=== PATIENT | male | born 1950 ===

== ENCOUNTER 2019-12-05 09:16 | Inpatient (IN) | payer MEDICARE, MEDICAID, SELFPAY ==
--- NOTE | 2019-12-05 | ECG_ITS ---
Test Reason : SWOLLEN LEGS Blood Pressure : / mmHG Vent. Rate : 096 BPM Atrial Rate : 096 BPM P-R Int : 162 ms QRS Dur : 202 ms QT Int : 456 ms P-R-T Axes : 025 -73 053 degrees QTc Int : 576 ms Normal sinus rhythm Possible Left atrial enlargement Left axis deviation Right bundle branch block Abnormal ECG When compared with ECG of 26-OCT-2019 18:00, Heart rate has increased Referred By: Rosa Palma Electronically Signed By:RODOLFO FLORIAN MD
--- NOTE | 2019-12-05 | XR_ITS ---
EXAMINATION: XR CHEST CLINICAL INFORMATION: Cough, shortness of breath COMPARISON: Chest radiograph 10/07/2019, CT chest 10/26/2019, CT chest 10/05/2019 TECHNIQUE: 2 views of the chest were obtained. FINDINGS: Trace bibasilar effusions are decreased from prior studies. There is coarsening of the bronchiolar markings perihilar and lower zones decreased from prior radiograph 10/07/2019. No lobar or segmental airspace consolidation. No vascular congestion. The cardiopericardial silhouette is stable. Again, there is bipolar AICD and sternotomy wires. IMPRESSION: 1. Coarsening bronchiolar markings and small bibasilar effusions both decreased from prior studies. 2. No vascular congestion or interval airspace consolidation.
[2019-12-05 09:34] VITALS: BP 152/100; BP 169/98; PULSE 95; PULSE 99; RESP 22; TEMP 36.6; O2SAT 97; BMI 31.3
[2019-12-05 09:49] LABS: Glucose, Whole Blood > 600 mg/dL (60-115)
--- NOTE | 2019-12-05 10:08 | PC.NURSE ---
Rosa. MARI in to see ptAmarilys
[2019-12-05 10:11] LABS: MANUAL DIFF FLAG NO
[2019-12-05 10:14] LABS: Basophils Percent Auto 0.2 % (0-2); Hematocrit 39.5 % (42-52); Hemoglobin 12.9 g/dl (14.0-18.0); Imm Gran Abs Auto 0.08 X10*3/uL (0.00-0.03); Imm Gran Pct Auto 0.6 % (0.0-0.4); Lymphocytes Absolute Auto 2.8 X10*3/uL (1.2-4.9); Lymphocytes Percent Auto 22.7 % (20-40); Mean Corpuscular HGB Conc 32.7 g/dl (31.0-36.0); Mean Corpuscular Volume 91.9 fL (80-98); Monocytes Absolute Auto 0.6 X10*3/uL (0.1-1.2); Monocytes Percent Auto 4.5 % (2-11); Neutrophils Absolute Auto 8.9 X10*3/uL (2.0-8.3); Platelet Count 246 X10*3/uL (160-400); Red Cell Distribution Width 14.1 % (11.0-16.0); White Blood Count 12.3 X10*3/uL (4.8-10.8)
[2019-12-05] MEDS: Insulin Regular, Human 100 UNIT/ML 3 ML VIAL 10 UNIT SUBCUT (10:17)
[2019-12-05] MEDS: guaiFEN/Codeine SF 200/20/10ML 10 ML LIQUID PO (10:43)
[2019-12-05] MEDS: Furosemide 20 MG/2 ML VIAL IVPUSH (10:43)
--- NOTE | 2019-12-05 10:50 | ED.NAVMDI ---
HPI - Nausea/Vomiting/Diarrhea General Chief complaint: Nausea/Vomiting/Diarrhea Stated complaint: n/v/d Time Seen by Provider: 12/05/19 10:04 Source: EMS Mode of arrival: ambulatory Limitations: no limitations History of Present Illness HPI Narrative: 69yoM c PMHx of CKD on hemodialysis M/W/F, Insulin Dependent DM, HTN, CHF, CAD s/p bypass surgery and cardiomyopathy with last EF at [facility] in 30s, and colon cancer s/p colectomy presenting to the ED via EMS c reports of N ausea/diarrhea c generalized weakness x 4-5 days. Reports he started vomiting yesterday. Admits to chronic b/l lower extremity swelling, sob and dry cough. Denies fevers, CP, abd pain, blood stools or any other symptoms. Reports he was due for dialysis today at 9:30 in [place] on [address] although came here due to his symptoms. Reports on Sunday he had his dialysis. On arrival BS>600. Pt reports he takes 60units of Insulin Glargine at bedtime daily and is on a sliding scale of Novolog for before meals. Reports he did not take his Insulin this AM. Was recently seen here on Oct 26, 3019 and admit for Hyperglycemia, hyperkalemia and unwitnessed fall. Pt has had admissions in the past related to respiratory failure related to CHF as well. Associated nausea: Yes Related Data Home Medications Medication Instructions Recorded Confirmed atorvastatin 1 tab PO DAILY 12/05/19 12/05/19 carvedilol 1 tab PO BID 12/05/19 12/05/19 insulin aspart U-100 [Novolog 60 unit SUBCUT BEDTIME 12/05/19 12/05/19 Flexpen U-100 Insulin] midodrine 1 tab PO TIDWM 12/05/19 12/05/19 sevelamer carbonate [Renvela] 2 tab PO TID 12/05/19 12/05/19 trazodone 1 tab PO BEDTIME 12/05/19 12/05/19 Allergies Allergy/AdvReac Type Severity Reaction Status Date / Time No Known Allergies Allergy Mild NOT Verified 12/04/19 07:32 APPLICABLE Review of Systems Review of Systems: Yes all other systems are reviewed and are negative Constitutional: Constitutional: Reports as per HPI, Denies body ache(s), Denies chills, Denies excessive sweating, Denies frequent falls, Denies headache(s) and Reports weakness Eyes: Eyes: Reports as per HPI ENT: Reports as per HPI, Denies Normal hearing present, Denies vertigo, Denies dizziness, Denies ear discharge, Denies headache(s), Denies nasal congestion, Denies neck pain and Denies sore throat Cardiovascular: Cardiovascular: Reports as per HPI, Denies chest pain, Denies rapid heart rate, Denies lightheadedness, Denies radiating jaw, neck or arm pain, Denies palpitations, Reports dyspnea, Reports dyspnea on exertion and Reports orthopnea Respiratory: Respiratory: Reports as per HPI, Denies cough, Reports dyspnea and Reports dyspnea on exertion Gastrointestinal: Gastrointestinal: Reports as per HPI, Denies abdominal pain, Denies constipation, Reports diarrhea, Reports nausea and Reports vomiting Genitourinary: Genitourinary: Reports as per HPI, Denies change in libido, Denies hematuria, Denies dysuria, Denies urinary frequency and Denies urinary hesitancy Musculoskeletal: Musculoskeletal: Reports as per HPI, Denies abnormal gait, Denies muscle weakness, Denies neck pain, Denies numbness and Denies tingling Integumentary/Breasts: Skin/Breast: Reports as per HPI and Denies rash Neurologic: Reports as per HPI, Denies Normal hearing present, Denies Neuro-related abnormal movements, Denies Abnormal speech present, Denies abnormal gait, Denies behavioral changes, Denies confusion, Denies vertigo, Denies dizziness, Denies frequent falls, Denies headache(s), Denies focal weakness, Denies memory loss, Denies numbness, Denies Other visual disturbances, Denies convulsions, Denies seizure-like activity, Denies tingling, Denies paresthesias and Reports weakness Psychiatric: Psychiatric: Reports as per HPI, Denies abnormal sleep pattern, Reports anxiety, Denies behavioral changes, Denies change in appetite, Denies change in libido, Denies confusion, Reports depression, Denies difficulty concentrating, Denies auditory hallucinations, Reports hopelessness, Denies irritability, Reports anhedonia, Denies memory loss, Denies mood swings, Denies panic attacks, Denies paranoia, Denies visual hallucinations, Denies hallucinations, Denies tactile hallucinations, Denies homicidal ideation and Denies suicidal ideation Endocrine: Endocrine: Denies change in libido, Denies excessive sweating and Denies palpitations Hematologic/Lymphatic: Hematologic/Lymphatic: Reports as per HPI Allergic/Immunologic: Allergic/Immunologic: Reports as per HPI [facility] Past Medical History Attestation statement: The following information was validated with the patient. Medical History Chronic renal failure Diabetes mellitus, type 2 H/O cardiac pacemaker Hypercholesteremia Hypertension Surgical History History of carpal tunnel release History of cholecystectomy History of colon cancer History of coronary artery bypass graft Family History Family History Father Bladder cancer Mother Esophageal cancer Stomach cancer Sister Asthma Emphysema lung Social History Social History Smoked in Last 30 Days: No Use of substances other than those prescribed or required for medical reasons: No Advance Directives: No Advance Directives Information Provided: No Physical Exam Vital Signs and I&O and Narrative: Vital Signs and I&O: Vital Signs Temp 98.8 F 12/05/19 15:27 Pulse 96 12/05/19 15:27 Resp 20 12/05/19 15:42 BP 125/68 12/05/19 15:27 Pulse Ox 96 12/05/19 15:42 Intake & Output 12/04/19 12/05/19 12/05/19 18:59 06:59 18:59 Weight 205 kg Body Mass Index 68.7 Const: General: cooperative, healthy appearing, comfortable, no acute distress, well developed, alert, awake and Physically active; No confusion Nutritional Appearance: obese Orientation/consciousness: patient oriented x3 and No confusion Limitations: no limitations HENMT: Head: Yes normal to inspection, Yes No palpable skull fracture present, Yes normocephalic and Yes atraumatic Ears: hearing grossly normal bilaterally General nose exam: Normal external nose present, Normal nares present, No nasal polyps present, Normal nasal mucous membranes and turbinates present, Normal septum present and No nasal discharge present Face and sinus: Yes normal facial exam Mouth: Normal oral and palatal mucosa present, lip normal, tongue normal, Normal salivary glands and ducts present, oropharynx normal and moist mucous membranes Throat: Yes posterior oropharynx normal, Yes tonsils normal and Yes uvula midline Eyes: General: appearance normal, both eyes and all related structures Visual Plata: normal visual plata by confrontation Alignment and Position: alignment normal Periorbital: periorbital findings normal Eyelids: Yes eyelids normal Conjunctivae: conjunctivae normal Sclerae: sclerae normal Pupils: Equal, round and reactive pupils present EOM: EOMs intact bilaterally Neck: Neck: Yes normal visual inspection, Yes full ROM, Yes no lymphadenopathy, Yes no meningeal signs, Yes trachea midline and Yes supple Chest: Chest palpation & inspection: normal inspection of the chest Resp: Effort & Inspection: normal respiratory effort and able to speak in complete sentences Auscultation: clear to auscultation bilaterally, no crackles, no rales, no rhonchi and no wheezes Cardio: Rate: regular rate Rhythm: regular rhythm Heart sounds: S1 normal heart sound present and S2 normal heart sound present Peripheral pulses: Peripheral pulses 2+ throughout GI: Inspection: Yes normal to inspection Palpation (GI): Soft to palpation, nontender and No hepatosplenomegaly present Percussion: Yes normal to percussion Auscultation: normal bowel sounds : General: Yes no CVA tenderness Back/Spine/Pelvis: Back: no CVA tenderness Cervical Spine: normal cervical lordosis and cervical ROM normal Thoracic/Lumbar Spine: thoracic and lumbar spine normal to inspection and thoraco-lumbar ROM normal Skin: General skin exam: no rashes or lesions noted, elasticity normal and turgor normal Trauma: no lacerations or abrasions Wounds: no wounds Hair: normal Nails: normal Neuro: General: patient oriented x3, no meningeal signs and No confusion Cranial nerves: Yes Equal, round and reactive pupils present and No Normal hearing present Cognition (Neuro): normal cognition Speech: No Abnormal speech present Gait exam (Neuro): Normal gait present Motor exam (neuro): 5/5 motor strength present throughout Extrem: General: Yes normal to inspection, Yes full ROM, Yes capillary refill normal, No no calf tenderness and Yes edema (b/l +2 pitting edema to knees and lower legs and feet) Right upper extremity: normal to inspection, full ROM and normal capillary refill; no edema Left upper extremity: normal to inspection, full ROM and normal capillary refill; no edema Right lower extremity: normal to inspection, full ROM and normal capillary refill Left lower extremity: normal to inspection, full ROM and normal capillary refill Psych: Appearance: grossly normal and well kempt Mental Status: mental status grossly normal Speech and movement: Normal speech and movement present and Clear speech present Affect: normal affect Attitude: cooperative Thought process: Normal thought process present Thought content: Normal thought content present Insight: Good insight present (Psych) Judgement: Good judgement present (Psych) Course Course Course Narrative: - Patient's white blood cell count at 12,000 although most likely related to the multiple episodes of nausea /vomiting prior to arrival. Sodium 129 although corrected is at 141. Potassium 6.0. Chloride 93. Anion gap 22. BUN 58. Creatinine 5.54. Glucose 827. - CXR neg for pna. - Therefore patient was given 10 units of subcu insulin due to patient did not have a line at the time then was given another 10 units of IV Insulin and repeat blood glucose at this time is in the 470s. Patient also received 20 mg of IV Lasix for fluids overload and his coughing has improved. - Plan is to admit and Patient will receive dialysis while admitted. patient positive for COVID-19. Pt understands and agrees with plan. MDM - Nausea/Vomiting/Diarrhea MDM Narrative Medical decision making narrative: 69yoM c PMHx of CKD on hemodialysis M/W/F, Insulin Dependent DM, HTN, CHF, CAD s/p bypass surgery and cardiomyopathy with last EF at [facility] in 30s, and colon cancer s/p colectomy presenting to the ED via EMS c reports of N ausea/diarrhea c generalized weakness x 4-5 days. Reports he started vomiting yesterday. Admits to chronic b/l lower extremity swelling, sob and dry cough. Denies fevers, CP, abd pain, blood stools or any other symptoms. Reports he was due for dialysis today at 9:30 in [place] on [facility] although came here due to his symptoms. Reports on Sunday he had his dialysis. On arrival BS>600. Pt reports he takes 60units of Insulin Glargine at bedtime daily and is on a sliding scale of Novolog for before meals. Reports he did not take his Insulin this AM. Was recently seen here on Oct 26, 3019 and admit for Hyperglycemia, hyperkalemia and unwitnessed fall. Pt has had admissions in the past related to respiratory failure related to CHF as well. - Concern for Viral syndrome vs respiratory failure due to CHF vs Electrolyte abnormality. - Plan: Labs, CXR, EKG. Provide 20mg of lasix, 4 mg of zofran anfd 10 mg of Robitussin with codeine. Plan possible admit. Medical Records Attestation: I reviewed the patient's medical records. Lab Data Attestation: I reviewed the patient's lab results. Result diagrams: 12/05/19 10:04 12/05/19 10:53 Labs: Lab Results 12/05/19 12/05/19 12/05/19 Range/Units 09:35 10:04 10:04 WBC 12.3 H (4.8-10.8) X10*3/uL RBC 4.30 L (4.60-5.80) X10*6/uL Hgb 12.9 L (14.0-18.0) g/dl Hct 39.5 L (42-52) % MCV 91.9 (80-98) fL MCH 30.0 (27.0-33.0) pg MCHC 32.7 (31.0-36.0) g/dl RDW 14.1 (11.0-16.0) % Plt Count 246 (160-400) X10*3/uL MPV 12.0 (9.4-12.4) fL Immature Gran % (Auto) 0.6 H (0.0-0.4) % Neut % (Auto) 72.0 (45-73) % Lymph % (Auto) 22.7 (20-40) % Antelope % (Auto) 4.5 (2-11) % Eos % (Auto) 0.0 (0-4) % Baso % (Auto) 0.2 (0-2) % Lymph # (Auto) 2.8 (1.2-4.9) X10*3/uL Antelope # (Auto) 0.6 (0.1-1.2) X10*3/uL Eos # (Auto) 0.0 (0.0-0.4) X10*3/uL Baso # (Auto) 0.0 (0.0-0.2) X10*3/uL Abs Immat Gran (auto) 0.08 H (0.00-0.03) X10*3/uL Absolute Neuts (auto) 8.9 H (2.0-8.3) X10*3/uL Absolute Nucleated RBC 0.000 (0.0-0.012) X10*3/uL Nucleated RBC % (auto) 0.0 (0.0-0.2) /100WBC Hold Purple Top VBG pH (7.32-7.43) Sodium Cancelled Potassium Cancelled Chloride Cancelled Carbon Dioxide Cancelled Anion Gap Cancelled BUN Cancelled Creatinine Cancelled Estim Creat Clear Calc Cancelled Estimated GFR Cancelled POC Glucose > 600 H* (60-115) mg/dL Random Glucose Cancelled Calcium Cancelled Total Bilirubin Cancelled Direct Bilirubin Cancelled AST Cancelled ALT Cancelled Alkaline Phosphatase Cancelled Lactate Dehydrogenase (118-273) U/L C-Reactive Protein (< or = 0.50) mg/dL Total Protein Cancelled Albumin Cancelled Lipase Cancelled Acetone, Qual (Negative) Respiratory Panel Allen Adenovirus (Rapid PCR) (Not Detect.) B.pert (TEM-PCR) (Not Detect.) B.parapertussis DNA PCR (Not Detect.) C. pneumoniae DNA (PCR) (Not Detect.) Coronavirus OC43 (PCR) (Not Detect.) Coronavirus HKU1 (PCR) (Not Detect.) Coronavirus 229E (PCR) (Not Detect.) Coronavirus NL63 (PCR) (Not Detect.) Human Metapneumovir PCR (Not Detect.) Influenza A (RT-PCR) (Not Detect.) Influenza B (RT-PCR) (Not Detect.) M. pneumoniae (PCR) (Not Detect.) Parainfluenza 1 (PCR) (Not Detect.) Parainfluenza 2 (PCR) (Not Detect.) Parainfluenza 3 (PCR) (Not Detect.) Parainfluenza 4 (PCR) (Not Detect.) RSV (PCR) (Not Detect.) Entero/Rhino (PCR) (Not Detect.) SARS-CoV-2 RNA (RT-PCR) (Not Detect.) 12/05/19 12/05/19 12/05/19 Range/Units 10:28 10:53 11:24 WBC (4.8-10.8) X10*3/uL RBC (4.60-5.80) X10*6/uL Hgb (14.0-18.0) g/dl Hct (42-52) % MCV (80-98) fL MCH (27.0-33.0) pg MCHC (31.0-36.0) g/dl RDW (11.0-16.0) % Plt Count (160-400) X10*3/uL MPV (9.4-12.4) fL Immature Gran % (Auto) (0.0-0.4) % Neut % (Auto) (45-73) % Lymph % (Auto) (20-40) % Antelope % (Auto) (2-11) % Eos % (Auto) (0-4) % Baso % (Auto) (0-2) % Lymph # (Auto) (1.2-4.9) X10*3/uL Antelope # (Auto) (0.1-1.2) X10*3/uL Eos # (Auto) (0.0-0.4) X10*3/uL Baso # (Auto) (0.0-0.2) X10*3/uL Abs Immat Gran (auto) (0.00-0.03) X10*3/uL Absolute Neuts (auto) (2.0-8.3) X10*3/uL Absolute Nucleated RBC (0.0-0.012) X10*3/uL Nucleated RBC % (auto) (0.0-0.2) /100WBC Hold Purple Top SEE NOTE VBG pH (7.32-7.43) Sodium 129 L Potassium 6.0 H* Chloride 93 L Carbon Dioxide 20 L Anion Gap 22 H BUN 58 H Creatinine 5.54 H* Estim Creat Clear Calc 22.5 Estimated GFR 10 POC Glucose > 600 H* (60-115) mg/dL Random Glucose 827 H* Calcium 8.7 Total Bilirubin 1.0 Direct Bilirubin 0.6 H AST 25 ALT 69 H Alkaline Phosphatase 370 H Lactate Dehydrogenase 270 (118-273) U/L C-Reactive Protein 3.74 H (< or = 0.50) mg/dL Total Protein 6.3 L Albumin 4.0 Lipase 26 Acetone, Qual Negative (Negative) Respiratory Panel Allen Adenovirus (Rapid PCR) (Not Detect.) B.pert (TEM-PCR) (Not Detect.) B.parapertussis DNA PCR (Not Detect.) C. pneumoniae DNA (PCR) (Not Detect.) Coronavirus OC43 (PCR) (Not Detect.) Coronavirus HKU1 (PCR) (Not Detect.) Coronavirus 229E (PCR) (Not Detect.) Coronavirus NL63 (PCR) (Not Detect.) Human Metapneumovir PCR (Not Detect.) Influenza A (RT-PCR) (Not Detect.) Influenza B (RT-PCR) (Not Detect.) M. pneumoniae (PCR) (Not Detect.) Parainfluenza 1 (PCR) (Not Detect.) Parainfluenza 2 (PCR) (Not Detect.) Parainfluenza 3 (PCR) (Not Detect.) Parainfluenza 4 (PCR) (Not Detect.) RSV (PCR) (Not Detect.) Entero/Rhino (PCR) (Not Detect.) SARS-CoV-2 RNA (RT-PCR) (Not Detect.) 12/05/19 12/05/19 12/05/19 Range/Units 11:54 12:10 12:42 WBC (4.8-10.8) X10*3/uL RBC (4.60-5.80) X10*6/uL Hgb (14.0-18.0) g/dl Hct (42-52) % MCV (80-98) fL MCH (27.0-33.0) pg MCHC (31.0-36.0) g/dl RDW (11.0-16.0) % Plt Count (160-400) X10*3/uL MPV (9.4-12.4) fL Immature Gran % (Auto) (0.0-0.4) % Neut % (Auto) (45-73) % Lymph % (Auto) (20-40) % Antelope % (Auto) (2-11) % Eos % (Auto) (0-4) % Baso % (Auto) (0-2) % Lymph # (Auto) (1.2-4.9) X10*3/uL Antelope # (Auto) (0.1-1.2) X10*3/uL Eos # (Auto) (0.0-0.4) X10*3/uL Baso # (Auto) (0.0-0.2) X10*3/uL Abs Immat Gran (auto) (0.00-0.03) X10*3/uL Absolute Neuts (auto) (2.0-8.3) X10*3/uL Absolute Nucleated RBC (0.0-0.012) X10*3/uL Nucleated RBC % (auto) (0.0-0.2) /100WBC Hold Purple Top VBG pH 7.32 (7.32-7.43) Sodium Potassium Chloride Carbon Dioxide Anion Gap BUN Creatinine Estim Creat Clear Calc Estimated GFR POC Glucose > 600 H* (60-115) mg/dL Random Glucose Calcium Total Bilirubin Direct Bilirubin AST ALT Alkaline Phosphatase Lactate Dehydrogenase (118-273) U/L C-Reactive Protein (< or = 0.50) mg/dL Total Protein Albumin Lipase Acetone, Qual (Negative) Respiratory Panel Allen See Note Adenovirus (Rapid PCR) Not Detected (Not Detect.) B.pert (TEM-PCR) Not Detected (Not Detect.) B.parapertussis DNA PCR Not Detected (Not Detect.) C. pneumoniae DNA (PCR) Not Detected (Not Detect.) Coronavirus OC43 (PCR) Not Detected (Not Detect.) Coronavirus HKU1 (PCR) Not Detected (Not Detect.) Coronavirus 229E (PCR) Not Detected (Not Detect.) Coronavirus NL63 (PCR) Not Detected (Not Detect.) Human Metapneumovir PCR Not Detected (Not Detect.) Influenza A (RT-PCR) Not Detected (Not Detect.) Influenza B (RT-PCR) Not Detected (Not Detect.) M. pneumoniae (PCR) Not Detected (Not Detect.) Parainfluenza 1 (PCR) Not Detected (Not Detect.) Parainfluenza 2 (PCR) Not Detected (Not Detect.) Parainfluenza 3 (PCR) Not Detected (Not Detect.) Parainfluenza 4 (PCR) Not Detected (Not Detect.) RSV (PCR) Not Detected (Not Detect.) Entero/Rhino (PCR) Not Detected (Not Detect.) SARS-CoV-2 RNA (RT-PCR) Detected A (Not Detect.) 12/05/19 12/05/19 Range/Units 14:20 15:30 WBC (4.8-10.8) X10*3/uL RBC (4.60-5.80) X10*6/uL Hgb (14.0-18.0) g/dl Hct (42-52) % MCV (80-98) fL MCH (27.0-33.0) pg MCHC (31.0-36.0) g/dl RDW (11.0-16.0) % Plt Count (160-400) X10*3/uL MPV (9.4-12.4) fL Immature Gran % (Auto) (0.0-0.4) % Neut % (Auto) (45-73) % Lymph % (Auto) (20-40) % Antelope % (Auto) (2-11) % Eos % (Auto) (0-4) % Baso % (Auto) (0-2) % Lymph # (Auto) (1.2-4.9) X10*3/uL Antelope # (Auto) (0.1-1.2) X10*3/uL Eos # (Auto) (0.0-0.4) X10*3/uL Baso # (Auto) (0.0-0.2) X10*3/uL Abs Immat Gran (auto) (0.00-0.03) X10*3/uL Absolute Neuts (auto) (2.0-8.3) X10*3/uL Absolute Nucleated RBC (0.0-0.012) X10*3/uL Nucleated RBC % (auto) (0.0-0.2) /100WBC Hold Purple Top VBG pH (7.32-7.43) Sodium Potassium Chloride Carbon Dioxide Anion Gap BUN Creatinine Estim Creat Clear Calc Estimated GFR POC Glucose 478 H* 448 H* (60-115) mg/dL Random Glucose Calcium Total Bilirubin Direct Bilirubin AST ALT Alkaline Phosphatase Lactate Dehydrogenase (118-273) U/L C-Reactive Protein (< or = 0.50) mg/dL Total Protein Albumin Lipase Acetone, Qual (Negative) Respiratory Panel Allen Adenovirus (Rapid PCR) (Not Detect.) B.pert (TEM-PCR) (Not Detect.) B.parapertussis DNA PCR (Not Detect.) C. pneumoniae DNA (PCR) (Not Detect.) Coronavirus OC43 (PCR) (Not Detect.) Coronavirus HKU1 (PCR) (Not Detect.) Coronavirus 229E (PCR) (Not Detect.) Coronavirus NL63 (PCR) (Not Detect.) Human Metapneumovir PCR (Not Detect.) Influenza A (RT-PCR) (Not Detect.) Influenza B (RT-PCR) (Not Detect.) M. pneumoniae (PCR) (Not Detect.) Parainfluenza 1 (PCR) (Not Detect.) Parainfluenza 2 (PCR) (Not Detect.) Parainfluenza 3 (PCR) (Not Detect.) Parainfluenza 4 (PCR) (Not Detect.) RSV (PCR) (Not Detect.) Entero/Rhino (PCR) (Not Detect.) SARS-CoV-2 RNA (RT-PCR) (Not Detect.) ECG Data Attestation: I personally reviewed and interpreted this ECG as follows: ECG interpretation date: 12/05/19 ECG interpretation time: 10:40 Prior ECG tracings: available for review Interpretation: normal sinus rhythm with a ventricular rate of 96 with left atrial enlargement with a left axis deviation and right bundle-branch block, and similar when compared to prior on 10/26/2019 no acute ischemic changes noted. Critical Care Time Critical Care Time Critical Care Time: Yes Total Critical Care Time: 60 Attestation: I attest to this document Discharge Plan Discharge Clinical Impression: Acute hyperglycemia, Acute hyperkalemia, Volume overload, CKD (chronic kidney disease) requiring chronic dialysis, COVID-19 Patient Disposition: Admitted As Inpatient
[2019-12-05 11:27] LABS: Glucose, Whole Blood > 600 mg/dL (60-115)
[2019-12-05 11:40] LABS: Alanine Aminotransferase 69 U/L (0-40); Alkaline Phosphatase 370 U/L (39-117); Aspartate Amino Transferase 25 U/L (5-37); Bilirubin Direct 0.6 mg/dL (0.0-0.5); Blood Urea Nitrogen 58 mg/dL (9-16); Calcium 8.7 mg/dL (8.4-10.2); Lipase 26 U/L (8-78); Total Protein 6.3 g/dL (6.5-8.0)
[2019-12-05 12:01] LABS: Anion Gap 22 (12-20); Carbon Dioxide 20 mmol/L (22-29); Chloride 93 mmol/L (96-108); Creatinine Clr Calc Pharmacy 22.5; Estimated Glomerular Filt Rate 10; Glucose Random 827 mg/dL (60-115); Sodium 129 mmol/L (135-145)
[2019-12-05 12:03] LABS: Adenovirus PCR Not Detected (Not Detect.); Bordetella parapertussis PCR Not Detected (Not Detect.); Bordetella pertussis PCR Not Detected (Not Detect.); Chlamydia pneumoniae PCR Not Detected (Not Detect.); Coronavirus 229E PCR Not Detected (Not Detect.); Coronavirus HKU1 PCR Not Detected (Not Detect.); Coronavirus NL63 PCR Not Detected (Not Detect.); Coronavirus OC43 PCR Not Detected (Not Detect.); Human metapneumovirus PCR Not Detected (Not Detect.); Influenza A PCR Not Detected (Not Detect.); Influenza B PCR Not Detected (Not Detect.); Mycoplasma pneumoniae PCR Not Detected (Not Detect.); Parainfluenza 1 PCR Not Detected (Not Detect.); Parainfluenza 2 PCR Not Detected (Not Detect.); Parainfluenza 3 PCR Not Detected (Not Detect.); Parainfluenza 4 PCR Not Detected (Not Detect.); RSV PCR Not Detected (Not Detect.); Rhino/Enterovirus PCR Not Detected (Not Detect.)
[2019-12-05] MEDS: Insulin Regular, Human 100 UNIT/ML 3 ML VIAL 10 UNIT IVPUSH (12:11)
[2019-12-05 12:20] LABS: Acetone, serum QL Negative (Negative)
[2019-12-05 12:28] LABS: pH VBG 7.32 (7.32-7.43)
[2019-12-05 12:48] LABS: Glucose, Whole Blood > 600 mg/dL (60-115)
[2019-12-05 13:03] LABS: SARS-CoV-2 PCR Detected (Not Detect.)
[2019-12-05 14:28] LABS: Glucose, Whole Blood 478 mg/dL (60-115)
[2019-12-05 15:27] VITALS: BP 125/68; PULSE 96; RESP 20; TEMP 37.1; O2SAT 96
[2019-12-05 15:41] LABS: Glucose, Whole Blood 448 mg/dL (60-115)
[2019-12-05 15:42] VITALS: RESP 20; O2SAT 96
[2019-12-05 16:02] LABS: C Reactive Protein 3.74 mg/dL (< or = 0.50); Lactate Dehydrogenase 270 U/L (118-273)
--- NOTE | 2019-12-05 16:23 | PM.IMHP ---
History of Present Illness Date of Service: 12/05/19 <MARI Santiago - Last Filed: 12/05/19 16:54> Chief Complaint: n/v/d <MARI Santiago - Last Filed: 12/05/19 16:54> this is a 69-year-old male with multiple medical problems who presents to the emergency department with complaints of nausea, vomiting, diarrhea. He also reports associated cough. He denies associated abdominal pain. He denies associated fever chills. No recent travel or takeout food and no recent sick contacts as far as he knows. Given cough he had a respiratory pathogen panel drawn which returned positive for COVID-19. His potassium was Noted to be elevated. Initially his sugar was 827. He received insulin and this improved to around 400. he was not noted to be in DKA. He was unable to have outpatient dialysis scheduled as he missed his session today. Decision was made to admit him for further management <MARI Santiago - Last Filed: 12/05/19 16:54> Review of Systems Review of Systems: Yes all other systems are reviewed and are negative <MARI Santiago - Last Filed: 12/05/19 16:54> Constitutional: Constitutional: Denies chills and Denies fever(s) <MARI Santiago - Last Filed: 12/05/19 16:54> Cardiovascular: Cardiovascular: Denies dyspnea <MARI Santiago - Last Filed: 12/05/19 16:54> Respiratory: Respiratory: Reports cough and Denies dyspnea <MARI Santiago Last Filed: 12/05/19 16:54> Gastrointestinal: Gastrointestinal: Denies abdominal pain, Reports diarrhea, Reports nausea and Reports vomiting <MARI Santiago Last Filed: 12/05/19 16:54> [facility] Medical History: Medical History (Updated 12/05/19 @ 16:42 by MARI Santiago) AVF (arteriovenous fistula) CAD (coronary artery disease) Cardiomyopathy Diabetes mellitus, type 2 ESRD (end stage renal disease) on dialysis H/O cardiac pacemaker Hypercholesteremia Hypertension Orthostatic hypotension <MARI Santiago Last Filed: 12/05/19 16:54> Family History: Family History Father Bladder cancer Mother Esophageal cancer Stomach cancer Sister Asthma Emphysema lung <MARI Santiago - Last Filed: 12/05/19 16:54> Surgical History: Surgical History History of carpal tunnel release History of cholecystectomy History of colon cancer History of coronary artery bypass graft <MARI Santiago - Last Filed: 12/05/19 16:54> Social History: Social History Smoked in Last 30 Days: No Use of substances other than those prescribed or required for medical reasons: No Advance Directives: No Advance Directives Information Provided: No <MARI Santiago - Last Filed: 12/05/19 16:54> Meds Allergies/Adverse reactions: Allergies Allergy/AdvReac Type Severity Reaction Status Date / Time No Known Allergies Allergy Mild NOT Verified 12/04/19 07:32 APPLICABLE <MARI Santiago - Last Filed: 12/05/19 16:54> Home medications: Home Medications Medication Instructions Recorded Confirmed Type atorvastatin 80 mg PO DAILY 12/05/19 12/05/19 History carvedilol 12.5 mg PO BID 12/05/19 12/05/19 History insulin aspart U-100 [Novolog 60 unit SUBCUT BEDTIME 12/05/19 12/05/19 History Flexpen U-100 Insulin] midodrine 5 mg PO TIDWM 12/05/19 12/05/19 History sevelamer carbonate [Renvela] 1,600 mg PO TID 12/05/19 12/05/19 History trazodone 100 mg PO BEDTIME 12/05/19 12/05/19 History <MARI Santiago - Last Filed: 12/05/19 16:54> Physical Exam Vital Signs and Narrative: Vital Signs: Last Vital Signs Temp 98.8 F 12/05/19 15:27 Pulse 96 12/05/19 15:27 Resp 20 12/05/19 15:42 BP 125/68 12/05/19 15:27 Pulse Ox 96 10/09/20 15:42 Body Mass Index 68.7 <MARI Santiago - Last Filed: 12/05/19 16:54> Const: Nutritional Appearance: well nourished <MARI Santiago - Last Filed: 12/05/19 16:54> Orientation/consciousness: patient oriented x3 <MARI Santiago - Last Filed: 12/05/19 16:54> HENMT: Head: Yes normocephalic and Yes atraumatic <MARI Santiago - Last Filed: 12/05/19 16:54> Eyes: Sclerae: sclerae normal <MARI Santiago - Last Filed: 12/05/19 16:54> Chest: Chest palpation & inspection: normal inspection of the chest <MARI Santiago Last Filed: 12/05/19 16:54> Resp: Effort & Inspection: normal respiratory effort and no respiratory distress <MARI Santiago - Last Filed: 12/05/19 16:54> Cardio: Rate: regular rate <MARI Santiago Last Filed: 12/05/19 16:54> Rhythm: regular rhythm <MARI Santiago - Last Filed: 12/05/19 16:54> GI: Palpation (GI): Soft to palpation and nontender <MARI Santiago Last Filed: 12/05/19 16:54> Skin: General skin exam: no rashes or lesions noted <MARI Santiago - Last Filed: 12/05/19 16:54> Neuro: General: patient oriented x3 <MARI Santiago - Last Filed: 12/05/19 16:54> Cranial nerves: Yes CN's II-XII intact bilaterally and Yes Bilaterally intact EOM present <MARI Santiago Last Filed: 12/05/19 16:54> Extrem: General: Yes normal to inspection <MARI Santiago - Last Filed: 12/05/19 16:54> Results Labs Labs: Laboratory Tests 12/05/19 12/05/19 12/05/19 09:35 10:04 10:04 WBC 12.3 H RBC 4.30 L Hgb 12.9 L Hct 39.5 L MCV 91.9 MCH 30.0 MCHC 32.7 RDW 14.1 Plt Count 246 MPV 12.0 Immature Gran % (Auto) 0.6 H Neut % (Auto) 72.0 Lymph % (Auto) 22.7 [place] % (Auto) 4.5 Eos % (Auto) 0.0 Baso % (Auto) 0.2 Lymph # (Auto) 2.8 [place] # (Auto) 0.6 Eos # (Auto) 0.0 Baso # (Auto) 0.0 Abs Immat Gran (auto) 0.08 H Absolute Neuts (auto) 8.9 H Absolute Nucleated RBC 0.000 Nucleated RBC % (auto) 0.0 Hold Purple Top VBG pH Sodium Cancelled Potassium Cancelled Chloride Cancelled Carbon Dioxide Cancelled Anion Gap Cancelled BUN Cancelled Creatinine Cancelled Estim Creat Clear Calc Cancelled Estimated GFR Cancelled POC Glucose > 600 H* Random Glucose Cancelled Calcium Cancelled Total Bilirubin Cancelled Direct Bilirubin Cancelled AST Cancelled ALT Cancelled Alkaline Phosphatase Cancelled Lactate Dehydrogenase C-Reactive Protein Total Protein Cancelled Albumin Cancelled Lipase Cancelled Acetone, Qual Respiratory Panel [place] Adenovirus (Rapid PCR) B.pert (TEM-PCR) B.parapertussis DNA PCR C. pneumoniae DNA (PCR) Coronavirus OC43 (PCR) Coronavirus HKU1 (PCR) Coronavirus 229E (PCR) Coronavirus NL63 (PCR) Human Metapneumovir PCR Influenza A (RT-PCR) Influenza B (RT-PCR) M. pneumoniae (PCR) Parainfluenza 1 (PCR) Parainfluenza 2 (PCR) Parainfluenza 3 (PCR) Parainfluenza 4 (PCR) RSV (PCR) Entero/Rhino (PCR) SARS-CoV-2 RNA (RT-PCR) 12/05/19 12/05/19 12/05/19 10:28 10:53 11:24 WBC RBC Hgb Hct MCV MCH MCHC RDW Plt Count MPV Immature Gran % (Auto) Neut % (Auto) Lymph % (Auto) [place] % (Auto) Eos % (Auto) Baso % (Auto) Lymph # (Auto) [place] # (Auto) Eos # (Auto) Baso # (Auto) Abs Immat Gran (auto) Absolute Neuts (auto) Absolute Nucleated RBC Nucleated RBC % (auto) Hold Purple Top SEE NOTE VBG pH Sodium 129 L Potassium 6.0 H* Chloride 93 L Carbon Dioxide 20 L Anion Gap 22 H BUN 58 H Creatinine 5.54 H* Estim Creat Clear Calc 22.5 Estimated GFR 10 POC Glucose > 600 H* Random Glucose 827 H* Calcium 8.7 Total Bilirubin 1.0 Direct Bilirubin 0.6 H AST 25 ALT 69 H Alkaline Phosphatase 370 H Lactate Dehydrogenase 270 C-Reactive Protein 3.74 H Total Protein 6.3 L Albumin 4.0 Lipase 26 Acetone, Qual Negative Respiratory Panel [place] Adenovirus (Rapid PCR) B.pert (TEM-PCR) B.parapertussis DNA PCR C. pneumoniae DNA (PCR) Coronavirus OC43 (PCR) Coronavirus HKU1 (PCR) Coronavirus 229E (PCR) Coronavirus NL63 (PCR) Human Metapneumovir PCR Influenza A (RT-PCR) Influenza B (RT-PCR) M. pneumoniae (PCR) Parainfluenza 1 (PCR) Parainfluenza 2 (PCR) Parainfluenza 3 (PCR) Parainfluenza 4 (PCR) RSV (PCR) Entero/Rhino (PCR) SARS-CoV-2 RNA (RT-PCR) 12/05/19 12/05/19 12/05/19 11:54 12:10 12:42 WBC RBC Hgb Hct MCV MCH MCHC RDW Plt Count MPV Immature Gran % (Auto) Neut % (Auto) Lymph % (Auto) [place] % (Auto) Eos % (Auto) Baso % (Auto) Lymph # (Auto) [place] # (Auto) Eos # (Auto) Baso # (Auto) Abs Immat Gran (auto) Absolute Neuts (auto) Absolute Nucleated RBC Nucleated RBC % (auto) Hold Purple Top VBG pH 7.32 Sodium Potassium Chloride Carbon Dioxide Anion Gap BUN Creatinine Estim Creat Clear Calc Estimated GFR POC Glucose > 600 H* Random Glucose Calcium Total Bilirubin Direct Bilirubin AST ALT Alkaline Phosphatase Lactate Dehydrogenase C-Reactive Protein Total Protein Albumin Lipase Acetone, Qual Respiratory Panel [place] See Note Adenovirus (Rapid PCR) Not Detected B.pert (TEM-PCR) Not Detected B.parapertussis DNA PCR Not Detected C. pneumoniae DNA (PCR) Not Detected Coronavirus OC43 (PCR) Not Detected Coronavirus HKU1 (PCR) Not Detected Coronavirus 229E (PCR) Not Detected Coronavirus NL63 (PCR) Not Detected Human Metapneumovir PCR Not Detected Influenza A (RT-PCR) Not Detected Influenza B (RT-PCR) Not Detected M. pneumoniae (PCR) Not Detected Parainfluenza 1 (PCR) Not Detected Parainfluenza 2 (PCR) Not Detected Parainfluenza 3 (PCR) Not Detected Parainfluenza 4 (PCR) Not Detected RSV (PCR) Not Detected Entero/Rhino (PCR) Not Detected SARS-CoV-2 RNA (RT-PCR) Detected A 12/05/19 12/05/19 14:20 15:30 WBC RBC Hgb Hct MCV MCH MCHC RDW Plt Count MPV Immature Gran % (Auto) Neut % (Auto) Lymph % (Auto) [place] % (Auto) Eos % (Auto) Baso % (Auto) Lymph # (Auto) [place] # (Auto) Eos # (Auto) Baso # (Auto) Abs Immat Gran (auto) Absolute Neuts (auto) Absolute Nucleated RBC Nucleated RBC % (auto) Hold Purple Top VBG pH Sodium Potassium Chloride Carbon Dioxide Anion Gap BUN Creatinine Estim Creat Clear Calc Estimated GFR POC Glucose 478 H* 448 H* Random Glucose Calcium Total Bilirubin Direct Bilirubin AST ALT Alkaline Phosphatase Lactate Dehydrogenase C-Reactive Protein Total Protein Albumin Lipase Acetone, Qual Respiratory Panel [place] Adenovirus (Rapid PCR) B.pert (TEM-PCR) B.parapertussis DNA PCR C. pneumoniae DNA (PCR) Coronavirus OC43 (PCR) Coronavirus HKU1 (PCR) Coronavirus 229E (PCR) Coronavirus NL63 (PCR) Human Metapneumovir PCR Influenza A (RT-PCR) Influenza B (RT-PCR) M. pneumoniae (PCR) Parainfluenza 1 (PCR) Parainfluenza 2 (PCR) Parainfluenza 3 (PCR) Parainfluenza 4 (PCR) RSV (PCR) Entero/Rhino (PCR) SARS-CoV-2 RNA (RT-PCR) <MARI Santiago - Last Filed: 12/05/19 16:54> Assessment and Plan (1) ESRD (end stage renal disease) on dialysis: Status: Acute <MARI Santiago - Last Filed: 12/05/19 16:54> (2) COVID-19: Status: Acute <MARI Santiago - Last Filed: 12/05/19 16:54> this is a 69-year-old male with a history of ESRD on hemodialysis, CHF, cardiomyopathy, CAD, dm, HTN who presents to the emergency department with nausea, vomiting, diarrhea found to have hyperglycemia thank in COVID-19 positivity. COVID-19 infection - check coronavirus labs - continue supportive care - ID consult N/V/D may be related to viral illness continue supportive care ESRD on HD MWF - Nephrology consult for inpatient dialysis hyperkalemia in the setting of ESRD - 1 dose of Kayexalate, should improve with dialysis diabetes with hyperglycemia no evidence of DKA - continue home dose of insulin - SSI, POCs hyponatremia pseudo hyponatremia secondary to hyperglycemia orthostatic hypotension continue midodrine on dialysis days CAD no chest pain continue beta goran, statin DVT prophylaxis- heparin code status- full code this case was discussed with Dr. Gross <MARI Santiago - Last Filed: 12/05/19 16:54> Patient seen and examined. Case discussed with MARI Loyd. Agree with her history and physical + plan as documented above <Aristeo Gross MD - Last Filed: 12/05/19 17:13>
[2019-12-05 16:32] LABS: D Dimer 610 NG/ML
[2019-12-05 17:03] LABS: Ferritin 1890 ng/mL (20-250)
[2019-12-05 17:20] VITALS: BP 151/86; PULSE 97; RESP 22; TEMP 36.6; O2SAT 96
--- NOTE | 2019-12-05 17:28 | PC.NURSE ---
CALLED X1 FOR REPORT
[2019-12-05 17:44] LABS: Glucose Urine UA >=1000 MG/DL (NEG); Leukocyte Esterase Urine NEG (NEG); Nitrite Urine NEG (NEG); Specific Gravity - Urine 1.015 (1.005-1.025); Urine Blood 2+ (NEG); Urine Ketones NEG (NEG); Urine Protein 2+ MG/DL (NEG-TRACE)
[2019-12-05 17:46] LABS: Appearance Urine CLEAR; Color Urine YELLOW
[2019-12-05 18:05] LABS: Squamous Epithelial Cell Urine TRACE /LPF; WBC Urine 0-2 /HPF (0-4)
[2019-12-05 19:33] LABS: Procalcitonin 0.39 ng/mL
--- NOTE | 2019-12-05 19:38 | P.CONNP_ITS ---
History of Present Illness Reason for Consult Consult date: 12/05/19 Reason for consult: ESRD Chief Complaint Chief complaint: n/v/d History of Present Illness Narrative: 69 y/o esrd with multiple c/o: N/V, SOB, cough and feeling swollen. Noted severe hyperglycemia and COVID positive in ER. [facility] HD day is MWF. No CP. Review of Systems Constitutional: Denies frequent falls, Denies headache(s) and Reports weakness Denies Normal hearing present, Denies vertigo, Denies dizziness and Denies headache(s) Musculoskeletal: Denies abnormal gait, Denies numbness and Denies tingling Reports as per HPI, Denies Normal hearing present, Denies Neuro-related abnormal movements, Denies Abnormal speech present, Denies abnormal gait, Denies behavioral changes, Denies confusion, Denies vertigo, Denies dizziness, Denies frequent falls, Denies headache(s), Denies focal weakness, Denies memory loss, Denies numbness, Denies Other visual disturbances, Denies convulsions, Denies seizure-like activity, Denies tingling, Denies paresthesias and Reports weakness Psychiatric: Denies behavioral changes, Denies confusion and Denies memory loss [facility] Past Medical History Medical History (Updated 12/05/19 @ 16:42 by MARI Santiago) AVF (arteriovenous fistula) CAD (coronary artery disease) Cardiomyopathy Diabetes mellitus, type 2 ESRD (end stage renal disease) on dialysis H/O cardiac pacemaker Hypercholesteremia Hypertension Orthostatic hypotension Family History Family History Father Bladder cancer Mother Esophageal cancer Stomach cancer Sister Asthma Emphysema lung Surgical History Surgical History History of carpal tunnel release History of cholecystectomy History of colon cancer History of coronary artery bypass graft Social History Social History Smoked in Last 30 Days: No Use of substances other than those prescribed or required for medical reasons: No Advance Directives: No Advance Directives Information Provided: No Meds Allergies Allergy/AdvReac Type Severity Reaction Status Date / Time No Known Allergies Allergy Mild NOT Verified 12/04/19 07:32 APPLICABLE Home Medications Medication Instructions Recorded Confirmed Type atorvastatin 80 mg PO DAILY 12/05/19 12/05/19 History carvedilol 12.5 mg PO BID 12/05/19 12/05/19 History insulin aspart U-100 [Novolog 60 unit SUBCUT BEDTIME 12/05/19 12/05/19 History Flexpen U-100 Insulin] midodrine 5 mg PO TIDWM 12/05/19 12/05/19 History sevelamer carbonate [Renvela] 1,600 mg PO TID 12/05/19 12/05/19 History trazodone 100 mg PO BEDTIME 12/05/19 12/05/19 History Physical Exam Vital Signs and I&O: Vital Signs Temp 97.8 F 12/05/19 17:20 Pulse 97 12/05/19 17:20 Resp 22 H 12/05/19 17:20 BP 151/86 H 12/05/19 17:20 Pulse Ox 96 12/05/19 17:20 Intake & Output 12/05/19 12/05/19 12/06/19 06:59 18:59 06:59 Weight 93.416 kg Body Mass Index 31.3 Const General: No confusion Nutritional Appearance: well nourished and obese Orientation/consciousness: No confusion Limitations: no limitations [facility] Head: Yes normal to inspection, Yes No palpable skull fracture present, Yes n ormocephalic and Yes atraumatic Ears: hearing grossly normal bilaterally General nose exam: Normal external nose present, Normal nares present, No nasal polyps present, Normal nasal mucous membranes and turbinates present, Normal septum present and No nasal discharge present Face and sinus: Yes normal facial exam Mouth: Normal oral and palatal mucosa present, lip normal, tongue normal, Normal salivary glands and ducts present, oropharynx normal and moist mucous membranes Throat: Yes posterior oropharynx normal, Yes tonsils normal and Yes uvula midline Eyes General: appearance normal, both eyes and all related structures Visual Plata: normal visual plata by confrontation Alignment and Position: alignment normal Periorbital: periorbital findings normal Eyelids: Yes eyelids normal Conjunctivae: conjunctivae normal Sclerae: sclerae normal Pupils: Equal, round and reactive pupils present EOM: EOMs intact bilaterally Neck Neck: Yes normal visual inspection, Yes full ROM, Yes no lymphadenopathy, Yes no meningeal signs, Yes trachea midline and Yes supple Chest Chest palpation & inspection: normal inspection of the chest Resp Effort & Inspection: normal respiratory effort, able to speak in complete sentences and no respiratory distress Auscultation: clear to auscultation bilaterally, no crackles, no rales, no rhonchi and no wheezes Cardio Rate: regular rate Rhythm: regular rhythm Heart sounds: S1 normal heart sound present and S2 normal heart sound present Peripheral pulses: Peripheral pulses 2+ throughout GI Inspection: Yes normal to inspection Palpation (GI): Soft to palpation, nontender and No hepatosplenomegaly present Percussion: Yes normal to percussion Auscultation: normal bowel sounds General: Yes no CVA tenderness Back/Spine/Pelvis Back: no CVA tenderness Cervical Spine: normal cervical lordosis and cervical ROM normal Thoracic/Lumbar Spine: thoracic and lumbar spine normal to inspection and thoraco-lumbar ROM normal Skin General skin exam: no rashes or lesions noted, elasticity normal and turgor normal Trauma: no lacerations or abrasions Wounds: no wounds Hair: normal Nails: normal Neuro General: no meningeal signs and No confusion Cranial nerves: Yes Equal, round and reactive pupils present and No Normal hearing present Cognition (Neuro): normal cognition Speech: No Abnormal speech present Gait exam (Neuro): Normal gait present Motor exam (neuro): 5/5 motor strength present throughout Extrem General: Yes normal to inspection, Yes full ROM, Yes capillary refill normal, No no calf tenderness and Yes edema (b/l +2 pitting edema to knees and lower legs and feet) Right upper extremity: normal to inspection, full ROM and normal capillary refill; no edema Left upper extremity: normal to inspection, full ROM and normal capillary refill; no edema Right lower extremity: normal to inspection, full ROM and normal capillary refill Left lower extremity: normal to inspection, full ROM and normal capillary refill Psych Appearance: grossly normal and well kempt Mental Status: mental status grossly normal Speech and movement: Normal speech and movement present and Clear speech present Affect: normal affect Attitude: cooperative Thought process: Normal thought process present Thought content: Normal thought content present Insight: Good insight present (Psych) Judgement: Good judgement present (Psych) Results Lab Results Result Diagrams: 12/05/19 10:04 12/05/19 10:53 Lab results: Chemistry 12/05/19 12/05/19 10:04 10:53 Sodium Cancelled 129 L Potassium Cancelled 6.0 H* Carbon Dioxide Cancelled 20 L BUN Cancelled 58 H Creatinine Cancelled 5.54 H* Calcium Cancelled 8.7 Hematology 12/05/19 10:04 WBC 12.3 H Hgb 12.9 L Plt Count 246 Urinalysis 12/05/19 17:23 Urine Color YELLOW Urine Appearance CLEAR Urine pH 6.0 Ur Specific [place] 1.015 Urine Protein 2+ H Urine Glucose (UA) >=1000 H Urine Ketones NEG Urine Blood 2+ H Urine Nitrite NEG Ur Leukocyte Esterase NEG Urine RBC 5-9 H Urine WBC 0-2 Ur Squamous Epith Cells TRACE Assessment and Plan (1) ESRD (end stage renal disease) on dialysis: Status: Acute (2) Acute hyperglycemia: Status: Acute (3) Acute hyperkalemia: Status: Acute (4) Volume overload: Status: Acute (5) CKD (chronic kidney disease) requiring chronic dialysis: Status: Acute (6) COVID-19: Status: Acute 1. ESRD: nl mWF..will do HD tonight 2. HyperK: control BS should bring K down as well as HD tonight 3. HypoNa: d/t hyperglcemi 4.DM with markedly elevated BS 5. TBFOL 6. COVID positive: ID to evaluate Tx options REC: HD tonight; pulll fluid as tolerated; ID to evl options Pt is now the second PT adm tonite that is ERSD from [facility] ( tel [phone]) 2nd shift mwf HD unit that is COVID positive; I informed the charge nurse Juliet at the [facility] unit and she is going to inform the admin and medical diector as the will need to take approprotae precautions and tracking of the other patients and staff at the outpt unit..dawn on that shift
[2019-12-05 20:00] VITALS: BP 229/40; PULSE 80; RESP 18; TEMP 36.7
[2019-12-05 20:14] LABS: Glucose, Whole Blood 292 mg/dL (60-115)
[2019-12-05 21:55] LABS: Glucose, Whole Blood 491 mg/dL (60-115)
[2019-12-05 23:22] VITALS: BP 121/73; PULSE 80; RESP 18; TEMP 36.3; O2SAT 98
[2019-12-05 23:27] LABS: Glucose, Whole Blood 209 mg/dL (60-115)
[2019-12-05] MEDS: Heparin Sodium,Porcine 5,000 UNIT/ML VIAL 5000 UNIT SUBCUT (23:35)
[2019-12-05] MEDS: carvediloL 12.5 MG TABLET PO (23:35)
[2019-12-05] MEDS: Sodium Polystyrene Sulfon/Sorb 15 GM/60 ML ORAL.SUSP PO (23:35)
[2019-12-05] MEDS: traZODone HCL 100 MG TABLET PO (23:35)
[2019-12-05] MEDS: Midodrine HCl 5 MG TABLET PO (23:41)
[2019-12-05] MEDS: Insulin Lispro 100 UNIT/ML 3 ML VIAL SUBCUT (23:41)
[2019-12-05] MEDS: 0.9 % Sodium Chloride Flush 3 ML SYRINGE IVFLUSH (23:42)
[2019-12-05] MEDS: guaiFENesin 100 MG/5 ML LIQUID PO (23:43)
[2019-12-06] VITALS (11 sets, daily range): BP systolic 125–147; BP diastolic 65–79; PULSE 74–94; RESP 18–20; TEMP 36.9–38.6; O2SAT 92–96
[2019-12-06] MEDS: guaiFENesin 100 MG/5 ML LIQUID PO (03:49)
[2019-12-06 07:15] LABS: MANUAL DIFF FLAG NO
[2019-12-06 07:26] LABS: Basophils Percent Auto 0.2 % (0-2); Eosinophils Percent Auto 0.3 % (0-4); Hematocrit 35.3 % (42-52); Hemoglobin 11.4 g/dl (14.0-18.0); Imm Gran Abs Auto 0.03 X10*3/uL (0.00-0.03); Imm Gran Pct Auto 0.3 % (0.0-0.4); Lymphocytes Absolute Auto 2.5 X10*3/uL (1.2-4.9); Mean Corpuscular HGB Conc 32.3 g/dl (31.0-36.0); Mean Corpuscular Hemoglobin 29.8 pg (27.0-33.0); Mean Corpuscular Volume 92.2 fL (80-98); Monocytes Absolute Auto 0.4 X10*3/uL (0.1-1.2); Monocytes Percent Auto 4.4 % (2-11); Neutrophils Absolute Auto 6.5 X10*3/uL (2.0-8.3); Neutrophils Percent Auto 68.8 % (45-73); Platelet Count 145 X10*3/uL (160-400); Red Blood Count 3.83 X10*6/uL (4.60-5.80); Red Cell Distribution Width 14.5 % (11.0-16.0); White Blood Count 9.4 X10*3/uL (4.8-10.8)
[2019-12-06 07:35] LABS: Glucose, Whole Blood 237 mg/dL (60-115)
[2019-12-06 07:58] LABS: Anion Gap 17 (12-20); Blood Urea Nitrogen 35 mg/dL (9-16); Calcium 8.4 mg/dL (8.4-10.2); Carbon Dioxide 28 mmol/L (22-29); Chloride 96 mmol/L (96-108); Estimated Glomerular Filt Rate 15; Glucose Random 246 mg/dL (60-115); Potassium 4.6 mmol/l (3.3-5.1); Sodium 136 mmol/L (135-145)
[2019-12-06] MEDS: Insulin Lispro 100 UNIT/ML 3 ML VIAL SUBCUT ×3 (08:15→17:30)
[2019-12-06] MEDS: Atorvastatin Calcium 80 MG TABLET PO (08:16)
[2019-12-06] MEDS: Heparin Sodium,Porcine 5,000 UNIT/ML VIAL 5000 UNIT SUBCUT ×2 (08:16→20:57)
[2019-12-06] MEDS: 0.9 % Sodium Chloride Flush 3 ML SYRINGE IVFLUSH ×2 (08:16→15:54)
[2019-12-06] MEDS: carvediloL 12.5 MG TABLET PO ×2 (08:18→20:58)
--- NOTE | 2019-12-06 09:21 | MHC.CM.PN ---
CM spoke with Patient via telephone r/t to him being on the Covid Unit. Patient lives alone in an apartment and he uses a walker to assist with mobility. Tee is active with [facility] and he receives 3 hours/week of [facility] services. Patient's goal is to return home and [facility] has initiated and will follow for dc planning. IMM addressed with Patient. Patient's Sister/Claudia is his HCP and Dr. Shaikh is his PCP. Patient goes to HD Q M/W/F @ [facility] on [facility] in [place].
--- NOTE | 2019-12-06 10:55 | PM.PNNEP ---
Subjective Subjective Principal diagnosis: CKD /COVID Interval history: Event s noted Physical Exam Vital Signs: Vital Signs: Vital Signs Temp Pulse Resp BP Pulse Ox 12/06/19 10:29 98.8 F 12/06/19 08:18 75 146/65 H 12/06/19 08:00 100.1 F 90 19 133/67 93 12/06/19 03:13 98.5 F 88 18 147/65 H 96 12/05/19 23:22 97.3 F 80 18 121/73 98 12/05/19 20:00 98.0 F 80 18 229/40 H 12/05/19 17:20 97.8 F 97 22 H 151/86 H 96 12/05/19 15:42 20 96 12/05/19 15:27 98.8 F 96 20 125/68 96 Body Mass Index 31.3 Assessment & Plan Assessment and plan (1) ESRD (end stage renal disease) on dialysis: Status: Acute Assessment and Plan: ON HD MWF No s/s of uremia Shall follow with team
[2019-12-06 11:46] LABS: Glucose, Whole Blood 320 mg/dL (60-115)
--- NOTE | 2019-12-06 12:53 | PC.NURSE ---
pt states he has pain to bilateral buttocks from being in bed. Pt also has red rash to graciela area at groin. Will get pt up to chair and apply skin care as ordered for redness.
--- NOTE | 2019-12-06 14:48 | W.PM.IDCN ---
History of Present Illness Data of Consult Service Date: 12/06/19 Requesting physician: Aristeo Gross Primary Care Provider: Armen Shaikh MD HPI Reason for consult: shortness of breath He presents to hospital with nausea,vomiting,diarrhea and cough,dry worse over last day He has no fever that he is aware of He is dialysi patient and not aware of any COVID exposure Review of Systems Constitutional: Constitutional: Denies frequent falls, Denies headache(s) and Reports weakness ENT: Denies Normal hearing present, Denies vertigo, Denies dizziness and Denies headache(s) Musculoskeletal: Musculoskeletal: Denies abnormal gait, Denies numbness and Denies tingling Neurologic: Reports as per HPI, Denies Normal hearing present, Denies Neuro-related abnormal movements, Denies Abnormal speech present, Denies abnormal gait, Denies behavioral changes, Denies confusion, Denies vertigo, Denies dizziness, Denies frequent falls, Denies headache(s), Denies focal weakness, Denies memory loss, Denies numbness, Denies Other visual disturbances, Denies convulsions, Denies seizure-like activity, Denies tingling, Denies paresthesias and Reports weakness Psychiatric: Psychiatric: Denies behavioral changes, Denies confusion and Denies memory loss PMFSH Past Medical History Medical History AVF (arteriovenous fistula) CAD (coronary artery disease) Cardiomyopathy Diabetes mellitus, type 2 ESRD (end stage renal disease) on dialysis H/O cardiac pacemaker Hypercholesteremia Hypertension Orthostatic hypotension Family History Family History Father Bladder cancer Mother Esophageal cancer Stomach cancer Sister Asthma Emphysema lung Surgical History Surgical History History of carpal tunnel release History of cholecystectomy History of colon cancer History of coronary artery bypass graft Social History Social History Household Members: None Housing: House Do you presently have visiting nurse or other home services: Yes Smoking Status: Former smoker Smoked in Last 30 Days: No Use of substances other than those prescribed or required for medical reasons: No Currently Displaying Signs/Symptoms of Drug Intoxication Withdrawal: No Any prior treatment program specific to substance use: No Have you been hit, kicked, punched, or otherwise hurt by someone within the past year? If so, by whom?: No Do you feel safe in your current relationship?: No Is there a partner from a previous relationship who is making you feel unsafe now?: No Are you made to feel afraid or neglected: No Advance Directives: No Advance Directives Information Provided: No Do you have thoughts of harming others: None Do you have a plan to hurt others: No Plan Recently lost weight without trying: No service: No Current occupational status: retired [email or web address] Allergies Allergy/AdvReac Type Severity Reaction Status Date / Time No Known Allergies Allergy Mild NOT Verified 12/04/19 07:32 APPLICABLE Home Medications Medication Instructions Recorded Confirmed Type atorvastatin 80 mg PO DAILY 12/05/19 12/05/19 History carvedilol 12.5 mg PO BID 12/05/19 12/05/19 History insulin glargine [Lantus U-100 60 unit SUBCUT BEDTIME 12/05/19 12/05/19 History Insulin] midodrine 5 mg PO TIDWM 12/05/19 12/05/19 History sevelamer carbonate [Renvela] 1,600 mg PO TID 12/05/19 12/05/19 History trazodone 100 mg PO BEDTIME 12/05/19 12/05/19 History Physical Exam Vital Signs: Vital Signs: Vital Signs Temp Pulse Resp BP Pulse Ox 12/06/19 12:00 99.1 F 83 20 137/75 96 12/06/19 10:29 98.8 F 12/06/19 08:18 75 146/65 H 12/06/19 08:00 100.1 F 90 19 133/67 93 12/06/19 03:13 98.5 F 88 18 147/65 H 96 12/05/19 23:22 97.3 F 80 18 121/73 98 12/05/19 20:00 98.0 F 80 18 229/40 H 12/05/19 17:20 97.8 F 97 22 H 151/86 H 96 12/05/19 15:42 20 96 12/05/19 15:27 98.8 F 96 20 125/68 96 Body Mass Index 31.3 Const: General: No confusion Orientation/consciousness: No confusion HENMT: Head: Yes normal to inspection Resp: Effort & Inspection: normal respiratory effort and able to speak in complete sentences Cardio: Rate: regular rate Rhythm: regular rhythm GI: Inspection: Yes normal to inspection Neuro: General: No confusion Cranial nerves: No Normal hearing present Speech: No Abnormal speech present Assessment and Plan (1) COVID-19: Problem details: He likely has acute COVID-19 with some shortness of breath and minimal oxygen requirements at 2 liter He has some pneumonia Status: Acute Would give IV steroids,6 mg daily No Remdesivir due to renal failure (2) CKD (chronic kidney disease) requiring chronic dialysis: Status: Acute (3) Volume overload: Status: Acute (4) Acute hyperglycemia: Status: Acute
[2019-12-06] MEDS: dexAMETHasone sod phosphate 4 MG/ML VIAL 6 MG IVPUSH (15:27)
[2019-12-06] MEDS: Acetaminophen 325 MG TABLET 650 MG PO (15:51)
--- NOTE | 2019-12-06 16:41 | HO.PM.IMPN ---
Subjective Subjective Date of Service: 12/06/19 Interval History: he states he still doesnt feel good reports no sob, but coughing Review of Systems General - fevers Cardiovascular - no chest pain Respiratory - cough adominal pain, nausea, vomiting, diarrhea Physical Exam Vital Signs: Vital Signs: Vital Signs Temp Pulse Resp BP Pulse Ox 12/06/19 16:18 101.2 F H 94 18 125/69 96 12/06/19 15:53 101.4 F H 12/06/19 15:52 101.4 F H 12/06/19 12:00 99.1 F 83 20 137/75 96 12/06/19 10:29 98.8 F 12/06/19 08:18 75 146/65 H 12/06/19 08:00 100.1 F 90 19 133/67 93 12/06/19 03:13 98.5 F 88 18 147/65 H 96 12/05/19 23:22 97.3 F 80 18 121/73 98 12/05/19 20:00 98.0 F 80 18 229/40 H 12/05/19 17:20 97.8 F 97 22 H 151/86 H 96 Body Mass Index 31.3 General - no acute distress, appears comfortable but coughing Cardiovascular - regular rate and rhythm, S1-S2 Lungs - o2 96% on 2L; no distress Abdomen - soft, nontender, no rebound regarding Extremities - no edema bilaterally Neuro - awake and alert, no focal deficits Objective Data Current Medications Generic Name Dose Route Start Last Admin Trade Name Freq PRN Reason Stop Dose Admin Acetaminophen 650 mg 12/05/19 20:33 12/06/19 15:51 Acetaminophen 325 Mg Tablet PO 650 mg Q6H PRN Administration Pain, Mild (Pain Scale 1-3) Atorvastatin Calcium 80 mg 12/06/19 09:00 12/06/19 08:16 Atorvastatin Calcium 80 Mg Tablet PO 80 mg DAILY ESTEFANIA Administration Carvedilol 12.5 mg 12/05/19 21:00 12/06/19 08:18 Carvedilol 12.5 Mg Tablet PO 12.5 mg BID ESTEFANIA Administration Protocol Dexamethasone Sodium Phosphate 6 mg 12/06/19 15:00 12/06/19 15:27 Dexamethasone Sod Phosphate 4 Mg/Ml Vial IVPUSH 6 mg DAILY ESTEFANIA Administration Docusate Sodium 100 mg 12/05/19 20:33 Docusate Sodium 100 Mg Capsule PO DAILY PRN Constipation Heparin Sodium (Porcine) 5,000 unit 12/05/19 22:00 12/06/19 08:16 Heparin Sodium,Porcine 5,000 Unit/Ml Vial SUBCUT 5,000 unit Q12H ESTEFANIA Administration Insulin Glargine 60 unit 12/06/19 21:00 Insulin Glargine,Hum.Rec.Anlog 100 Unit/Ml 10 Ml Vial SUBCUT BEDTIME ESTEFANIA Insulin Human Lispro 0 unit 12/05/19 20:33 12/06/19 12:11 Insulin Lispro 100 Unit/Ml 3 Ml Vial SUBCUT 12/06/19 20:33 8 unit QIDACHS ESTEFANIA Administration Protocol Midodrine 5 mg 12/05/19 20:33 12/06/19 12:14 Midodrine Hcl 5 Mg Tablet PO Not Given TIDWM ESTEFANIA Ondansetron HCl 4 mg 12/05/19 20:33 Ondansetron Hcl 4 Mg/2 Ml Vial IVPUSH Q8H PRN Nausea and Vomiting Pharmacy Consult 1 each 12/05/19 11:48 Consult Rx Perform Med Rec MISCELLANE ONCE PRN Consult order Sevelamer HCl 1,600 mg 12/06/19 08:00 12/06/19 12:12 Sevelamer Hcl 800 Mg Tablet PO 1,600 mg TIDWM ESTEFANIA Administration Sodium Chloride 3 ml 12/06/19 00:00 12/06/19 15:54 0.9 % Sodium Chloride Flush 3 Ml Syringe IVFLUSH 3 ml QSHIFT ESTEFANIA Administration Trazodone HCl 100 mg 12/05/19 21:00 12/05/19 23:35 Trazodone Hcl 100 Mg Tablet PO 100 mg BEDTIME ESTEFANIA Administration Labs CBC & Chem 7: 12/06/19 06:33 12/06/19 06:33 Assessment and Plan (1) COVID-19: Status: Acute Assessment and Plan: this is a 69-year-old male with diabetic, end-stage renal disease on hemodialysis who presented to the hospital with complaints of nausea, vomiting, diarrhea of several days duration. Upon arrival to the emergency room it was noted that he was significantly hyperglycemic without any signs or symptoms of diabetic ketoacidosis. He did complain of some generalized weakness and fatigue along with a nonproductive cough and subsequently he was tested for COVID-19 which returned positive. He is admitted for further treatment. 1. COVID-19 Tolerating 2 L, no hypoxia as of yet IV Decadron Infectious disease input appreciated 2. Uncontrolled diabetes mellitus Presented with a sugar greater than 800 Significantly improved Continue with Lantus 60 and insulin sliding scale 3. ESRD, Hyper K Hemodialysis on Sunday, follow Nephrology orders hyperkalemia resolved 4. CAD statin, betablocker, unclear why hes not on asa 5. orthostatic hypotension midodrine on mwf full code dvt pptx, heparin
[2019-12-06 16:43] LABS: Glucose, Whole Blood 229 mg/dL (60-115)
--- NOTE | 2019-12-06 20:24 | PC.NURSE ---
pt is not ambulating. He is able to stand and pivot with assistance of 1 staff but weak and not walking.
[2019-12-06] MEDS: Insulin Glargine,Hum.rec.anlog 100 UNIT/ML 10 ML VIAL 60 UNIT SUBCUT (20:58)
[2019-12-06] MEDS: traZODone HCL 100 MG TABLET PO (20:58)
[2019-12-06 21:19] LABS: Glucose, Whole Blood 337 mg/dL (60-115)
[2019-12-07] VITALS (9 sets, daily range): BP systolic 127–138; BP diastolic 71–94; PULSE 75–92; RESP 16–18; TEMP 36.7–37.6; O2SAT 85–97
[2019-12-07] MEDS: 0.9 % Sodium Chloride Flush 3 ML SYRINGE IVFLUSH ×4 (01:17→22:13)
[2019-12-07] MEDS: guaiFENesin 100 MG/5 ML LIQUID PO ×3 (02:56→19:56)
[2019-12-07] MEDS: Benzonatate 100 MG CAPSULE 200 MG PO ×2 (05:58→16:46)
[2019-12-07 06:03] LABS: MANUAL DIFF FLAG NO
[2019-12-07 06:13] LABS: Hematocrit 34.2 % (42-52); Hemoglobin 11.1 g/dl (14.0-18.0); Imm Gran Abs Auto 0.04 X10*3/uL (0.00-0.03); Imm Gran Pct Auto 0.5 % (0.0-0.4); Lymphocytes Absolute Auto 1.4 X10*3/uL (1.2-4.9); Lymphocytes Percent Auto 16.5 % (20-40); Mean Corpuscular HGB Conc 32.5 g/dl (31.0-36.0); Mean Corpuscular Volume 92.4 fL (80-98); Mean Platelet Volume 12.1 fL (9.4-12.4); Monocytes Absolute Auto 0.3 X10*3/uL (0.1-1.2); Neutrophils Absolute Auto 6.6 X10*3/uL (2.0-8.3); Platelet Count 130 X10*3/uL (160-400); Red Cell Distribution Width 14.3 % (11.0-16.0); White Blood Count 8.4 X10*3/uL (4.8-10.8)
[2019-12-07 06:19] LABS: D Dimer 912 NG/ML
[2019-12-07 06:43] LABS: Anion Gap 18 (12-20); Blood Urea Nitrogen 59 mg/dL (9-16); Calcium 8.2 mg/dL (8.4-10.2); Carbon Dioxide 26 mmol/L (22-29); Chloride 94 mmol/L (96-108); Creatinine Clr Calc Pharmacy 14.8; Estimated Glomerular Filt Rate 11; Glucose Random 343 mg/dL (60-115); Sodium 133 mmol/L (135-145)
[2019-12-07 07:57] LABS: Glucose, Whole Blood 303 mg/dL (60-115)
[2019-12-07] MEDS: Insulin Lispro 100 UNIT/ML 3 ML VIAL SUBCUT ×4 (08:23→21:36)
[2019-12-07] MEDS: Atorvastatin Calcium 80 MG TABLET PO (08:25)
[2019-12-07] MEDS: dexAMETHasone sod phosphate 4 MG/ML VIAL 6 MG IVPUSH (08:25)
[2019-12-07] MEDS: Heparin Sodium,Porcine 5,000 UNIT/ML VIAL 5000 UNIT SUBCUT ×2 (08:26→21:37)
[2019-12-07] MEDS: carvediloL 12.5 MG TABLET PO ×2 (08:28→21:38)
[2019-12-07 11:42] LABS: Glucose, Whole Blood 366 mg/dL (60-115)
[2019-12-07] MEDS: Nystatin Powder 15 GM BOTTLE 1 APPL TOPICAL (11:58)
--- NOTE | 2019-12-07 14:46 | PM.PNNEP ---
Subjective Subjective Principal diagnosis: CKD /COVID Interval history: Events noted Physical Exam Vital Signs: Vital Signs: Vital Signs Temp Pulse Resp BP Pulse Ox 12/07/19 11:24 98.1 F 75 18 127/80 97 12/07/19 08:28 77 135/93 H 12/07/19 07:38 98.1 F 77 16 135/93 H 93 12/07/19 03:14 98.5 F 80 18 128/71 92 12/06/19 23:20 98.4 F 80 18 139/72 92 12/06/19 20:58 88 136/79 12/06/19 20:19 98.5 F 88 18 136/79 92 12/06/19 16:18 101.2 F H 94 18 125/69 96 12/06/19 15:53 101.4 F H 12/06/19 15:52 101.4 F H Body Mass Index 31.3 Resp: Effort & Inspection: normal respiratory effort Auscultation: rhonchi Cardio: Jugular venous distension: no JVD Neuro: Motor exam (neuro): no asterixis Assessment & Plan Assessment and plan (1) ESRD (end stage renal disease) on dialysis: Problem details: No s/s of uremia Status: Chronic Assessment and Plan: HD 3 x week Next HD tomorrow Remove fluid as tolerated Time Spent With Patient Time: Total time spent is greater than 50% in coordination of care (as documented) at patient's floor/unit and/or counseling patient:
[2019-12-07 16:32] LABS: Glucose, Whole Blood 301 mg/dL (60-115)
--- NOTE | 2019-12-07 17:11 | P.PNIM_ITS ---
Subjective Subjective Date of Service: 12/07/19 Interval History: coughing not improved weak Review of Systems General - no fevers or chills, weakness+ Cardiovascular - no chest pain Respiratory - +SOB, +cough, nonproductive Abdominal- no abdominal pain, nausea, vomiting, diarrhea Physical Exam Vital Signs: Vital Signs: Vital Signs Temp Pulse Resp BP Pulse Ox 12/07/19 16:00 99 F 88 18 138/78 92 12/07/19 11:24 98.1 F 75 18 127/80 97 12/07/19 08:28 77 135/93 H 12/07/19 07:38 98.1 F 77 16 135/93 H 93 12/07/19 03:14 98.5 F 80 18 128/71 92 12/06/19 23:20 98.4 F 80 18 139/72 92 12/06/19 20:58 88 136/79 12/06/19 20:19 98.5 F 88 18 136/79 92 Body Mass Index 31.3 General - coughing, ill appearing Cardiovascular - regular rate and rhythm, S1-S2 Lungs - o2 96% on 2L; no distress Abdomen - soft, nontender, no rebound regarding Extremities - no edema bilaterally Neuro - awake and alert, no focal deficits Objective Data Current Medications Generic Name Dose Route Start Last Admin Trade Name Freq PRN Reason Stop Dose Admin Acetaminophen 650 mg 12/05/19 20:33 12/06/19 15:51 Acetaminophen 325 Mg Tablet PO 650 mg Q6H PRN Administration Pain, Mild (Pain Scale 1-3) Atorvastatin Calcium 80 mg 12/06/19 09:00 12/07/19 08:25 Atorvastatin Calcium 80 Mg Tablet PO 80 mg DAILY ESTEFANIA Administration Benzonatate 200 mg 12/07/19 05:20 12/07/19 16:46 Benzonatate 100 Mg Capsule PO 200 mg TID PRN Administration Cough Carvedilol 12.5 mg 12/05/19 21:00 12/07/19 08:28 Carvedilol 12.5 Mg Tablet PO 12.5 mg BID ESTEFANIA Administration Protocol Dexamethasone Sodium Phosphate 6 mg 12/06/19 15:00 12/07/19 08:25 Dexamethasone Sod Phosphate 4 Mg/Ml Vial IVPUSH 6 mg DAILY ESTEFANIA Administration Docusate Sodium 100 mg 12/05/19 20:33 Docusate Sodium 100 Mg Capsule PO DAILY PRN Constipation Guaifenesin 5 ml 12/07/19 02:19 12/07/19 11:54 Guaifenesin 100 Mg/5 Ml Liquid PO 5 ml Q6H PRN Administration Cough Guaifenesin 5 ml 12/07/19 17:08 Guaifenesin 100 Mg/5 Ml Liquid PO Q6H PRN Cough Heparin Sodium (Porcine) 5,000 unit 12/05/19 22:00 12/07/19 08:26 Heparin Sodium,Porcine 5,000 Unit/Ml Vial SUBCUT 5,000 unit Q12H ESTEFANIA Administration Insulin Glargine 60 unit 12/06/19 21:00 12/06/19 20:58 Insulin Glargine,Hum.Rec.Anlog 100 Unit/Ml 10 Ml Vial SUBCUT 60 unit BEDTIME ESTEFANIA Administration Insulin Human Lispro 0 unit 12/07/19 11:30 12/07/19 16:46 Insulin Lispro 100 Unit/Ml 3 Ml Vial SUBCUT 8 unit QIDACHS ESTEFANIA Administration Protocol Midodrine 5 mg 12/05/19 20:33 12/07/19 16:46 Midodrine Hcl 5 Mg Tablet PO Not Given TIDWM ESTEFANIA Nystatin 1 appl 12/08/19 09:00 12/07/19 11:58 Nystatin Powder 15 Gm Bottle TOPICAL 1 appl DAILY ESTEFANIA Administration Protocol Ondansetron HCl 4 mg 12/05/19 20:33 Ondansetron Hcl 4 Mg/2 Ml Vial IVPUSH Q8H PRN Nausea and Vomiting Pharmacy Consult 1 each 12/05/19 11:48 Consult Rx Perform Med Rec MISCELLANE ONCE PRN Consult order Sevelamer HCl 1,600 mg 12/06/19 08:00 12/07/19 16:46 Sevelamer Hcl 800 Mg Tablet PO 1,600 mg TIDWM ESTEFANIA Administration Sodium Chloride 3 ml 12/06/19 00:00 12/07/19 16:46 0.9 % Sodium Chloride Flush 3 Ml Syringe IVFLUSH 3 ml QSHIFT ESTEFANIA Administration Trazodone HCl 100 mg 12/05/19 21:00 12/06/19 20:58 Trazodone Hcl 100 Mg Tablet PO 100 mg BEDTIME ESTEFANIA Administration Labs CBC & Chem 7: 12/07/19 05:21 12/07/19 05:21 Assessment and Plan (1) COVID-19: Status: Acute Assessment and Plan: this is a 69-year-old male with diabetic, end-stage renal disease on hemo dialysis who presented to the hospital with complaints of nausea, vomiting, diarrhea of several days duration. Upon arrival to the emergency room it was noted that he was significantly hyperglycemic without any signs or symptoms of diabetic ketoacidosis. He did complain of some generalized weakness and fatigue along with a nonproductive cough and subsequently he was tested for COVID-19 which returned positive. He is admitted for further treatment. 1. COVID-19 Tolerating 2 L, no hypoxia as of yet IV Decadron day #2 Infectious disease input appreciated 2. Uncontrolled diabetes mellitus Presented with a sugar greater than 800 Significantly improved Continue with Lantus 60 and insulin sliding scale 3. ESRD, Hyper K Hemodialysis on Sunday, follow Nephrology orders hyperkalemia resolved 4. CAD statin, betablocker, unclear why hes not on asa 5. orthostatic hypotension midodrine on mwf full code dvt pptx, heparin
[2019-12-07 19:10] LABS: Procalcitonin 2.33 ng/mL
[2019-12-07 20:46] LABS: Glucose, Whole Blood 227 mg/dL (60-115)
[2019-12-07] MEDS: cefTRIAXone sodium 1 GM in 0.9 % Sodium Chloride 50 ML IV (21:36)
[2019-12-07] MEDS: Insulin Glargine,Hum.rec.anlog 100 UNIT/ML 10 ML VIAL 60 UNIT SUBCUT (21:37)
[2019-12-07] MEDS: traZODone HCL 100 MG TABLET PO (21:38)
[2019-12-07] MEDS: Doxycycline Hyclate 100 MG in 0.9 % Sodium Chloride 250 ML 250 MG IV (22:11)
[2019-12-08] VITALS (13 sets, daily range): BP systolic 129–150; BP diastolic 62–82; PULSE 64–89; RESP 16–26; TEMP 36.2–37.9; O2SAT 88–93; BMI 31.3
--- NOTE | 2019-12-08 | XR_ITS ---
EXAMINATION: XR CHEST CLINICAL INFORMATION: Worsening hypoxia, COVID COMPARISON: Chest radiographs 12/05/2019, 10/05/2019 TECHNIQUE: Portable upright AP view of the chest was obtained. FINDINGS: There are low lung volumes. There are interval diffuse bilateral airspace opacities which may be infectious or edema. There is some sparing right lateral base. Bipolar pacemaker and sternotomy wires and mediastinal surgical clips again seen. IMPRESSION: Interval diffuse bilateral airspace opacities, infectious versus edema. Low lung volumes.
[2019-12-08] MEDS: guaiFENesin 100 MG/5 ML LIQUID PO (03:04)
--- NOTE | 2019-12-08 04:40 | PC.NURSE ---
At 1999 pt spO2 85% on 4 L nasal cannula. RT to bedside, placed on oxymizer at 14 L, spO2 90-92%. Pt placed on continuous O2 monitor. At 0400 pt spO2 87-89%, pt sleeping and mouth breathing. Placed on NRB while sleeping, spO2 98%. Will continue to monitor.
[2019-12-08 06:40] LABS: MANUAL DIFF FLAG NO
[2019-12-08 07:06] LABS: Hematocrit 34.2 % (42-52); Hemoglobin 11.2 g/dl (14.0-18.0); Imm Gran Abs Auto 0.03 X10*3/uL (0.00-0.03); Imm Gran Pct Auto 0.4 % (0.0-0.4); Lymphocytes Absolute Auto 1.9 X10*3/uL (1.2-4.9); Mean Corpuscular HGB Conc 32.7 g/dl (31.0-36.0); Mean Corpuscular Volume 91.7 fL (80-98); Mean Platelet Volume 11.9 fL (9.4-12.4); Monocytes Absolute Auto 0.3 X10*3/uL (0.1-1.2); Monocytes Percent Auto 3.4 % (2-11); Neutrophils Absolute Auto 5.2 X10*3/uL (2.0-8.3); Neutrophils Percent Auto 70.2 % (45-73); Platelet Count 117 X10*3/uL (160-400); Red Blood Count 3.73 X10*6/uL (4.60-5.80); Red Cell Distribution Width 14.2 % (11.0-16.0); White Blood Count 7.3 X10*3/uL (4.8-10.8)
[2019-12-08 07:25] LABS: Anion Gap 20 (12-20); Blood Urea Nitrogen 86 mg/dL (9-16); Calcium 7.7 mg/dL (8.4-10.2); Carbon Dioxide 24 mmol/L (22-29); Chloride 94 mmol/L (96-108); Creatinine Clr Calc Pharmacy 12.6; Estimated Glomerular Filt Rate 9; Glucose Random 157 mg/dL (60-115); Potassium 4.8 mmol/l (3.3-5.1); Sodium 133 mmol/L (135-145)
[2019-12-08] MEDS: Doxycycline Hyclate 100 MG in 0.9 % Sodium Chloride 250 ML IV (08:27)
[2019-12-08] MEDS: carvediloL 12.5 MG TABLET PO ×2 (08:28→20:56)
[2019-12-08] MEDS: Atorvastatin Calcium 80 MG TABLET PO (08:29)
[2019-12-08] MEDS: dexAMETHasone sod phosphate 4 MG/ML VIAL 6 MG IVPUSH (08:29)
[2019-12-08] MEDS: Heparin Sodium,Porcine 5,000 UNIT/ML VIAL 5000 UNIT SUBCUT ×2 (08:29→20:57)
[2019-12-08] MEDS: 0.9 % Sodium Chloride Flush 3 ML SYRINGE IVFLUSH ×3 (08:30→20:59)
[2019-12-08 08:33] LABS: Glucose, Whole Blood 155 mg/dL (60-115)
[2019-12-08 08:42] LABS: D Dimer 866 NG/ML
--- NOTE | 2019-12-08 09:25 | P.PNIM_ITS ---
Subjective Subjective Date of Service: 12/08/19 Interval History: seen and examined early this morning over night events reviewed -- significant change in O2 requirements over night, no documentation of physician being notified about this change pt this AM on 100% NRBM, comfortable. despite o2 requirements worsening, he reports that he actually feels better. he reports that his cough is a bit better. Review of Systems General - weak, but slightly better than yesterday Cardiovascular - no chest pain Respiratory - +SOB, +cough Abdominal- no abdominal pain, nausea, vomiting, diarrhea Physical Exam Vital Signs: Vital Signs: Vital Signs Temp Pulse Resp BP Pulse Ox 12/08/19 08:57 26 H 12/08/19 08:28 77 146/82 H 12/08/19 08:27 97.1 F 77 24 H 146/82 H 91 L 12/08/19 04:30 92 12/08/19 03:51 98.0 F 64 16 129/74 93 12/08/19 00:00 100.2 F 80 18 130/62 90 L 12/07/19 21:38 91 137/94 H 12/07/19 21:00 91 L 12/07/19 20:47 85 L 12/07/19 20:00 99.6 F 92 18 132/77 12/07/19 16:00 99 F 88 18 138/78 92 12/07/19 11:24 98.1 F 75 18 127/80 97 Body Mass Index 31.3 General - ill appearing Cardiovascular - regular rate and rhythm, S1-S2 Lungs - dim sounds, no wheezing, on 100% NRBM, speaking in full sentences Abdomen - soft, non-tender, no rebound regarding Extremities - no edema bilaterally Neuro - awake and alert, no focal deficits Objective Data Current Medications Generic Name Dose Route Start Last Admin Trade Name Freq PRN Reason Stop Dose Admin Acetaminophen 650 mg 12/05/19 20:33 12/06/19 15:51 Acetaminophen 325 Mg Tablet PO 650 mg Q6H PRN Administration Pain, Mild (Pain Scale 1-3) Albuterol Sulfate 2 puff 12/08/19 08:19 Albuterol Sulfate 90 Mcg 18 Gm Inhaler INHALE Q4H PRN Wheezing Atorvastatin Calcium 80 mg 12/06/19 09:00 12/08/19 08:29 Atorvastatin Calcium 80 Mg Tablet PO 80 mg DAILY ESTEFANIA Administration Benzonatate 200 mg 12/07/19 05:20 12/07/19 16:46 Benzonatate 100 Mg Capsule PO 200 mg TID PRN Administration Cough Carvedilol 12.5 mg 12/05/19 21:00 12/08/19 08:28 Carvedilol 12.5 Mg Tablet PO 12.5 mg BID ESTEFANIA Administration Protocol Dexamethasone Sodium Phosphate 6 mg 12/06/19 15:00 12/08/19 08:29 Dexamethasone Sod Phosphate 4 Mg/Ml Vial IVPUSH 12/15/19 09:01 6 mg DAILY ESTEFANIA Administration Docusate Sodium 100 mg 12/05/19 20:33 Docusate Sodium 100 Mg Capsule PO DAILY PRN Constipation Guaifenesin 5 ml 12/07/19 02:19 12/08/19 03:04 Guaifenesin 100 Mg/5 Ml Liquid PO 5 ml Q6H PRN Administration Cough Guaifenesin 5 ml 12/07/19 17:08 Guaifenesin 100 Mg/5 Ml Liquid PO Q6H PRN Cough Heparin Sodium (Porcine) 5,000 unit 12/05/19 22:00 12/08/19 08:29 Heparin Sodium,Porcine 5,000 Unit/Ml Vial SUBCUT 5,000 unit Q12H ESTEFANIA Administration Ceftriaxone Sodium 1 gm/ 50 mls @ 100 mls/hr 12/07/19 22:00 12/07/19 22:10 Sodium Chloride IV Infused Q24H ESTEFANIA Infusion Doxycycline Hyclate 100 mg/ 250 mls @ 250 mls/hr 12/07/19 21:00 12/08/19 08:27 Sodium Chloride IV 100 mls/hr Q12H ESTEFANIA Administration Insulin Glargine 60 unit 12/06/19 21:00 12/07/19 21:37 Insulin Glargine,Hum.Rec.Anlog 100 Unit/Ml 10 Ml Vial SUBCUT 60 unit BEDTIME ESTEFANIA Administration Insulin Human Lispro 0 unit 12/07/19 11:30 12/08/19 08:30 Insulin Lispro 100 Unit/Ml 3 Ml Vial SUBCUT Not Given QIDACHS [facility] Protocol Midodrine 5 mg 12/05/19 20:33 12/07/19 16:46 Midodrine Hcl 5 Mg Tablet PO Not Given TIDWM ESTEFANIA Nystatin 1 appl 12/08/19 09:00 12/07/19 11:58 Nystatin Powder 15 Gm Bottle TOPICAL 1 appl DAILY ESTEFANIA Administration Protocol Ondansetron HCl 4 mg 12/05/19 20:33 Ondansetron Hcl 4 Mg/2 Ml Vial IVPUSH Q8H PRN Nausea and Vomiting Pharmacy Consult 1 each 12/05/19 11:48 Consult Rx Perform Med Rec MISCELLANE ONCE PRN Consult order Sevelamer HCl 1,600 mg 12/06/19 08:00 12/07/19 16:46 Sevelamer Hcl 800 Mg Tablet PO 1,600 mg TIDWM ESTEFANIA Administration Sodium Chloride 3 ml 12/06/19 00:00 12/08/19 08:30 0.9 % Sodium Chloride Flush 3 Ml Syringe IVFLUSH 3 ml QSHIFT ESTEFANIA Administration Trazodone HCl 100 mg 12/05/19 21:00 12/07/19 21:38 Trazodone Hcl 100 Mg Tablet PO 100 mg BEDTIME ESTEFANIA Administration Labs CBC & Chem 7: 12/08/19 06:08 12/08/19 06:08 Assessment and Plan (1) COVID-19: Status: Acute Assessment and Plan: This is a 69-year-old male with diabetic, end-stage renal disease on hemodialysis who presented to the hospital with complaints of nausea, vomiting, diarrhea of several days duration. Upon arrival to the emergency room it was noted that he was significantly hyperglycemic without any signs or symptoms of diabetic ketoacidosis. He did complain of some generalized weakness and fatigue along with a nonproductive cough and subsequently he was tested for COVID-19 which returned positive. He is admitted for further treatment. 1. COVID-19 acute respiratory failure with hypoxia Decadron day #3 ID on board significant change in his O2 requirements -- multifactorial including COVID 19, pulmonary edema from ESRD, possible superimposed bacterial infection (PCT on the rise). High Flow O2, Urgent Dialysis, Empiric antibiotics -- rocephin/doxy; Seen by ICU and aware of patients status, will transfer should he decompensate further. 2. Uncontrolled diabetes mellitus Presented with a sugar greater than 800 Significantly improved but still not ideal Continue with Lantus 60 and insulin sliding scale 3. ESRD, Hyper K Hemodialysis on Sunday, follow Nephrology orders hyperkalemia resolved dialysis today 4. CAD statin, betablocker, unclear why hes not on asa 5. orthostatic hypotension midodrine on mwf full code dvt pptx, heparin
[2019-12-08] MEDS: Midodrine HCl 5 MG TABLET PO (10:48)
[2019-12-08] MEDS: Nystatin Powder 15 GM BOTTLE 1 APPL TOPICAL (10:48)
[2019-12-08 11:44] LABS: Glucose, Whole Blood 276 mg/dL (60-115)
[2019-12-08] MEDS: Insulin Lispro 100 UNIT/ML 3 ML VIAL SUBCUT ×2 (12:03→20:58)
--- NOTE | 2019-12-08 15:49 | PC.NURSE ---
PT ON 100% NONREBREATHER THIS AM. HOSPITALIST AND RESPIRATORY AT BEDSIDE TO ASSESS PT. PLAN FOR HIGH FLOW TITRATE NEEDED TO HIGH 80'S-90%. 60 L FI02. PT STILL WITH USE OF ACESSORY MUSCLES. C/O SOB AND COUGH. LUNGS CONGESTED. SENT FOR DIALYSIS TREATMENT. SAO2 NOTED TO CONTINUE TO TREND DOWN. HOSPITALIST AND RESPIRATORY THERAPIST IN TO REASSESS. CONSENT FOR PLASMA. 100% NONREBREATHER PLACED ON TOP OF NASAL HIGHFLOW. SAO2 OF 89-91%. PT ALERT.SKIN WARM WITH GOOD COLORATION.USE OF ACESSORY MUSCLES STILL PRESENT.
--- NOTE | 2019-12-08 15:57 | MHC.CM.PN ---
WILBERT received a t/c from Dipti, a nurse at pts HD clinic. Dipti reports concerns around pt discharging home again. She reports the pt has had numerous hospitalizations often around poor management of his DM. She reports she does not think he has a good handle on managing it despite extensive teaching. Dipti reports the pt has an extensive psych history and lives independently. Dipti reports the pt was recently at [facility] but was discharged back home. Dipti wonders if pt may be eligible for assisted living and feels he may agree especially since the pt is aware the continued re-hospitalizations may effect his status on the kidney transplant list. Pt is currently on the covid unit and per Dipti would have to go back and forth to [place] to their isolation clinics if he were to DC at this time. Concerns will be to ongoing WILBERT and .
--- NOTE | 2019-12-08 16:20 | PM.PNNEP ---
Subjective Subjective Principal diagnosis: CKD /COVID Interval history: Events noted On dialysis now Curently on non rebreather Physical Exam Vital Signs: Vital Signs: Vital Signs Temp Pulse Resp BP Pulse Ox 12/08/19 15:55 77 141/82 H 89 L 12/08/19 15:28 24 H 12/08/19 11:53 24 H 12/08/19 10:48 77 146/82 H 12/08/19 08:57 26 H 12/08/19 08:28 77 146/82 H 12/08/19 08:27 97.1 F 77 24 H 146/82 H 91 L 12/08/19 04:30 92 12/08/19 03:51 98.0 F 64 16 129/74 93 12/08/19 00:00 100.2 F 80 18 130/62 90 L 12/07/19 21:38 91 137/94 H 12/07/19 21:00 91 L 12/07/19 20:47 85 L 12/07/19 20:00 99.6 F 92 18 132/77 Body Mass Index 31.3 Const: General: ill appearing Resp: Effort & Inspection: abnormal respiratory pattern Auscultation: rhonchi Cardio: Jugular venous distension: no JVD Neuro: Motor exam (neuro): no asterixis Assessment & Plan Assessment and plan (1) ESRD (end stage renal disease) on dialysis: Problem details: No s/s of uremia Status: Chronic Assessment and Plan: On HD now Will remove 4500 cc today HD 3 x week Remove fluid as tolerated Agree with Convalescent plasma
[2019-12-08 18:03] LABS: Glucose, Whole Blood 143 mg/dL (60-115)
[2019-12-08 18:06] LABS: Procalcitonin 2.17 ng/mL
[2019-12-08 20:15] LABS: Glucose, Whole Blood 199 mg/dL (60-115)
[2019-12-08] MEDS: Acetaminophen 325 MG TABLET 650 MG PO (20:56)
[2019-12-08] MEDS: Doxycycline Hyclate 100 MG in 0.9 % Sodium Chloride 250 ML 250 MG IV (20:56)
[2019-12-08] MEDS: traZODone HCL 100 MG TABLET PO (20:56)
[2019-12-08] MEDS: cefTRIAXone sodium 1 GM in 0.9 % Sodium Chloride 50 ML IV (20:57)
[2019-12-08] MEDS: Insulin Glargine,Hum.rec.anlog 100 UNIT/ML 10 ML VIAL 60 UNIT SUBCUT (20:58)
[2019-12-09] VITALS (12 sets, daily range): BP systolic 104–141; BP diastolic 57–89; PULSE 67–92; RESP 18–32; TEMP 35.9–37.1; O2SAT 73–99
--- NOTE | 2019-12-09 | XR_ITS ---
EXAMINATION: XR CHEST CLINICAL INFORMATION: Dyspnea COMPARISON: Previous chest x-rays most recent 12/08/2019 TECHNIQUE: Frontal view of the chest was obtained. FINDINGS: The cardiac silhouette is enlarged but stable. Right subclavian pacemaker defibrillator appears unchanged.. There is diffuse airspace disease. This may be slightly improved from yesterday's exam. Differential would include pulmonary edema and pneumonia. There is no pleural effusion or pneumothorax. There is evidence of old trauma to the right proximal humerus. IMPRESSION: Stable enlargement of the cardiac silhouette. Bilateral diffuse airspace disease, question slightly improved from yesterday's exam. Differential would include pulmonary edema and pneumonia.
[2019-12-09 06:25] LABS: MANUAL DIFF FLAG NO
[2019-12-09 06:43] LABS: Basophils Percent Auto 0.1 % (0-2); Hematocrit 38.8 % (42-52); Hemoglobin 12.6 g/dl (14.0-18.0); Imm Gran Abs Auto 0.06 X10*3/uL (0.00-0.03); Imm Gran Pct Auto 0.6 % (0.0-0.4); Lymphocytes Percent Auto 18.5 % (20-40); Mean Corpuscular HGB Conc 32.5 g/dl (31.0-36.0); Mean Corpuscular Hemoglobin 29.9 pg (27.0-33.0); Mean Corpuscular Volume 91.9 fL (80-98); Mean Platelet Volume 11.5 fL (9.4-12.4); Monocytes Absolute Auto 0.3 X10*3/uL (0.1-1.2); Monocytes Percent Auto 3.1 % (2-11); Neutrophils Absolute Auto 8.2 X10*3/uL (2.0-8.3); Neutrophils Percent Auto 77.7 % (45-73); Platelet Count 161 X10*3/uL (160-400); Red Blood Count 4.22 X10*6/uL (4.60-5.80); Red Cell Distribution Width 14.4 % (11.0-16.0); White Blood Count 10.6 X10*3/uL (4.8-10.8)
[2019-12-09 06:44] LABS: D Dimer 972 NG/ML
[2019-12-09 07:44] LABS: Anion Gap 18 (12-20); Blood Urea Nitrogen 64 mg/dL (9-16); C Reactive Protein 11.01 mg/dL (< or = 0.50); Calcium 7.9 mg/dL (8.4-10.2); Carbon Dioxide 25 mmol/L (22-29); Chloride 97 mmol/L (96-108); Creatinine Clr Calc Pharmacy 16.9; Estimated Glomerular Filt Rate 12; Glucose Random 162 mg/dL (60-115); Potassium 4.4 mmol/l (3.3-5.1); Sodium 136 mmol/L (135-145)
[2019-12-09 07:53] LABS: Glucose, Whole Blood > 600 mg/dL (60-115)
[2019-12-09 08:34] LABS: Glucose, Whole Blood 105 mg/dL (60-115)
[2019-12-09] MEDS: dexAMETHasone sod phosphate 4 MG/ML VIAL 6 MG IVPUSH (08:45)
[2019-12-09] MEDS: Heparin Sodium,Porcine 5,000 UNIT/ML VIAL 5000 UNIT SUBCUT ×2 (08:46→21:41)
[2019-12-09] MEDS: Doxycycline Hyclate 100 MG in 0.9 % Sodium Chloride 250 ML 250 MG IV (08:46)
[2019-12-09] MEDS: Benzonatate 100 MG CAPSULE 200 MG PO ×2 (08:46→20:03)
[2019-12-09] MEDS: Atorvastatin Calcium 80 MG TABLET PO (08:46)
[2019-12-09] MEDS: carvediloL 12.5 MG TABLET PO ×2 (08:47→20:00)
[2019-12-09] MEDS: 0.9 % Sodium Chloride Flush 3 ML SYRINGE IVFLUSH ×2 (08:47→13:29)
[2019-12-09] MEDS: Midodrine HCl 5 MG TABLET PO (08:49)
--- NOTE | 2019-12-09 09:37 | P.PNIM_ITS ---
Subjective Subjective Date of Service: 12/09/19 Interval History: SaO2 this am 85-88% on 100% fiO2 + 60 LPM HFNC but with sitting upright, was able to get into mid 90s feels comfortable except short of breath with minimal movement coughing Review of Systems General - weak, generalized Cardiovascular - no chest pain Respiratory - +SOB, +cough Abdominal- no abdominal pain, nausea, vomiting, diarrhea Physical Exam Vital Signs: Vital Signs: Vital Signs Temp Pulse Resp BP Pulse Ox 12/09/19 08:02 20 12/09/19 08:00 97.9 F 85 19 128/89 90 L 12/09/19 04:40 26 H 12/09/19 03:24 98.6 F 87 18 120/74 93 12/09/19 00:53 32 H 12/09/19 00:00 98.7 F 82 18 138/68 91 L 12/08/19 20:56 89 150/73 H 12/08/19 19:27 100.1 F 89 18 150/73 H 93 12/08/19 19:26 22 H 12/08/19 15:55 77 141/82 H 89 L 12/08/19 15:28 24 H 12/08/19 11:53 24 H 12/08/19 10:48 77 146/82 H Body Mass Index 31.3 Const: General: ill appearing Orientation/consciousness: patient oriented x3 Chest: Chest palpation & inspection: normal inspection of the chest Resp: Effort & Inspection: respiratory distress Cardio: Rate: regular rate Peripheral pulses: Peripheral pulses 2+ throughout Skin: Other: no cyanosis Neuro: General: patient oriented x3 Objective Data Current Medications Generic Name Dose Route Start Last Admin Trade Name Freq PRN Reason Stop Dose Admin Acetaminophen 650 mg 12/05/19 20:33 12/08/19 20:56 Acetaminophen 325 Mg Tablet PO 650 mg Q6H PRN Administration Pain, Mild (Pain Scale 1-3) Albuterol Sulfate 2 puff 12/08/19 08:19 Albuterol Sulfate 90 Mcg 18 Gm Inhaler INHALE Q4H PRN Wheezing Atorvastatin Calcium 80 mg 12/06/19 09:00 12/09/19 08:46 Atorvastatin Calcium 80 Mg Tablet PO 80 mg DAILY ESTEFANIA Administration Benzonatate 200 mg 12/07/19 05:20 12/09/19 08:46 Benzonatate 100 Mg Capsule PO 200 mg TID PRN Administration Cough Carvedilol 12.5 mg 12/05/19 21:00 12/09/19 08:47 Carvedilol 12.5 Mg Tablet PO 12.5 mg BID ESTEFANIA Administration Protocol Dexamethasone Sodium Phosphate 6 mg 12/06/19 15:00 12/09/19 08:45 Dexamethasone Sod Phosphate 4 Mg/Ml Vial IVPUSH 12/15/19 09:01 6 mg DAILY ESTEFANIA Administration Docusate Sodium 100 mg 12/05/19 20:33 Docusate Sodium 100 Mg Capsule PO DAILY PRN Constipation Guaifenesin 5 ml 12/07/19 02:19 12/08/19 03:04 Guaifenesin 100 Mg/5 Ml Liquid PO 5 ml Q6H PRN Administration Cough Guaifenesin 5 ml 12/07/19 17:08 Guaifenesin 100 Mg/5 Ml Liquid PO Q6H PRN Cough Heparin Sodium (Porcine) 5,000 unit 12/05/19 22:00 12/09/19 08:46 Heparin Sodium,Porcine 5,000 Unit/Ml Vial SUBCUT 5,000 unit Q12H ESTEFANIA Administration Ceftriaxone Sodium 1 gm/ 50 mls @ 100 mls/hr 12/07/19 22:00 12/08/19 21:30 Sodium Chloride IV Infused Q24H ESTEFANIA Infusion Doxycycline Hyclate 100 mg/ 250 mls @ 250 mls/hr 12/07/19 21:00 12/09/19 08:46 Sodium Chloride IV 250 mls/hr Q12H ESTEFANIA Administration Insulin Glargine 60 unit 12/06/19 21:00 12/08/19 20:58 Insulin Glargine,Hum.Rec.Anlog 100 Unit/Ml 10 Ml Vial SUBCUT 60 unit BEDTIME ESTEFANIA Administration Insulin Human Lispro 0 unit 12/07/19 11:30 12/09/19 08:47 Insulin Lispro 100 Unit/Ml 3 Ml Vial SUBCUT Not Given QIDACHS [facility] Protocol Midodrine 5 mg 12/05/19 20:33 12/09/19 08:49 Midodrine Hcl 5 Mg Tablet PO 5 mg TIDWM ESTEFANIA Administration Nystatin 1 appl 12/08/19 09:00 12/08/19 10:48 Nystatin Powder 15 Gm Bottle TOPICAL 1 appl DAILY ESTEFANIA Administration Protocol Ondansetron HCl 4 mg 12/05/19 20:33 Ondansetron Hcl 4 Mg/2 Ml Vial IVPUSH Q8H PRN Nausea and Vomiting Pharmacy Consult 1 each 12/05/19 11:48 Consult Rx Perform Med Rec MISCELLANE ONCE PRN Consult order Sevelamer HCl 1,600 mg 12/06/19 08:00 12/09/19 08:49 Sevelamer Hcl 800 Mg Tablet PO 1,600 mg TIDWM ESTEFANIA Administration Sodium Chloride 3 ml 12/06/19 00:00 12/09/19 08:47 0.9 % Sodium Chloride Flush 3 Ml Syringe IVFLUSH 3 ml QSHIFT ESTEFANIA Administration Trazodone HCl 100 mg 12/05/19 21:00 12/08/19 20:56 Trazodone Hcl 100 Mg Tablet PO 100 mg BEDTIME ESTEFANIA Administration Labs CBC & Chem 7: 12/09/19 05:52 12/09/19 05:52 Labs: Laboratory Results - last 24 hr 12/05/19 12/08/19 12/08/19 12:43 06:08 11:30 MCV MCH MCHC RDW Plt Count MPV Immature Gran % (Auto) Neut % (Auto) Lymph % (Auto) Coleman % (Auto) Eos % (Auto) Baso % (Auto) Lymph # (Auto) Coleman # (Auto) Eos # (Auto) Baso # (Auto) Abs Immat Gran (auto) Absolute Neuts (auto) Absolute Nucleated RBC Nucleated RBC % (auto) D-Dimer Anion Gap Estim Creat Clear Calc Estimated GFR POC Glucose > 600 H* 276 H Random Glucose Calcium C-Reactive Protein Procalcitonin 2.17 12/08/19 12/08/19 12/09/19 17:59 20:11 05:52 MCV 91.9 MCH 29.9 MCHC 32.5 RDW 14.4 Plt Count 161 D MPV 11.5 Immature Gran % (Auto) 0.6 H Neut % (Auto) 77.7 H Lymph % (Auto) 18.5 L Coleman % (Auto) 3.1 Eos % (Auto) 0.0 Baso % (Auto) 0.1 Lymph # (Auto) 2.0 Coleman # (Auto) 0.3 Eos # (Auto) 0.0 Baso # (Auto) 0.0 Abs Immat Gran (auto) 0.06 H Absolute Neuts (auto) 8.2 Absolute Nucleated RBC 0.000 Nucleated RBC % (auto) 0.0 D-Dimer Anion Gap Estim Creat Clear Calc Estimated GFR POC Glucose 143 H 199 H Random Glucose Calcium C-Reactive Protein Procalcitonin 12/09/19 12/09/19 12/09/19 05:52 05:52 08:16 MCV MCH MCHC RDW Plt Count MPV Immature Gran % (Auto) Neut % (Auto) Lymph % (Auto) Coleman % (Auto) Eos % (Auto) Baso % (Auto) Lymph # (Auto) Coleman # (Auto) Eos # (Auto) Baso # (Auto) Abs Immat Gran (auto) Absolute Neuts (auto) Absolute Nucleated RBC Nucleated RBC % (auto) D-Dimer 972 Anion Gap 18 Estim Creat Clear Calc 16.9 Estimated GFR 12 POC Glucose 105 Random Glucose 162 H Calcium 7.9 L C-Reactive Protein 11.01 H Procalcitonin Progress Note: A&P (1) COVID-19: Status: Acute Assessment and Plan: hospital d#5 69yo M with DM2, ESRD on HD presented with hyperglycemia without DKA, cough admitted for severe COVID-19 PNA # COVID-19 PNA - dexamethasone d#06/05, s/p 1 dose convalescent plasma 12/08/19 - ICU + ID following - continue HFNC - per ICU d/c antibiotics (was on ceftriaxone + doxycycline), likely all viral - complicated by pulmonary edema from ESRD- see below # ESRD on HD - 4.5 L removed yesterday - Nephrology following, continue HD - continue sevelamer # hyperK - resolved # CAD - continue statin, b-goran # DM2 with hyperglycemia - continue Lantus + Humalog # orthostatic hypotension - continue midodrine with HD # VTE ppx - UFH I updated pt's sister Claudia by phone,
[2019-12-09] MEDS: Nystatin Powder 15 GM BOTTLE 1 APPL TOPICAL (10:05)
--- NOTE | 2019-12-09 10:53 | PC.NURSE ---
Patient O2 sat 80-87% on high flow 60L and non rebreather. RR 24, slightly labored work of breathing. Alert and oriented x 3. Repositioned OOB to chair. Respiratory notified, MD at bedside to evaluate patient. Patient denies any pain or chest discomfort. Hospitalist will discuss with flooring professional on possible transfer to icu.
[2019-12-09 11:34] LABS: Glucose, Whole Blood 228 mg/dL (60-115)
[2019-12-09 11:41] LABS: Procalcitonin 2.71 ng/mL
--- NOTE | 2019-12-09 13:17 | MHC.CM.PN ---
CM has requested that Attending review last CM PN, that describes Patient's HD Nurse expressing concerns about Patient returning home and his ability to manage his care/needs. CM will follow for dc planning.
[2019-12-09] MEDS: Insulin Lispro 100 UNIT/ML 3 ML VIAL SUBCUT ×3 (13:30→21:43)
[2019-12-09 16:59] LABS: Glucose, Whole Blood 260 mg/dL (60-115)
[2019-12-09] MEDS: Acetaminophen 325 MG TABLET 650 MG PO (20:03)
[2019-12-09] MEDS: traZODone HCL 100 MG TABLET PO (20:03)
[2019-12-09] MEDS: guaiFENesin 100 MG/5 ML LIQUID PO (20:04)
[2019-12-09 21:41] LABS: Glucose, Whole Blood 252 mg/dL (60-115)
[2019-12-09] MEDS: ondansetron HCL 4 MG/2 ML VIAL IVPUSH (21:41)
[2019-12-09] MEDS: Insulin Glargine,Hum.rec.anlog 100 UNIT/ML 10 ML VIAL 60 UNIT SUBCUT (21:44)
[2019-12-10] VITALS (9 sets, daily range): BP systolic 133–142; BP diastolic 63–86; PULSE 70–97; RESP 18–26; TEMP 36.6–36.9; O2SAT 88–95
[2019-12-10] MEDS: 0.9 % Sodium Chloride Flush 3 ML SYRINGE IVFLUSH ×2 (01:19→09:38)
--- NOTE | 2019-12-10 02:42 | PC.NURSE ---
6 beat run of vtach observed on telemetry at 0200 while patient was sleeping. Pt assessed. VSS. Denies complaints. MD made aware. No mag level drawn, request to add to morning labs. NO new orders at this time. Will continue to monitor.
--- NOTE | 2019-12-10 02:51 | PC.NURSE ---
New orders for BMP and stat mag level to be drawn per Dr. Villaseñor.
[2019-12-10 04:02] LABS: Anion Gap 19 (12-20); Carbon Dioxide 26 mmol/L (22-29); Chloride 96 mmol/L (96-108); Glucose Random 173 mg/dL (60-115); Magnesium 2.3 mg/dL (1.6-2.6); Potassium 4.5 mmol/l (3.3-5.1); Sodium 136 mmol/L (135-145)
[2019-12-10 04:03] LABS: Blood Urea Nitrogen 97 mg/dL (9-16); Creatinine Clr Calc Pharmacy 13.7; Estimated Glomerular Filt Rate 10
[2019-12-10 05:03] LABS: Calcium 7.9 mg/dL (8.4-10.2)
[2019-12-10 06:23] LABS: MANUAL DIFF FLAG NO
[2019-12-10 06:45] LABS: Hematocrit 40.7 % (42-52); Imm Gran Abs Auto 0.04 X10*3/uL (0.00-0.03); Imm Gran Pct Auto 0.5 % (0.0-0.4); Lymphocytes Absolute Auto 2.2 X10*3/uL (1.2-4.9); Lymphocytes Percent Auto 26.1 % (20-40); Mean Corpuscular HGB Conc 31.9 g/dl (31.0-36.0); Mean Corpuscular Hemoglobin 29.5 pg (27.0-33.0); Mean Corpuscular Volume 92.3 fL (80-98); Mean Platelet Volume 11.3 fL (9.4-12.4); Monocytes Absolute Auto 0.3 X10*3/uL (0.1-1.2); Monocytes Percent Auto 3.2 % (2-11); Neutrophils Absolute Auto 5.9 X10*3/uL (2.0-8.3); Neutrophils Percent Auto 70.2 % (45-73); Platelet Count 145 X10*3/uL (160-400); Red Blood Count 4.41 X10*6/uL (4.60-5.80); Red Cell Distribution Width 14.1 % (11.0-16.0); White Blood Count 8.4 X10*3/uL (4.8-10.8)
[2019-12-10 07:39] LABS: Alanine Aminotransferase 108 U/L (0-40); Albumin Level 3.3 g/dL (3.5-5.0); Alkaline Phosphatase 256 U/L (39-117); Anion Gap 18 (12-20); Aspartate Amino Transferase 54 U/L (5-37); Bilirubin Total 0.6 mg/dL (0.0-1.0); Blood Urea Nitrogen 100 mg/dL (9-16); Calcium 7.8 mg/dL (8.4-10.2); Carbon Dioxide 29 mmol/L (22-29); Chloride 95 mmol/L (96-108); Creatinine Clr Calc Pharmacy 13.4; Estimated Glomerular Filt Rate 10; Glucose Random 138 mg/dL (60-115); Potassium 4.5 mmol/l (3.3-5.1); Sodium 137 mmol/L (135-145); Total Protein 5.8 g/dL (6.5-8.0)
[2019-12-10 07:53] LABS: Glucose, Whole Blood 138 mg/dL (60-115)
[2019-12-10] MEDS: Midodrine HCl 5 MG TABLET PO ×2 (09:08→12:13)
[2019-12-10] MEDS: dexAMETHasone sod phosphate 4 MG/ML VIAL 6 MG IVPUSH (09:08)
[2019-12-10 09:17] LABS: Ferritin 8993 ng/mL (20-250)
[2019-12-10] MEDS: Nystatin Powder 15 GM BOTTLE 1 APPL TOPICAL (10:06)
[2019-12-10] MEDS: Heparin Sodium,Porcine 5,000 UNIT/ML VIAL 5000 UNIT SUBCUT ×2 (10:26→21:30)
--- NOTE | 2019-12-10 10:32 | PM.PNNEP ---
Subjective Subjective Principal diagnosis: CKD /COVID Interval history: Still dyspnea REfusing HD today Physical Exam Vital Signs: Vital Signs: Vital Signs Temp Pulse Resp BP Pulse Ox 12/10/19 07:33 98.1 F 77 18 142/86 H 94 12/10/19 04:37 26 H 12/10/19 01:30 24 H 12/09/19 23:23 96.7 F L 80 19 116/62 94 12/09/19 20:00 86 18 134/76 95 12/09/19 19:41 32 H 12/09/19 16:00 96.8 F 83 18 141/79 H 99 12/09/19 11:23 20 12/09/19 11:16 98.0 F 80 18 128/77 92 Body Mass Index 31.3 Const: General: ill appearing Resp: Effort & Inspection: abnormal respiratory pattern Auscultation: rhonchi Cardio: Jugular venous distension: no JVD Neuro: Motor exam (neuro): no asterixis Assessment & Plan Assessment and plan (1) ESRD (end stage renal disease) on dialysis: Problem details: No s/s of uremia Status: Chronic Assessment and Plan: Needs HD today Will remove fluids as tolerated HD 3 x week COvid -19
[2019-12-10 11:41] LABS: Glucose, Whole Blood 228 mg/dL (60-115)
[2019-12-10] MEDS: Insulin Lispro 100 UNIT/ML 3 ML VIAL SUBCUT ×2 (12:13→21:31)
--- NOTE | 2019-12-10 14:08 | PM.IMPN ---
Subjective Subjective Date of Service: 12/10/19 Interval History: SaO2 up to 94% on 100% fiO2 + 6o LPM HFNC with addition of NRB as tolerated short of breath with minimal movement weak but otherwise no complaints- no chest pain or N/V Review of Systems General - weak Cardiovascular - no chest pain Respiratory - +SOB, +cough Abdominal- no abdominal pain, nausea, vomiting, diarrhea Physical Exam Vital Signs: Vital Signs: Vital Signs Temp Pulse Resp BP Pulse Ox 12/10/19 11:40 20 12/10/19 11:01 97.8 F 83 18 133/63 94 12/10/19 07:33 98.1 F 77 18 142/86 H 94 12/10/19 04:37 26 H 12/10/19 01:30 24 H 12/09/19 23:23 96.7 F L 80 19 116/62 94 12/09/19 20:00 86 18 134/76 95 12/09/19 19:41 32 H 12/09/19 16:00 96.8 F 83 18 141/79 H 99 Body Mass Index 31.3 Const: General: ill appearing Orientation/consciousness: patient oriented x3 Eyes: Sclerae: sclerae normal Chest: Chest palpation & inspection: normal inspection of the chest Resp: Effort & Inspection: respiratory distress (mild) Cardio: Peripheral pulses: Peripheral pulses 2+ throughout Neuro: General: patient oriented x3 Objective Data Current Medications Generic Name Dose Route Start Last Admin Trade Name Freq PRN Reason Stop Dose Admin Acetaminophen 650 mg 12/05/19 20:33 12/09/19 20:03 Acetaminophen 325 Mg Tablet PO 650 mg Q6H PRN Administration Pain, Mild (Pain Scale 1-3) Albuterol Sulfate 2 puff 12/08/19 08:19 Albuterol Sulfate 90 Mcg 18 Gm Inhaler INHALE Q4H PRN Wheezing Atorvastatin Calcium 80 mg 12/06/19 09:00 12/10/19 10:06 Atorvastatin Calcium 80 Mg Tablet PO Not Given DAILY ESTEFANIA Benzonatate 200 mg 12/07/19 05:20 12/09/19 20:03 Benzonatate 100 Mg Capsule PO 200 mg TID PRN Administration Cough Carvedilol 12.5 mg 12/05/19 21:00 12/10/19 10:06 Carvedilol 12.5 Mg Tablet PO Not Given BID ESTEFANIA Protocol Dexamethasone Sodium Phosphate 6 mg 12/06/19 15:00 12/10/19 09:08 Dexamethasone Sod Phosphate 4 Mg/Ml Vial IVPUSH 12/15/19 09:01 6 mg DAILY ESTEFANIA Administration Docusate Sodium 100 mg 12/05/19 20:33 Docusate Sodium 100 Mg Capsule PO DAILY PRN Constipation Guaifenesin 5 ml 12/07/19 02:19 12/09/19 20:04 Guaifenesin 100 Mg/5 Ml Liquid PO 5 ml Q6H PRN Administration Cough Guaifenesin 5 ml 12/07/19 17:08 Guaifenesin 100 Mg/5 Ml Liquid PO Q6H PRN Cough Heparin Sodium (Porcine) 5,000 unit 12/05/19 22:00 12/10/19 10:26 Heparin Sodium,Porcine 5,000 Unit/Ml Vial SUBCUT 5,000 unit Q12H ESTEFANIA Administration Insulin Glargine 60 unit 12/06/19 21:00 12/09/19 21:44 Insulin Glargine,Hum.Rec.Anlog 100 Unit/Ml 10 Ml Vial SUBCUT 60 unit BEDTIME ESTEFANIA Administration Insulin Human Lispro 0 unit 12/07/19 11:30 12/10/19 12:13 Insulin Lispro 100 Unit/Ml 3 Ml Vial SUBCUT 6 unit QIDACHS [facility] Administration Protocol Midodrine 5 mg 12/05/19 20:33 12/10/19 12:13 Midodrine Hcl 5 Mg Tablet PO 5 mg TIDWM ESTEFANIA Administration Nystatin 1 appl 12/08/19 09:00 12/10/19 10:06 Nystatin Powder 15 Gm Bottle TOPICAL 1 appl DAILY ESTEFANIA Administration Protocol Ondansetron HCl 4 mg 12/05/19 20:33 12/09/19 21:41 Ondansetron Hcl 4 Mg/2 Ml Vial IVPUSH 4 mg Q8H PRN Administration Nausea and Vomiting Pharmacy Consult 1 each 12/05/19 11:48 Consult Rx Perform Med Rec MISCELLANE ONCE PRN Consult order Sevelamer HCl 1,600 mg 12/06/19 08:00 12/10/19 12:13 Sevelamer Hcl 800 Mg Tablet PO 1,600 mg TIDWM ESTEFANIA Administration Sodium Chloride 3 ml 12/06/19 00:00 12/10/19 09:38 0.9 % Sodium Chloride Flush 3 Ml Syringe IVFLUSH 3 ml QSHIFT ESTEFANIA Administration Trazodone HCl 100 mg 12/05/19 21:00 12/09/19 20:03 Trazodone Hcl 100 Mg Tablet PO 100 mg BEDTIME ESTEFANIA Administration Labs CBC & Chem 7: 12/10/19 06:05 12/10/19 06:05 Labs: Laboratory Results - last 24 hr 12/09/19 12/09/19 12/10/19 16:47 21:31 03:13 MCV MCH MCHC RDW Plt Count MPV Immature Gran % (Auto) Neut % (Auto) Lymph % (Auto) Calloway % (Auto) Eos % (Auto) Baso % (Auto) Lymph # (Auto) Calloway # (Auto) Eos # (Auto) Baso # (Auto) Abs Immat Gran (auto) Absolute Neuts (auto) Absolute Nucleated RBC Nucleated RBC % (auto) Anion Gap 19 Estim Creat Clear Calc 13.7 Estimated GFR 10 POC Glucose 260 H 252 H Random Glucose 173 H Calcium 7.9 L Magnesium 2.3 Ferritin Total Bilirubin AST ALT Alkaline Phosphatase Total Protein Albumin 12/10/19 12/10/19 12/10/19 06:05 06:05 07:35 MCV 92.3 MCH 29.5 MCHC 31.9 RDW 14.1 Plt Count 145 L MPV 11.3 Immature Gran % (Auto) 0.5 H Neut % (Auto) 70.2 Lymph % (Auto) 26.1 Calloway % (Auto) 3.2 Eos % (Auto) 0.0 Baso % (Auto) 0.0 Lymph # (Auto) 2.2 Calloway # (Auto) 0.3 Eos # (Auto) 0.0 Baso # (Auto) 0.0 Abs Immat Gran (auto) 0.04 H Absolute Neuts (auto) 5.9 Absolute Nucleated RBC 0.000 Nucleated RBC % (auto) 0.0 Anion Gap 18 Estim Creat Clear Calc 13.4 Estimated GFR 10 POC Glucose 138 H Random Glucose 138 H Calcium 7.8 L Magnesium Ferritin 8993 H Total Bilirubin 0.6 AST 54 H ALT 108 H Alkaline Phosphatase 256 H D Total Protein 5.8 L Albumin 3.3 L 12/10/19 11:00 MCV MCH MCHC RDW Plt Count MPV Immature Gran % (Auto) Neut % (Auto) Lymph % (Auto) Calloway % (Auto) Eos % (Auto) Baso % (Auto) Lymph # (Auto) Calloway # (Auto) Eos # (Auto) Baso # (Auto) Abs Immat Gran (auto) Absolute Neuts (auto) Absolute Nucleated RBC Nucleated RBC % (auto) Anion Gap Estim Creat Clear Calc Estimated GFR POC Glucose 228 H Random Glucose Calcium Magnesium Ferritin Total Bilirubin AST ALT Alkaline Phosphatase Total Protein Albumin Progress Note: A&P (1) COVID-19: Status: Acute Assessment and Plan: hospital d#6 69yo M with DM2, ESRD on HD presented with hyperglycemia without DKA, cough admitted for severe COVID-19 PNA # acute hypoxic respiratory failure due to severe COVID-19 pneumonia - dexamethasone d#07/05, s/p 1 dose convalescent plasma 12/08/19 - ICU + ID following closely - complicated by pulmonary edema from ESRD- HD today # ESRD on HD - 4.5 L removed Sunday, repeat today - Nephrology following, continue HD - continue sevelamer # hyperK - resolved # CAD - continue statin, b-goran # DM2 with hyperglycemia - continue Lantus + Humalog # orthostatic hypotension - continue midodrine with HD # VTE ppx - UFH
--- NOTE | 2019-12-10 14:20 | MHC.CM.PN ---
DP home resume [facility] VS STR. PT eval pending. CM will follow.
[2019-12-10] MEDS: LORazepam 2 MG/ML VIAL 0.5 MG IVPUSH ×2 (14:26→22:50)
[2019-12-10 16:58] LABS: Glucose, Whole Blood 186 mg/dL (60-115)
[2019-12-10 21:18] LABS: Glucose, Whole Blood 281 mg/dL (60-115)
[2019-12-10] MEDS: traZODone HCL 100 MG TABLET PO (21:30)
[2019-12-10] MEDS: carvediloL 12.5 MG TABLET PO (21:30)
[2019-12-10] MEDS: Insulin Glargine,Hum.rec.anlog 100 UNIT/ML 10 ML VIAL 60 UNIT SUBCUT (21:32)
--- NOTE | 2019-12-10 22:36 | PC.NURSE ---
Addendum entered by Brian Woodward RN 12/10/19 22:55: PRN IV ativan given. Original Note: pt is A&Ox4, however very demanding and asking to get on and off the bed almost every 30mins. not compliant with O2 treatment always pulling his O2 off and as soon as he pulls the O2 off he would ask people to go in his room to put it back on. expalined to pt that he needs to keep the O2 on in order to keep his O2 level but pt cont. refuse to be cooperatives.
[2019-12-11] VITALS (14 sets, daily range): BP systolic 119–153; BP diastolic 18–90; PULSE 80–98; RESP 18–22; TEMP 36.3–37.1; O2SAT 85–98
[2019-12-11 01:33] LABS: Pt Ventilation O2% 100%
[2019-12-11 01:38] LABS: ABG PCO2 38 mmhg (32-45); pH ABG 7.47 (7.35-7.45)
[2019-12-11 01:41] LABS: HCO3 ABG 26 mmol/l (22-26); PO2 ABG 47 mmhg (83-108)
[2019-12-11 01:42] LABS: Base Excess ABG 3.2; Blood Gas Serial # 5414; Oxygen Saturation ABG 81.6 %
--- NOTE | 2019-12-11 03:43 | PC.NURSE ---
Addendum entered by Rocael Parmar RN 12/11/19 08:34: 3a-7a - patient O2sat goes down to 60's w/o oxygen, becomes sob, labored breathing. No change in mental status. Recovers quickly once back on O2 to high 90's. Original Note: This RN assumed care of patient at approximately 2320. Patient in chair alarm going off this RN into check on him, patient requesting to get back into bed, alert and oriented lungs sounds diminished throughout on high flow 100% 60L sats 98-99% denies any shortness of breath or pain. Patient assisted back to bed, vitals reported after to this RN saturation holding at 85% in bed. Patient assessed denies any sob, patient RR:22 HR in the 70's, does not appear to be labored or struggling. Respiratory notified to assess high flow and functioning/working correctly, saturations accurate in the ow 80's and at times 79% . MD notified and ICU contacted. Per MD at this time will continue to monitor and assess for any changes in orientation/ work of breathing and abg' ordered. Patient placed on non-rebreather as well as high flow and O2 saturations 98-99%. PO2 back low at 47 MD notified and aware sats improving continue to monitor. Patient in bed VSS, O2 sats are well at 99% with high flow and non-rebreather. Report given to oncoming RN will continue to monitor.
[2019-12-11] MEDS: 0.9 % Sodium Chloride Flush 3 ML SYRINGE IVFLUSH ×3 (04:00→17:23)
[2019-12-11 06:50] LABS: MANUAL DIFF FLAG SCAN; Mean Corpuscular Volume 91.3 fL (80-98); Monocytes Absolute Auto 0.3 X10*3/uL (0.1-1.2); PLT CLUMP 1; SCAN SMEAR FLAG 1
[2019-12-11 06:52] LABS: Eosinophils Percent Auto 0.1 % (0-4); Hematocrit 37.9 % (42-52); Hemoglobin 12.3 g/dl (14.0-18.0); Imm Gran Abs Auto 0.02 X10*3/uL (0.00-0.03); Imm Gran Pct Auto 0.2 % (0.0-0.4); Lymphocytes Percent Auto 24.5 % (20-40); Mean Corpuscular HGB Conc 32.5 g/dl (31.0-36.0); Mean Corpuscular Hemoglobin 29.6 pg (27.0-33.0); Mean Platelet Volume 11.4 fL (9.4-12.4); Monocytes Percent Auto 3.4 % (2-11); Neutrophils Absolute Auto 5.9 X10*3/uL (2.0-8.3); Neutrophils Percent Auto 71.8 % (45-73); Red Blood Count 4.15 X10*6/uL (4.60-5.80); White Blood Count 8.2 X10*3/uL (4.8-10.8)
[2019-12-11 07:24] LABS: Anion Gap 17 (12-20); Blood Urea Nitrogen 68 mg/dL (9-16); Calcium 7.8 mg/dL (8.4-10.2); Carbon Dioxide 29 mmol/L (22-29); Chloride 97 mmol/L (96-108); Creatinine Clr Calc Pharmacy 17.3; Estimated Glomerular Filt Rate 13; Glucose Random 159 mg/dL (60-115); Potassium 4.2 mmol/l (3.3-5.1); Sodium 139 mmol/L (135-145)
[2019-12-11 07:34] LABS: Platelet Count 121 X10*3/uL (160-400)
[2019-12-11 07:34] LABS: Glucose, Whole Blood 92 mg/dL (60-115)
[2019-12-11] MEDS: dexAMETHasone sod phosphate 4 MG/ML VIAL 6 MG IVPUSH (10:35)
[2019-12-11] MEDS: Atorvastatin Calcium 80 MG TABLET PO (10:36)
[2019-12-11] MEDS: carvediloL 12.5 MG TABLET PO ×2 (10:36→20:53)
[2019-12-11] MEDS: Heparin Sodium,Porcine 5,000 UNIT/ML VIAL 5000 UNIT SUBCUT ×2 (10:36→20:52)
--- NOTE | 2019-12-11 10:53 | PM.PNNEP ---
Subjective Subjective Principal diagnosis: CKD /COVID Physical Exam Vital Signs: Vital Signs: Vital Signs Temp Pulse Resp BP Pulse Ox 12/11/19 07:22 98 F 85 20 142/74 H 98 12/11/19 04:00 97.3 F 84 20 146/90 H 98 12/11/19 00:00 98.6 F 87 22 H 131/69 12/10/19 21:30 97 139/85 12/10/19 20:00 98.4 F 97 18 139/85 95 12/10/19 19:38 24 H 12/10/19 16:13 20 12/10/19 11:40 20 12/10/19 11:01 97.8 F 83 18 133/63 94 Body Mass Index 31.3 Const: General: ill appearing Resp: Effort & Inspection: abnormal respiratory pattern Auscultation: rhonchi Cardio: Jugular venous distension: no JVD Neuro: Motor exam (neuro): no asterixis Assessment & Plan Assessment and plan (1) ESRD (end stage renal disease) on dialysis: Problem details: No s/s of uremia Status: Chronic Assessment and Plan: Needs HD today Will remove fluids as tolerated HD 3 x week COvid -19 Time Spent With Patient Time: Total time spent is greater than 50% in coordination of care (as documented) at patient's floor/unit and/or counseling patient:
[2019-12-11 11:38] LABS: Glucose, Whole Blood 97 mg/dL (60-115)
--- NOTE | 2019-12-11 12:08 | PM.IMPN ---
Subjective Subjective Date of Service: 12/11/19 Interval History: Remains on 100% fiO2 + 60 LPM HFNC with addition of NRB as tolerated, SaO2 currently 100% Still dyspneic with minimal activity Dialyzed yesterday Review of Systems General - weak, no fever Cardiovascular - no chest pain Respiratory - +SOB, +cough Abdominal- no abdominal pain, nausea, vomiting, diarrhea Physical Exam Vital Signs: Vital Signs: Vital Signs Temp Pulse Resp BP Pulse Ox 12/11/19 11:23 98.8 F 88 22 H 132/74 97 12/11/19 11:19 22 H 12/11/19 10:36 93 137/18 L 12/11/19 07:22 98 F 85 20 142/74 H 98 12/11/19 04:00 97.3 F 84 20 146/90 H 98 12/11/19 00:00 98.6 F 87 22 H 131/69 12/10/19 21:30 97 139/85 12/10/19 20:00 98.4 F 97 18 139/85 95 12/10/19 19:38 24 H 12/10/19 16:13 20 Body Mass Index 31.3 Gen: ill-appearing Neck: supple Lungs: mildly dyspneic CV: normal pulses GI: soft, NT Ext: no C/C/E Neuro: non-focal Auscultation of the chest deferred due to COVID-19 transmission risk Objective Data Current Medications Generic Name Dose Route Start Last Admin Trade Name Freq PRN Reason Stop Dose Admin Acetaminophen 650 mg 12/05/19 20:33 12/09/19 20:03 Acetaminophen 325 Mg Tablet PO 650 mg Q6H PRN Administration Pain, Mild (Pain Scale 1-3) Albuterol Sulfate 2 puff 12/08/19 08:19 Albuterol Sulfate 90 Mcg 18 Gm Inhaler INHALE Q4H PRN Wheezing Atorvastatin Calcium 80 mg 12/06/19 09:00 12/11/19 10:36 Atorvastatin Calcium 80 Mg Tablet PO 80 mg DAILY [facility] Administration Benzonatate 200 mg 12/07/19 05:20 12/09/19 20:03 Benzonatate 100 Mg Capsule PO 200 mg TID PRN Administration Cough Carvedilol 12.5 mg 12/05/19 21:00 12/11/19 10:36 Carvedilol 12.5 Mg Tablet PO 12.5 mg BID [facility] Administration Protocol Dexamethasone Sodium Phosphate 6 mg 12/06/19 15:00 12/11/19 10:35 Dexamethasone Sod Phosphate 4 Mg/Ml Vial IVPUSH 12/15/19 09:01 6 mg DAILY [facility] Administration Docusate Sodium 100 mg 12/05/19 20:33 Docusate Sodium 100 Mg Capsule PO DAILY PRN Constipation Guaifenesin 5 ml 12/07/19 02:19 12/09/19 20:04 Guaifenesin 100 Mg/5 Ml Liquid PO 5 ml Q6H PRN Administration Cough Guaifenesin 5 ml 12/07/19 17:08 Guaifenesin 100 Mg/5 Ml Liquid PO Q6H PRN Cough Heparin Sodium (Porcine) 5,000 unit 12/05/19 22:00 12/11/19 10:36 Heparin Sodium,Porcine 5,000 Unit/Ml Vial SUBCUT 5,000 unit Q12H [facility] Administration Insulin Glargine 60 unit 12/06/19 21:00 12/10/19 21:32 Insulin Glargine,Hum.Rec.Anlog 100 Unit/Ml 10 Ml Vial SUBCUT 60 unit BEDTIME [facility] Administration Insulin Human Lispro 0 unit 12/07/19 11:30 12/11/19 10:34 Insulin Lispro 100 Unit/Ml 3 Ml Vial SUBCUT Not Given QIDACHS [facility] Protocol Midodrine 5 mg 12/05/19 20:33 12/10/19 16:31 Midodrine Hcl 5 Mg Tablet PO Not Given TIDWM [facility] Nystatin 1 appl 12/08/19 09:00 12/10/19 10:06 Nystatin Powder 15 Gm Bottle TOPICAL 1 appl DAILY [facility] Administration Protocol Ondansetron HCl 4 mg 12/05/19 20:33 12/09/19 21:41 Ondansetron Hcl 4 Mg/2 Ml Vial IVPUSH 4 mg Q8H PRN Administration Nausea and Vomiting Pharmacy Consult 1 each 12/05/19 11:48 Consult Rx Perform Med Rec MISCELLANE ONCE PRN Consult order Sevelamer HCl 1,600 mg 12/06/19 08:00 12/10/19 16:31 Sevelamer Hcl 800 Mg Tablet PO Not Given TIDWM [facility] Sodium Chloride 3 ml 12/06/19 00:00 12/11/19 10:35 0.9 % Sodium Chloride Flush 3 Ml Syringe IVFLUSH 3 ml QSHIFT [facility] Administration Trazodone HCl 100 mg 12/05/19 21:00 12/10/19 21:30 Trazodone Hcl 100 Mg Tablet PO 100 mg BEDTIME [facility] Administration Labs CBC & Chem 7: 12/11/19 05:32 12/11/19 05:32 Labs: Laboratory Results - last 24 hr 12/10/19 12/10/19 12/11/19 16:26 21:11 01:21 MCV MCH MCHC RDW Plt Count MPV Immature Gran % (Auto) Neut % (Auto) Lymph % (Auto) [place] % (Auto) Eos % (Auto) Baso % (Auto) Lymph # (Auto) [place] # (Auto) Eos # (Auto) Baso # (Auto) Abs Immat Gran (auto) Absolute Neuts (auto) Absolute Nucleated RBC Nucleated RBC % (auto) Smear Tech's Comments ABG pH 7.47 H ABG pCO2 38 ABG pO2 47 L* ABG HCO3 26 ABG O2 Saturation 81.6 ABG Base Excess 3.2 Oxygen Given 100% Anion Gap Estim Creat Clear Calc Estimated GFR POC Glucose 186 H 281 H Random Glucose Calcium 12/11/19 12/11/19 12/11/19 05:32 05:32 07:29 MCV 91.3 MCH 29.6 MCHC 32.5 RDW 14.0 Plt Count 121 L MPV 11.4 Immature Gran % (Auto) 0.2 Neut % (Auto) 71.8 Lymph % (Auto) 24.5 [place] % (Auto) 3.4 Eos % (Auto) 0.1 Baso % (Auto) 0.0 Lymph # (Auto) 2.0 [place] # (Auto) 0.3 Eos # (Auto) 0.0 Baso # (Auto) 0.0 Abs Immat Gran (auto) 0.02 Absolute Neuts (auto) 5.9 Absolute Nucleated RBC 0.000 Nucleated RBC % (auto) 0.0 Smear Tech's Comments Not Reportable ABG pH ABG pCO2 ABG pO2 ABG HCO3 ABG O2 Saturation ABG Base Excess Oxygen Given Anion Gap 17 Estim Creat Clear Calc 17.3 Estimated GFR 13 POC Glucose 92 Random Glucose 159 H Calcium 7.8 L 12/11/19 11:33 MCV MCH MCHC RDW Plt Count MPV Immature Gran % (Auto) Neut % (Auto) Lymph % (Auto) [place] % (Auto) Eos % (Auto) Baso % (Auto) Lymph # (Auto) [place] # (Auto) Eos # (Auto) Baso # (Auto) Abs Immat Gran (auto) Absolute Neuts (auto) Absolute Nucleated RBC Nucleated RBC % (auto) Smear Tech's Comments ABG pH ABG pCO2 ABG pO2 ABG HCO3 ABG O2 Saturation ABG Base Excess Oxygen Given Anion Gap Estim Creat Clear Calc Estimated GFR POC Glucose 97 Random Glucose Calcium Progress Note: A&P (1) COVID-19: Status: Acute Assessment and Plan: hospital d#7 69yo M with DM2, ESRD/HD-dependent presented with hyperglycemia without DKA, cough admitted for severe COVID-19 PNA # acute hypoxic respiratory failure due to severe COVID-19 pneumonia - dexamethasone d#08/05, s/p 1 dose convalescent plasma 12/08/19 - ICU + ID following closely - complicated by pulmonary edema from ESRD- continue HD with removal of 4-5L of fluid as tolerated # ESRD on HD - Nephrology following, continue HD MWF - continue sevelamer # hyperK - resolved # CAD - continue statin, b-goran # DM2 with hyperglycemia - continue Lantus + Humalog # orthostatic hypotension - continue midodrine with HD # VTE ppx - UFH
[2019-12-11] MEDS: Nystatin Powder 15 GM BOTTLE 1 APPL TOPICAL (12:12)
[2019-12-11] MEDS: Midodrine HCl 5 MG TABLET PO ×2 (12:23→17:25)
[2019-12-11] MEDS: Insulin Lispro 100 UNIT/ML 3 ML VIAL SUBCUT ×2 (17:24→23:00)
[2019-12-11 17:33] LABS: Glucose, Whole Blood 200 mg/dL (60-115)
[2019-12-11] MEDS: traZODone HCL 100 MG TABLET PO (20:53)
[2019-12-11] MEDS: Benzonatate 100 MG CAPSULE 200 MG PO (20:53)
[2019-12-11 21:46] LABS: Glucose, Whole Blood 358 mg/dL (60-115)
[2019-12-11] MEDS: Insulin Glargine,Hum.rec.anlog 100 UNIT/ML 10 ML VIAL 60 UNIT SUBCUT (23:00)
[2019-12-12] VITALS (17 sets, daily range): BP systolic 121–154; BP diastolic 61–84; PULSE 76–93; RESP 17–22; TEMP 36.1–36.9; O2SAT 91–100
[2019-12-12 01:02] LABS: Strep Pneumo Ag urine Not Detected (Not Detected)
[2019-12-12] MEDS: 0.9 % Sodium Chloride Flush 3 ML SYRINGE IVFLUSH ×4 (02:19→21:45)
[2019-12-12 06:33] LABS: MANUAL DIFF FLAG NO
[2019-12-12 06:52] LABS: Eosinophils Percent Auto 0.2 % (0-4); Hematocrit 38.9 % (42-52); Hemoglobin 12.7 g/dl (14.0-18.0); Imm Gran Abs Auto 0.04 X10*3/uL (0.00-0.03); Imm Gran Pct Auto 0.4 % (0.0-0.4); Lymphocytes Absolute Auto 2.3 X10*3/uL (1.2-4.9); Mean Corpuscular HGB Conc 32.6 g/dl (31.0-36.0); Mean Corpuscular Hemoglobin 29.6 pg (27.0-33.0); Mean Corpuscular Volume 90.7 fL (80-98); Mean Platelet Volume 11.4 fL (9.4-12.4); Monocytes Absolute Auto 0.3 X10*3/uL (0.1-1.2); Monocytes Percent Auto 2.5 % (2-11); Neutrophils Absolute Auto 7.4 X10*3/uL (2.0-8.3); Neutrophils Percent Auto 73.9 % (45-73); Platelet Count 107 X10*3/uL (160-400); Red Blood Count 4.29 X10*6/uL (4.60-5.80); Red Cell Distribution Width 13.8 % (11.0-16.0); White Blood Count 10.1 X10*3/uL (4.8-10.8)
[2019-12-12 07:15] LABS: Glucose, Whole Blood 200 mg/dL (60-115)
[2019-12-12 07:27] LABS: D Dimer 6985 NG/ML
[2019-12-12 07:32] LABS: Lactate Dehydrogenase 694 U/L (118-273)
[2019-12-12 07:33] LABS: Anion Gap 17 (12-20); Blood Urea Nitrogen 102 mg/dL (9-16); C Reactive Protein 3.73 mg/dL (< or = 0.50); Calcium 7.7 mg/dL (8.4-10.2); Carbon Dioxide 30 mmol/L (22-29); Chloride 96 mmol/L (96-108); Creatinine Clr Calc Pharmacy 14.8; Estimated Glomerular Filt Rate 11; Glucose Random 132 mg/dL (60-115); Potassium 4.5 mmol/l (3.3-5.1); Sodium 138 mmol/L (135-145)
[2019-12-12 07:41] LABS: Glucose, Whole Blood 107 mg/dL (60-115)
[2019-12-12] MEDS: carvediloL 12.5 MG TABLET PO ×2 (08:10→21:43)
[2019-12-12] MEDS: dexAMETHasone sod phosphate 4 MG/ML VIAL 6 MG IVPUSH (08:11)
[2019-12-12] MEDS: Midodrine HCl 5 MG TABLET PO ×3 (08:11→18:09)
[2019-12-12] MEDS: Atorvastatin Calcium 80 MG TABLET PO (08:11)
--- NOTE | 2019-12-12 10:12 | PM.PNNEP ---
Subjective Subjective Principal diagnosis: CKD /COVID Interval history: Events noted' Remains isolated HD today Physical Exam Vital Signs: Vital Signs: Vital Signs Temp Pulse Resp BP Pulse Ox 12/12/19 08:57 18 12/12/19 08:11 83 137/77 12/12/19 08:10 83 137/77 12/12/19 08:00 97.3 F 83 20 137/77 91 L 12/12/19 07:37 97.3 F 83 20 137/77 91 L 12/12/19 04:00 18 12/12/19 03:48 97.2 F 86 17 125/61 93 12/12/19 00:13 18 12/11/19 23:17 97.6 F 98 19 153/68 H 93 12/11/19 20:00 84 20 136/73 12/11/19 15:52 98.0 F 83 20 119/57 L 93 12/11/19 15:26 18 12/11/19 12:23 88 132/74 12/11/19 11:23 98.8 F 88 22 H 132/74 97 12/11/19 11:19 22 H 12/11/19 10:36 93 137/18 L Body Mass Index 31.3 Const: Other: Ill appearing Resp: Auscultation: rhonchi Cardio: Palpation: no palpable S4 Heart sounds: no rubs GI: Inspection: Yes normal to inspection Palpation (GI): Soft to palpation Neuro: Motor exam (neuro): No Asterixis during motor activity present Assessment & Plan Assessment and plan (1) ESRD (end stage renal disease) on dialysis: Problem details: No s/s of uremia Status: Chronic Assessment and Plan: HD 3 x a week MWF Remove fluid as tolerated COVID-19
--- NOTE | 2019-12-12 11:08 | HO.PM.IMPN ---
Subjective Subjective Date of Service: 12/12/19 Interval History: Remains on 100% fiO2 + 60 LPM HFNC + NRB, SaO2 currently in low-mid 90s Still dyspneic with minimal activity but feels better To HD today Good appetite, less weak Review of Systems General - no fever Cardiovascular - no chest pain Respiratory - +SOB, +cough Abdominal- no abdominal pain, nausea, vomiting, diarrhea Physical Exam Vital Signs: Vital Signs: Vital Signs Temp Pulse Resp BP Pulse Ox 12/12/19 08:57 18 12/12/19 08:11 83 137/77 12/12/19 08:10 83 137/77 12/12/19 08:00 97.3 F 83 20 137/77 91 L 12/12/19 07:37 97.3 F 83 20 137/77 91 L 12/12/19 04:00 18 12/12/19 03:48 97.2 F 86 17 125/61 93 12/12/19 00:13 18 12/11/19 23:17 97.6 F 98 19 153/68 H 93 12/11/19 20:00 84 20 136/73 12/11/19 15:52 98.0 F 83 20 119/57 L 93 12/11/19 15:26 18 12/11/19 12:23 88 132/74 12/11/19 11:23 98.8 F 88 22 H 132/74 97 12/11/19 11:19 22 H Body Mass Index 31.3 Gen: ill-appearing Neck: supple Lungs: mildly dyspneic CV: normal pulses GI: soft, NT Ext: no C/C/E Neuro: non-focal Auscultation of the chest deferred due to COVID-19 transmission risk Objective Data Current Medications Generic Name Dose Route Start Last Admin Trade Name Freq PRN Reason Stop Dose Admin Acetaminophen 650 mg 12/05/19 20:33 12/09/19 20:03 Acetaminophen 325 Mg Tablet PO 650 mg Q6H PRN Administration Pain, Mild (Pain Scale 1-3) Albuterol Sulfate 2 puff 12/08/19 08:19 Albuterol Sulfate 90 Mcg 18 Gm Inhaler INHALE Q4H PRN Wheezing Atorvastatin Calcium 80 mg 12/06/19 09:00 12/12/19 08:11 Atorvastatin Calcium 80 Mg Tablet PO 80 mg DAILY ESTEFANIA Administration Benzonatate 200 mg 12/07/19 05:20 12/11/19 20:53 Benzonatate 100 Mg Capsule PO 200 mg TID PRN Administration Cough Carvedilol 12.5 mg 12/05/19 21:00 12/12/19 08:10 Carvedilol 12.5 Mg Tablet PO 12.5 mg BID [facility] Administration Protocol Dexamethasone Sodium Phosphate 6 mg 12/06/19 15:00 12/12/19 08:11 Dexamethasone Sod Phosphate 4 Mg/Ml Vial IVPUSH 12/15/19 09:01 6 mg DAILY ESTEFANIA Administration Docusate Sodium 100 mg 12/05/19 20:33 Docusate Sodium 100 Mg Capsule PO DAILY PRN Constipation Guaifenesin 5 ml 12/07/19 02:19 12/09/19 20:04 Guaifenesin 100 Mg/5 Ml Liquid PO 5 ml Q6H PRN Administration Cough Guaifenesin 5 ml 12/07/19 17:08 Guaifenesin 100 Mg/5 Ml Liquid PO Q6H PRN Cough Heparin Sodium (Porcine) 7,500 unit 12/12/19 08:45 Heparin Sodium,Porcine 5,000 Unit/Ml Vial SUBCUT Q8H [facility] Insulin Glargine 60 unit 12/06/19 21:00 12/11/19 23:00 Insulin Glargine,Hum.Rec.Anlog 100 Unit/Ml 10 Ml Vial SUBCUT 60 unit BEDTIME [facility] Administration Insulin Human Lispro 0 unit 12/07/19 11:30 12/12/19 08:12 Insulin Lispro 100 Unit/Ml 3 Ml Vial SUBCUT Not Given QIDACHS [facility] Protocol Midodrine 5 mg 12/05/19 20:33 12/12/19 08:11 Midodrine Hcl 5 Mg Tablet PO 5 mg TIDWM [facility] Administration Nystatin 1 appl 12/08/19 09:00 12/11/19 12:12 Nystatin Powder 15 Gm Bottle TOPICAL 1 appl DAILY [facility] Administration Protocol Ondansetron HCl 4 mg 12/05/19 20:33 12/09/19 21:41 Ondansetron Hcl 4 Mg/2 Ml Vial IVPUSH 4 mg Q8H PRN Administration Nausea and Vomiting Pharmacy Consult 1 each 12/05/19 11:48 Consult Rx Perform Med Rec MISCELLANE ONCE PRN Consult order Sevelamer HCl 1,600 mg 12/06/19 08:00 12/12/19 08:11 Sevelamer Hcl 800 Mg Tablet PO 1,600 mg TIDWM [facility] Administration Sodium Chloride 3 ml 12/06/19 00:00 12/12/19 08:26 0.9 % Sodium Chloride Flush 3 Ml Syringe IVFLUSH 3 ml QSHIFT [facility]EF[facility]IA Administration Trazodone HCl 100 mg 12/05/19 21:00 12/11/19 20:53 Trazodone Hcl 100 Mg Tablet PO 100 mg BEDTIME [facility] Administration Labs CBC & Chem 7: 12/12/19 05:41 12/12/19 05:41 Assessment and Plan (1) COVID-19: Status: Acute Assessment and Plan: hospital d#8 69yo M with DM2, ESRD/HD-dependent presented with hyperglycemia without DKA, cough admitted for severe COVID-19 PNA # acute hypoxic respiratory failure due to severe COVID-19 pneumonia - dexamethasone d#09/04 - s/p 1 dose convalescent plasma 12/08/19 - cannot give remdesivir due to ESRD - ICU + ID following - complicated by pulmonary edema from ESRD- continue HD with removal of fluid as tolerated # ESRD on HD - Nephrology following, continue HD MWF - continue sevelamer # hyperK - resolved # CAD - continue statin, b-goran # DM2 with hyperglycemia - continue Lantus + Humalog # orthostatic hypotension - continue midodrine with HD # VTE ppx - UFH- will increase to intermediate dose 7500 units q8h
[2019-12-12] MEDS: Heparin Sodium,Porcine 5,000 UNIT/ML VIAL 7500 UNIT SUBCUT ×2 (11:13→21:40)
[2019-12-12] MEDS: Nystatin Powder 15 GM BOTTLE 1 APPL TOPICAL (11:15)
[2019-12-12 11:56] LABS: Glucose, Whole Blood 195 mg/dL (60-115)
[2019-12-12] MEDS: Insulin Lispro 100 UNIT/ML 3 ML VIAL SUBCUT ×2 (13:17→21:44)
--- NOTE | 2019-12-12 14:02 | MHC.CM.PN ---
Patient continues on high flow O2 and IV decadron for 3 more days. Discharge plan is home with [facility]. CM will continue to follow for discharge needs.
[2019-12-12] MEDS: LORazepam 2 MG/ML VIAL 0.5 MG IVPUSH (16:18)
[2019-12-12 16:41] LABS: Glucose, Whole Blood 137 mg/dL (60-115)
[2019-12-12 21:11] LABS: Glucose, Whole Blood 390 mg/dL (60-115)
[2019-12-12] MEDS: traZODone HCL 100 MG TABLET PO (21:43)
[2019-12-12] MEDS: Insulin Glargine,Hum.rec.anlog 100 UNIT/ML 10 ML VIAL 60 UNIT SUBCUT (21:44)
[2019-12-13] VITALS (15 sets, daily range): BP systolic 123–158; BP diastolic 68–77; PULSE 72–105; RESP 18–24; TEMP 36.4–37.1; O2SAT 90–97
[2019-12-13] MEDS: Heparin Sodium,Porcine 5,000 UNIT/ML VIAL 7500 UNIT SUBCUT ×3 (03:13→18:02)
[2019-12-13 06:40] LABS: MANUAL DIFF FLAG NO
[2019-12-13 06:52] LABS: Basophils Percent Auto 0.1 % (0-2); Eosinophils Absolute Auto 0.2 X10*3/uL (0.0-0.4); Eosinophils Percent Auto 1.6 % (0-4); Hematocrit 40.5 % (42-52); Hemoglobin 13.2 g/dl (14.0-18.0); Imm Gran Abs Auto 0.06 X10*3/uL (0.00-0.03); Imm Gran Pct Auto 0.5 % (0.0-0.4); Lymphocytes Absolute Auto 2.8 X10*3/uL (1.2-4.9); Lymphocytes Percent Auto 24.1 % (20-40); Mean Corpuscular HGB Conc 32.6 g/dl (31.0-36.0); Mean Corpuscular Hemoglobin 29.4 pg (27.0-33.0); Mean Corpuscular Volume 90.2 fL (80-98); Mean Platelet Volume 10.4 fL (9.4-12.4); Monocytes Absolute Auto 0.2 X10*3/uL (0.1-1.2); Monocytes Percent Auto 1.6 % (2-11); Neutrophils Absolute Auto 8.4 X10*3/uL (2.0-8.3); Neutrophils Percent Auto 72.1 % (45-73); Red Blood Count 4.49 X10*6/uL (4.60-5.80); Red Cell Distribution Width 13.8 % (11.0-16.0); White Blood Count 11.6 X10*3/uL (4.8-10.8)
[2019-12-13 07:17] LABS: Anion Gap 16 (12-20); Blood Urea Nitrogen 72 mg/dL (9-16); Calcium 7.7 mg/dL (8.4-10.2); Carbon Dioxide 29 mmol/L (22-29); Chloride 98 mmol/L (96-108); Creatinine Clr Calc Pharmacy 20.1; Estimated Glomerular Filt Rate 15; Glucose Random 119 mg/dL (60-115); Potassium 4.1 mmol/l (3.3-5.1); Sodium 139 mmol/L (135-145)
[2019-12-13 07:21] LABS: Platelet Count 86 X10*3/uL (160-400)
[2019-12-13] MEDS: carvediloL 12.5 MG TABLET PO ×2 (07:32→21:16)
[2019-12-13] MEDS: Midodrine HCl 5 MG TABLET PO ×3 (07:32→18:02)
[2019-12-13] MEDS: dexAMETHasone sod phosphate 4 MG/ML VIAL 6 MG IVPUSH (07:32)
[2019-12-13] MEDS: Atorvastatin Calcium 80 MG TABLET PO (07:32)
[2019-12-13] MEDS: 0.9 % Sodium Chloride Flush 3 ML SYRINGE IVFLUSH ×3 (07:33→21:18)
[2019-12-13 07:35] LABS: Procalcitonin 0.83 ng/mL
[2019-12-13 08:03] LABS: Glucose, Whole Blood 75 mg/dL (60-115)
[2019-12-13 09:53] LABS: Ferritin 3893 ng/mL (20-250)
[2019-12-13] MEDS: Benzonatate 100 MG CAPSULE 200 MG PO (10:11)
[2019-12-13] MEDS: guaiFENesin 100 MG/5 ML LIQUID PO (10:11)
[2019-12-13] MEDS: Nystatin Powder 15 GM BOTTLE 1 APPL TOPICAL (10:21)
--- NOTE | 2019-12-13 13:15 | P.PNIM_ITS ---
Subjective Subjective Date of Service: 12/13/19 Interval History: Feels better but still on HFNC + NRB. Desaturates with even slight movement but at rest is able to maintain SaO2 93-94% Constitutional Constitutional: Denies fever(s) Cardiovascular Cardiovascular: Denies chest pain and Reports dyspnea Respiratory Respiratory: Reports cough and Reports dyspnea Gastrointestinal Gastrointestinal: Denies abdominal pain, Denies nausea and Denies vomiting Physical Exam Vital Signs: Vital Signs: Vital Signs Temp Pulse Resp BP Pulse Ox 12/13/19 12:39 86 135/77 12/13/19 12:00 97.6 F 86 20 135/77 96 12/13/19 11:48 24 H 12/13/19 09:09 24 H 12/13/19 07:43 97.9 F 84 24 H 151/72 H 12/13/19 07:32 72 123/77 12/13/19 04:00 98.8 F 72 18 123/77 94 12/13/19 03:31 24 H 12/13/19 00:59 20 12/12/19 23:32 98.4 F 93 20 154/82 H 93 12/12/19 23:07 97.1 F 76 17 127/71 92 12/12/19 21:43 88 132/62 12/12/19 19:43 20 12/12/19 18:59 97 F 88 22 H 132/62 94 12/12/19 16:00 97.7 F 78 18 124/84 92 12/12/19 15:54 22 H Body Mass Index 31.3 Gen: ill-appearing Neck: supple Lungs: mildly dyspneic CV: normal pulses GI: soft, NT Ext: no C/C/E Neuro: non-focal Auscultation of the chest deferred due to COVID-19 transmission risk Objective Data Current Medications Generic Name Dose Route Start Last Admin Trade Name Freq PRN Reason Stop Dose Admin Acetaminophen 650 mg 12/05/19 20:33 12/09/19 20:03 Acetaminophen 325 Mg Tablet PO 650 mg Q6H PRN Administration Pain, Mild (Pain Scale 1-3) Albuterol Sulfate 2 puff 12/08/19 08:19 Albuterol Sulfate 90 Mcg 18 Gm Inhaler INHALE Q4H PRN Wheezing Atorvastatin Calcium 80 mg 12/06/19 09:00 12/13/19 07:32 Atorvastatin Calcium 80 Mg Tablet PO 80 mg DAILY [facility]EF[facility]IA Administration Benzonatate 200 mg 12/07/19 05:20 12/13/19 10:11 Benzonatate 100 Mg Capsule PO 200 mg TID PRN Administration Cough Carvedilol 12.5 mg 12/05/19 21:00 12/13/19 07:32 Carvedilol 12.5 Mg Tablet PO 12.5 mg BID ESTEF[facility]IA Administration Protocol Dexamethasone Sodium Phosphate 6 mg 12/06/19 15:00 12/13/19 07:32 Dexamethasone Sod Phosphate 4 Mg/Ml Vial IVPUSH 12/15/19 09:01 6 mg DAILY ESTEFANIA Administration Docusate Sodium 100 mg 12/05/19 20:33 Docusate Sodium 100 Mg Capsule PO DAILY PRN Constipation Guaifenesin 5 ml 12/07/19 02:19 12/13/19 10:11 Guaifenesin 100 Mg/5 Ml Liquid PO 5 ml Q6H PRN Administration Cough Guaifenesin 5 ml 12/07/19 17:08 Guaifenesin 100 Mg/5 Ml Liquid PO Q6H PRN Cough Heparin Sodium (Porcine) 7,500 unit 12/12/19 19:00 12/13/19 10:11 Heparin Sodium,Porcine 5,000 Unit/Ml Vial SUBCUT 7,500 unit Q8H [facility] Administration Insulin Glargine 60 unit 12/06/19 21:00 12/12/19 21:44 Insulin Glargine,Hum.Rec.Anlog 100 Unit/Ml 10 Ml Vial SUBCUT 60 unit BEDTIME [facility] Administration Insulin Human Lispro 0 unit 12/07/19 11:30 12/13/19 12:13 Insulin Lispro 100 Unit/Ml 3 Ml Vial SUBCUT Not Given QIDACHS [facility] Protocol Midodrine 5 mg 12/05/19 20:33 12/13/19 12:39 Midodrine Hcl 5 Mg Tablet PO 5 mg TIDWM [facility] Administration Nystatin 1 appl 12/08/19 09:00 12/13/19 10:21 Nystatin Powder 15 Gm Bottle TOPICAL 1 appl DAILY [facility] Administration Protocol Ondansetron HCl 4 mg 12/05/19 20:33 12/09/19 21:41 Ondansetron Hcl 4 Mg/2 Ml Vial IVPUSH 4 mg Q8H PRN Administration Nausea and Vomiting Pharmacy Consult 1 each 10/09/20 11:48 Consult Rx Perform Med Rec MISCELLANE ONCE PRN Consult order Sevelamer HCl 1,600 mg 12/06/19 08:00 12/13/19 12:39 Sevelamer Hcl 800 Mg Tablet PO 1,600 mg TIDWM [facility] Administration Sodium Chloride 3 ml 12/06/19 00:00 12/13/19 07:33 0.9 % Sodium Chloride Flush 3 Ml Syringe IVFLUSH 3 ml QSHIFT [facility] Administration Trazodone HCl 100 mg 12/05/19 21:00 12/12/19 21:43 Trazodone Hcl 100 Mg Tablet PO 100 mg BEDTIME [facility] Administration Labs CBC & Chem 7: 12/14/19 05:40 12/14/19 05:40 Assessment and Plan (1) COVID-19: Status: Acute Assessment and Plan: hospital d#9 69yo M with DM2, ESRD 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 presented with hyperglycemia without DKA, cough admitted for severe COVID-19 PNA # acute hypoxic respiratory failure due to severe COVID-19 pneumonia - dexamethasone d#10/05 - s/p 1 dose convalescent plasma 12/08/19 - cannot give remdesivir due to ESRD - ICU + ID following - complicated by pulmonary edema from ESRD- continue HD with removal of fluid as tolerated # ESRD on HD - Nephrology following, continue HD MWF - continue sevelamer # hyperK - resolved # CAD - continue statin, b-goran # DM2 with hyperglycemia - continue Lantus + Humalog # orthostatic hypotension - continue midodrine with HD # VTE ppx - high risk; on UFH- on intermediate dose 7500 units q8h
[2019-12-13 17:02] LABS: Legionella Ag Urine Not Detected (Not Detected)
[2019-12-13] MEDS: Insulin Lispro 100 UNIT/ML 3 ML VIAL SUBCUT ×2 (18:01→21:17)
[2019-12-13 20:33] LABS: Glucose, Whole Blood 416 mg/dL (60-115)
[2019-12-13] MEDS: traZODone HCL 100 MG TABLET PO (21:16)
[2019-12-13] MEDS: Insulin Glargine,Hum.rec.anlog 100 UNIT/ML 10 ML VIAL 60 UNIT SUBCUT (21:17)
[2019-12-13 22:17] LABS: Glucose, Whole Blood 388 mg/dL (60-115)
[2019-12-13] MEDS: Insulin Lispro 100 UNIT/ML 3 ML VIAL 10 UNIT SUBCUT (22:53)
--- NOTE | 2019-12-13 23:27 | PC.NURSE ---
BLOOD SUGAR AT HS 416 AFTER PT CONSUMED SNACK. NOTIFIED. PT GIVEN 10 UITS LISPRO PER SLIDING SCALE AND 60 OF LANTUS. POC RECHECKED 1/2 HOUR AFTER INSULIN ADMINISTRATION PER . 388. MD NOTIFIED. PT GIVEN EXTRA 10 UNITS LISPRO PER MD ORDER. WILL CONTINUE TO MONITOR.
--- NOTE | 2019-12-13 23:29 | PC.NURSE ---
2O SATS TABLE ON NRB AND HIGH FLOW O2. NRB REMOVED. PT REMAINS WITHOUT ACUTE DISTRESS. O2 SATS STABLE UP TO 100% AND HAS NOT DROPPED BELOW 90 EVEN WITH EXERTION. LUNGS SOUND MORE CLEAR THAN PREVIOUS NIGHTS AND PT REPORTS FEELING MUCH BETTER. CALL [facility]ERSON IN REACH. WILL CONTINUE TO MONITOR.
[2019-12-14] VITALS (17 sets, daily range): BP systolic 140–165; BP diastolic 69–86; PULSE 76–98; RESP 18–25; TEMP 36.2–37.1; O2SAT 92–99
[2019-12-14] MEDS: Heparin Sodium,Porcine 5,000 UNIT/ML VIAL 7500 UNIT SUBCUT ×3 (02:21→16:55)
--- NOTE | 2019-12-14 02:26 | PC.NURSE ---
PTS PACER NOTED TO BE SPIKING IN THE MIDDLE OF THE QRS COMPLEX AND PRIOR TO THE T WAVE. HOSPITALIST NOTIFIED. RHYTHM STRIPS POSTED IN CHART. PT TO HAVE PACER INTERROGATED. WILL CONTINUE TO MONITOR.
[2019-12-14 06:29] LABS: Basophils Percent Auto 0.1 % (0-2); Eosinophils Absolute Auto 0.2 X10*3/uL (0.0-0.4); Eosinophils Percent Auto 1.2 % (0-4); Hematocrit 39.9 % (42-52); Hemoglobin 13.3 g/dl (14.0-18.0); Imm Gran Abs Auto 0.17 X10*3/uL (0.00-0.03); Imm Gran Pct Auto 0.9 % (0.0-0.4); Lymphocytes Percent Auto 33.1 % (20-40); MANUAL DIFF FLAG SCAN; Mean Corpuscular HGB Conc 33.3 g/dl (31.0-36.0); Mean Corpuscular Volume 90.1 fL (80-98); Mean Platelet Volume 11.3 fL (9.4-12.4); Monocytes Absolute Auto 0.3 X10*3/uL (0.1-1.2); Monocytes Percent Auto 1.7 % (2-11); Neutrophils Absolute Auto 11.9 X10*3/uL (2.0-8.3); Platelet Count 119 X10*3/uL (160-400); Red Blood Count 4.43 X10*6/uL (4.60-5.80); Red Cell Distribution Width 13.8 % (11.0-16.0); SCAN SMEAR FLAG 1; White Blood Count 18.9 X10*3/uL (4.8-10.8)
[2019-12-14 06:41] LABS: Glucose, Whole Blood 62 mg/dL (60-115)
[2019-12-14 06:51] LABS: C Reactive Protein 4.69 mg/dL (< or = 0.50)
[2019-12-14 06:52] LABS: Anion Gap 17 (12-20); Blood Urea Nitrogen 113 mg/dL (9-16); Calcium 7.9 mg/dL (8.4-10.2); Carbon Dioxide 31 mmol/L (22-29); Chloride 96 mmol/L (96-108); Creatinine Clr Calc Pharmacy 15.8; Estimated Glomerular Filt Rate 12; Glucose Random 52 mg/dL (60-115); Potassium 5.1 mmol/l (3.3-5.1); Sodium 139 mmol/L (135-145)
[2019-12-14 07:11] LABS: Lymphocytes Absolute Auto 6.3 X10*3/uL (1.2-4.9)
[2019-12-14 07:32] LABS: Glucose, Whole Blood 52 mg/dL (60-115)
[2019-12-14] MEDS: dexAMETHasone sod phosphate 4 MG/ML VIAL 6 MG IVPUSH (07:49)
[2019-12-14] MEDS: Atorvastatin Calcium 80 MG TABLET PO (07:50)
[2019-12-14] MEDS: carvediloL 12.5 MG TABLET PO ×2 (07:50→21:10)
[2019-12-14] MEDS: 0.9 % Sodium Chloride Flush 3 ML SYRINGE IVFLUSH ×3 (07:50→23:59)
[2019-12-14] MEDS: Midodrine HCl 5 MG TABLET PO ×3 (07:50→16:57)
[2019-12-14] MEDS: Nystatin Powder 15 GM BOTTLE 1 APPL TOPICAL (07:51)
[2019-12-14 07:59] LABS: SLIDE REVIEW VERIFIED
[2019-12-14 08:10] LABS: Glucose, Whole Blood 94 mg/dL (60-115)
[2019-12-14 08:10] LABS: D Dimer 6837 NG/ML
[2019-12-14 08:27] LABS: Magnesium 2.3 mg/dL (1.6-2.6)
--- NOTE | 2019-12-14 11:12 | P.PNIM_ITS ---
Subjective Subjective Date of Service: 12/14/19 Interval History: SaO2 now 95% on HFNC alone, no NRB. Feels better but still very short of breath. Was hypoglycemic this morning; last night hyperglycemic in 400s and given 10 units extra Humalog Constitutional Constitutional: Denies fever(s) Cardiovascular Cardiovascular: Denies chest pain and Reports dyspnea Respiratory Respiratory: Reports cough and Reports dyspnea Gastrointestinal Gastrointestinal: Denies abdominal pain, Denies nausea and Denies vomiting Physical Exam Vital Signs: Vital Signs: Vital Signs Temp Pulse Resp BP Pulse Ox 12/14/19 07:50 90 140/69 H 12/14/19 07:37 20 12/14/19 07:32 98.7 F 90 25 H 140/69 H 95 12/14/19 04:26 20 12/14/19 04:00 98.0 F 90 20 165/70 H 12/14/19 01:00 18 12/13/19 23:56 98.0 F 105 H 19 158/69 H 12/13/19 21:16 81 135/73 12/13/19 20:13 24 H 12/13/19 20:00 97.5 F 90 18 135/73 95 12/13/19 16:00 98.7 F 85 22 H 140/68 H 91 L 12/13/19 12:39 86 135/77 12/13/19 12:00 97.6 F 86 20 135/77 96 12/13/19 11:48 24 H Body Mass Index 31.3 Gen: ill-appearing Neck: supple Lungs: mildly dyspneic CV: normal pulses GI: soft, NT Ext: no C/C/E Neuro: non-focal Auscultation of the chest deferred due to COVID-19 transmission risk Objective Data Current Medications Generic Name Dose Route Start Last Admin Trade Name Freq PRN Reason Stop Dose Admin Acetaminophen 650 mg 12/05/19 20:33 12/09/19 20:03 Acetaminophen 325 Mg Tablet PO 650 mg Q6H PRN Administration Pain, Mild (Pain Scale 1-3) Albuterol Sulfate 2 puff 12/08/19 08:19 Albuterol Sulfate 90 Mcg 18 Gm Inhaler INHALE Q4H PRN Wheezing Atorvastatin Calcium 80 mg 12/06/19 09:00 12/14/19 07:50 Atorvastatin Calcium 80 Mg Tablet PO 80 mg DAILY [facility] Administration Benzonatate 200 mg 12/07/19 05:20 12/13/19 10:11 Benzonatate 100 Mg Capsule PO 200 mg TID PRN Administration Cough Carvedilol 12.5 mg 12/05/19 21:00 12/14/19 07:50 Carvedilol 12.5 Mg Tablet PO 12.5 mg BID [facility] Administration Protocol Dexamethasone Sodium Phosphate 6 mg 12/06/19 15:00 12/14/19 07:49 Dexamethasone Sod Phosphate 4 Mg/Ml Vial IVPUSH 12/15/19 09:01 6 mg DAILY [facility] Administration Docusate Sodium 100 mg 12/05/19 20:33 Docusate Sodium 100 Mg Capsule PO DAILY PRN Constipation Guaifenesin 5 ml 12/07/19 02:19 12/13/19 10:11 Guaifenesin 100 Mg/5 Ml Liquid PO 5 ml Q6H PRN Administration Cough Guaifenesin 5 ml 12/07/19 17:08 Guaifenesin 100 Mg/5 Ml Liquid PO Q6H PRN Cough Heparin Sodium (Porcine) 7,500 unit 12/12/19 19:00 12/14/19 02:21 Heparin Sodium,Porcine 5,000 Unit/Ml Vial SUBCUT 7,500 unit Q8H [facility] Administration Insulin Glargine 60 unit 12/06/19 21:00 12/13/19 21:17 Insulin Glargine,Hum.Rec.Anlog 100 Unit/Ml 10 Ml Vial SUBCUT 60 unit BEDTIME [facility] Administration Insulin Human Lispro 0 unit 12/07/19 11:30 12/14/19 07:51 Insulin Lispro 100 Unit/Ml 3 Ml Vial SUBCUT Not Given QIDACHS [facility] Protocol Midodrine 5 mg 12/05/19 20:33 12/14/19 07:50 Midodrine Hcl 5 Mg Tablet PO 5 mg TIDWM [facility] Administration Nystatin 1 appl 12/08/19 09:00 12/14/19 07:51 Nystatin Powder 15 Gm Bottle TOPICAL 1 appl DAILY [facility] Administration Protocol Ondansetron HCl 4 mg 12/05/19 20:33 12/09/19 21:41 Ondansetron Hcl 4 Mg/2 Ml Vial IVPUSH 4 mg Q8H PRN Administration Nausea and Vomiting Pharmacy Consult 1 each 12/05/19 11:48 Consult Rx Perform Med Rec MISCELLANE ONCE PRN Consult order Sevelamer HCl 1,600 mg 12/06/19 08:00 12/14/19 07:50 Sevelamer Hcl 800 Mg Tablet PO 1,600 mg TIDWM [facility] Administration Sodium Chloride 3 ml 12/06/19 00:00 12/14/19 07:50 0.9 % Sodium Chloride Flush 3 Ml Syringe IVFLUSH 3 ml QSHIFT [facility] Administration Trazodone HCl 100 mg 12/05/19 21:00 12/13/19 21:16 Trazodone Hcl 100 Mg Tablet PO 100 mg BEDTIME [facility] Administration Labs CBC & Chem 7: 12/14/19 05:40 12/14/19 05:40 Assessment and Plan (1) COVID-19: Status: Acute Assessment and Plan: hospital d#10 69yo M with DM2, ESRD 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 presented with hyperglycemia without DKA, cough admitted for severe COVID-19 PNA # acute hypoxic respiratory failure due to severe COVID-19 pneumonia - dexamethasone d#11/05 - s/p 1 dose convalescent plasma 12/08/19 - could not give remdesivir due to ESRD - ICU + ID following - complicated by pulmonary edema from ESRD- continue HD with removal of fluid as tolerated # ESRD on HD - Nephrology following, continue HD MWF - continue sevelamer # hyperK - resolved # CAD - continue statin, b-goran # DM2 with hyperglycemia/hypoglycemia - continue Lantus + Humalog; avoid excess correction given ESRD # orthostatic hypotension - continue midodrine with HD # VTE ppx - high risk; on UFH- on intermediate dose 7500 units q8h Updated pt's sister Claudia Vega by phone.
[2019-12-14 12:04] LABS: Glucose, Whole Blood 370 mg/dL (60-115)
[2019-12-14] MEDS: Insulin Lispro 100 UNIT/ML 3 ML VIAL SUBCUT ×3 (12:08→21:18)
[2019-12-14 16:31] LABS: Glucose, Whole Blood 399 mg/dL (60-115)
[2019-12-14] MEDS: guaiFENesin 100 MG/5 ML LIQUID PO (21:10)
[2019-12-14] MEDS: Benzonatate 100 MG CAPSULE 200 MG PO (21:10)
[2019-12-14] MEDS: traZODone HCL 100 MG TABLET PO (21:10)
[2019-12-14] MEDS: Insulin Glargine,Hum.rec.anlog 100 UNIT/ML 10 ML VIAL 15 UNIT SUBCUT (21:19)
[2019-12-14 21:26] LABS: Glucose, Whole Blood 230 mg/dL (60-115)
[2019-12-15] VITALS (14 sets, daily range): BP systolic 136–157; BP diastolic 60–95; PULSE 76–99; RESP 20–24; TEMP 36.1–37.2; O2SAT 90–98
[2019-12-15 02:16] LABS: Glucose, Whole Blood 259 mg/dL (60-115)
[2019-12-15] MEDS: Heparin Sodium,Porcine 5,000 UNIT/ML VIAL 7500 UNIT SUBCUT ×2 (05:18→18:40)
--- NOTE | 2019-12-15 06:28 | PC.NURSE ---
Shift report-patient HS blood sugar 230. the past few AM's patient has had low blood sugars, 50-75's (pt asymptomatic) with PM blood sugars being elevated in the 400's. pt d/t receive 60un lantus, dr marika whitaker noitified, ordered to hold 60un lantus, and give 15 un lantus. Pt's blood sugar re-check around 0230,bs wnl, no further orders. pt remained on 60L @ 100% high flow nasal cannula throughout the night, tolerating well/maintaining o2 sats 93-98%. PRN cough meds given with pm medications, dry coarse cough noted.
[2019-12-15] MEDS: Insulin Lispro 100 UNIT/ML 3 ML VIAL SUBCUT ×2 (08:52→20:31)
--- NOTE | 2019-12-15 08:56 | PM.PNNEP ---
Subjective Subjective Principal diagnosis: CKD /COVID Interval history: did not see or examine pt today Physical Exam Vital Signs: Vital Signs: Vital Signs Temp Pulse Resp BP Pulse Ox 12/15/19 08:25 20 12/15/19 04:23 20 12/15/19 02:24 96.9 F 81 22 H 148/75 H 97 12/15/19 00:00 97.8 F 82 20 154/65 H 98 12/14/19 23:55 20 12/14/19 21:10 93 161/86 H 12/14/19 19:15 22 H 12/14/19 19:12 98.0 F 93 20 161/86 H 12/14/19 16:57 89 161/78 H 12/14/19 15:58 97.2 F 89 20 161/78 H 97 12/14/19 15:33 20 12/14/19 12:28 99 12/14/19 12:07 76 144/78 H 12/14/19 11:54 97.8 F 76 20 144/78 H 98 12/14/19 11:33 20 Body Mass Index 31.3 General - ill appearing Cardiovascular - regular rate and rhythm, S1-S2 Lungs - dim sounds, no wheezing, on 100% NRBM, speaking in full sentences Abdomen - soft, non-tender, no rebound regarding Extremities - no edema bilaterally Neuro - awake and alert, no focal deficits Const: Other: Ill appearing General: cooperative, healthy appearing, comfortable, no acute distress, well developed, alert, awake, Physically active and ill appearing; No confusion Nutritional Appearance: well nourished and obese Orientation/consciousness: patient oriented x3 and No confusion Limitations: no limitations HENMT: Head: Yes normal to inspection, Yes No palpable skull fracture present, Yes normocephalic and Yes atraumatic Ears: hearing grossly normal bilaterally General nose exam: Normal external nose present, Normal nares present, No nasal polyps present, Normal nasal mucous membranes and turbinates present, Normal septum present and No nasal discharge present Face and sinus: Yes normal facial exam Mouth: Normal oral and palatal mucosa present, lip normal, tongue normal, Normal salivary glands and ducts present, oropharynx normal and moist mucous membranes Throat: Yes posterior oropharynx normal, Yes tonsils normal and Yes uvula midline Eyes: General: appearance normal, both eyes and all related structures Visual Alejandre: normal visual alejandre by confrontation Alignment and Position: alignment normal Periorbital: periorbital findings normal Eyelids: Yes eyelids normal Conjunctivae: conjunctivae normal Sclerae: sclerae normal Pupils: Equal, round and reactive pupils present EOM: EOMs intact bilaterally Neck: Neck: Yes normal visual inspection, Yes full ROM, Yes no lymphadenopathy, Yes no meningeal signs, Yes trachea midline and Yes supple Chest: Chest palpation & inspection: normal inspection of the chest Resp: Effort & Inspection: normal respiratory effort, able to speak in complete sentences, abnormal respiratory pattern and respiratory distress (mild) Auscultation: clear to auscultation bilaterally, no crackles, no rales, rhonchi and no wheezes Cardio: Jugular venous distension: no JVD Palpation: no palpable S4 Rate: regular rate Rhythm: regular rhythm Heart sounds: S1 normal heart sound present, S2 normal heart sound present and no rubs Peripheral pulses: Peripheral pulses 2+ throughout GI: Inspection: Yes normal to inspection Palpation (GI): Soft to palpation, nontender and No hepatosplenomegaly present Percussion: Yes normal to percussion Auscultation: normal bowel sounds : General: Yes no CVA tenderness Back/Spine/Pelvis: Back: no CVA tenderness Cervical Spine: normal cervical lordosis and cervical ROM normal Thoracic/Lumbar Spine: thoracic and lumbar spine normal to inspection and thoraco-lumbar ROM normal Skin: Other: no cyanosis General skin exam: no rashes or lesions noted, elasticity normal and turgor normal Trauma: no lacerations or abrasions Wounds: no wounds Hair: normal Nails: normal Neuro: General: patient oriented x3, no meningeal signs and No confusion Cranial nerves: Yes CN's II-XII intact bilaterally, Yes Equal, round and reactive pupils present, Yes Bilaterally intact EOM present and No Normal hearing present Cognition (Neuro): normal cognition Speech: No Abnormal speech present Gait exam (Neuro): Normal gait present Motor exam (neuro): 5/5 motor strength present throughout, no asterixis and No Asterixis during motor activity present Extrem: General: Yes normal to inspection, Yes full ROM, Yes capillary refill normal, No no calf tenderness and Yes edema (b/l +2 pitting edema to knees and lower legs and feet) Right upper extremity: normal to inspection, full ROM and normal capillary refill; no edema Left upper extremity: normal to inspection, full ROM and normal capillary refill; no edema Right lower extremity: normal to inspection, full ROM and normal capillary refill Left lower extremity: normal to inspection, full ROM and normal capillary refill Psych: Appearance: grossly normal and well kempt Mental Status: mental status grossly normal Speech and movement: Normal speech and movement present and Clear speech present Affect: normal affect Attitude: cooperative Thought process: Normal thought process present Thought content: Normal thought content present Insight: Good insight present (Psych) Judgement: Good judgement present (Psych) Assessment & Plan Assessment and plan (1) COVID-19: Status: Acute Assessment and Plan: 69yo M with DM2, ESRD 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 presented with hyperglycemia without DKA, cough admitted for severe COVID-19 PNA # acute hypoxic respiratory failure due to severe COVID-19 pneumonia - dexamethasone - s/p 1 dose convalescent plasma 12/08/19 - could not give remdesivir due to ESRD - ID following - complicated by pulmonary edema from ESRD- continue HD with removal of fluid as tolerated # ESRD on HD - Nephrology following, continue HD MWF - continue sevelamer # hyperK - resolved # CAD - continue statin, b-goran # DM2 with hyperglycemia/hypoglycemia - continue Lantus + Humalog; avoid excess correction given ESRD # orthostatic hypotension - continue midodrine with HD Plan: Hd MWF-will check with dialysis nursihng.
[2019-12-15] MEDS: 0.9 % Sodium Chloride Flush 3 ML SYRINGE IVFLUSH ×2 (09:00→17:11)
--- NOTE | 2019-12-15 11:07 | MHC.CM.PN ---
Patient is requiring high flow O2 at FIO@ 100% but not requiring NRM. Continues on IV Decadron. CM will continue to follow for discharge needs.
[2019-12-15 11:32] LABS: Glucose, Whole Blood 275 mg/dL (60-115)
[2019-12-15 11:34] LABS: Glucose, Whole Blood 137 mg/dL (60-115)
[2019-12-15 12:15] LABS: Glucose, Whole Blood 225 mg/dL (60-115)
--- NOTE | 2019-12-15 14:11 | HO.PM.IMPN ---
Subjective Subjective Date of Service: 12/15/19 Interval History: SaO2 93-98% on HFNC 100% fiO2, 60 Lpm. Attempted to decrease fiO2 yesterday without success. Still quite short of breath dawn with movement, but overall feels a little better. Anxious. Constitutional Constitutional: Denies fever(s) Cardiovascular Cardiovascular: Denies chest pain and Reports dyspnea Respiratory Respiratory: Reports cough and Reports dyspnea Gastrointestinal Gastrointestinal: Denies abdominal pain, Denies nausea and Denies vomiting Physical Exam Vital Signs: Vital Signs: Vital Signs Temp Pulse Resp BP Pulse Ox 12/15/19 11:25 20 12/15/19 08:25 20 12/15/19 08:00 97.2 F 85 24 H 151/81 H 93 12/15/19 04:23 20 12/15/19 02:24 96.9 F 81 22 H 148/75 H 97 12/15/19 00:00 97.8 F 82 20 154/65 H 98 12/14/19 23:55 20 12/14/19 21:10 93 161/86 H 12/14/19 19:15 22 H 12/14/19 19:12 98.0 F 93 20 161/86 H 12/14/19 16:57 89 161/78 H 12/14/19 15:58 97.2 F 89 20 161/78 H 97 12/14/19 15:33 20 Body Mass Index 31.3 en: ill-appearing Neck: supple Lungs: mildly dyspneic CV: normal pulses GI: soft, nontender Ext: no cyanosis or edema. LUE HD fistula Neuro: non-focal Auscultation of the chest deferred due to COVID-19 transmission risk Objective Data Current Medications Generic Name Dose Route Start Last Admin Trade Name Freq PRN Reason Stop Dose Admin Acetaminophen 650 mg 12/05/19 20:33 12/09/19 20:03 Acetaminophen 325 Mg Tablet PO 650 mg Q6H PRN Administration Pain, Mild (Pain Scale 1-3) Albuterol Sulfate 2 puff 12/08/19 08:19 Albuterol Sulfate 90 Mcg 18 Gm Inhaler INHALE Q4H PRN Wheezing Atorvastatin Calcium 80 mg 12/06/19 09:00 12/14/19 07:50 Atorvastatin Calcium 80 Mg Tablet PO 80 mg DAILY ESTEFANIA Administration Benzonatate 200 mg 12/07/19 05:20 12/14/19 21:10 Benzonatate 100 Mg Capsule PO 200 mg TID PRN Administration Cough Carvedilol 12.5 mg 12/05/19 21:00 12/14/19 21:10 Carvedilol 12.5 Mg Tablet PO 12.5 mg BID ESTEFANIA Administration Protocol Docusate Sodium 100 mg 12/05/19 20:33 Docusate Sodium 100 Mg Capsule PO DAILY PRN Constipation Guaifenesin 5 ml 12/07/19 02:19 12/14/19 21:10 Guaifenesin 100 Mg/5 Ml Liquid PO 5 ml Q6H PRN Administration Cough Guaifenesin 5 ml 12/07/19 17:08 Guaifenesin 100 Mg/5 Ml Liquid PO Q6H PRN Cough Heparin Sodium (Porcine) 7,500 unit 12/12/19 19:00 12/15/19 05:18 Heparin Sodium,Porcine 5,000 Unit/Ml Vial SUBCUT 7,500 unit Q8H ESTEFANIA Administration Insulin Glargine 15 unit 12/15/19 21:00 12/14/19 21:19 Insulin Glargine,Hum.Rec.Anlog 100 Unit/Ml 10 Ml Vial SUBCUT 15 unit BEDTIME ETSEFANIA Administration Insulin Human Lispro 0 unit 12/07/19 11:30 12/15/19 08:52 Insulin Lispro 100 Unit/Ml 3 Ml Vial SUBCUT 6 unit QIDACHS ESTEFANIA Administration Protocol Lorazepam 0.5 mg 12/15/19 13:57 Lorazepam 2 Mg/Ml Vial IVPUSH Q12H PRN anxiety Midodrine 5 mg 12/05/19 20:33 12/14/19 16:57 Midodrine Hcl 5 Mg Tablet PO 5 mg TIDWM ESTEFANIA Administration Nystatin 1 appl 12/08/19 09:00 12/14/19 07:51 Nystatin Powder 15 Gm Bottle TOPICAL 1 appl DAILY ESTEFANIA Administration Protocol Ondansetron HCl 4 mg 12/05/19 20:33 12/09/19 21:41 Ondansetron Hcl 4 Mg/2 Ml Vial IVPUSH 4 mg Q8H PRN Administration Nausea and Vomiting Pharmacy Consult 1 each 12/05/19 11:48 Consult Rx Perform Med Rec MISCELLANE ONCE PRN Consult order Sevelamer HCl 1,600 mg 12/06/19 08:00 12/14/19 16:57 Sevelamer Hcl 800 Mg Tablet PO 1,600 mg TIDWM ESTEFANIA Administration Sodium Chloride 3 ml 12/06/19 00:00 12/15/19 09:00 0.9 % Sodium Chloride Flush 3 Ml Syringe IVFLUSH 3 ml QSHIFT ESTEFANIA Administration Trazodone HCl 100 mg 12/05/19 21:00 12/14/19 21:10 Trazodone Hcl 100 Mg Tablet PO 100 mg BEDTIME ESTEFANIA Administration Labs CBC & Chem 7: 12/14/19 05:40 12/14/19 05:40 Assessment and Plan (1) COVID-19: Status: Acute Assessment and Plan: hospital d#11 69yo M with DM2, ESRD 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 presented with hyperglycemia without DKA, cough admitted for severe COVID-19 PNA # acute hypoxic respiratory failure due to severe COVID-19 pneumonia - continue O2 via HFNC - dexamethasone d#12/05 - s/p 1 dose convalescent plasma 12/08/19 - could not give remdesivir due to ESRD - ICU + ID following - complicated by pulmonary edema from ESRD- continue HD with removal of fluid as tolerated - recheck labs tomorrow # ESRD on HD - Nephrology following, continue HD MWF - continue sevelamer # hyperK - resolved # CAD - continue statin, b-goran # DM2 with hyperglycemia/hypoglycemia - continue Lantus + Humalog; avoid excess correction given ESRD # orthostatic hypotension - continue midodrine with HD # anxiety - prn lorazepam # VTE ppx - high risk; on UFH- on intermediate dose 7500 units q8h
--- NOTE | 2019-12-15 14:12 | MHC.CLN ---
F/U 75% PO INTAKE DIET RX: 1800 2GM NA LOW PHOS, LOW K+-APPROPRIATE FOLLOWING
[2019-12-15] MEDS: LORazepam 2 MG/ML VIAL 0.5 MG IVPUSH (14:40)
[2019-12-15] MEDS: Atorvastatin Calcium 80 MG TABLET PO (14:45)
[2019-12-15] MEDS: carvediloL 12.5 MG TABLET PO ×2 (14:46→20:30)
[2019-12-15] MEDS: dexAMETHasone sod phosphate 4 MG/ML VIAL 6 MG IVPUSH (14:48)
[2019-12-15] MEDS: Nystatin Powder 15 GM BOTTLE 1 APPL TOPICAL (15:22)
[2019-12-15 16:47] LABS: Glucose, Whole Blood 127 mg/dL (60-115)
[2019-12-15 20:29] LABS: Glucose, Whole Blood 210 mg/dL (60-115)
[2019-12-15] MEDS: traZODone HCL 100 MG TABLET PO (20:30)
[2019-12-15] MEDS: Insulin Glargine,Hum.rec.anlog 100 UNIT/ML 10 ML VIAL 15 UNIT SUBCUT (20:30)
[2019-12-16] VITALS (16 sets, daily range): BP systolic 99–151; BP diastolic 55–89; PULSE 82–109; RESP 18–37; TEMP 36.1–37.3; O2SAT 90–100
--- NOTE | 2019-12-16 | US_ITS ---
EXAMINATION: US VENOUS ULTRASOUND WITH DOPPLER LOWER EXTREMITY, BILATERAL CLINICAL INFORMATION: Elevated d-dimer, COVID. High risk for DVT. COMPARISON: Bilateral leg venous ultrasound 11/07/2015 TECHNIQUE: Ultrasound of the deep veins is performed from the hip to the calf with compression sonography and color and pulse Doppler assessment. Spectral analysis with color-flow imaging is performed. FINDINGS: RIGHT: There is normal venous compression and respiratory variation and augmented flow. The visualized common femoral vein, superficial femoral vein, profunda femoral vein, popliteal vein, and the trifurcation region shows no evidence of deep venous thrombosis. No visible popliteal fossa cyst. LEFT: There is normal venous compression and respiratory variation and augmented flow. The visualized common femoral vein, superficial femoral vein, profunda femoral vein, popliteal vein, and the trifurcation region shows no evidence of deep venous thrombosis. No visible popliteal fossa cyst. IMPRESSION: No DVT demonstrated in the bilateral lower extremity.
[2019-12-16] MEDS: 0.9 % Sodium Chloride Flush 3 ML SYRINGE IVFLUSH ×3 (00:43→17:37)
[2019-12-16] MEDS: LORazepam 2 MG/ML VIAL 0.5 MG IVPUSH (02:36)
[2019-12-16] MEDS: Heparin Sodium,Porcine 5,000 UNIT/ML VIAL 7500 UNIT SUBCUT ×2 (02:37→10:38)
[2019-12-16 06:41] LABS: Basophils Percent Auto 0.1 % (0-2); Eosinophils Percent Auto 0.1 % (0-4); Hematocrit 39.5 % (42-52); Hemoglobin 12.9 g/dl (14.0-18.0); Imm Gran Abs Auto 0.09 X10*3/uL (0.00-0.03); Imm Gran Pct Auto 0.8 % (0.0-0.4); Lymphocytes Absolute Auto 2.7 X10*3/uL (1.2-4.9); Lymphocytes Percent Auto 23.1 % (20-40); MANUAL DIFF FLAG NO; Mean Corpuscular HGB Conc 32.7 g/dl (31.0-36.0); Mean Corpuscular Hemoglobin 29.1 pg (27.0-33.0); Mean Corpuscular Volume 89.2 fL (80-98); Mean Platelet Volume 10.4 fL (9.4-12.4); Monocytes Absolute Auto 0.3 X10*3/uL (0.1-1.2); Monocytes Percent Auto 2.4 % (2-11); Neutrophils Absolute Auto 8.6 X10*3/uL (2.0-8.3); Neutrophils Percent Auto 73.5 % (45-73); Red Blood Count 4.43 X10*6/uL (4.60-5.80); Red Cell Distribution Width 13.8 % (11.0-16.0); White Blood Count 11.6 X10*3/uL (4.8-10.8)
[2019-12-16 07:10] LABS: Platelet Count 70 X10*3/uL (160-400)
[2019-12-16 07:21] LABS: Alanine Aminotransferase 47 U/L (0-40); Alkaline Phosphatase 501 U/L (39-117); Anion Gap 22 (12-20); Aspartate Amino Transferase 30 U/L (5-37); Bilirubin Total 0.5 mg/dL (0.0-1.0); Blood Urea Nitrogen 119 mg/dL (9-16); Calcium 7.6 mg/dL (8.4-10.2); Carbon Dioxide 24 mmol/L (22-29); Chloride 92 mmol/L (96-108); Creatinine Clr Calc Pharmacy 15.4; Estimated Glomerular Filt Rate 11; Glucose Random 422 mg/dL (60-115); Lactate Dehydrogenase 595 U/L (118-273); Potassium 5.3 mmol/l (3.3-5.1); Sodium 133 mmol/L (135-145); Total Protein 5.5 g/dL (6.5-8.0)
[2019-12-16 07:52] LABS: D Dimer 11840 NG/ML
[2019-12-16 07:59] LABS: Ferritin 3532 ng/mL (20-250)
[2019-12-16] MEDS: Midodrine HCl 5 MG TABLET PO (08:22)
[2019-12-16] MEDS: Atorvastatin Calcium 80 MG TABLET PO (08:24)
[2019-12-16] MEDS: carvediloL 12.5 MG TABLET PO ×2 (08:24→21:27)
[2019-12-16] MEDS: Insulin Lispro 100 UNIT/ML 3 ML VIAL SUBCUT (08:43)
[2019-12-16 08:47] LABS: Glucose, Whole Blood 341 mg/dL (60-115)
[2019-12-16 09:07] LABS: Glucose, Whole Blood 341 mg/dL (60-115)
--- NOTE | 2019-12-16 10:03 | PM.HEMONCCN ---
Subjective - Subjective Chief complaint: COVID pneumonia Consult date: 12/16/19 Requesting Physician: Aristeo Gross MD Primary Care Provider: Armen Shaikh MD HPI - Consult Narrative Reason for consult: Worsening thrombocytopenia Narrative: Tee Ramirez is a 69 year old male admitted to [facility] [place] on 12/05/2019 with shortness of breath and hypoxemia. He has been diagnosed with COVID-19, he received steroids and convalesce and plasma. He was noted to have worsening thrombocytopenia in the recent days. Even prior to this admission he has had intermittent thrombocytopenia dating back to many years. He has chronic renal failure and is on dialysis. At on the day of admission his platelet count was normal but the next day it dropped to below 150 K. during the last 10 days his counts have gone up and down but generally stayed above 70 K. He has been on subcutaneous heparin for DVT prophylaxis. His D-dimer has steadily been going up. The ultrasound lower extremities today was negative for DVT. Review of Systems - Neurologic Reports as per HPI, Denies hearing normal, Denies abnormal movements, Denies abnormal speech, Denies abnormal gait, Denies behavioral changes, Denies confusion, Denies vertigo, Denies dizziness, Denies frequent falls, Denies headache(s), Denies focal weakness, Denies memory loss, Denies numbness, Denies other visual disturbances, Denies convulsions, Denies seizure-like activity, Denies tingling, Denies paresthesias, Reports weakness PMFSH Medical History: Medical History (Last Reviewed 12/06/19 @ 14:52 by Cecelia Gama MD) AVF (arteriovenous fistula) CAD (coronary artery disease) Cardiomyopathy Diabetes mellitus, type 2 ESRD (end stage renal disease) on dialysis H/O cardiac pacemaker Hypercholesteremia Hypertension Orthostatic hypotension Family History: Family History (Last Reviewed 12/06/19 @ 14:52 by Cecelia Gama MD) Father Bladder cancer Mother Esophageal cancer Stomach cancer Sister Asthma Emphysema lung Surgical History: Surgical History (Last Reviewed 12/06/19 @ 14:52 by Cecelia Gama MD) History of carpal tunnel release History of cholecystectomy History of colon cancer History of coronary artery bypass graft Smoking status: Former smoker Home Medications and Allergies Current Medications: Current Medications Generic Name Dose Route Start Last Admin Trade Name Freq PRN Reason Stop Dose Admin Acetaminophen 650 mg 10/09/20 20:33 12/09/19 20:03 Acetaminophen 325 Mg Tablet PO 650 mg Q6H PRN Administration Pain, Mild (Pain Scale 1-3) Albuterol Sulfate 2 puff 12/08/19 08:19 Albuterol Sulfate 90 Mcg 18 Gm Inhaler INHALE Q4H PRN Wheezing Atorvastatin Calcium 80 mg 12/06/19 09:00 12/16/19 08:24 Atorvastatin Calcium 80 Mg Tablet PO 80 mg DAILY ESTEFANIA Administration Benzonatate 200 mg 12/07/19 05:20 12/14/19 21:10 Benzonatate 100 Mg Capsule PO 200 mg TID PRN Administration Cough Carvedilol 12.5 mg 12/05/19 21:00 12/16/19 08:24 Carvedilol 12.5 Mg Tablet PO 12.5 mg BID ESTEFANIA Administration Protocol Docusate Sodium 100 mg 12/05/19 20:33 Docusate Sodium 100 Mg Capsule PO DAILY PRN Constipation Guaifenesin 5 ml 12/07/19 02:19 12/14/19 21:10 Guaifenesin 100 Mg/5 Ml Liquid PO 5 ml Q6H PRN Administration Cough Guaifenesin 5 ml 12/07/19 17:08 Guaifenesin 100 Mg/5 Ml Liquid PO Q6H PRN Cough Heparin Sodium (Porcine) 7,500 unit 12/12/19 19:00 12/16/19 02:37 Heparin Sodium,Porcine 5,000 Unit/Ml Vial SUBCUT 7,500 unit Q8H [facility] Administration Insulin Glargine 15 unit 12/15/19 21:00 12/15/19 20:30 Insulin Glargine,Hum.Rec.Anlog 100 Unit/Ml 10 Ml Vial SUBCUT 15 unit BEDTIME [facility] Administration Insulin Human Lispro 0 unit 12/07/19 11:30 12/16/19 08:43 Insulin Lispro 100 Unit/Ml 3 Ml Vial SUBCUT 10 unit QIDACHS [facility] Administration Protocol Lorazepam 0.5 mg 12/15/19 13:57 12/16/19 02:36 Lorazepam 2 Mg/Ml Vial IVPUSH 0.5 mg Q12H PRN Administration anxiety Midodrine 5 mg 12/05/19 20:33 12/16/19 08:22 Midodrine Hcl 5 Mg Tablet PO 5 mg TIDWM ESTEFANIA Administration Nystatin 1 appl 12/08/19 09:00 12/15/19 15:22 Nystatin Powder 15 Gm Bottle TOPICAL 1 appl DAILY ESTEFANIA Administration Protocol Ondansetron HCl 4 mg 12/05/19 20:33 12/09/19 21:41 Ondansetron Hcl 4 Mg/2 Ml Vial IVPUSH 4 mg Q8H PRN Administration Nausea and Vomiting Pharmacy Consult 1 each 12/05/19 11:48 Consult Rx Perform Med Rec MISCELLANE ONCE PRN Consult order Sevelamer HCl 1,600 mg 12/06/19 08:00 12/16/19 08:58 Sevelamer Hcl 800 Mg Tablet PO 1,600 mg TIDWM ESTEFANIA Administration Sodium Chloride 3 ml 12/06/19 00:00 12/16/19 08:24 0.9 % Sodium Chloride Flush 3 Ml Syringe IVFLUSH 3 ml QSHIFT ESTEFANIA Administration Trazodone HCl 100 mg 12/05/19 21:00 12/15/19 20:30 Trazodone Hcl 100 Mg Tablet PO 100 mg BEDTIME ESTEFANIA Administration Home Medications Medication Instructions Recorded Confirmed Type atorvastatin 80 mg PO DAILY 12/05/19 12/05/19 History carvedilol 12.5 mg PO BID 12/05/19 12/05/19 History insulin glargine [Lantus U-100 60 unit SUBCUT BEDTIME 12/05/19 12/05/19 History Insulin] midodrine 5 mg PO TIDWM 12/05/19 12/05/19 History sevelamer carbonate [Renvela] 1,600 mg PO TID 12/05/19 12/05/19 History trazodone 100 mg PO BEDTIME 12/05/19 12/05/19 History Allergies Allergy/AdvReac Type Severity Reaction Status Date / Time No Known Allergies Allergy Mild NOT Verified 12/04/19 07:32 APPLICABLE Physical Exam Vital signs: Vital Signs Temp 97.6 F 12/16/19 08:00 Pulse 82 12/16/19 08:24 Resp 22 H 12/16/19 08:00 BP 151/89 H 12/16/19 08:00 Pulse Ox 95 12/16/19 08:00 Intake & Output 12/15/19 12/16/19 12/16/19 18:59 06:59 18:59 Intake Total 700 / 1060 360 / 1060 240 / 240 Output Total 200 / 230 30 / 230 Balance 500 / 830 330 / 830 240 / 240 Urine Output (Average ml/kg/hr) 0.18 0.03 0.03 Intake: Intake, Oral Amount 700 / 700 0 / 700 240 / 240 Intake, Oral Supplement Amount 360 / 360 Output: Output, Urine Amount 200 / 230 30 / 230 Other: Breakfast % Eaten 100% 100% Dinner % Eaten 75% Evening Snack % Eaten 100 Urine Urinal Urine Color Yoselin Weight 93.416 kg Hem/Onc Consult Result - Labs CBC & Chem 7: 12/16/19 05:26 12/16/19 05:26 Labs: Short CBC 12/16/19 Range/Units 05:26 WBC 11.6 H (4.8-10.8) X10*3/uL Hgb 12.9 L (14.0-18.0) g/dl Hct 39.5 L (42-52) % Plt Count 70 L D (160-400) X10*3/uL BMP 12/16/19 05:26 Sodium 133 L Potassium 5.3 H Chloride 92 L Carbon Dioxide 24 BUN 119 H* Creatinine 5.13 H* Calcium 7.6 L Liver Function 12/16/19 Range/Units 05:26 Total Bilirubin 0.5 (0.0-1.0) mg/dL AST 30 D (5-37) U/L ALT 47 H (0-40) U/L Alkaline Phosphatase 501 H D (39-117) U/L Albumin 3.0 L (3.5-5.0) g/dL Assessment and Plan (1) Thrombocytopenia Status: Acute 1. This is a 69-year-old male with acute pneumonia/hypoxemia secondary to COVID-19 infection who was noted to have gradually worsening thrombocytopenia since admission. He has a history of previous intermittent mild thrombocytopenia but not been below 100,000 in the past. His hemoglobin is stable, he has chronic renal failure and DIC profile is negative. Elevated D-dimer as well as thrombocytopenia is probably related to his recent acute infection. However, his D-dimer has been steadily climbing which is worrisome for thrombosis. He is at high risk for thromboembolism. Lower extremity Doppler is negative, he is being scheduled for CT angiogram. Trend in platelet counts is not typical of heparin induced thrombocytopenia but this is also in the differential diagnosis. It may be prudent to switch him to full dose anticoagulation with argatroban because of above-mentioned risks and coexisting medical conditions. I thank you for this consultation. I will follow the patient with you.
[2019-12-16] MEDS: Nystatin Powder 15 GM BOTTLE 1 APPL TOPICAL (10:43)
--- NOTE | 2019-12-16 10:57 | HO.PM.IMPN ---
Subjective Subjective Date of Service: 12/16/19 Interval History: seen and examined feeling better despite his high o2 requirements . reports ate breakfast denies fever or chills no pleurtic chest pain Review of Systems General - no fevers or chills Cardiovascular - no chest pain Respiratory - sob/cough improving Abdominal- no abdominal pain, nausea, vomiting, diarrhea, tolerating diet Physical Exam Vital Signs: Vital Signs: Vital Signs Temp Pulse Resp BP Pulse Ox 12/16/19 08:24 82 12/16/19 08:22 82 12/16/19 08:00 97.6 F 96 22 H 151/89 H 95 12/16/19 07:28 20 12/16/19 04:14 20 12/16/19 03:26 97.3 F 90 18 129/68 98 12/16/19 00:00 98.3 F 91 20 132/73 92 12/15/19 23:31 20 12/15/19 20:00 97.6 F 98 24 H 136/60 98 12/15/19 19:25 22 H 12/15/19 16:00 98.9 F 99 20 143/74 H 96 12/15/19 15:56 20 12/15/19 14:46 96 157/95 H 12/15/19 14:44 157/95 H 12/15/19 14:43 85 151/81 H 12/15/19 11:25 20 Body Mass Index 31.3 General - no distress, but appears ill Cardiovascular - regular rate and rhythm, S1-S2 Lungs - mild dyspnea, with exertion; at rest okay Abdomen - soft, non-tender, no rebound regarding Extremities - no edema bilaterally Neuro - awake and alert, no focal deficits Objective Data Current Medications Generic Name Dose Route Start Last Admin Trade Name Freq PRN Reason Stop Dose Admin Acetaminophen 650 mg 12/05/19 20:33 12/09/19 20:03 Acetaminophen 325 Mg Tablet PO 650 mg Q6H PRN Administration Pain, Mild (Pain Scale 1-3) Albuterol Sulfate 2 puff 12/08/19 08:19 Albuterol Sulfate 90 Mcg 18 Gm Inhaler INHALE Q4H PRN Wheezing Atorvastatin Calcium 80 mg 12/06/19 09:00 12/16/19 08:24 Atorvastatin Calcium 80 Mg Tablet PO 80 mg DAILY ESTEFANIA Administration Benzonatate 200 mg 12/07/19 05:20 12/14/19 21:10 Benzonatate 100 Mg Capsule PO 200 mg TID PRN Administration Cough Carvedilol 12.5 mg 12/05/19 21:00 12/16/19 08:24 Carvedilol 12.5 Mg Tablet PO 12.5 mg BID ESTEFANIA Administration Protocol Docusate Sodium 100 mg 12/05/19 20:33 Docusate Sodium 100 Mg Capsule PO DAILY PRN Constipation Guaifenesin 5 ml 12/07/19 02:19 12/14/19 21:10 Guaifenesin 100 Mg/5 Ml Liquid PO 5 ml Q6H PRN Administration Cough Guaifenesin 5 ml 12/07/19 17:08 Guaifenesin 100 Mg/5 Ml Liquid PO Q6H PRN Cough Heparin Sodium (Porcine) 7,500 unit 12/12/19 19:00 12/16/19 10:38 Heparin Sodium,Porcine 5,000 Unit/Ml Vial SUBCUT 7,500 unit Q8H ESTEFANIA Administration Insulin Glargine 15 unit 12/15/19 21:00 12/15/19 20:30 Insulin Glargine,Hum.Rec.Anlog 100 Unit/Ml 10 Ml Vial SUBCUT 15 unit BEDTIME ESTEFANIA Administration Insulin Human Lispro 0 unit 12/07/19 11:30 12/16/19 08:43 Insulin Lispro 100 Unit/Ml 3 Ml Vial SUBCUT 10 unit QIDACHS ESTEFANIA Administration Protocol Lorazepam 0.5 mg 12/15/19 13:57 12/16/19 02:36 Lorazepam 2 Mg/Ml Vial IVPUSH 0.5 mg Q12H PRN Administration anxiety Midodrine 5 mg 12/05/19 20:33 12/16/19 08:22 Midodrine Hcl 5 Mg Tablet PO 5 mg TIDWM ESTEFANIA Administration Nystatin 1 appl 12/08/19 09:00 12/16/19 10:43 Nystatin Powder 15 Gm Bottle TOPICAL 1 appl DAILY ESTEFANIA Administration Protocol Ondansetron HCl 4 mg 12/05/19 20:33 12/09/19 21:41 Ondansetron Hcl 4 Mg/2 Ml Vial IVPUSH 4 mg Q8H PRN Administration Nausea and Vomiting Pharmacy Consult 1 each 12/05/19 11:48 Consult Rx Perform Med Rec MISCELLANE ONCE PRN Consult order Sevelamer HCl 1,600 mg 12/06/19 08:00 12/16/19 08:58 Sevelamer Hcl 800 Mg Tablet PO 1,600 mg TIDWM ESTEFANIA Administration Sodium Chloride 3 ml 12/06/19 00:00 12/16/19 08:24 0.9 % Sodium Chloride Flush 3 Ml Syringe IVFLUSH 3 ml QSHIFT ESTEFANIA Administration Trazodone HCl 100 mg 12/05/19 21:00 12/15/19 20:30 Trazodone Hcl 100 Mg Tablet PO 100 mg BEDTIME ESTEFANIA Administration Labs CBC & Chem 7: 12/16/19 05:26 12/16/19 05:26 Assessment and Plan (1) COVID-19: Status: Acute (2) ESRD (end stage renal disease) on dialysis: Status: Chronic Assessment and Plan: This is a 69yo M with DM2, ESRD 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 who presented with hyperglycemia without DKA, cough and is admitted for severe COVID-19 PNA 1.acute hypoxic respiratory failure due to severe COVID-19 pneumonia continue O2 via HFNC d-dimer increasing, check pe/dvt completed decadron x 10 days s/p 1 dose convalescent plasma 12/08/19 could not give remdesivir due to ESRD ICU + ID following complicated by pulmonary edema from ESRD- continue HD with removal of fluid as tolerated 2. ESRD on HD Nephrology following, continue HD MWF continue sevelamer 3.hyperK resolved 4. Thrombocytopenia progressively decreasing - ? related to consult hematology 5. CAD continue statin, b-goran 6. DM2 with hyperglycemia/hypoglycemia continue Lantus + Humalog; avoid excess correction given ESRD 7. orthostatic hypotension continue midodrine with HD 8. anxiety prn lorazepam DVT pptx, heparin for now; remains high risk
[2019-12-16 11:58] LABS: Glucose, Whole Blood 324 mg/dL (60-115)
[2019-12-16 13:33] LABS: Prothrombin Time 12.2 SEC (10.8-13.0)
[2019-12-16 13:35] LABS: Partial Thromboplastin Time 38.3 SEC (24.1-38.0)
[2019-12-16 13:49] LABS: Fibrinogen 536 MG/DL (259-690)
--- NOTE | 2019-12-16 14:08 | PM.HEMONCCN ---
Subjective - Subjective Primary Care Provider: Armen Shaikh MD Review of Systems - Neurologic Reports weakness, Denies hearing normal, Denies abnormal movements, Denies abnormal speech, Denies abnormal gait, Denies behavioral changes, Denies confusion, Denies vertigo, Denies frequent falls, Denies headache(s), Denies focal weakness, Denies memory loss, Denies numbness, Denies other visual disturbances, Denies convulsions, Denies seizure-like activity, Denies tingling, Denies paresthesias [facility] Medical History: Medical History (Last Reviewed 12/06/19 @ 14:52 by Cecelia Gama MD) AVF (arteriovenous fistula) CAD (coronary artery disease) Cardiomyopathy Diabetes mellitus, type 2 ESRD (end stage renal disease) on dialysis H/O cardiac pacemaker Hypercholesteremia Hypertension Orthostatic hypotension Family History: Family History (Last Reviewed 12/06/19 @ 14:52 by Cecelia Gama MD) Father Bladder cancer Mother Esophageal cancer Stomach cancer Sister Asthma Emphysema lung Surgical History: Surgical History (Last Reviewed 12/06/19 @ 14:52 by Cecelia Gama MD) History of carpal tunnel release History of cholecystectomy History of colon cancer History of coronary artery bypass graft Smoking status: Former smoker Home Medications and Allergies Current Medications: Current Medications Generic Name Dose Route Start Last Admin Trade Name Freq PRN Reason Stop Dose Admin Acetaminophen 650 mg 12/05/19 20:33 12/09/19 20:03 Acetaminophen 325 Mg Tablet PO 650 mg Q6H PRN Administration Pain, Mild (Pain Scale 1-3) Albuterol Sulfate 2 puff 12/08/19 08:19 Albuterol Sulfate 90 Mcg 18 Gm Inhaler INHALE Q4H PRN Wheezing Atorvastatin Calcium 80 mg 12/06/19 09:00 12/16/19 08:24 Atorvastatin Calcium 80 Mg Tablet PO 80 mg DAILY ESTEFANIA Administration Benzonatate 200 mg 12/07/19 05:20 12/14/19 21:10 Benzonatate 100 Mg Capsule PO 200 mg TID PRN Administration Cough Carvedilol 12.5 mg 12/05/19 21:00 12/16/19 08:24 Carvedilol 12.5 Mg Tablet PO 12.5 mg BID ESTEFANIA Administration Protocol Docusate Sodium 100 mg 12/05/19 20:33 Docusate Sodium 100 Mg Capsule PO DAILY PRN Constipation Guaifenesin 5 ml 12/07/19 02:19 12/14/19 21:10 Guaifenesin 100 Mg/5 Ml Liquid PO 5 ml Q6H PRN Administration Cough Guaifenesin 5 ml 12/07/19 17:08 Guaifenesin 100 Mg/5 Ml Liquid PO Q6H PRN Cough Insulin Glargine 15 unit 12/15/19 21:00 12/15/19 20:30 Insulin Glargine,Hum.Rec.Anlog 100 Unit/Ml 10 Ml Vial SUBCUT 15 unit BEDTIME ESTEFANIA Administration Insulin Human Lispro 0 unit 12/07/19 11:30 12/16/19 13:30 Insulin Lispro 100 Unit/Ml 3 Ml Vial SUBCUT Not Given QIDACHS [facility] Protocol Lorazepam 0.5 mg 12/15/19 13:57 12/16/19 02:36 Lorazepam 2 Mg/Ml Vial IVPUSH 0.5 mg Q12H PRN Administration anxiety Midodrine 5 mg 12/05/19 20:33 12/16/19 13:31 Midodrine Hcl 5 Mg Tablet PO Not Given TIDWM [facility] Nystatin 1 appl 12/08/19 09:00 12/16/19 10:43 Nystatin Powder 15 Gm Bottle TOPICAL 1 appl DAILY ESTEFANIA Administration Protocol Ondansetron HCl 4 mg 12/05/19 20:33 12/09/19 21:41 Ondansetron Hcl 4 Mg/2 Ml Vial IVPUSH 4 mg Q8H PRN Administration Nausea and Vomiting Pharmacy Consult 1 each 12/05/19 11:48 Consult Rx Perform Med Rec MISCELLANE ONCE PRN Consult order Sevelamer HCl 1,600 mg 12/06/19 08:00 12/16/19 13:31 Sevelamer Hcl 800 Mg Tablet PO Not Given TIDWM [facility] Sodium Chloride 3 ml 12/06/19 00:00 12/16/19 08:24 0.9 % Sodium Chloride Flush 3 Ml Syringe IVFLUSH 3 ml QSHIFT ESTEFANIA Administration Trazodone HCl 100 mg 12/05/19 21:00 12/15/19 20:30 Trazodone Hcl 100 Mg Tablet PO 100 mg BEDTIME ESTEFANIA Administration Home Medications Medication Instructions Recorded Confirmed Type atorvastatin 80 mg PO DAILY 12/05/19 12/05/19 History carvedilol 12.5 mg PO BID 12/05/19 12/05/19 History insulin glargine [Lantus U-100 60 unit SUBCUT BEDTIME 12/05/19 12/05/19 History Insulin] midodrine 5 mg PO TIDWM 12/05/19 12/05/19 History sevelamer carbonate [Renvela] 1,600 mg PO TID 12/05/19 12/05/19 History trazodone 100 mg PO BEDTIME 12/05/19 12/05/19 History Allergies Allergy/AdvReac Type Severity Reaction Status Date / Time No Known Allergies Allergy Mild NOT Verified 12/04/19 07:32 APPLICABLE Physical Exam Vital signs: Vital Signs Temp 97.0 F 12/16/19 11:56 Pulse 83 12/16/19 11:56 Resp 22 H 12/16/19 11:56 BP 118/62 12/16/19 11:56 Pulse Ox 94 12/16/19 11:56 Intake & Output 12/15/19 12/16/19 12/16/19 18:59 06:59 18:59 Intake Total 700 / 1060 360 / 1060 240 / 240 Output Total 200 / 230 30 / 230 Balance 500 / 830 330 / 830 240 / 240 Urine Output (Average ml/kg/hr) 0.18 0.03 0.03 Intake: Intake, Oral Amount 700 / 700 0 / 700 240 / 240 Intake, Oral Supplement Amount 360 / 360 Output: Output, Urine Amount 200 / 230 30 / 230 Other: Breakfast % Eaten 100% 100% Dinner % Eaten 75% Evening Snack % Eaten 100 Urine Urinal Urine Color Yoselin Weight 93.416 kg Hem/Onc Consult Result - Labs CBC & Chem 7: 12/16/19 05:26 12/16/19 05:26 Labs: Short CBC 12/16/19 Range/Units 05:26 WBC 11.6 H (4.8-10.8) X10*3/uL Hgb 12.9 L (14.0-18.0) g/dl Hct 39.5 L (42-52) % Plt Count 70 L D (160-400) X10*3/uL BMP 12/16/19 05:26 Sodium 133 L Potassium 5.3 H Chloride 92 L Carbon Dioxide 24 BUN 119 H* Creatinine 5.13 H* Calcium 7.6 L Liver Function 12/16/19 Range/Units 05:26 Total Bilirubin 0.5 (0.0-1.0) mg/dL AST 30 D (5-37) U/L ALT 47 H (0-40) U/L Alkaline Phosphatase 501 H D (39-117) U/L Albumin 3.0 L (3.5-5.0) g/dL Assessment and Plan (1) Thrombocytopenia Status: Acute
--- NOTE | 2019-12-16 14:35 | PC.NURSE ---
Pt required new iv access for iv contrast. Unable to obtain by three nurses. central line to be done in ICU. pt was kept npo. blood sugar of 342 was not covered. also noon time meds were held, per Dr Gross. Once iv access is in place, pt is to have a chest ct. pt brought down [facility] at approx 1430.
--- NOTE | 2019-12-16 15:43 | XR_ITS ---
EXAMINATION: XR CHEST CLINICAL INFORMATION: Line placement COMPARISON: Previous chest x-ray 12/09/2019 TECHNIQUE: Frontal view of the chest was obtained. FINDINGS: There is a new right jugular line with tip projecting over the SVC. There is no pneumothorax. The cardiac silhouette is enlarged but stable. There are post-CABG changes. There is a right subclavian dual chamber pacemaker that appears unchanged. There is diffuse bilateral airspace disease that appears increased from previous chest x-ray most recent 12/09/2019. Differential would include pneumonia/pneumonitis, pulmonary edema in the right clinical setting pulmonary hemorrhage. There is no pleural effusion. IMPRESSION: Right jugular line projects over SVC. No pneumothorax. Stable enlargement of the cardiac silhouette. Significant interval increase in bilateral airspace disease compared to previous chest x-ray December 09, 2019. Differential would include pneumonia/pneumonitis, pulmonary edema and in the right clinical setting, pulmonary hemorrhage.
--- NOTE | 2019-12-16 16:43 | PM.CCN ---
Critical Care Event Note Summary Narrative: At the request of Dr. Gross, Mr. Ramirez was brought down to the ICU this afternoon for CVC placement for IV access. The patient is a 69 yo M with PMHx of This casgagf
--- NOTE | 2019-12-16 17:15 | P.PNCC_ITS ---
Subjective Subjective Date of Service: 12/16/19 Interval History: Mr. Ramirez is being transferred to the ICU bec of hypoxemic respiratory failure, respiratory distress, and delirium. The patient is a 69-year-old man with past medical history of diabetes, hypertension, hypercholesterolemia, coronary artery disease, status post CABG, cardiomyopathy, end-stage renal disease on dialysis through an left arm AV fistula, and orthostatic hypotension. The patient also has a permanent pacema ker. The patient also has a history of colon cancer. The patient was admitted to the hospital on December 04 with nausea vomiting and diarrhea and cough. Initial sat in the ED was reported to be 97% on room air. Chest x-ray was largely unremarkable. Initial glucose level was 827, but he was not in DKA. Because of his symptoms, he was unable to go to his outpatient dialysis schedule that day. He was therefore admitted for further management. He was subsequently found to be COVID positive. He became progressively hypoxemic and by Dec 07, he was on HFNC, and CXR showed new bilat infiltrates. He?s had the following treatments: -Decadron x 10 days -Convalescent plasma one dose on 12/08/19 -Remdesivir ? could not get bec of ESRD Course was complicated by possible pulmonary edema, treated with HD and ultrafiltration as tolerated. He?s been getting HD M,W,F Over the last few days, his plat count has been dropping and his DDimer has been rising. See labs. DDimer today was [id number], up from [id number] yesterday. DVT study was negative. Despite all that, his oxygenation has actually been improving. He had been up to requiring non-rebreather face mask along with the high-flow nasal cannula, but earlier today he was requiring only the high-flow. Dr. Gross requested the central venous access so that he could have a CTPA today to rule out pulmonary embolism, in view of the guille high D-dimer. During the procedure today, the patient was breathing oxygen through non- rebreather face mask set on flush, with a sat of 100%. Amazingly, patient tolerated the procedure well with only minimally increased work of breathing. Postprocedure chest x-ray shows a well placed catheter, no pneumothorax, and bilateral pulmonary infiltrates, worse than that shown on his film from December 08. Following the procedure, the patient was being readied for transport to CT scan when he began to have increasing shortness of breath and delirium. His sat had dropped down into the 70s on the non-rebreather face mask. We therefore got him settled back in the room in the ICU put him on the non-rebreather set on flush an added the high-flow nasal cannula 60 L/100%. He required fentanyl 100 mcg and then Dilaudid 1 mg before we got him comfortable and calmed down. He?s now sleeping and breathing easy on HFNC 60L/100% plus NRBFM at 15L, with a RR of 22, Sat 100%. Heart rate is 104, in what looks like sinus rhythm, although I cannot with 100% certainty rule out a paced rhythm. Blood pressure is 98/55 after the Dilaudid. LABORATORY DATA: As below. IMPRESSION: 1. Bilateral pulmonary infiltrates secondary to COVID pneumonia. 2. Acute hypoxemic respiratory failure secondary to above. 3. Acute delirium. Secondary to hypoxemia and possibly coronavirus disease. 4. Rising D-dimer. DVT ruled out, but cannot rule out pulmonary embolism. The patient is not stable for CT angio at this time. On the advice of Hematology, the patient has been started on argatroban. Regardless of whether not he has pulmonary embolism, given the significant rise in his D-dimer level in the face of C-19 disease, I would think that the patient should be fully anticoagulated in any event. 5. End-stage renal disease. Continue hemodialysis. 6. Thrombocytopenia. Avoiding heparin for now. 7. Diabetes. On Lantus and Humalog. 8. CAD. Continue statin, b-goran 9. Orthostatic hypotension. Continue midodrine. Otherwise, usual supportive care. Critical care time (including extended chart rev, mult d/w Dr. Gross, and mult visits to the bedside; excluding procedures): 2 hrs. Physical Exam Vital Signs: Vital Signs: Vital Signs Temp Pulse Resp BP Pulse Ox 12/16/19 16:56 22 H 12/16/19 11:56 97.0 F 83 22 H 118/62 94 12/16/19 08:24 82 12/16/19 08:22 82 12/16/19 08:00 97.6 F 96 22 H 151/89 H 95 12/16/19 07:28 20 10/20/20 04:14 20 12/16/19 03:26 97.3 F 90 18 129/68 98 12/16/19 00:00 98.3 F 91 20 132/73 92 12/15/19 23:31 20 12/15/19 20:00 97.6 F 98 24 H 136/60 98 12/15/19 19:25 22 H Body Mass Index 31.3 Objective Data Labs CBC & Chem 7: 12/16/19 05:26 12/16/19 05:26 Labs: Laboratory Results - last 24 hr 12/15/19 12/16/19 12/16/19 20:15 05:26 05:26 WBC 11.6 H RBC 4.43 L Hgb 12.9 L Hct 39.5 L MCV 89.2 MCH 29.1 MCHC 32.7 RDW 13.8 Plt Count 70 L D MPV 10.4 Immature Gran % (Auto) 0.8 H Neut % (Auto) 73.5 H Lymph % (Auto) 23.1 Lipscomb % (Auto) 2.4 Eos % (Auto) 0.1 Baso % (Auto) 0.1 Lymph # (Auto) 2.7 Lipscomb # (Auto) 0.3 Eos # (Auto) 0.0 Baso # (Auto) 0.0 Abs Immat Gran (auto) 0.09 H Absolute Neuts (auto) 8.6 H Absolute Nucleated RBC 0.000 Nucleated RBC % (auto) 0.0 Smear Path Review SEE NOTE PT 12.2 INR 1.0 APTT 38.3 H Fibrinogen 536 D-Dimer 19136 Sodium Potassium Chloride Carbon Dioxide Anion Gap BUN Creatinine Estim Creat Clear Calc Estimated GFR POC Glucose 210 H Random Glucose Calcium Ferritin Total Bilirubin AST ALT Alkaline Phosphatase Lactate Dehydrogenase C-Reactive Protein Total Protein Albumin 12/16/19 12/16/19 12/16/19 05:26 08:31 08:31 WBC RBC Hgb Hct MCV MCH MCHC RDW Plt Count MPV Immature Gran % (Auto) Neut % (Auto) Lymph % (Auto) Lipscomb % (Auto) Eos % (Auto) Baso % (Auto) Lymph # (Auto) Lipscomb # (Auto) Eos # (Auto) Baso # (Auto) Abs Immat Gran (auto) Absolute Neuts (auto) Absolute Nucleated RBC Nucleated RBC % (auto) Smear Path Review PT INR APTT Fibrinogen D-Dimer Sodium 133 L Potassium 5.3 H Chloride 92 L Carbon Dioxide 24 Anion Gap 22 H BUN 119 H* Creatinine 5.13 H* Estim Creat Clear Calc 15.4 Estimated GFR 11 POC Glucose 341 H 341 H Random Glucose 422 H* Calcium 7.6 L Ferritin 3532 H Total Bilirubin 0.5 AST 30 D ALT 47 H Alkaline Phosphatase 501 H D Lactate Dehydrogenase 595 H C-Reactive Protein 5.10 H Total Protein 5.5 L Albumin 3.0 L 12/16/19 11:47 WBC RBC Hgb Hct MCV MCH MCHC RDW Plt Count MPV Immature Gran % (Auto) Neut % (Auto) Lymph % (Auto) Lipscomb % (Auto) Eos % (Auto) Baso % (Auto) Lymph # (Auto) Lipscomb # (Auto) Eos # (Auto) Baso # (Auto) Abs Immat Gran (auto) Absolute Neuts (auto) Absolute Nucleated RBC Nucleated RBC % (auto) Smear Path Review PT INR APTT Fibrinogen D-Dimer Sodium Potassium Chloride Carbon Dioxide Anion Gap BUN Creatinine Estim Creat Clear Calc Estimated GFR POC Glucose 324 H Random Glucose Calcium Ferritin Total Bilirubin AST ALT Alkaline Phosphatase Lactate Dehydrogenase C-Reactive Protein Total Protein Albumin Progress Note: A&P Time Spent With Patient Time: Total time spent is greater than 50% in coordination of care (as documented) at patient's floor/unit and/or counseling patient: Total time spent with greater than 50% in coordination of care (as documented) at patient's floor/unit and/or counseling patient:: 0 Critical Care Time Critical Care Time (minutes): 120
[2019-12-16] MEDS: HYDROmorphone HCl 1 MG/ML SYRINGE IVPUSH (17:22)
[2019-12-16] MEDS: Argatroban 250 MG in 0.9 % Sodium Chloride 250 ML 11.32 MG IV (17:36)
[2019-12-16] MEDS: fentaNYL citrate/PF 100 MCG/2 ML VIAL 50 MCG IVPUSH (17:45)
[2019-12-16 17:51] LABS: Glucose, Whole Blood 152 mg/dL (60-115)
--- NOTE | 2019-12-16 18:37 | PC.NURSE ---
PT TRANSFERRED TO ICU FOR TLC TO RIJ PLACEMENT. UPON COMPLETION OF LINE PLACEMENT AND IN ROUTE OF TRANSFER TO CT SCAN PT WENT INTO RESPIRATORY DISTRESS. PT PLACED ON 100% NRB AND 100% HIGH FLOW. PT ANXIOUS, CONFUSED, PULLING 02 MASK OFF, TRYING TO GET OUT OF BED, NOT FOLLOWING DIRECTIONS. MD ORDERED FENTANYL 50 MCG IV AND ADMINISTERED. PT ONLY ABLE TO ANSWER NAME AND CORRECTLY, CRYING FOR HIS MOM. MD NOTIFIED. PT CONTINUES TO PULL OFF MASK AND JUMP OOB. EDUCATED ON IMPORTANCE OF LEAVING MASK ON AND RISK OF INTUBATION. MD BEDSIDE AND ORDERED DILAUDID 1 MG IV AND ADMINISTERED. PT BEGINNING TO BE LESS RESTLESS. MD TITRATING DOWN ON NRB, CURRENTLY AT 8L. HIGH FLOW 100%, 02 SAT 100%. VSS. LEFT UPPER ARM FISTULA NOTED WITH POSITIVE BRUIT AND THRILL. BM X 1 ON BED PADILLA. ARGATROBAN GTT STARTED AT 1740 AT 2 MCG/KG/MIN PER PROTOCOL. PTT ORDERED FOR 1939. WILL PASS ALONG PROTOCOL TO ONCOMING RN.
--- NOTE | 2019-12-16 19:48 | P.PNNP_ITS ---
Subjective Subjective Principal diagnosis: CKD /COVID Interval history: Seen and examined. Events noted. Cont high O2 requirements and now concern for PE and a CTA ordered. Last HD 12/14. Physical Exam Vital Signs: Vital Signs: Vital Signs Temp Pulse Resp BP Pulse Ox 12/16/19 17:45 30 H 12/16/19 17:41 107 H 22 H 127/75 100 12/16/19 17:22 37 H 12/16/19 16:56 22 H 12/16/19 11:56 97.0 F 83 22 H 118/62 94 12/16/19 08:24 82 12/16/19 08:22 82 12/16/19 08:00 97.6 F 96 22 H 151/89 H 95 12/16/19 07:28 20 12/16/19 04:14 20 12/16/19 03:26 97.3 F 90 18 129/68 98 12/16/19 00:00 98.3 F 91 20 132/73 92 12/15/19 23:31 20 12/15/19 20:00 97.6 F 98 24 H 136/60 98 Body Mass Index 31.3 General - ill appearing Cardiovascular - regular rate and rhythm, S1-S2 Lungs - dim sounds, no wheezing, on 100% NRBM, speaking in full sentences Abdomen - soft, non-tender, no rebound regarding Extremities - no edema bilaterally Neuro - awake and alert, no focal deficits Const: Other: Ill appearing General: cooperative, healthy appearing, comfortable, no acute distress, well developed, alert, awake, Physically active and ill appearing; No confusion Nutritional Appearance: well nourished and obese Orientation/consciousness: patient oriented x3 and No confusion Limi tations: no limitations HENMT: Head: Yes normal to inspection, Yes No palpable skull fracture present, Yes normocephalic and Yes atraumatic Ears: hearing grossly normal bilaterally General nose exam: Normal external nose present, Normal nares present, No nasal polyps present, Normal nasal mucous membranes and turbinates present, Normal septum present and No nasal discharge present Face and sinus: Yes normal facial exam Mouth: Normal oral and palatal mucosa present, lip normal, tongue normal, Normal salivary glands and ducts present, oropharynx normal and moist mucous membranes Throat: Yes posterior oropharynx normal, Yes tonsils normal and Yes uvula midline Eyes: General: appearance normal, both eyes and all related structures V isual Alejandre: normal visual alejandre by confrontation Alignment and Position: alignment normal Periorbital: periorbital findings normal Eyelids: Yes eyelids normal Conjunctivae: conjunctivae normal Sclerae: sclerae normal Pupils: Equal, round and reactive pupils present EOM: EOMs intact bilaterally Neck: Neck: Yes normal visual inspection, Yes full ROM, Yes no lymphadenopathy, Yes no meningeal signs, Yes trachea midline and Yes supple Chest: Chest palpation & inspection: normal inspection of the chest Resp: Effort & Inspection: normal respiratory effort, able to speak in complete sentences, abnormal respiratory pattern and respiratory distress (mild) Auscultation: clear to auscultation bilaterally, no crackles, no rales, rhonchi and no wheezes Cardio: Jugular venous distension: no JVD Palpation: no palpable S4 Rate: regular rate Rhythm: regular rhythm Heart sounds: S1 normal heart sound present, S2 normal heart sound present and no rubs Peripheral pulses: Peripheral pulses 2+ throughout GI: Inspection: Yes normal to inspection Palpation (GI): Soft to palpation, nontender and No hepatosplenomegaly present Percussion: Yes normal to percussion Auscultation: normal bowel sounds : General: Yes no CVA tenderness Back/Spine/Pelvis: Back: no CVA tenderness Cervical Spine: normal cervical lordosis and cervical ROM normal Thoracic/Lumbar Spine: thoracic and lumbar spine normal to inspection and thoraco-lumbar ROM normal Skin: Other: no cyanosis General skin exam: no rashes or lesions noted, elasticity normal and turgor normal Trauma: no lacerations or abrasions Wounds: no wounds Hair: normal Nails: normal Neuro: General: patient oriented x3, no meningeal signs and No confusion Cranial nerves: Yes CN's II-XII intact bilaterally, Yes Equal, round and reactive pupils present, Yes Bilaterally intact EOM present and No Normal hearing present Cognition (Neuro): normal cognition Speech: No Abnormal speech present Gait exam (Neuro): Normal gait present Motor exam (neuro): 5/5 motor strength present throughout, no asterixis and No Asterixis during motor activity present Extrem: General: Yes normal to inspection, Yes full ROM, Yes capillary refill normal, No no calf tenderness and Yes edema (b/l +2 pitting edema to knees and lower legs and feet) Right upper extremity: normal to inspection, full ROM and normal capillary refill; no edema Left upper extremity: normal to inspection, full ROM and normal capillary refill; no edema Right lower extremity: normal to inspection, full ROM and normal capillary refill Left lower extremity: normal to inspection, full ROM and normal capillary refill Psych: Appearance: grossly normal and well kempt Mental Status: mental status grossly normal Speech and movement: Normal speech and movement present and Clear speech present Affect: normal affect Attitude: cooperative Thought process: Normal thought process present Thought content: Normal thought content present Insight: Good insight present (Psych) Judgement: Good judgement present (Psych) Assessment & Plan Assessment and plan (1) Thrombocytopenia: Status: Acute Assessment and Plan: This is a 69yo M with DM2, ESRD 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 who presented with hyperglycemia without DKA, cough and is admitted for severe COVID-19 PNA 1.acute hypoxic respiratory failure due to severe COVID-19 pneumonia cont candace O2 req and now ques PE playing a contributing role 2. ESRD on HD cont HD mwf and pull fluid as tolerated 3.hyperK resolved 4. Thrombocytopenia progressively decreasing - ? related to hepariun vs infla state of COVID /cyokine storm consult hematology 5. CAD continue statin, b-goran 6. DM2 with hyperglycemia/hypoglycemia 7. orthostatic hypotension continue midodrine with HD 8. anxiety prn lorazepam REC: cont HD mwf; ok to proceed with CTA vs empiric anticoag; heme to evaluate as to best a.c, option given decr PLTs and probles with heparin monitoring in COVID; may need ICU level of care Time Spent With Patient Time: Total time spent is greater than 50% in coordination of care (as documented) at patient's floor/unit and/or counseling patient:
[2019-12-16 20:46] LABS: Glucose, Whole Blood 48 mg/dL (60-115)
[2019-12-16 20:47] LABS: Glucose, Whole Blood 50 mg/dL (60-115)
[2019-12-16] MEDS: Dextrose 50 % 25 GM/50 ML SYRINGE IVPUSH (20:47)
[2019-12-16 20:50] LABS: Partial Thromboplastin Time 75.4 SEC (24.1-38.0)
[2019-12-16] MEDS: traZODone HCL 100 MG TABLET PO (21:27)
[2019-12-16 21:52] LABS: Glucose, Whole Blood 110 mg/dL (60-115)
[2019-12-16 23:08] LABS: Partial Thromboplastin Time 87.3 SEC (24.1-38.0)
[2019-12-17] VITALS (23 sets, daily range): BP systolic 94–126; BP diastolic 51–74; PULSE 82–105; RESP 10–38; TEMP 35.8–38; O2SAT 90–100
[2019-12-17] MEDS: 0.9 % Sodium Chloride Flush 3 ML SYRINGE IVFLUSH ×4 (00:09→23:57)
[2019-12-17] MEDS: HYDROmorphone HCl 1 MG/ML SYRINGE IVPUSH ×5 (02:08→17:57)
--- NOTE | 2019-12-17 04:51 | PC.NURSE ---
Patient with moments of increased anxiety and fearfulness during shift. Patient was able to be redirected at 0025 and placed back on nonrebreather in conjuction with hi-marvin. 0200 patient began yelling and calling for 'mama.' Patient reminded to stay in bed and someone would be with him shortly. Patient began to pull at sat probe, remove nonrebreather and was attempting to get out of bed. Upon entering room patient through his urinal. Patient was instructed to lie down and take breaths through his nose. 1 mg dilaudid administered IV. Patient repositioned in bed and reminded of importance to remain calm and breath though his nose. Patient was also placed back on the nonrebreather at this time. Non rebreather was removed at 0420.'
[2019-12-17 06:17] LABS: Hematocrit 44.8 % (42-52); Hemoglobin 14.5 g/dl (14.0-18.0); Mean Corpuscular HGB Conc 32.4 g/dl (31.0-36.0); Mean Corpuscular Volume 89.6 fL (80-98); Red Cell Distribution Width 13.9 % (11.0-16.0); White Blood Count 28.8 X10*3/uL (4.8-10.8)
[2019-12-17 06:48] LABS: C Reactive Protein 14.89 mg/dL (< or = 0.50)
[2019-12-17 07:16] LABS: Base Excess VBG 3.1 mmol/L; HCO3 VBG 27 mmol/L; PCO2 VBG 40 mmhg; PO2 VBG 74 mmhg; pH VBG 7.45 (7.32-7.43)
[2019-12-17 07:17] LABS: Oxygen Saturation VBG 94.6 %
[2019-12-17 07:29] LABS: D Dimer 14315 NG/ML
[2019-12-17 07:39] LABS: Platelet Count 92 X10*3/uL (160-400)
[2019-12-17 08:10] LABS: Glucose, Whole Blood 179 mg/dL (60-115)
[2019-12-17 08:10] LABS: Glucose, Whole Blood 32 mg/dL (60-115)
[2019-12-17 08:10] LABS: Glucose, Whole Blood 34 mg/dL (60-115)
[2019-12-17 08:36] LABS: Anion Gap 29 (12-20); Carbon Dioxide 15 mmol/L (22-29); Chloride 97 mmol/L (96-108); Creatinine Clr Calc Pharmacy 12.3; Estimated Glomerular Filt Rate 9; Glucose Random 30 mg/dL (60-115); Potassium 6.2 mmol/l (3.3-5.1); Sodium 135 mmol/L (135-145)
[2019-12-17] MEDS: Midodrine HCl 5 MG TABLET PO ×2 (08:46→16:23)
[2019-12-17] MEDS: carvediloL 12.5 MG TABLET PO (08:47)
[2019-12-17] MEDS: Atorvastatin Calcium 80 MG TABLET PO (08:47)
[2019-12-17] MEDS: Nystatin Powder 15 GM BOTTLE 1 APPL TOPICAL (08:48)
[2019-12-17] MEDS: Dextrose 50 % 25 GM/50 ML SYRINGE IVPUSH (08:51)
[2019-12-17 09:06] LABS: Blood Urea Nitrogen 129 mg/dL (9-16)
[2019-12-17 09:19] LABS: Atypical Lymph Absolute Manual 0.3 x10*3/uL; Atypical Lymphs Percent Manual 1 % (0-6); Band Neutrophils Percent 2 % (3-5); Lymphocytes Absolute Manual 10.7 X10*3/uL (0.6-4.8); Lymphocytes Percent Manual 37 % (20-40); Metamyelocytes Absolute 0.6 X10*3/uL; Metamyelocytes Percent 2 %; Monocytes Absolute Manual 1.4 X10*3/uL (0.0-1.2); Monocytes Percent Manual 5 % (2-11); Neutrophils Absolute Manual 15.8 X10*3/uL (2.2-7.9); Neutrophils Percent Manual 53 % (45-73)
[2019-12-17 09:20] LABS: Platelet Estimate DECREASED (NORMAL); Platelet Morphology Comment NORMAL
[2019-12-17] MEDS: Albumin Human 25 % 100 ML IV (09:20)
[2019-12-17 09:21] LABS: Acanthocytes 1+; Alanine Aminotransferase 64 U/L (0-40); Albumin Level 3.2 g/dL (3.5-5.0); Alkaline Phosphatase 564 U/L (39-117); Aspartate Amino Transferase 66 U/L (5-37); Bilirubin Direct 0.4 mg/dL (0.0-0.5); Bilirubin Total 0.9 mg/dL (0.0-1.0); Ovalocytes 1+; RBC Morphology NOTED; Tear Drop Cells 1+; Total Protein 6.4 g/dL (6.5-8.0)
[2019-12-17 09:45] LABS: Ferritin 4434 ng/mL (20-250)
--- NOTE | 2019-12-17 10:14 | PC.NURSE ---
RR 38, 02 60-70% ON 100% FIO2 - ABDOMINAL BREATHING, NASAL FLARING, LABORED BREATHING - MD AWARE OF CURRENT RESPIRATORY STATUS AND DISCUSSED DURING ROUNDS - PER MD PATIENT IS NO CPR - AWAITING NO CPR ORDER. HCP CALLED AND AWAITING ARRIVAL.
[2019-12-17 10:33] LABS: Partial Thromboplastin Time 76.6 SEC (24.1-38.0)
--- NOTE | 2019-12-17 10:38 | PC.NURSE ---
Addendum entered by Margaret Humphries RN 12/17/19 17:49: DR MONIQUE NOTIFIED VIA [employer] REGARDING ?FAILURE TO SENSE ON MONITOR - PICTURE OF MONITOR STRIP SENT VIA [facility] - PER DR MONIQUE ?MONITOR INTERFERENCE AND PACEMAKER MODE TO BE TURNED OFF - PACEMAKER MODE TURNED OFF. PATIENT NOTICED TO BE DIAPHORETIC - POC OBTAINED AND READING 66 - PATIENT UNABLE TO EAT FULL DINNER DUE TO O2 REQUIREMENTS - DR DUNBAR NOTIFIED - PATIENT GIVEN 120CC OF ORANGE JUICE WITH TWO PACKETS OF SUGAR PER MD - REPEAT POC TO BE DRAWN IN 1HR PER MD. WILL CONTINUE TO MONITOR. Addendum entered by Margaret Humphries RN 12/17/19 16:46: PATIENT SLEEPING - O2 SAT STABLE 92-97% ON 100% NONREBREATHER AND 100% 60L HIGH FLOW - ATTEMPTED TO TITRATE OFF 100% NONREBREATHER BUT PATIENT'S O2 SAT QUICKLY DROPPED TO 84%- PATIENT C/O OF INCREASED WORK OR BREATHING, ACCESSORY MUCSLE USE - 100% NONREBREATHER REAPPLIED AND PATIENT ADMINISTERED 1MG IV DILAUDID FOR INCREASED WORK OF BREATHING. PATIENT CONTINUED TO BE A&O X3. TEMP UP TO 100.4 ORALLY - TYLENOL 650 PO ADMINSITERED - BLOOD CULTURES AND STAT LACTIC DRAWN- PER DR DUNBAR ALL LABS TO BE DRAN OFF TLC TO RIGHT IJ INCLUDING BLOOD CULTURES AND PTT FOR ARGATROBAN. IV ABX ORDERED. WILL CONTINUE TO MONITOR. Addendum entered by Margaret Humphries RN 12/17/19 15:38: MULTIPLE PACER SPIKES NOTICED ON MONITOR - ?FAILURE TO SENSE - DR DUNBAR NOTIFIED - HEAD MIXER TO NOTIFY CARDIO. WILL CONTINUE TO MONITOR. Addendum entered by Margaret Humphries RN 12/17/19 14:31: 1215 O2 SAT DROPPED TO 82-86% . PATIENT ANXIOUS, TRYING TO GET OOB, YELLING HELP, I CANT BREATH . PATIENT NOTICED TO HAVE INCREASED WORK OF BREATHING, RR UP TO 38, ACCESSORY MUSCLE USE, NASAL FLARING. PATIENT MAXED OUT ON HIGH FLOW 100% AND 100% NONREBREATHER. MD NOTIFIED AND AT BEDSIDE. ADDITIONAL TWO DOSES OF DILAUDID ADMINISTERED PER MD VERBAL ORDER FOR INCREASED WORK OF BREATHING. DIALYSIS FINISHED 10 MINUTES EARLY PER MD - 3L REMOVED PER GRANITE INSTALLER. PATIENT REPOSITIONED AND BOOSTED UP IN BED AND PLACED IN HIGH FOWLERS POSITION. CURRENT O2 SAT STABLE AT 90-93% AT THIS TIME. VBGS ORDERED AND OBTAINED. PATIENT STARTED ON LEVOPHED FOR MAP <60 - CURRENTLY AT 0.05MCG - BP UP TO 93/54 MAP 63 - OKAY PER MD. CUSTOMER SUCCESS ADVOCATE AT BEDSIDE OBTAINING ECHO. WILL CONTINUE TO MONITOR. Addendum entered by Margaret Humphries RN 12/17/19 11:48: 02 SAT DOWN TO 81-84% ON 100% 60L HIGH FLOW - PATIENT A&O X3, RR 26-30 - 02 SAT PROB CHANGED - ADMINISTERED 1MG DILAUDID PER EMAR. PATIENT PLACED ON 100% NONREBREATHER WITH CURRENT HIGH FLOW - MD NOTIFIED AND AT BEDSIDE. 02 SAT UP TO 91%, FLUCTUATING DOWN TO 88% BUT RECOVERING BACK TO LOW 90'S. DIALYSIS TO BE DONE IN APPROXIMATELY 1 & 1/2 HRS PER GRANITE INSTALLER. PATIENT RESTING IN BED WITH EYES CLOSED, DOES NOT LOOK TO BE IN RESPIRATORY DISTRESS, PATIENT HAS NO COMPLAINTS. WILL CONTINUE TO MONITOR. Original Note: 0750 POC 32 - POC RECHECKED TWICE - PATIENT ASYMPTOMATIC, A/O X3, NO COMPLAINTS- 1 AMP D50 ORDERED AND ADMINISTERED AT 0755 - 0805 POC UP TO 179 - PATIENT ATE 100% OF BREAKFAST ALONG WITH PUDDING AND ICE CREAM UPON REQUEST. WILL CONTINUE TO MONITOR. 0915 BP DOWN TO 79/49 - MIDODRINE ADMINISTERED AT 0900 - PATIENT ASYMPTOMATIC - MD NOTIFIED - ALBUMIN 100CC ORDERED AND ADMINISTERED BY GRANITE INSTALLER - BP UP TO 99/57. WILL CONTINUE TO MONITOR.
[2019-12-17 11:08] LABS: Glucose, Whole Blood 152 mg/dL (60-115)
--- NOTE | 2019-12-17 12:22 | MHC.CM.PN ---
Patient is COVID positive and is on high flow O2 at 100%, also a HD patient. Plan is to transfer patient back to 4th floor IMC. CM will continue to follow patient for discharge needs.
--- NOTE | 2019-12-17 13:00 | CA_ITS ---
Transthoracic Echocardiogram Patient (Last, First, Middle): Tee Ramirez, Gender: Male Date of : 1950 Age: 69 Procedure Date: 12/17/2019 Procedure Type: Transthoracic Echocardiogram Location: ICU Height: 167.64 cm Weight: 83.92 kg BSA: 1.93 m2 Heart Rate: bpm BP: 93 / 54 mmHg Wheel Worker: Referring MD: Guillermo Sarkar Symptoms: hypotension Study Quality: Fair ECG Rhythm: Sinus with extra beats Conclusions: - Limited echo with limited valvular assessment. - LVEF 25-30%. - RV appears mildly dilated in limited view with mild systolic dysfunction. - There is no evidence of pulmonary hypertension. - There is no evidence of pericardial effusion. Findings Left Ventricle Mildly increased left ventricular cavity size. There is moderately increased left ventricular wall thickness. The left ventricular systolic function is moderate to severely decreased. The visually estimated ejection fraction is between 25-30%. Regional wall motion abnormalities can not be excluded due to suboptimal endocardial definition. There is paradoxical septal motion consistent with post-operative status. Diastolic function is indeterminate on the basis of available data. Right Ventricle There is a pacemaker wire seen in the right ventricle. RV appears dilated in limited view with mild systolic dysfunction. Aortic Valve There is mild calcification of the aortic valve. Tricuspid Valve There is no evidence of pulmonary hypertension. Venous The inferior vena cava is normal in size and collapses greater than 50% with inspiration. Pericardium/Pleural There is no evidence of pericardial effusion. Measurements 2D Linear Measurements IVSd: 1.20 0.6-0.9/0.6-1.0 cm LVIDd: 5.14 3.9-5.3/4.2-5.9 cm LVIDd Index: 2.66 2.4-3.2/2.2-3.1 cm/m2 LVIDs: 4.32 2.0-3.6 cm LVPWd: 1.22 0.7-1.1 cm LV Mass: 308.14 67-162/88-224 g LV Mass Index: 159.66 43-95/49-115 g/m2 Tricuspid Valve TR Pk Kyle: 2.43 TR Pk Grad: 24.00 Updated in Other Vendor System with Status of Final Juan Luis Kincaid MD electronically signed on 12/17/2019 4:37:29 PM with status of Final
--- NOTE | 2019-12-17 13:29 | P.PNCC_ITS ---
Physical Exam Vital Signs: Vital Signs: Vital Signs Temp Pulse Resp BP Pulse Ox 12/17/19 12:00 96.5 F L 98 24 H 94/56 L 91 L 12/17/19 11:47 20 12/17/19 08:47 82 102/57 L 12/17/19 08:46 102/58 L 12/17/19 08:00 85 25 H 102/58 L 92 12/17/19 07:57 24 H 12/17/19 04:22 24 H 12/17/19 04:06 90 24 H 117/60 100 12/17/19 02:52 98 20 12/17/19 02:39 98 19 126/74 98 12/17/19 02:08 38 H 12/17/19 00:24 99.8 F 95 37 H 107/64 99 12/17/19 00:02 22 H 12/16/19 21:35 96 12/16/19 21:27 102 H 99/55 L 12/16/19 20:55 99.1 F 97 26 H 109/69 100 12/16/19 19:52 24 H 12/16/19 17:45 30 H 12/16/19 17:41 107 H 22 H 127/75 100 12/16/19 17:22 37 H 12/16/19 16:56 22 H Body Mass Index 31.3 Objective Data Labs CBC & Chem 7: 12/17/19 06:00 12/17/19 06:00 Labs: Laboratory Results - last 24 hr 12/16/19 12/16/19 12/16/19 05:26 05:26 17:05 WBC RBC Hgb Hct MCV MCH MCHC RDW Plt Count MPV Immature Gran % (Auto) Neut % (Auto) Lymph % (Auto) [place] % (Auto) Eos % (Auto) Baso % (Auto) Lymph # (Auto) [place] # (Auto) Eos # (Auto) Baso # (Auto) Abs Immat Gran (auto) Absolute Neuts (auto) Absolute Nucleated RBC Nucleated RBC % (auto) Neutrophils % (Manual) Band Neutrophils % Lymphocytes % (Manual) Atypical Lymphs % (Man) Monocytes % (Manual) Metamyelocytes % Abs Neuts (Manual) Lymphocytes # (Manual) Atyp Lymphs # (Manual) Monocytes # (Manual) Metamyelocytes # Platelet Estimate Plt Morphology Comment RBC Morphology Tear Drop Cells Ovalocytes Acanthocytes (Spur) Smear Path Review SEE NOTE PT 12.2 INR 1.0 APTT 38.3 H Fibrinogen 536 D-Dimer VBG pH VBG pCO2 VBG Oxygen Liters/Min VBG pO2 VBG HCO3 VBG O2 Saturation VBG Base Excess Sodium Potassium Chloride Carbon Dioxide Anion Gap BUN Creatinine Estim Creat Clear Calc Estimated GFR POC Glucose 152 H Random Glucose Calcium Ferritin Total Bilirubin Direct Bilirubin AST ALT Alkaline Phosphatase C-Reactive Protein Total Protein Albumin 12/16/19 12/16/19 12/16/19 20:13 20:27 20:30 WBC RBC Hgb Hct MCV MCH MCHC RDW Plt Count MPV Immature Gran % (Auto) Neut % (Auto) Lymph % (Auto) [place] % (Auto) Eos % (Auto) Baso % (Auto) Lymph # (Auto) [place] # (Auto) Eos # (Auto) Baso # (Auto) Abs Immat Gran (auto) Absolute Neuts (auto) Absolute Nucleated RBC Nucleated RBC % (auto) Neutrophils % (Manual) Band Neutrophils % Lymphocytes % (Manual) Atypical Lymphs % (Man) Monocytes % (Manual) Metamyelocytes % Abs Neuts (Manual) Lymphocytes # (Manual) Atyp Lymphs # (Manual) Monocytes # (Manual) Metamyelocytes # Platelet Estimate Plt Morphology Comment RBC Morphology Tear Drop Cells Ovalocytes Acanthocytes (Spur) Smear Path Review PT INR APTT 75.4 H* D Fibrinogen D-Dimer VBG pH VBG pCO2 VBG Oxygen Liters/Min VBG pO2 VBG HCO3 VBG O2 Saturation VBG Base Excess Sodium Potassium Chloride Carbon Dioxide Anion Gap BUN Creatinine Estim Creat Clear Calc Estimated GFR POC Glucose 48 L* 50 L* Random Glucose Calcium Ferritin Total Bilirubin Direct Bilirubin AST ALT Alkaline Phosphatase C-Reactive Protein Total Protein Albumin 12/16/19 12/16/19 12/17/19 21:30 22:40 06:00 WBC 28.8 H RBC 5.00 Hgb 14.5 Hct 44.8 MCV 89.6 MCH 29.0 MCHC 32.4 RDW 13.9 Plt Count 92 L D MPV 11.0 Immature Gran % (Auto) Cancelled Neut % (Auto) Cancelled Lymph % (Auto) Cancelled [place] % (Auto) Cancelled Eos % (Auto) Cancelled Baso % (Auto) Cancelled Lymph # (Auto) Cancelled [place] # (Auto) Cancelled Eos # (Auto) Cancelled Baso # (Auto) Cancelled Abs Immat Gran (auto) Cancelled Absolute Neuts (auto) Cancelled Absolute Nucleated RBC 0.000 Nucleated RBC % (auto) 0.0 Neutrophils % (Manual) 53 Band Neutrophils % 2 L Lymphocytes % (Manual) 37 Atypical Lymphs % (Man) 1 Monocytes % (Manual) 5 Metamyelocytes % 2 Abs Neuts (Manual) 15.8 H Lymphocytes # (Manual) 10.7 H Atyp Lymphs # (Manual) 0.3 Monocytes # (Manual) 1.4 H Metamyelocytes # 0.6 Platelet Estimate DECREASED Plt Morphology Comment NORMAL RBC Morphology NOTED Tear Drop Cells 1+ Ovalocytes 1+ Acanthocytes (Spur) 1+ Smear Path Review PT INR APTT 87.3 H* Fibrinogen D-Dimer VBG pH VBG pCO2 VBG Oxygen Liters/Min VBG pO2 VBG HCO3 VBG O2 Saturation VBG Base Excess Sodium Potassium Chloride Carbon Dioxide Anion Gap BUN Creatinine Estim Creat Clear Calc Estimated GFR POC Glucose 110 Random Glucose Calcium Ferritin Total Bilirubin Direct Bilirubin AST ALT Alkaline Phosphatase C-Reactive Protein Total Protein Albumin 12/17/19 12/17/19 12/17/19 06:00 06:00 06:00 WBC RBC Hgb Hct MCV MCH MCHC RDW Plt Count MPV Immature Gran % (Auto) Neut % (Auto) Lymph % (Auto) [place] % (Auto) Eos % (Auto) Baso % (Auto) Lymph # (Auto) [place] # (Auto) Eos # (Auto) Baso # (Auto) Abs Immat Gran (auto) Absolute Neuts (auto) Absolute Nucleated RBC Nucleated RBC % (auto) Neutrophils % (Manual) Band Neutrophils % Lymphocytes % (Manual) Atypical Lymphs % (Man) Monocytes % (Manual) Metamyelocytes % Abs Neuts (Manual) Lymphocytes # (Manual) Atyp Lymphs # (Manual) Monocytes # (Manual) Metamyelocytes # Platelet Estimate Plt Morphology Comment RBC Morphology Tear Drop Cells Ovalocytes Acanthocytes (Spur) Smear Path Review PT INR APTT Cancelled 92.0 H* Fibrinogen D-Dimer 09914 VBG pH VBG pCO2 VBG Oxygen Liters/Min VBG pO2 VBG HCO3 VBG O2 Saturation VBG Base Excess Sodium 135 Potassium 6.2 H* Chloride 97 Carbon Dioxide 15 L Anion Gap 29 H BUN 129 H* Creatinine 6.45 H* Estim Creat Clear Calc 12.3 Estimated GFR 9 POC Glucose Random Glucose 30 L* Calcium 8.0 L Ferritin Total Bilirubin Direct Bilirubin AST ALT Alkaline Phosphatase C-Reactive Protein Total Protein Albumin 12/17/19 12/17/19 12/17/19 06:00 06:00 07:48 WBC RBC Hgb Hct MCV MCH MCHC RDW Plt Count MPV Immature Gran % (Auto) Neut % (Auto) Lymph % (Auto) [place] % (Auto) Eos % (Auto) Baso % (Auto) Lymph # (Auto) [place] # (Auto) Eos # (Auto) Baso # (Auto) Abs Immat Gran (auto) Absolute Neuts (auto) Absolute Nucleated RBC Nucleated RBC % (auto) Neutrophils % (Manual) Band Neutrophils % Lymphocytes % (Manual) Atypical Lymphs % (Man) Monocytes % (Manual) Metamyelocytes % Abs Neuts (Manual) Lymphocytes # (Manual) Atyp Lymphs # (Manual) Monocytes # (Manual) Metamyelocytes # Platelet Estimate Plt Morphology Comment RBC Morphology Tear Drop Cells Ovalocytes Acanthocytes (Spur) Smear Path Review PT INR APTT Fibrinogen D-Dimer VBG pH 7.45 H VBG pCO2 40 VBG Oxygen Liters/Min TNP VBG pO2 74 VBG HCO3 27 VBG O2 Saturation 94.6 VBG Base Excess 3.1 Sodium Potassium Chloride Carbon Dioxide Anion Gap BUN Creatinine Estim Creat Clear Calc Estimated GFR POC Glucose 34 L* Random Glucose Calcium Ferritin 4434 H Total Bilirubin 0.9 Direct Bilirubin 0.4 AST 66 H ALT 64 H Alkaline Phosphatase 564 H C-Reactive Protein 14.89 H Total Protein 6.4 L Albumin 3.2 L 12/17/19 12/17/19 12/17/19 07:50 08:05 09:49 WBC RBC Hgb Hct MCV MCH MCHC RDW Plt Count MPV Immature Gran % (Auto) Neut % (Auto) Lymph % (Auto) [place] % (Auto) Eos % (Auto) Baso % (Auto) Lymph # (Auto) [place] # (Auto) Eos # (Auto) Baso # (Auto) Abs Immat Gran (auto) Absolute Neuts (auto) Absolute Nucleated RBC Nucleated RBC % (auto) Neutrophils % (Manual) Band Neutrophils % Lymphocytes % (Manual) Atypical Lymphs % (Man) Monocytes % (Manual) Metamyelocytes % Abs Neuts (Manual) Lymphocytes # (Manual) Atyp Lymphs # (Manual) Monocytes # (Manual) Metamyelocytes # Platelet Estimate Plt Morphology Comment RBC Morphology Tear Drop Cells Ovalocytes Acanthocytes (Spur) Smear Path Review PT INR APTT 76.6 H* Fibrinogen D-Dimer VBG pH VBG pCO2 VBG Oxygen Liters/Min VBG pO2 VBG HCO3 VBG O2 Saturation VBG Base Excess Sodium Potassium Chloride Carbon Dioxide Anion Gap BUN Creatinine Estim Creat Clear Calc Estimated GFR POC Glucose 32 L* 179 H Random Glucose Calcium Ferritin Total Bilirubin Direct Bilirubin AST ALT Alkaline Phosphatase C-Reactive Protein Total Protein Albumin 12/17/19 11:02 WBC RBC Hgb Hct MCV MCH MCHC RDW Plt Count MPV Immature Gran % (Auto) Neut % (Auto) Lymph % (Auto) [place] % (Auto) Eos % (Auto) Baso % (Auto) Lymph # (Auto) [place] # (Auto) Eos # (Auto) Baso # (Auto) Abs Immat Gran (auto) Absolute Neuts (auto) Absolute Nucleated RBC Nucleated RBC % (auto) Neutrophils % (Manual) Band Neutrophils % Lymphocytes % (Manual) Atypical Lymphs % (Man) Monocytes % (Manual) Metamyelocytes % Abs Neuts (Manual) Lymphocytes # (Manual) Atyp Lymphs # (Manual) Monocytes # (Manual) Metamyelocytes # Platelet Estimate Plt Morphology Comment RBC Morphology Tear Drop Cells Ovalocytes Acanthocytes (Spur) Smear Path Review PT INR APTT Fibrinogen D-Dimer VBG pH VBG pCO2 VBG Oxygen Liters/Min VBG pO2 VBG HCO3 VBG O2 Saturation VBG Base Excess Sodium Potassium Chloride Carbon Dioxide Anion Gap BUN Creatinine Estim Creat Clear Calc Estimated GFR POC Glucose 152 H Random Glucose Calcium Ferritin Total Bilirubin Direct Bilirubin AST ALT Alkaline Phosphatase C-Reactive Protein Total Protein Albumin Progress Note: A&P Time Spent With Patient Time: Total time spent is greater than 50% in coordination of care (as documented) at patient's floor/unit and/or counseling patient:
[2019-12-17 13:52] LABS: Base Excess VBG 5.4 mmol/L; HCO3 VBG 30 mmol/L; PCO2 VBG 45 mmhg; PO2 VBG 34 mmhg; pH VBG 7.45 (7.32-7.43)
[2019-12-17 13:53] LABS: Oxygen Saturation VBG 66.6 %
[2019-12-17 14:16] LABS: Partial Thromboplastin Time 79.7 SEC (24.1-38.0)
[2019-12-17] MEDS: Argatroban 250 MG in 0.9 % Sodium Chloride 250 ML 8.4 MG IV (14:47)
[2019-12-17 16:12] LABS: Glucose, Whole Blood 94 mg/dL (60-115)
[2019-12-17] MEDS: Acetaminophen 325 MG TABLET 650 MG PO (16:23)
[2019-12-17] MEDS: vancomycin HCL 1,000 MG in 0.9 % Sodium Chloride 250 ML 180 MG IV (17:04)
[2019-12-17] MEDS: Piperacillin Sodium/Tazobactam 2.25 GM in 0.9 % Sodium Chloride 50 ML IV ×2 (17:04→23:55)
[2019-12-17] MEDS: Magnesium Sulfate/H2O 2 GM/50 ML PIGGYBACK IV (17:15)
[2019-12-17] MEDS: methylPREDNISolone Sod Succ/PF 125 MG/2 ML VIAL 80 MG IVPUSH ×2 (17:16→17:26)
[2019-12-17] MEDS: Famotidine/PF 20 MG/2 ML VIAL IVPUSH ×2 (17:16→19:43)
[2019-12-17 17:32] LABS: Glucose, Whole Blood 66 mg/dL (60-115)
--- NOTE | 2019-12-17 17:39 | P.PNCC_ITS ---
Subjective Subjective Date of Service: 12/17/19 Interval History: Mr. Ramirez was transferred to the ICU yesterday bec of hypoxemic respiratory failure, respiratory distress, and delirium. The patient is a 69-year-old man with past medical history of diabetes, hypertension, hypercholesterolemia, coronary artery disease, status post CABG, cardiomyopathy, end-stage renal disease on dialysis through an left arm AV fistula, and orthostatic hypotension. The patient also has a permanent p acemaker. The patient also has a history of colon cancer. The patient was admitted to the hospital on December 04 with nausea vomiting and diarrhea and cough. Initial sat in the ED was reported to be 97% on room air. Chest x-ray was largely unremarkable. Initial glucose level was 827, but he was not in DKA. Because of his symptoms, he was unable to go to his outpatient dialysis schedule that day. He was therefore admitted for further management. He was subsequently found to be COVID positive. He became progressively hypoxemic and by Dec 07, he was on HFNC, and CXR showed new bilat infiltrates. Over the subsequent days, he had the following treatments: -Decadron x 10 days -Convalescent plasma one dose on 12/08/19 He was unable to get Remdesivir bec of ESRD. Course was complicated by possible pulmonary edema, treated with HD and ultrafiltration as tolerated. He?s been getting dialysis M,W,F. Over the last few days, his plat count has been dropping and his DDimer has been rising. See labs. DDimer yesterday was 27181, up from 6837 the day before. DVT study was negative. Despite all that, his oxygenation had actually been improving. He had been up to requiring non-rebreather face mask along with the high-flow nasal cannula, but earlier yesterday he was requiring only the high- flow. Dr. Gross requested central venous access so that he could have a CTPA to rule out pulmonary embolism, in view of the very high D-dimer. The patient was therefore sent down to the ICU to have a CVL placed. Surprisingly, the patient tolerated the procedure well with only minimally increased work of breathing. Postprocedure chest x-ray showed a well placed catheter, no pneumothorax, and bilateral pulmonary infiltrates, worse than that shown on his prior film from December 08. Following the procedure, the patient was being readied for transport to CT scan when he began to have increasing shortness of breath and delirium. His sat had dropped down into the 70s on the non-rebreather face mask. We therefore put him back in the room in the ICU on the NRBFM set on flush and added the high-flow nasal cannula 60 L/100%. He required fentanyl and Dilaudid to get him comfort able and calmed down. Thereafter, on the HFNC 60L/100% with NRBFM set at 6L, he was breathing easy with Sat 100%. Overnite, his oxygenation was fairly steady, and CVBG early this morning on the high flow plus low dose NRBFM showed 7.45/40. But his oxygenation started to deteriorate with initiation of dialysis this morning. In mid morning, I was in his room multiple times and he required mult doses of Dilaudid to manage his WOB and hypoxemia. On HFNC 60L/100% plus the NRBFM set on Flush, the best Sat we got was low 90?s. At 1pm, a CVBG showed 7.45/45. There?s no question that the more opiates we gave him, the better he did. On exam, the worse his WOB was, the more delirious he got. But when his WOB was easy, he was appropriate. See Vital Signs below. Spiked a low grade temp to 100.4 this afternoon, the 1st temperature since December 05. HR about 100, sinus rhythm. Blood pressure about 100/56, on low-dose Levophed 0.07 mcg since his blood pressure dropped during dialysis. Sat currently 93% on the high-flow plus non-rebreather face mask. No JVD at 40?. Auscultation of the chest shows fairly clear breath sounds on the right with diminished breath sounds on left. Heart rate and rhythm are regular on the monitor, looks sinus. I heard no murmur or gallops. Abdomen is benign. He has no edema. LABORATORY DATA: As below. Notably, white blood count spike to 28.8 this morning, platelet count is up to 92,000. Last night and overnight he dropped his point of cares to the 30-40 range (likely because of the Lantus he was on and not having eaten most of the day yesterday. Despite the low glucose, he was asymptomatic. We stop the Lantus and he ate a good breakfast this morning). AST/ALT are 66/64, CRP is up to 15, Ferritin level?s [place] 4400[place] [address]. IMPRESSION: 1. Bilateral pulmonary infiltrates secondary to COVID pneumonia. 2. Acute hypoxemic respiratory failure secondary to above. Given increasing severe disease in this time frame in his COVID19 course (12-14 days), we?re starting him on the [facility] COVID protocol: Solu-Medrol 80 mg bid, vitamin-C 3G q6, full anticoagulation, high-dose vitamin-D, Pepcid 20 mg bid (renally adjusted), melatonin, thiamine, atorvastatin, and magnesium. Check ferritin, CRP, and D-dimer daily. 3. Acute delirium. Secondary to hypoxemia and possibly coronavirus disease. 4. Rising D-dimer. DVT ruled out, but cannot rule out pulmonary embolism. The patient is not stable for CT angio. Regardless, in the face of C-19, such a high D-dimer mandates full anticoagulation. Because of the thrombocytopenia, on the advice of Hematology the patient was started on argatroban. I?ve sent an HIT. If negative, we?ll switch him over to heparin. 5. Hypotension, low-grade temp, and new leukocytosis. Mandates empiric coverage for superinfection. The patient has been started on Vanco and Zosyn. 6. End-stage renal disease. Continue hemodialysis. 7. Thrombocytopenia. Avoiding heparin for now. 8. Diabetes. We?ve d/c?d the Lantus, go w SS for now. 9. CAD. Continue statin, b-goran 10. Orthostatic hypotension. Continue midodrine. Otherwise, usual supportive care. Prognosis is grave. I spoke to his NOK, a sister, Catrina Linton in [place] ([phone]). His only other living relative is another sister, but she has not had communication with the patient. I told Catrina Linton that his condition was very critical and his chances were about 50-50, and could deteriorate at any moment. She understands the situation fully and is ready for any outcome. Critical care time: 2.5 hrs. Physical Exam Vital Signs: Vital Signs: Vital Signs Temp Pulse Resp BP Pulse Ox 12/17/19 16:23 96/58 L 12/17/19 16:00 100.4 F 105 H 17 101/56 L 91 L 12/17/19 15:35 20 12/17/19 12:30 38 H 12/17/19 12:00 96.5 F L 98 24 H 94/56 L 91 L 12/17/19 11:47 20 12/17/19 08:47 82 102/57 L 12/17/19 08:46 102/58 L 12/17/19 08:00 85 25 H 102/58 L 92 12/17/19 07:57 24 H 12/17/19 04:22 24 H 12/17/19 04:06 90 24 H 117/60 100 12/17/19 02:52 98 20 12/17/19 02:39 98 19 126/74 98 12/17/19 02:08 38 H 12/17/19 00:24 99.8 F 95 37 H 107/64 99 12/17/19 00:02 22 H 12/16/19 21:35 96 12/16/19 21:27 102 H 99/55 L 12/16/19 20:55 99.1 F 97 26 H 109/69 100 12/16/19 19:52 24 H 12/16/19 17:45 30 H 12/16/19 17:41 107 H 22 H 127/75 100 Body Mass Index 31.3 Objective Data Labs CBC & Chem 7: 12/17/19 06:00 12/17/19 06:00 Labs: Laboratory Results - last 24 hr 12/16/19 12/16/19 12/16/19 17:05 20:13 20:27 WBC RBC Hgb Hct MCV MCH MCHC RDW Plt Count MPV Immature Gran % (Auto) Neut % (Auto) Lymph % (Auto) Mason % (Auto) Eos % (Auto) Baso % (Auto) Lymph # (Auto) Mason # (Auto) Eos # (Auto) Baso # (Auto) Abs Immat Gran (auto) Absolute Neuts (auto) Absolute Nucleated RBC Nucleated RBC % (auto) Neutrophils % (Manual) Band Neutrophils % Lymphocytes % (Manual) Atypical Lymphs % (Man) Monocytes % (Manual) Metamyelocytes % Abs Neuts (Manual) Lymphocytes # (Manual) Atyp Lymphs # (Manual) Monocytes # (Manual) Metamyelocytes # Platelet Estimate Plt Morphology Comment RBC Morphology Tear Drop Cells Ovalocytes Acanthocytes (Spur) APTT 75.4 H* D D-Dimer VBG pH VBG pCO2 VBG Oxygen Liters/Min VBG pO2 VBG HCO3 VBG O2 Saturation VBG Base Excess Sodium Potassium Chloride Carbon Dioxide Anion Gap BUN Creatinine Estim Creat Clear Calc Estimated GFR POC Glucose 152 H 48 L* Random Glucose Calcium Ferritin Total Bilirubin Direct Bilirubin AST ALT Alkaline Phosphatase C-Reactive Protein Total Protein Albumin 12/16/19 12/16/19 12/16/19 20:30 21:30 22:40 WBC RBC Hgb Hct MCV MCH MCHC RDW Plt Count MPV Immature Gran % (Auto) Neut % (Auto) Lymph % (Auto) Mason % (Auto) Eos % (Auto) Baso % (Auto) Lymph # (Auto) Mason # (Auto) Eos # (Auto) Baso # (Auto) Abs Immat Gran (auto) Absolute Neuts (auto) Absolute Nucleated RBC Nucleated RBC % (auto) Neutrophils % (Manual) Band Neutrophils % Lymphocytes % (Manual) Atypical Lymphs % (Man) Monocytes % (Manual) Metamyelocytes % Abs Neuts (Manual) Lymphocytes # (Manual) Atyp Lymphs # (Manual) Monocytes # (Manual) Metamyelocytes # Platelet Estimate Plt Morphology Comment RBC Morphology Tear Drop Cells Ovalocytes Acanthocytes (Spur) APTT 87.3 H* D-Dimer VBG pH VBG pCO2 VBG Oxygen Liters/Min VBG pO2 VBG HCO3 VBG O2 Saturation VBG Base Excess Sodium Potassium Chloride Carbon Dioxide Anion Gap BUN Creatinine Estim Creat Clear Calc Estimated GFR POC Glucose 50 L* 110 Random Glucose Calcium Ferritin Total Bilirubin Direct Bilirubin AST ALT Alkaline Phosphatase C-Reactive Protein Total Protein Albumin 12/17/19 12/17/19 12/17/19 06:00 06:00 06:00 WBC 28.8 H RBC 5.00 Hgb 14.5 Hct 44.8 MCV 89.6 MCH 29.0 MCHC 32.4 RDW 13.9 Plt Count 92 L D MPV 11.0 Immature Gran % (Auto) Cancelled Neut % (Auto) Cancelled Lymph % (Auto) Cancelled Mason % (Auto) Cancelled Eos % (Auto) Cancelled Baso % (Auto) Cancelled Lymph # (Auto) Cancelled Mason # (Auto) Cancelled Eos # (Auto) Cancelled Baso # (Auto) Cancelled Abs Immat Gran (auto) Cancelled Absolute Neuts (auto) Cancelled Absolute Nucleated RBC 0.000 Nucleated RBC % (auto) 0.0 Neutrophils % (Manual) 53 Band Neutrophils % 2 L Lymphocytes % (Manual) 37 Atypical Lymphs % (Man) 1 Monocytes % (Manual) 5 Metamyelocytes % 2 Abs Neuts (Manual) 15.8 H Lymphocytes # (Manual) 10.7 H Atyp Lymphs # (Manual) 0.3 Monocytes # (Manual) 1.4 H Metamyelocytes # 0.6 Platelet Estimate DECREASED Plt Morphology Comment NORMAL RBC Morphology NOTED Tear Drop Cells 1+ Ovalocytes 1+ Acanthocytes (Spur) 1+ APTT Cancelled D-Dimer VBG pH VBG pCO2 VBG Oxygen Liters/Min VBG pO2 VBG HCO3 VBG O2 Saturation VBG Base Excess Sodium 135 Potassium 6.2 H* Chloride 97 Carbon Dioxide 15 L Anion Gap 29 H BUN 129 H* Creatinine 6.45 H* Estim Creat Clear Calc 12.3 Estimated GFR 9 POC Glucose Random Glucose 30 L* Calcium 8.0 L Ferritin Total Bilirubin Direct Bilirubin AST ALT Alkaline Phosphatase C-Reactive Protein Total Protein Albumin 12/17/19 12/17/19 12/17/19 06:00 06:00 06:00 WBC RBC Hgb Hct MCV MCH MCHC RDW Plt Count MPV Immature Gran % (Auto) Neut % (Auto) Lymph % (Auto) Mason % (Auto) Eos % (Auto) Baso % (Auto) Lymph # (Auto) Mason # (Auto) Eos # (Auto) Baso # (Auto) Abs Immat Gran (auto) Absolute Neuts (auto) Absolute Nucleated RBC Nucleated RBC % (auto) Neutrophils % (Manual) Band Neutrophils % Lymphocytes % (Manual) Atypical Lymphs % (Man) Monocytes % (Manual) Metamyelocytes % Abs Neuts (Manual) Lymphocytes # (Manual) Atyp Lymphs # (Manual) Monocytes # (Manual) Metamyelocytes # Platelet Estimate Plt Morphology Comment RBC Morphology Tear Drop Cells Ovalocytes Acanthocytes (Spur) APTT 92.0 H* D-Dimer 23307 VBG pH 7.45 H VBG pCO2 40 VBG Oxygen Liters/Min TNP VBG pO2 74 VBG HCO3 27 VBG O2 Saturation 94.6 VBG Base Excess 3.1 Sodium Potassium Chloride Carbon Dioxide Anion Gap BUN Creatinine Estim Creat Clear Calc Estimated GFR POC Glucose Random Glucose Calcium Ferritin 4434 H Total Bilirubin 0.9 Direct Bilirubin 0.4 AST 66 H ALT 64 H Alkaline Phosphatase 564 H C-Reactive Protein 14.89 H Total Protein 6.4 L Albumin 3.2 L 12/17/19 12/17/19 12/17/19 07:48 07:50 08:05 WBC RBC Hgb Hct MCV MCH MCHC RDW Plt Count MPV Immature Gran % (Auto) Neut % (Auto) Lymph % (Auto) Mason % (Auto) Eos % (Auto) Baso % (Auto) Lymph # (Auto) Mason # (Auto) Eos # (Auto) Baso # (Auto) Abs Immat Gran (auto) Absolute Neuts (auto) Absolute Nucleated RBC Nucleated RBC % (auto) Neutrophils % (Manual) Band Neutrophils % Lymphocytes % (Manual) Atypical Lymphs % (Man) Monocytes % (Manual) Metamyelocytes % Abs Neuts (Manual) Lymphocytes # (Manual) Atyp Lymphs # (Manual) Monocytes # (Manual) Metamyelocytes # Platelet Estimate Plt Morphology Comment RBC Morphology Tear Drop Cells Ovalocytes Acanthocytes (Spur) APTT D-Dimer VBG pH VBG pCO2 VBG Oxygen Liters/Min VBG pO2 VBG HCO3 VBG O2 Saturation VBG Base Excess Sodium Potassium Chloride Carbon Dioxide Anion Gap BUN Creatinine Estim Creat Clear Calc Estimated GFR POC Glucose 34 L* 32 L* 179 H Random Glucose Calcium Ferritin Total Bilirubin Direct Bilirubin AST ALT Alkaline Phosphatase C-Reactive Protein Total Protein Albumin 12/17/19 12/17/19 12/17/19 09:49 11:02 13:15 WBC RBC Hgb Hct MCV MCH MCHC RDW Plt Count MPV Immature Gran % (Auto) Neut % (Auto) Lymph % (Auto) Mason % (Auto) Eos % (Auto) Baso % (Auto) Lymph # (Auto) Mason # (Auto) Eos # (Auto) Baso # (Auto) Abs Immat Gran (auto) Absolute Neuts (auto) Absolute Nucleated RBC Nucleated RBC % (auto) Neutrophils % (Manual) Band Neutrophils % Lymphocytes % (Manual) Atypical Lymphs % (Man) Monocytes % (Manual) Metamyelocytes % Abs Neuts (Manual) Lymphocytes # (Manual) Atyp Lymphs # (Manual) Monocytes # (Manual) Metamyelocytes # Platelet Estimate Plt Morphology Comment RBC Morphology Tear Drop Cells Ovalocytes Acanthocytes (Spur) APTT 76.6 H* 79.7 H* D-Dimer VBG pH VBG pCO2 VBG Oxygen Liters/Min VBG pO2 VBG HCO3 VBG O2 Saturation VBG Base Excess Sodium Potassium Chloride Carbon Dioxide Anion Gap BUN Creatinine Estim Creat Clear Calc Estimated GFR POC Glucose 152 H Random Glucose Calcium Ferritin Total Bilirubin Direct Bilirubin AST ALT Alkaline Phosphatase C-Reactive Protein Total Protein Albumin 12/17/19 12/17/19 12/17/19 13:20 16:07 17:22 WBC RBC Hgb Hct MCV MCH MCHC RDW Plt Count MPV Immature Gran % (Auto) Neut % (Auto) Lymph % (Auto) Mason % (Auto) Eos % (Auto) Baso % (Auto) Lymph # (Auto) Mason # (Auto) Eos # (Auto) Baso # (Auto) Abs Immat Gran (auto) Absolute Neuts (auto) Absolute Nucleated RBC Nucleated RBC % (auto) Neutrophils % (Manual) Band Neutrophils % Lymphocytes % (Manual) Atypical Lymphs % (Man) Monocytes % (Manual) Metamyelocytes % Abs Neuts (Manual) Lymphocytes # (Manual) Atyp Lymphs # (Manual) Monocytes # (Manual) Metamyelocytes # Platelet Estimate Plt Morphology Comment RBC Morphology Tear Drop Cells Ovalocytes Acanthocytes (Spur) APTT D-Dimer VBG pH 7.45 H VBG pCO2 45 VBG Oxygen Liters/Min TNP VBG pO2 34 VBG HCO3 30 VBG O2 Saturation 66.6 VBG Base Excess 5.4 Sodium Potassium Chloride Carbon Dioxide Anion Gap BUN Creatinine Estim Creat Clear Calc Estimated GFR POC Glucose 94 66 Random Glucose Calcium Ferritin Total Bilirubin Direct Bilirubin AST ALT Alkaline Phosphatase C-Reactive Protein Total Protein Albumin Progress Note: A&P Time Spent With Patient Time: Total time spent is greater than 50% in coordination of care (as doc umented) at patient's floor/unit and/or counseling patient: Total time spent with greater than 50% in coordination of care (as documented) at patient's floor/unit and/or counseling patient:: 0 Critical Care Time Critical Care Time (minutes): 150
[2019-12-17 17:42] LABS: Lactic Acid 1.7 mmol/L (0.5-2.0)
[2019-12-17] MEDS: Thiamine HCL 200 MG in 0.9 % Sodium Chloride 100 ML 204 MG IVPUSH (17:54)
--- NOTE | 2019-12-17 18:16 | P.PNNP_ITS ---
Subjective Subjective Principal diagnosis: CKD /COVID Interval history: Seen and events noted Currently on HD Case d/w Dr Sarkar Physical Exam Vital Signs: Vital Signs: Vital Signs Temp Pulse Resp BP Pulse Ox 12/17/19 17:42 97.8 F 12/17/19 16:23 96/58 L 12/17/19 16:00 100.4 F 105 H 17 101/56 L 91 L 12/17/19 15:35 20 12/17/19 12:30 38 H 12/17/19 12:00 96.5 F L 98 24 H 94/56 L 91 L 12/17/19 11:47 20 12/17/19 08:47 82 102/57 L 12/17/19 08:46 102/58 L 12/17/19 08:00 85 25 H 102/58 L 92 12/17/19 07:57 24 H 12/17/19 04:22 24 H 12/17/19 04:06 90 24 H 117/60 100 12/17/19 02:52 98 20 12/17/19 02:39 98 19 126/74 98 12/17/19 02:08 38 H 12/17/19 00:24 99.8 F 95 37 H 107/64 99 12/17/19 00:02 22 H 12/16/19 21:35 96 12/16/19 21:27 102 H 99/55 L 12/16/19 20:55 99.1 F 97 26 H 109/69 100 12/16/19 19:52 24 H Body Mass Index 31.3 General - ill appearing Cardiovascular - regular rate and rhythm, S1-S2 Lungs - dim sounds, no wheezing, on 100% NRBM, speaking in full sentences Abdomen - soft, non-tender, no rebound regarding Extremities - no edema bilaterally Neuro - awake and alert, no focal deficits Const: Other: Ill appearing General: cooperative, healthy appearing, comfortable, no acute distress, well developed, alert, awake, Physically active and ill appearing; No confusion Nutritional Appearance: well nourished and obese Orientation/consciousness: patient oriented x3 and No confusion Limitations: no limitations HENMT: Head: Yes normal to inspection, Yes No palpable skull fracture present, Yes normocephalic and Yes atraumatic Ears: hearing grossly normal bilaterally General nose exam: Normal external nose present, Normal nares present, No nasal polyps present, Normal nasal mucous membranes and turbinates present, Normal septum present and No nasal discharge present Face and sinus: Yes normal facial exam Mouth: Normal oral and palatal mucosa present, lip normal, tongue normal, Normal salivary glands and ducts present, oropharynx normal and moist mucous membranes Throat: Yes posterior oropharynx normal, Yes tonsils normal and Yes uvula midline Eyes: General: appearance normal, both eyes and all related structures Visual Alejandre: normal visual alejandre by confrontation Alignment and Position: alignment normal Periorbital: periorbital findings normal Eyelids: Yes eyelids normal Conjunctivae: conjunctivae normal Sclerae: sclerae normal Pupils: Equal, round and reactive pupils present EOM: EOMs intact bi laterally Neck: Neck: Yes normal visual inspection, Yes full ROM, Yes no l ymphadenopathy, Yes no meningeal signs, Yes trachea midline and Yes supple Chest: Chest palpation & inspection: normal inspection of the chest Resp: Effort & Inspection: normal respiratory effort, able to speak in comple te sentences, abnormal respiratory pattern and respiratory distress (mild) Auscultation: clear to auscultation bilaterally, no crackles, no rales, rhonchi and no wheezes Cardio: Jugular venous distension: no JVD Palpation: no palpable S4 Rate: regular rate Rhythm: regular rhythm Heart sounds: S1 normal heart sound present, S2 normal heart sound present and no rubs Peripheral pulses: Peripheral pulses 2+ throughout GI: Inspection: Yes normal to inspection Palpation (GI): Soft to palpation, nontender and No hepatosplenomegaly present Percussion: Yes normal to percussion Auscultation: normal bowel sounds : General: Yes no CVA tenderness Back/Spine/Pelvis: Back: no CVA tenderness Cervical Spine: normal cervical lordosis and cervical ROM normal Thoracic/Lumbar Spine: thoracic and lumbar spine normal to inspection and thoraco-lumbar ROM normal Skin: Other: no cyanosis General skin exam: no rashes or lesions noted, elasticity normal and turgor normal Trauma: no lacerations or abrasions Wounds: no wounds Hair: normal Nails: normal Neuro: General: patient oriented x3, no meningeal signs and No confusion Cranial nerves: Yes CN's II-XII intact bilaterally, Yes Equal, round and reactive pupils present, Yes Bilaterally intact EOM present and No Normal hearing present Cognition (Neuro): normal cognition Speech: No Abnormal speech present Gait exam (Neuro): Normal gait present Motor exam (neuro): 5/5 motor strength present throughout, no asterixis and No Asterixis during motor activity present Extrem: General: Yes normal to inspection, Yes full ROM, Yes capillary refill normal, No no calf tenderness and Yes edema (b/l +2 pitting edema to knees and lower legs and feet) Right upper extremity: normal to inspection, full ROM and normal capillary refill; no edema Left upper extremity: normal to inspection, full ROM and normal capillary refill; no edema Right lower extremity: normal to inspection, full ROM and normal capillary refill Left lower extremity: normal to inspection, full ROM and normal capillary refill Psych: Appearance: grossly normal and well kempt Mental Status: mental status grossly normal Speech and movement: Normal speech and movement present and Clear speech present Affect: normal affect Attitude: cooperative Thought process: Normal thought process present Thought content: Normal thought content present Insight: Good insight present (Psych) Judgement: Good judgement present (Psych) Assessment & Plan Assessment and plan (1) Thrombocytopenia: Status: Acute (2) COVID-19: Status: Acute (3) ESRD (end stage renal disease) on dialysis: Status: Chronic (4) Acute hyperkalemia: Status: Acute Assessment and Plan: This is a 69yo M with DM2, ESRD 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 who presented with hyperglycemia without DKA, cough and is admitted for severe COVID-19 PNA 1.acute hypoxic respiratory failure due to severe COVID-19 pneumonia cont high O2 req and now ques PE playing a contributing role 2. ESRD on HD cont HD mwf and pull fluid as tolerated 3.hyperK 4. Thrombocytopenia progressively decreasing - ? related to hepariun vs infla state of COVID /cyokine storm consult hematology 5. CAD continue statin, b-goran 6. DM2 with hyperglycemia/hypoglycemia 7. orthostatic hypotension continue midodrine with HD 8. anxiety prn lorazepam Disc: critically ill with high O2 requirements; HD today and pull fluid as tolerated on 1 K bath REC: cont HD mwf; anticoag started; pressors as needed; Steroid as noted Time Spent With Patient Time: Total time spent is greater than 50% in coordination of care (as documented) at patient's floor/unit and/or counseling patient:
[2019-12-17 18:48] LABS: Glucose, Whole Blood 74 mg/dL (60-115)
[2019-12-17] MEDS: Melatonin 3 MG TABLET 6 MG PO (19:43)
[2019-12-17] MEDS: traZODone HCL 100 MG TABLET PO (19:44)
[2019-12-17 20:18] LABS: Glucose, Whole Blood 95 mg/dL (60-115)
[2019-12-18] VITALS (29 sets, daily range): BP systolic 78–168; BP diastolic 32–95; PULSE 82–108; RESP 12–34; TEMP 36.4–37.2; O2SAT 90–100
[2019-12-18] MEDS: HYDROmorphone HCl 1 MG/ML SYRINGE IVPUSH ×5 (00:23→23:59)
--- NOTE | 2019-12-18 04:37 | PC.NURSE ---
Addendum entered by Kyrie Sheth RN 12/18/19 05:59: pt has been given dilaudid 1 mg ivp x2 over night for resp distress. he will briefly nap after receiving dilaudid and resp status will improve. currently he is watching tv. he remains dyspeic with minimal activity. supplemental oxygen remains unchanged. nrb and high flow o2 60 lpm fio2 100%. ecg displays sr bbb(however maybe an a-v paced rhythm pacing detection off) awaiting am labs. Original Note: pt is positioned in a high semifowlers position. he has been mostly cooperative. however with that said he has had instances of impulsiveness. pt will request something and is expectant that his request be immediately acted on. he seems to have little regard for the effort to suit up into ppes. pt voice is hoarse and difficult to discern d/t noise associated with high oxygen flow. pt is able to state where he is and the month correctly. he will follow commands. he cole purposefully with slight weakness noted in the lower extremities. pt is maintaained on high flow o2 60 lpm fio2 100% via prongs. in addition to the highn flow, his supplemental o2 is agumented with 100% nrb mask. pt is dyspneic with minimal exertion. i.e repositioning talking and any slight motor movement. pt quickly desaturates with activity with his sao2 dropping into the low 80s. his breath sounds are diminished throughout. when resting sao2 91-93%. heart tones distant s1s2. ecg displays what looks to be sr with bbb. unfortunately pacing detection is off per cardiology and a paced rhythm would not be able to be determined. pressor support with levophed has been necessary to achieve b/p guidelines. have been able to gingerly wean levophed down to 0.06mcg/kg/hr. poc at hs 95. pt has been able to drink gingerale and eat 1 cup of ice cream. his abdomen is benign. he hnv. he has hemodialysis fistula left upper arm which has + bruit +thrill.
[2019-12-18 04:51] LABS: SARS COV2 IgG Negative (Negative)
[2019-12-18] MEDS: Thiamine HCL 200 MG in 0.9 % Sodium Chloride 100 ML 204 MG IVPUSH ×2 (05:04→17:59)
[2019-12-18] MEDS: methylPREDNISolone Sod Succ/PF 125 MG/2 ML VIAL 80 MG IVPUSH (05:05)
[2019-12-18 05:35] LABS: Hematocrit 35.6 % (42-52); Hemoglobin 11.7 g/dl (14.0-18.0); Mean Corpuscular HGB Conc 32.9 g/dl (31.0-36.0); Mean Corpuscular Hemoglobin 29.8 pg (27.0-33.0); Mean Corpuscular Volume 90.6 fL (80-98); Mean Platelet Volume 11.8 fL (9.4-12.4); Red Blood Count 3.93 X10*6/uL (4.60-5.80); Red Cell Distribution Width 13.8 % (11.0-16.0); White Blood Count 15.2 X10*3/uL (4.8-10.8)
[2019-12-18 05:40] LABS: Base Excess VBG -0.3 mmol/L; HCO3 VBG 25 mmol/L; PCO2 VBG 42 mmhg; PO2 VBG 43 mmhg; pH VBG 7.39 (7.32-7.43)
[2019-12-18 05:41] LABS: Oxygen Saturation VBG 77.1 %
[2019-12-18 05:49] LABS: Platelet Count 56 X10*3/uL (160-400)
[2019-12-18 06:33] LABS: Alanine Aminotransferase 35 U/L (0-40); Alkaline Phosphatase 400 U/L (39-117); Anion Gap 23 (12-20); Aspartate Amino Transferase 30 U/L (5-37); Bilirubin Total 0.7 mg/dL (0.0-1.0); Blood Urea Nitrogen 76 mg/dL (9-16); C Reactive Protein 30.67 mg/dL (< or = 0.50); Calcium 7.9 mg/dL (8.4-10.2); Carbon Dioxide 23 mmol/L (22-29); Chloride 96 mmol/L (96-108); Estimated Glomerular Filt Rate 12; Glucose Random 369 mg/dL (60-115); Potassium 5.9 mmol/l (3.3-5.1); Sodium 136 mmol/L (135-145); Total Protein 5.4 g/dL (6.5-8.0)
[2019-12-18] MEDS: Insulin Lispro 100 UNIT/ML 3 ML VIAL SUBCUT ×6 (06:38→21:17)
[2019-12-18 06:46] LABS: Partial Thromboplastin Time 86.1 SEC (24.1-38.0)
[2019-12-18 07:08] LABS: D Dimer 5850 NG/ML
[2019-12-18 07:15] LABS: Ferritin 4174 ng/mL (20-250)
[2019-12-18] MEDS: LORazepam 2 MG/ML VIAL 0.5 MG IVPUSH ×3 (07:51→17:40)
[2019-12-18] MEDS: Piperacillin Sodium/Tazobactam 2.25 GM in 0.9 % Sodium Chloride 50 ML IV ×3 (07:51→23:19)
[2019-12-18] MEDS: Midodrine HCl 5 MG TABLET PO (07:51)
[2019-12-18] MEDS: 0.9 % Sodium Chloride Flush 3 ML SYRINGE IVFLUSH ×2 (07:52→18:26)
[2019-12-18] MEDS: Atorvastatin Calcium 80 MG TABLET PO (07:52)
[2019-12-18] MEDS: carvediloL 12.5 MG TABLET PO ×2 (07:53→19:40)
[2019-12-18 10:52] LABS: Glucose, Whole Blood 257 mg/dL (60-115)
[2019-12-18 10:58] LABS: Procalcitonin 7.75 ng/mL
[2019-12-18 12:12] LABS: HIT-Patient Optical Density 0.052 OD UNITS (<OR= 0.300); Heparin Induced Plt Ab NEGATIVE (NEGATIVE)
--- NOTE | 2019-12-18 12:18 | PM.CCPN ---
Subjective Subjective Date of Service: 12/18/19 Interval History: Mr. Ramirez was transferred to the ICU on Dec 17 [facility] of hypoxemic respiratory failure, respiratory distress, and delirium. The patient is a 69-year-old man with past medical history of diabetes, hypertension, hypercholesterolemia, coronary artery disease, status post CABG, cardiomyopathy, end-stage renal disease on dialysis through an left arm AV fistula, and orthostatic hypotension. The patient also has a permanent pacemaker. The patient also has a history of colon cancer. The patient was admitted to the hospital on December 04 with nausea vomiting and diarrhea and cough. Initial sat in the ED was reported to be 97% on room air. Chest x-ray was largely unremarkable. Initial glucose level was 827, but he was not in DKA. Because of his symptoms, he was unable to go to his outpatient dialysis schedule that day. He was therefore admitted for further management. He was subsequently found to be COVID positive. He became progressively hypoxemic and by Dec 07, he was on HFNC, and CXR showed new bilat infiltrates. Over the subsequent days, he had the following treatments: -Decadron x 10 days -Convalescent plasma one dose on 12/08/19 He was unable to get Remdesivir bec of ESRD. His course was complicated by possible pulmonary edema, treated with HD and ultrafiltration as tolerated. He?s been getting dialysis M,W,F. Over Dec 14- his oxygenation seemed to be improving. He had been requiring a NRBFM on top of HFNC 100%, but was down to just the high flow. But on Dec 15, his DDimer [place]af [place] 6800 to [address]. DVT study was negative. Dr. Gross requested central venous access so that he could have a CTPA to rule out pulmonary embolism, in view of the very high D-dimer. For that reason, the patient was sent down to the ICU to have a CVL placed. Postprocedure chest x-ray showed a well placed catheter, no pneumothorax, and bilateral pulmonary infiltrates, worse than that shown on his prior film from December 08. Although the patient tolerated the procedures are presently well, following the procedure he began to have increasing shortness of breath and delirium. His sat had dropped down into the 70s on the non-rebreather face mask. We therefore admitted him to ICU and added the high-flow nasal cannula. He required fentanyl and Dilaudid to get him settled down. Thereafter, on the HFNC 60L/100% with NRBFM titrated down to 6L, he was breathing easy with Sat 100%. Yesterday he had a very patrica respiratory course and came close to being intubated. I was in the room multiple times, for many minutes, monitoring and treating his increased WOB and hypoxemia. For most of the day, he required the HFNC 60L/100% plus the NRBFM, set on 15L or flush. We were able to skate by using mult doses of Dilaudid. Fortunately, his pCO2 never asaf, despite Sat?s down into the 70s. Aggressively using the Dilaudid to keep his RR in the low-mid 20?s kept his Sat in the high 80?s-low 90?s. Yesterday was also marked by hypotension with BP down into the 80?s, compared to the 150?s the prev week. His WBC was also bumped, and he spiked a low grade temp. We therefore cultured him and started him on empiric vanco and Zosyn, in addition to the [facility] COVID protocol for severe disease. Overnite last night his oxygenation was steady and improving, and this morning he?s on just the HFNC 60L/100%, breathing easy, RR 20, with Sat low-mid 90?s. CVBG this morning on the high flow showed 7.39/42/0. He?s much more alert and oriented and appropriate. Looks like a new man today, compared w yesterday. We?re dialyzing him again (bec of hyperkalemia) and he?s tolerating the dialysis well. See Vital Signs below. He spiked one low grade temp to 100.4 yest afternoon, but he?s been normothermic since then. HR is down to low 90?s, sinus rhythm. Blood pressure is running about 120/60, off the Levophed. On dialysis this morning, we?re not having any trouble taking off fluid. She?ll prob get off another 3? liters. LABORATORY DATA: As below. Notably, white blood this morn is down to 15, platelet count is down to 56K. K was 5.9. Gluc up to 369. Was given insulin, POC was down to 257 three hrs later. AST/ALT down, CRP is up to 30 (from 15 yest), Ferritin down slightly to 4100, D-dimers down signif to 5800. IMPRESSION: 1. Bilateral COVID pneumonia. 2. Acute hypoxemic respiratory failure secondary to above. Given increasing severe disease in this time frame in his COVID19 course (12-14 days), we started him yest on the [facility] COVID protocol: Solu-Medrol 80 mg bid, vitamin-C 3G q6, full anticoagulation, high-dose vitamin-D, Pepcid 20 mg daily (renally adjusted), high dose melatonin, thiamine, atorvastatin, and magnesium. Checking ferritin, CRP, and D-dimer daily. 3. Acute delirium. Secondary to hypoxemia and possibly coronavirus disease. 4. Rising D-dimer. DVT ruled out, but cannot rule out pulmonary embolism. And he?s not stable for CT angio. Regardless, in the face of C-19, such a high D-dimer mandates full anticoagulation. Because of the thrombocytopenia, on the advice of Hematology the patient was started on argatroban. I?ve sent an HIT. If negative, we?ll switch him over to heparin. 5. Hypotension yesteday, w low-grade temp, and new leukocytosis, altho lactate was negative. Mandates empiric coverage for superinfection. The patient was started on Vanco and Zosyn, and for whatever reason, is doing much better today. No concrete evidence of clinical ?sepsis?. 6. End-stage renal disease. Continue hemodialysis. 7. Thrombocytopenia. Avoiding heparin for now. 8. Diabetes. We?ll restart Lantus tonight. Continue w SS. 9. CAD. Continue statin, b-goran 10. Orthostatic hypotension. Continue midodrine. Otherwise, usual supportive care. I spoke with his sister yesterday, told her that his condition was very critical and his chances were about 50-50, and could deteriorate at any moment. She understands the situation fully and is ready for any outcome. Critical care time: 70 min. Physical Exam Vital Signs: Vital Signs: Vital Signs Temp Pulse Resp BP Pulse Ox 12/18/19 11:00 92 21 H 97/62 91 L 12/18/19 10:00 93 13 95/68 96 12/18/19 08:46 97.6 F 12/18/19 07:53 101 H 12/18/19 06:05 98 20 117/68 92 12/18/19 05:44 98 18 125/58 L 92 12/18/19 04:59 98 22 H 129/68 94 12/18/19 04:21 94 20 121/62 12/18/19 04:12 26 H 12/18/19 04:03 99 F 102 H 18 140/69 H 12/18/19 03:00 86 16 126/63 98 12/18/19 01:52 92 14 134/56 L 93 12/18/19 01:00 98.9 F 94 18 122/62 92 12/18/19 00:07 14 12/17/19 23:05 92 14 97/51 L 97 12/17/19 22:00 97 26 H 106/56 L 12/17/19 20:00 98.6 F 86 16 109/61 12/17/19 19:47 20 12/17/19 19:32 89 10 L 104/60 12/17/19 17:42 97.8 F 12/17/19 16:23 96/58 L 12/17/19 16:00 100.4 F 105 H 17 101/56 L 91 L 12/17/19 15:35 20 12/17/19 12:30 38 H Body Mass Index 31.3 Objective Data Labs CBC & Chem 7: 12/19/19 05:30 12/19/19 05:30 Labs: Laboratory Results - last 24 hr 12/17/19 12/17/19 12/17/19 13:15 13:20 16:07 WBC RBC Hgb Hct MCV MCH MCHC RDW Plt Count MPV Absolute Nucleated RBC Nucleated RBC % (auto) APTT 79.7 H* D-Dimer Hep-Ind Thrombocytop Com VBG pH 7.45 H VBG pCO2 45 VBG Oxygen Liters/Min TNP VBG pO2 34 VBG HCO3 30 VBG O2 Saturation 66.6 VBG Base Excess 5.4 Sodium Potassium Chloride Carbon Dioxide Anion Gap BUN Creatinine Estim Creat Clear Calc Estimated GFR POC Glucose 94 Random Glucose Lactic Acid Calcium Ferritin Total Bilirubin AST ALT Alkaline Phosphatase Total Creatine Kinase C-Reactive Protein Total Protein Albumin Procalcitonin Heparin Dep Plt Ab OD Hep-Induced Plt Ab Luma SARS-CoV-2 IgG Ab 12/17/19 12/17/19 12/17/19 16:42 16:54 16:55 WBC RBC Hgb Hct MCV MCH MCHC RDW Plt Count MPV Absolute Nucleated RBC Nucleated RBC % (auto) APTT D-Dimer Hep-Ind Thrombocytop Com See Below VBG pH VBG pCO2 VBG Oxygen Liters/Min VBG pO2 VBG HCO3 VBG O2 Saturation VBG Base Excess Sodium Potassium Chloride Carbon Dioxide Anion Gap BUN Creatinine Estim Creat Clear Calc Estimated GFR POC Glucose Random Glucose Lactic Acid 1.7 Calcium Ferritin Total Bilirubin AST ALT Alkaline Phosphatase Total Creatine Kinase C-Reactive Protein Total Protein Albumin Procalcitonin Heparin Dep Plt Ab OD 0.052 Hep-Induced Plt Ab Luma NEGATIVE SARS-CoV-2 IgG Ab Negative 12/17/19 12/17/19 12/17/19 17:22 18:28 19:49 WBC RBC Hgb Hct MCV MCH MCHC RDW Plt Count MPV Absolute Nucleated RBC Nucleated RBC % (auto) APTT D-Dimer Hep-Ind Thrombocytop Com VBG pH VBG pCO2 VBG Oxygen Liters/Min VBG pO2 VBG HCO3 VBG O2 Saturation VBG Base Excess Sodium Potassium Chloride Carbon Dioxide Anion Gap BUN Creatinine Estim Creat Clear Calc Estimated GFR POC Glucose 66 74 95 Random Glucose Lactic Acid Calcium Ferritin Total Bilirubin AST ALT Alkaline Phosphatase Total Creatine Kinase C-Reactive Protein Total Protein Albumin Procalcitonin Heparin Dep Plt Ab OD Hep-Induced Plt Ab Luma SARS-CoV-2 IgG Ab 12/18/19 12/18/19 12/18/19 05:20 05:20 05:20 WBC 15.2 H RBC 3.93 L D Hgb 11.7 L Hct 35.6 L D MCV 90.6 MCH 29.8 MCHC 32.9 RDW 13.8 Plt Count 56 L D MPV 11.8 Absolute Nucleated RBC 0.000 Nucleated RBC % (auto) 0.0 APTT 86.1 H* D-Dimer 5850 Cancelled Hep-Ind Thrombocytop Com VBG pH VBG pCO2 VBG Oxygen Liters/Min VBG pO2 VBG HCO3 VBG O2 Saturation VBG Base Excess Sodium Potassium Chloride Carbon Dioxide Anion Gap BUN Creatinine Estim Creat Clear Calc Estimated GFR POC Glucose Random Glucose Lactic Acid Calcium Ferritin Total Bilirubin AST ALT Alkaline Phosphatase Total Creatine Kinase C-Reactive Protein Total Protein Albumin Procalcitonin Heparin Dep Plt Ab OD Hep-Induced Plt Ab Luma SARS-CoV-2 IgG Ab 12/18/19 12/18/19 12/18/19 05:20 05:20 05:20 WBC RBC Hgb Hct MCV MCH MCHC RDW Plt Count MPV Absolute Nucleated RBC Nucleated RBC % (auto) APTT D-Dimer Hep-Ind Thrombocytop Com VBG pH 7.39 VBG pCO2 42 VBG Oxygen Liters/Min TNP VBG pO2 43 VBG HCO3 25 VBG O2 Saturation 77.1 VBG Base Excess -0.3 Sodium 136 Potassium 5.9 H Chloride 96 Carbon Dioxide 23 Anion Gap 23 H BUN 76 H Creatinine 4.96 H* Estim Creat Clear Calc 16.0 Estimated GFR 12 POC Glucose Random Glucose 369 H* Lactic Acid Calcium 7.9 L Ferritin 4174 H Total Bilirubin 0.7 AST 30 D ALT 35 Alkaline Phosphatase 400 H D Total Creatine Kinase 53 C-Reactive Protein 30.67 H Total Protein 5.4 L Albumin 3.0 L Procalcitonin 7.75 Heparin Dep Plt Ab OD Hep-Induced Plt Ab Luma SARS-CoV-2 IgG Ab 12/18/19 08:53 WBC RBC Hgb Hct MCV MCH MCHC RDW Plt Count MPV Absolute Nucleated RBC Nucleated RBC % (auto) APTT D-Dimer Hep-Ind Thrombocytop Com VBG pH VBG pCO2 VBG Oxygen Liters/Min VBG pO2 VBG HCO3 VBG O2 Saturation VBG Base Excess Sodium Potassium Chloride Carbon Dioxide Anion Gap BUN Creatinine Estim Creat Clear Calc Estimated GFR POC Glucose 257 H Random Glucose Lactic Acid Calcium Ferritin Total Bilirubin AST ALT Alkaline Phosphatase Total Creatine Kinase C-Reactive Protein Total Protein Albumin Procalcitonin Heparin Dep Plt Ab OD Hep-Induced Plt Ab Luma SARS-CoV-2 IgG Ab Progress Note: A&P Time Spent With Patient Time: Total time spent is greater than 50% in coordination of care (as documented) at patient's floor/unit and/or counseling patient: Total time spent with greater than 50% in coordination of care (as documented) at patient's floor/unit and/or counseling patient:: 0 Critical Care Time Critical Care Time (minutes): 60
[2019-12-18 13:16] LABS: Glucose, Whole Blood 150 mg/dL (60-115)
--- NOTE | 2019-12-18 13:31 | PC.NURSE ---
noted significant increase in anxiety during dialysis restless flailing arms tossing head, slightly confused and forgetful. dialysis nurse states that these behaviors are consistent with the previous 2 treatments. ativan dosing changed, given 0.5mg iv x2 doses this shift.
--- NOTE | 2019-12-18 14:45 | PC.NURSE ---
Addendum entered by Cece Winston, RN 12/18/19 14:54: * ATTEMPTING TO REMOVE O2 WHICH IS 60LITER 100% Original Note: COMPLETE BEHAVIOUR CHANGE COMPARED TO THIS AM. CALLING OUT MOMMY AND TRYING TO GET OOB, ATTEMPTING TO REMOVED TO LEAVE NO REGARD FOR TLC OR DIALYSIS NEEDLES SR,ST OFF LEVOPHED FOR SOME TIME THIS AM, RESUMED FOR DIALYSIS ATE 100% OF BREAKFAST OOB IN RECLINER DID NOT EAT LUNCH HE WAS HAVING DIALYSIS, MEDS ASSOCIATED WITH [employer] NOT GIVEN RENAGEL AND MIDODRINE POC THIS REQUIRED 8 UNITS LISPRO, LUNCG TIME POC 150 NO COVERAGE VOIDED SMALL AMOUNT ( APRROXIMATELY 100 ML) IN URINAL WHICH WAS SPLILLED OOB TO COMMODE FOR 25 MINUITES, NO BM BATHED
--- NOTE | 2019-12-18 15:20 | MHC.CM.PN ---
Pt remains guarded in ICU with COVID PNA and associated complications. He is on IV pressors and experiencing respiratory complications requiring close monitoring. Pt is also ESRD on HD. Pt has been referred to STR (at sites that can accomodate HD) vs home with [facility]. CM will follow for determination of d/c plans
[2019-12-18 16:05] LABS: Glucose, Whole Blood 173 mg/dL (60-115)
[2019-12-18] MEDS: fentaNYL citrate/PF 100 MCG/2 ML VIAL IVPUSH (16:15)
[2019-12-18 17:35] LABS: Vancomycin Random 8.7 mcg/mL (15-20)
[2019-12-18] MEDS: Midodrine HCl 10 MG TABLET PO ×2 (17:55→17:56)
[2019-12-18] MEDS: vancomycin HCL 1,000 MG in 0.9 % Sodium Chloride 250 ML 180 MG IV (19:31)
[2019-12-18] MEDS: Melatonin 3 MG TABLET 6 MG PO (19:39)
[2019-12-18] MEDS: traZODone HCL 100 MG TABLET PO (19:40)
[2019-12-18] MEDS: vancomycin HCL 1,000 MG in 0.9 % Sodium Chloride 250 ML 270 MG IV (20:23)
--- NOTE | 2019-12-18 21:17 | PM.PNNEP ---
Subjective Subjective Principal diagnosis: CKD /COVID Interval history: Seen and examined. luis a noted Currently on HD ..mya Garrett noted this am despite HD yesterday Physical Exam Vital Signs: Vital Signs: Vital Signs Temp Pulse Resp BP Pulse Ox 12/18/19 20:07 15 12/18/19 20:00 98.4 F 88 16 84/35 L 96 12/18/19 18:57 92 14 96/60 100 12/18/19 17:56 96 12 78/55 L 100 12/18/19 17:00 99 12 86/58 L 100 12/18/19 16:00 98.6 F 108 H 34 H 108/64 93 12/18/19 15:36 24 H 12/18/19 15:00 97 34 H 168/95 H 100 12/18/19 13:00 94 28 H 97/58 L 100 12/18/19 12:00 93 13 95/58 L 92 12/18/19 11:00 92 21 H 97/62 91 L 12/18/19 10:00 93 13 95/68 96 12/18/19 08:46 97.6 F 12/18/19 07:53 101 H 12/18/19 06:05 98 20 117/68 92 12/18/19 05:44 98 18 125/58 L 92 12/18/19 04:59 98 22 H 129/68 94 12/18/19 04:21 94 20 121/62 12/18/19 04:12 26 H 12/18/19 04:03 99 F 102 H 18 140/69 H 12/18/19 03:00 86 16 126/63 98 12/18/19 01:52 92 14 134/56 L 93 12/18/19 01:00 98.9 F 94 18 122/62 92 12/18/19 00:07 14 12/17/19 23:05 92 14 97/51 L 97 12/17/19 22:00 97 26 H 106/56 L Body Mass Index 31.3 General - ill appearing Cardiovascular - regular rate and rhythm, S1-S2 Lungs - dim sounds, no wheezing, on 100% NRBM, speaking in full sentences Abdomen - soft, non-tender, no rebound regarding Extremities - no edema bilaterally Neuro - awake and alert, no focal deficits Const: Other: Ill appearing General: cooperative, healthy appearing, comfortable, no acute distress, well developed, alert, awake, Physically active and ill appearing; No confusion Nutritional Appearance: well nourished and obese Orientation/consciousness: patient oriented x3 and No confusion Limitations: no limitations HENMT: Head: Yes normal to inspection, Yes No palpable skull fracture present, Yes normocephalic and Yes atraumatic Ears: hearing grossly normal bilaterally General nose exam: Normal external nose present, Normal nares present, No nasal polyps present, Normal nasal mucous membranes and turbinates present, Normal septum present and No nasal discharge present Face and sinus: Yes normal facial exam Mouth: Normal oral and palatal mucosa present, lip normal, tongue normal, Normal salivary glands and ducts present, oropharynx normal and moist mucous membranes Throat: Yes posterior oropharynx normal, Yes tonsils normal and Yes uvula midline Eyes: General: appearance normal, both eyes and all related structures Visual Alejandre: normal visual alejandre by confrontation Alignment and Position: alignment normal Periorbital: periorbital findings normal Eyelids: Yes eyelids normal Conjunctivae: conjunctivae normal Sclerae: sclerae normal Pupils: Equal, round and reactive pupils present EOM: EOMs intact bilaterally Neck: Neck: Yes normal visual inspection, Yes full ROM, Yes no lymphadenopathy, Yes no meningeal signs, Yes trachea midline and Yes supple Chest: Chest palpation & inspection: normal inspection of the chest Resp: Effort & Inspection: normal respiratory effort, able to speak in complete sentences, abnormal respiratory pattern and respiratory distress (mild) Auscultation: clear to auscultation bilaterally, no crackles, no rales, rhonchi and no wheezes Cardio: Jugular venous distension: no JVD Palpation: no palpable S4 Rate: regular rate Rhythm: regular rhythm Heart sounds: S1 normal heart sound present, S2 normal heart sound present and no rubs Peripheral pulses: Peripheral pulses 2+ throughout GI: Inspection: Yes normal to inspection Palpation (GI): Soft to palpation, nontender and No hepatosplenomegaly present Percussion: Yes normal to percussion Auscultation: normal bowel sounds : General: Yes no CVA tenderness Back/Spine/Pelvis: Back: no CVA tenderness Cervical Spine: normal cervical lordosis and cervical ROM normal Thoracic/Lumbar Spine: thoracic and lumbar spine normal to inspection and thoraco-lumbar ROM normal Skin: Other: no cyanosis General skin exam: no rashes or lesions noted, elasticity normal and turgor normal Trauma: no lacerations or abrasions Wounds: no wounds Hair: normal Nails: normal Neuro: General: patient oriented x3, no meningeal signs and No confusion Cranial nerves: Yes CN's II-XII intact bilaterally, Yes Equal, round and reactive pupils present, Yes Bilaterally intact EOM present and No Normal hearing present Cognition (Neuro): normal cognition Speech: No Abnormal speech present Gait exam (Neuro): Normal gait present Motor exam (neuro): 5/5 motor strength present throughout, no asterixis and No Asterixis during motor activity present Extrem: General: Yes normal to inspection, Yes full ROM, Yes capillary refill normal, No no calf tenderness and Yes edema (b/l +2 pitting edema to knees and lower legs and feet) Right upper extremity: normal to inspection, full ROM and normal capillary refill; no edema Left upper extremity: normal to inspection, full ROM and normal capillary refill; no edema Right lower extremity: normal to inspection, full ROM and normal capillary refill Left lower extremity: normal to inspection, full ROM and normal capillary refill Psych: Appearance: grossly normal and well kempt Mental Status: mental status grossly normal Speech and movement: Normal speech and movement present and Clear speech present Affect: normal affect Attitude: cooperative Thought process: Normal thought process present Thought content: Normal thought content present Insight: Good insight present (Psych) Judgement: Good judgement present (Psych) Assessment & Plan Assessment and plan (1) Thrombocytopenia: Status: Acute (2) COVID-19: Status: Acute (3) ESRD (end stage renal disease) on dialysis: Status: Chronic (4) Acute hyperkalemia: Status: Acute Assessment and Plan: This is a 69yo M with DM2, ESRD 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 who presented with hyperglycemia without DKA, cough and is admitted for severe COVID-19 PNA 1.acute hypoxic respiratory failure due to severe COVID-19 pneumonia cont high O2 req but now appears to be imroving 2. ESRD on HD cont HD mwf and pull fluid as tolerated 3.hyperK: again this am despite HD yesterday 4. Thrombocytopenia progressively decreasing - ? related to hepariun vs infla state of COVID /cyokine storm consult hematology 5. CAD continue statin, b-goran 6. DM2 with hyperglycemia/hypoglycemia 7. orthostatic hypotension continue midodrine with HD 8. anxiety prn lorazepam Disc: critically ill with high O2 requirements; HD today and pull fluid as tolerated on 1 K bath REC: niw switch to TTS dialysis schedule but will need toreassess daily and may need extar HD; anticoag started; pressors as needed; Steroid as noted Time Spent With Patient Time: Total time spent is greater than 50% in coordination of care (as documented) at patient's floor/unit and/or counseling patient:
[2019-12-18] MEDS: Insulin Glargine,Hum.rec.anlog 100 UNIT/ML 10 ML VIAL 15 UNIT SUBCUT (21:18)
[2019-12-18 21:29] LABS: Glucose, Whole Blood 199 mg/dL (60-115)
[2019-12-19] VITALS (34 sets, daily range): BP systolic 76–144; BP diastolic 46–82; PULSE 76–101; RESP 12–26; TEMP 37.2–37.7; O2SAT 84–100
--- NOTE | 2019-12-19 | XR_ITS ---
EXAMINATION: XR CHEST CLINICAL INFORMATION: OG tube placement. COMPARISON: Chest 12/19/2019 at 1827 hours TECHNIQUE: Frontal view of the chest was obtained. FINDINGS: There is a new enteric tube with its tip in the pylorus. Position of the endotracheal tube, right central catheter is stable. There are pacer electrodes are stable as well. The lungs are hypovolemic with diffuse bilateral airspace disease consistent with infiltrate similar to earlier exam. Interstitial edema and pneumonitis should be considered in the differential. The heart size is borderline normal. No gross bony abnormality. XR/XR chest 1V IMPRESSION: New enteric tube tip is in the pylorus. Rest of the support lines and catheters and pacer electrodes are in satisfactory position. There is diffuse bilateral airspace similar to earlier study. Differential diagnoses includes interstitial pneumonitis/edema
--- NOTE | 2019-12-19 02:02 | PC.NURSE ---
pt has been more restfull than previous night. he will awaken to voice and is able to verbalize being in the hospital and accurately state the month as november he will follow command and cole in a purposeful fashion. complexion sallow. buttock and coccyx reddened. supplemental o2 nrb mask fio2 100% in addition high flow o2 60 lpm via prongs. pt is dyspneic with minimal exertion. breath sounds diminished throughout. sao2 91-93%. ecg displays paced rythm. pressor support has been mandatory to achieve b/p guidelines. sipping ice h20 without difficulty. abdomen benign. pt hnv underwent hd yesterday.
[2019-12-19] MEDS: HYDROmorphone HCl 1 MG/ML SYRINGE IVPUSH ×2 (02:50→03:43)
[2019-12-19] MEDS: Thiamine HCL 200 MG in 0.9 % Sodium Chloride 100 ML 204 MG IVPUSH ×2 (04:24→16:30)
[2019-12-19] MEDS: methylPREDNISolone Sod Succ/PF 125 MG/2 ML VIAL 80 MG IVPUSH ×2 (04:24→16:28)
[2019-12-19] MEDS: 0.9 % Sodium Chloride Flush 3 ML SYRINGE IVFLUSH ×3 (05:03→15:55)
--- NOTE | 2019-12-19 05:44 | MHC.PIE ---
P. RESP DECOMPENSATION I. DILAUDID 1 MG IVP X3 (over night) FOR INCREASED WORK OF BREATHING I. POSITIONED IN HIGH FOWLERS I. CONTINUES TO REQUIRE HIGH FLOW 60 LPM 100% FIO2 VIA NASAL PRONGS IN ADDITION TO FIO2 100% NRB MASK I. REPOSIITIONED SIDE TO SIDE WHICH IS NOT TOLERATED BY PT D/T RESP DECOMPENSATION I. NOREPINEPHRINE PRESSOR SUPPORT NECESSARY TO MAINTAIN B/P GUIDELINES I. PACER MODE OFF ON MONITOR PER CARDIOLOGY. PT IS IN A REGULAR RHYTHM WHICH MOST LIKELY IS AN AV PACED RHYTHM I. ARGATROBAN INFUSING PER PROTOCOL AT 1.5 MCG/KG/MIN I. AWAITING AM LABS AND WILL ADJUST ARGATROBAN PER DOSING ADJUSTMENT PROTOCOL
[2019-12-19 06:11] LABS: Base Excess VBG 1.6 mmol/L; HCO3 VBG 28 mmol/L; Oxygen Saturation VBG 84.4 %; PCO2 VBG 49 mmhg; PO2 VBG 54 mmhg; pH VBG 7.37 (7.32-7.43)
[2019-12-19 06:14] LABS: Basophils Percent Auto 0.1 % (0-2); Hematocrit 37.8 % (42-52); Imm Gran Abs Auto 0.12 X10*3/uL (0.00-0.03); Imm Gran Pct Auto 0.5 % (0.0-0.4); MANUAL DIFF FLAG SCAN; Mean Corpuscular HGB Conc 31.7 g/dl (31.0-36.0); Mean Corpuscular Hemoglobin 28.9 pg (27.0-33.0); Mean Corpuscular Volume 91.1 fL (80-98); Mean Platelet Volume 11.1 fL (9.4-12.4); Monocytes Absolute Auto 0.2 X10*3/uL (0.1-1.2); Monocytes Percent Auto 1.1 % (2-11); Neutrophils Absolute Auto 15.9 X10*3/uL (2.0-8.3); Neutrophils Percent Auto 70.3 % (45-73); Red Blood Count 4.15 X10*6/uL (4.60-5.80); Red Cell Distribution Width 14.1 % (11.0-16.0); SCAN SMEAR FLAG 1; White Blood Count 22.6 X10*3/uL (4.8-10.8)
[2019-12-19 06:20] LABS: Lymphocytes Absolute Auto 6.3 X10*3/uL (1.2-4.9); Platelet Count 95 X10*3/uL (160-400)
[2019-12-19 06:32] LABS: Anion Gap 23 (12-20); Blood Urea Nitrogen 58 mg/dL (9-16); Carbon Dioxide 26 mmol/L (22-29); Chloride 99 mmol/L (96-108); Glucose Fasting 169 mg/dL (60-99); Potassium 4.9 mmol/l (3.3-5.1); Sodium 143 mmol/L (135-145)
--- NOTE | 2019-12-19 06:35 | MHC.PIE ---
PT IS SOMNOLENT. WT 84.9 KG. WHILE ASLEEP IN HIGH FOWLERS POSITION, RESP EFFORT IS REGULAR UNLABORED. PT APPEARS COMFORTABLE AND OFFERS NO COMPLAINANTS. ECG DISPLAYS PACED RHYTHM IN THE 90S BPM.
[2019-12-19 06:37] LABS: C Reactive Protein 22.91 mg/dL (< or = 0.50)
[2019-12-19 06:39] LABS: D Dimer 4617 NG/ML; Estimated Glomerular Filt Rate 13
[2019-12-19 06:45] LABS: SLIDE REVIEW VERIFIED
[2019-12-19 07:06] LABS: Ferritin 3990 ng/mL (20-250)
[2019-12-19] MEDS: Midodrine HCl 10 MG TABLET PO ×3 (07:29→16:28)
[2019-12-19 07:37] LABS: Partial Thromboplastin Time 77.6 SEC (24.1-38.0)
[2019-12-19] MEDS: LORazepam 2 MG/ML VIAL 0.5 MG IVPUSH ×2 (08:09→17:43)
[2019-12-19 08:13] LABS: Glucose, Whole Blood 161 mg/dL (60-115)
[2019-12-19] MEDS: carvediloL 12.5 MG TABLET PO ×2 (08:48→22:05)
[2019-12-19] MEDS: Piperacillin Sodium/Tazobactam 2.25 GM in 0.9 % Sodium Chloride 50 ML IV ×2 (08:48→16:29)
[2019-12-19] MEDS: Atorvastatin Calcium 80 MG TABLET PO (08:48)
[2019-12-19] MEDS: Insulin Lispro 100 UNIT/ML 3 ML VIAL SUBCUT ×2 (08:49→16:28)
[2019-12-19] MEDS: Argatroban 250 MG in 0.9 % Sodium Chloride 250 ML 8.49 MG IV (09:50)
[2019-12-19 12:29] LABS: Glucose, Whole Blood 196 mg/dL (60-115)
--- NOTE | 2019-12-19 14:41 | PC.NURSE ---
Addendum entered by Margaret Humphries RN 12/19/19 19:09: RADIOLOGY AT BEDSIDE FOR CXR - BP DOWN TO 86/51 - LEVOPHED GTT RESTARTED AT 0.02MCG. HANDOFF GIVEN TO PATITO KAPLAN Addendum entered by Margaret Humphries RN 12/19/19 18:57: 1735 - PATIENT AWAKE - ANXIOUS, RESTLESS, NOT FOLLOWING COMMANDS, O2 SAT DOWN TO LOW 60% WITH GOOD PLETH - PATIENT KICKING, PUSHING THIS RN AND TRYING TO GET OOB, UNABLE TO CONTROL PATIENT OR REDIRECT HIM - BREATHING LABORED, ACCESSORY MUSCLE USE, DIAPHORETIC. ATIVAN 0.25MG IVP ADMINISTERED - PRECEDEX GTT MAXED OUT - MD AT BEDSIDE, SECURITY AT BEDSIDE - PATIENT BAGED WITH 100% - CODE BLUE CALLED PER MD - PATIENT NEVER LOST PULSE. PATIENT INTUBATED AT 1800 - ROCURONIUM 50MG AND KETAMINE 50MG ADMINISTERED FOR INTUBATION - PATIENT STARTED ON PROPOFOL GTT FOR CONTINUOS SEDATION - PRECEDEX GTT TAKEN DOWN PER MD. SYSTOLIC BP UP TO 230'S - LEVOPHED GTT TURN OFF. SEE CODE BLUE SHEET FOR DETAILS. HANDOFF GIVEN TO PATITO KAPLAN. Addendum entered by Margaret Humphries RN 12/19/19 15:32: THICK DRY NASAL SECRETIONS TO BILATERAL NOSTRILS - PATIENT REPORTS INCREASED PAIN TO NOSTRILS DUE TO DRYNESS - MD NOTIFIED - RESPIRATORY NOTIFIED FOR ? OF INCREASING HIGH FLOW HUMIDITY - PATIENT IS MAXED OUT PER RESPIRATORY - NASAL SALINE SPRAY ORDERED PRN - AWAITING SPRAY FROM PHARMAC[facility] TO RIGHT LOWER EXTREMITY - SEEN BY MD. WILL CONTINUE TO MONITOR. Original Note: OBSERVATION ROOM CALLED UNIT REGARDING PATIENT TRYING TO GET OOB- THIS RN INSTRUCTED PATIENT TO GET BACK INTO ROOM AND PLACE NONREBREATHER BACK ON - PATIENT APPEARED VERY ANXIOUS, LABORED BREATHING, ACCESSORY MUSCLE USE. TWO RN'S AT BEDSIDE. PATIENT UNCOOPERATIVE STATING IM GOING TO - PATIENT TRYING TO GET OOB TO STAND, PULLING AT NONREBREATHER. PATIENT PLACED BACK INTO BED, ICE CHIPS PROVIDED UPON REQUEST - DR DUNBAR NOTIFIED AND AT BEDSIDE. PRECEDEX GTT INCREASED PER MD VERBAL ORDER TO 1.5MCG. O2 SAT DOWN TO 76% WITHOUT NONREBREATHER. PATIENT SLOWLY CALMING DOWN - PATIENT ABLE TO BE PLACED IN HIGH FOWLERS POSITION WITH MULTIPLE PILLOWS - PARTIAL BATH GIVEN - PATIENT CURRENTLY APPEARS MORE COMFORTABLE WITH EYES CLOSED. HIGH FALL RISK PRECAUTIONS IN PLACED, CALL DICKERSON WITHIN REACH. WILL CONTINUE TO MONITOR PATIENT O2 SAT 99% ON 100% 60L HIGH FLOW AND 100% NONREBREATHER - ATTEMPTED TO TITRATE PATIENT OFF NONREBREATHER WHILE PATIENT WAS ASLEEP - O2 SAT QUICKLY DROPPED TO 89% - PLACED 100% NONREBREATHER BACK ON PATIENT - CURRENTLY SATING AT 98%. WILL CONTINUE TO MONITOR.
[2019-12-19 16:08] LABS: Glucose, Whole Blood 202 mg/dL (60-115)
[2019-12-19 17:22] LABS: Vancomycin Random 19.9 mcg/mL (15-20)
[2019-12-19] MEDS: Rocuronium Bromide 50 MG/5 ML VIAL IVPUSH (18:00)
[2019-12-19] MEDS: Ketamine HCl 500 MG/5 ML VIAL 50 MG IV (18:00)
--- NOTE | 2019-12-19 18:11 | XR_ITS ---
EXAMINATION: XR CHEST CLINICAL INFORMATION: Intubation. SOB. COMPARISON: Chest 12/16/2019 TECHNIQUE: Frontal view of the chest was obtained. FINDINGS: Right jugular central line tip is in mid SVC. There is a new endotracheal tube with its tip approximately 3.3 cm above the shira. There are pacer electrodes in right atrium and right ventricle. Heart size is borderline normal. There is diffuse bilateral airspace disease which shows minimal improvement in the density not necessarily better. There is no suspicion for pleural effusion. There are median sternotomy sutures from previous intervention. No gross bony abnormality. XR/XR chest 1V IMPRESSION: New endotracheal tube 3.3 cm above the shira. No change in pacemaker electrodes in right central venous catheter. Diffuse bilateral airspace disease density appears improved slightly. Differential includes infiltrate versus pulmonary edema.
--- NOTE | 2019-12-19 19:44 | PM.PNNEP ---
Subjective Subjective Principal diagnosis: CKD /COVID Interval history: Seen and examined. evetns noted O2 requirements decr, looks more comfortable Physical Exam Vital Signs: Vital Signs: Vital Signs Temp Pulse Resp BP Pulse Ox 12/19/19 19:00 89 20 86/51 L 97 12/19/19 18:00 91 20 134/82 95 12/19/19 16:50 76 19 142/79 H 94 12/19/19 16:28 128/79 12/19/19 16:00 98.9 F 77 19 128/78 94 12/19/19 15:32 19 12/19/19 15:00 77 19 140/82 H 97 12/19/19 13:29 81 17 119/61 99 12/19/19 13:00 80 16 119/61 100 12/19/19 11:17 14 12/19/19 11:00 83 16 90/53 L 93 12/19/19 10:00 89 16 130/82 96 12/19/19 09:00 93 16 135/70 95 12/19/19 08:48 144/80 H 12/19/19 08:00 90 15 144/80 H 97 12/19/19 07:48 18 12/19/19 07:29 140/74 H 12/19/19 07:00 101 H 14 140/74 H 95 12/19/19 05:00 98.9 F 92 18 133/73 96 12/19/19 04:39 12 12/19/19 04:00 95 24 H 136/70 84 L 12/19/19 03:27 96 20 132/60 93 12/19/19 03:00 92 26 H 132/60 96 12/19/19 02:50 26 H 12/19/19 01:55 86 18 93/57 L 12/19/19 01:00 85 16 100/54 L 96 12/19/19 00:35 16 12/19/19 00:00 98.9 F 86 24 H 121/70 95 12/18/19 23:59 24 H 12/18/19 22:45 82 14 85/32 L 92 12/18/19 22:00 86 16 80/47 L 92 12/18/19 21:00 85 16 94/52 L 93 12/18/19 20:07 15 12/18/19 20:00 98.4 F 88 16 84/35 L 96 Body Mass Index 31.3 General - ill appearing Cardiovascular - regular rate and rhythm, S1-S2 Lungs - dim sounds, no wheezing, on 100% NRBM, speaking in full sentences Abdomen - soft, non-tender, no rebound regarding Extremities - no edema bilaterally Neuro - awake and alert, no focal deficits Const: Other: Ill appearing General: cooperative, healthy appearing, comfortable, no acute distress, well developed, alert, awake, Physically active and ill appearing; No confusion Nutritional Appearance: well nourished and obese Orientation/consciousness: patient oriented x3 and No confusion Limitations: no limitations HENMT: Head: Yes normal to inspection, Yes No palpable skull fracture present, Yes normocephalic and Yes atraumatic Ears: hearing grossly normal bilaterally General nose exam: Normal external nose present, Normal nares present, No nasal polyps present, Normal nasal mucous membranes and turbinates present, Normal septum present and No nasal discharge present Face and sinus: Yes normal facial exam Mouth: Normal oral and palatal mucosa present, lip normal, tongue normal, Normal salivary glands and ducts present, oropharynx normal and moist mucous membranes Throat: Yes posterior oropharynx normal, Yes tonsils normal and Yes uvula midline Eyes: General: appearance normal, both eyes and all related structures Visual Alejandre: normal visual alejandre by confrontation Alignment and Position: alignment normal Periorbital: periorbital findings normal Eyelids: Yes eyelids normal Conjunctivae: conjunctivae normal Sclerae: sclerae normal Pupils: Equal, round and reactive pupils present EOM: EOMs intact bilaterally Neck: Neck: Yes normal visual inspection, Yes full ROM, Yes no lymphadenopathy, Yes no meningeal signs, Yes trachea midline and Yes supple Chest: Chest palpation & inspection: normal inspection of the chest Resp: Effort & Inspection: normal respiratory effort, able to speak in complete sentences, abnormal respiratory pattern and respiratory distress (mild) Auscultation: clear to auscultation bilaterally, no crackles, no rales, rhonchi and no wheezes Cardio: Jugular venous distension: no JVD Palpation: no palpable S4 Rate: regular rate Rhythm: regular rhythm Heart sounds: S1 normal heart sound present, S2 normal heart sound present and no rubs Peripheral pulses: Peripheral pulses 2+ throughout GI: Inspection: Yes normal to inspection Palpation (GI): Soft to palpation, nontender and No hepatosplenomegaly present Percussion: Yes normal to percussion Auscultation: normal bowel sounds : General: Yes no CVA tenderness Back/Spine/Pelvis: Back: no CVA tenderness Cervical Spine: normal cervical lordosis and cervical ROM normal Thoracic/Lumbar Spine: thoracic and lumbar spine normal to inspection and thoraco-lumbar ROM normal Skin: Other: no cyanosis General skin exam: no rashes or lesions noted, elasticity normal and turgor normal Trauma: no lacerations or abrasions Wounds: no wounds Hair: normal Nails: normal Neuro: General: patient oriented x3, no meningeal signs and No confusion Cranial nerves: Yes CN's II-XII intact bilaterally, Yes Equal, round and reactive pupils present, Yes Bilaterally intact EOM present and No Normal hearing present Cognition (Neuro): normal cognition Speech: No Abnormal speech present Gait exam (Neuro): Normal gait present Motor exam (neuro): 5/5 motor strength present throughout, no asterixis and No Asterixis during motor activity present Extrem: General: Yes normal to inspection, Yes full ROM, Yes capillary refill normal, No no calf tenderness and Yes edema (b/l +2 pitting edema to knees and lower legs and feet) Right upper extremity: normal to inspection, full ROM and normal capillary refill; no edema Left upper extremity: normal to inspection, full ROM and normal capillary refill; no edema Right lower extremity: normal to inspection, full ROM and normal capillary refill Left lower extremity: normal to inspection, full ROM and normal capillary refill Psych: Appearance: grossly normal and well kempt Mental Status: mental status grossly normal Speech and movement: Normal speech and movement present and Clear speech present Affect: normal affect Attitude: cooperative Thought process: Normal thought process present Thought content: Normal thought content present Insight: Good insight present (Psych) Judgement: Good judgement present (Psych) Assessment & Plan Assessment and plan (1) Thrombocytopenia: Status: Acute (2) COVID-19: Status: Acute (3) ESRD (end stage renal disease) on dialysis: Status: Chronic (4) Acute hyperkalemia: Status: Acute Assessment and Plan: This is a 69yo M with DM2, ESRD 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 who presented with hyperglycemia without DKA, cough and is admitted for severe COVID-19 PNA 1.acute hypoxic respiratory failure due to severe COVID-19 pneumonia cont high O2 req but now appears to be imroving 2. ESRD on HD cont HD mwf and pull fluid as tolerated 3.hyperK:resolved with HD yesterday 4. Thrombocytopenia progressively decreasing - ? related to hepariun vs infla state of COVID /cyokine storm consult hematology 5. CAD continue statin, b-goran 6. DM2 with hyperglycemia/hypoglycemia 7. orthostatic hypotension continue midodrine with HD 8. anxiety prn lorazepam Disc: critically ill with high O2 requirements; HD yesterday and pull fluid as tolerated on 1 K bath REC: HD tomorrow as now on a TTS dialysis schedule but will need to reassess daily and may need extar HD; anticoag started; pressors as needed; Steroid as noted Time Spent With Patient Time: Total time spent is greater than 50% in coordination of care (as documented) at patient's floor/unit and/or counseling patient:
--- NOTE | 2019-12-19 20:34 | PM.CCPN ---
Subjective Subjective Date of Service: 12/19/19 Interval History: Mr. Ramirez was transferred to the ICU on Dec 17 [facility] of hypoxemic respiratory failure, respiratory distress, and delirium. The patient is a 69-year-old man with past medical history of diabetes, hypertension, hypercholesterolemia, coronary artery disease, status post CABG, cardiomyopathy, end-stage renal disease on dialysis through an left arm AV fistula, and orthostatic hypotension. The patient also has a permanent pacemaker. The patient also has a history of colon cancer. The patient was admitted to the hospital on December 04 with nausea vomiting and diarrhea and cough. Initial sat in the ED was reported to be 97% on room air. Chest x-ray was largely unremarkable. Initial glucose level was 827, but he was not in DKA. Because of his symptoms, he was unable to go to his outpatient dialysis schedule that day. He was therefore admitted for further management. He was subsequently found to be COVID positive. He became progressively hypoxemic and by Dec 07, he was on HFNC, and CXR showed new bilat infiltrates. Over the subsequent days, he had the following treatments: -Decadron x 10 days -Convalescent plasma one dose on 12/08/19 He was unable to get Remdesivir bec of ESRD. His course was complicated by possible pulmonary edema, treated with HD and ultrafiltration as tolerated. He?s been getting dialysis M,W,F. Over Dec 14- his oxygenation seemed to be improving. He had been requiring a NRBFM on top of HFNC 100%, but was down to just the high flow. But on Dec 15, his DDimer [place]af [place] 6800 to [address]. DVT study was negative. Dr. Gross requested central venous access so that he could have a CTPA to rule out pulmonary embolism, in view of the very high D-dimer. For that reason, the patient was sent down to the ICU to have a CVL placed. Postprocedure chest x-ray showed a well placed catheter, no pneumothorax, and bilateral pulmonary infiltrates, worse than that shown on his prior film from December 08. Although the patient tolerated the procedures are presently well, following the procedure he began to have increasing shortness of breath and delirium. His sat had dropped down into the 70s on the non-rebreather face mask. We therefore admitted him to ICU and added the high-flow nasal cannula. He required fentanyl and Dilaudid to get him settled down. Thereafter, on the HFNC 60L/100% with NRBFM titrated down to 6L, he was breathing easy with Sat 100%. The next day (Dec 16) he had a very patrica respiratory course and came close to being intubated. For most of the day, he required the HFNC 60L/100% plus the NRBFM, set on 15L or flush. We were able to skate by using mult doses of Dilaudid. Fortunately, his pCO2 never asaf, despite Sat?s down into the 70s. Aggressively using the Dilaudid to keep his RR in the low-mid 20?s kept his Sat in the high 80?s-low 90?s. He also dropped his BP during HD that day, down to the 80?s, compared to the 150?s the prev week. His WBC was also bumped, and he spiked a low grade temp. We therefore cultured him and started him on empiric vanco and Zosyn, in addition to the [facility] COVID protocol for severe disease. Yesterday he was much better, breathing easier, better SpO2 on the HFNC +/- the NRBFM, and better mental status. He also came off the Levophed. Today though he had increasing delirium and increased WOB. His morning central venous blood gas showed a somewhat increased pCO2 at 49. Early in the day we started him on Precedex, which initially helped. But he was unable to come off the non-rebreather face mask on top of his baseline HFNC 60L/100%. Ultimately, in the early evening, he dropped his Sat, became highly delirious, and we were unable to recover him, and he required tracheal intubation. Fortunately that was accomplished without difficulty. His post intubation film shows diffuse bilateral infiltrates, a little worse on the right, a little better on the left compared to his previous film of December 15. Post intubation, we were able to get his FiO2 down to 60%. See vital signs below. LABORATORY DATA: As below. Notably, white blood this morn is back up to 22, plat count is up to 95K, Chemistries and POCs are much better. CRP is down to 22, Ferritin down slightly to 3900, D-dimer down signif to 4600. IMPRESSION: 1. Bilateral COVID pneumonia. 2. Acute hypoxemic respiratory failure secondary to above. Given increasing severe disease in this time frame in his COVID19 course (12-14 days), we started him Dec 16 on the [facility] COVID protocol: Solu-Medrol 80 mg bid, vitamin-C 3G q6, full anticoagulation, high-dose vitamin-D, Pepcid 20 mg daily (renally adjusted), high dose melatonin, thiamine, atorvastatin, and magnesium. Checking ferritin, CRP, and D-dimer daily. 3. Acute delirium. Secondary to hypoxemia and coronavirus disease. 4. Rising D-dimer. DVT ruled out, but could not rule out pulmonary embolism. And he was not stable for CT angio. Regardless, in the face of C-19, such a high D-dimer mandates full anticoagulation. Because of the thrombocytopenia, on the advice of Hematology the patient was started on argatroban, pending an HIT, which just came back negative, so we?ll switch him over to bid Lovenox. 5. Hypotension, w low-grade temp, and new leukocytosis on 12/16, altho lactate was negative. Mandated empiric coverage for superinfection. The patient was started on Vanco and Zosyn. No concrete evidence of clinical ?sepsis?. 6. End-stage renal disease. Continue hemodialysis. 7. Thrombocytopenia. 2? critical illness. 8. Diabetes. Restarted Lantus. Continue w SS. 9. CAD. Continue statin, b-goran. 10. Orthostatic hypotension. Continue midodrine. 11. Nutrition: Start tube feeds. Otherwise, usual supportive care. I spoke with his sister on Dec 16 and told her that his condition was very critical and his chances were about 50-50, and could deteriorate at any moment. She understands the situation fully and is ready for any outcome. Critical care time (including mult visits to the bedside today; excluding procedures): 90+ min. Physical Exam Vital Signs: Vital Signs: Vital Signs Temp Pulse Resp BP Pulse Ox 12/19/19 20:00 99.5 F 77 24 H 92/55 L 95 12/19/19 19:00 89 20 86/51 L 97 12/19/19 18:00 91 20 134/82 95 12/19/19 16:50 76 19 142/79 H 94 12/19/19 16:28 128/79 12/19/19 16:00 98.9 F 77 19 128/78 94 12/19/19 15:32 19 12/19/19 15:00 77 19 140/82 H 97 12/19/19 13:29 81 17 119/61 99 12/19/19 13:00 80 16 119/61 100 12/19/19 11:17 14 12/19/19 11:00 83 16 90/53 L 93 12/19/19 10:00 89 16 130/82 96 12/19/19 09:00 93 16 135/70 95 12/19/19 08:48 144/80 H 12/19/19 08:00 90 15 144/80 H 97 12/19/19 07:48 18 12/19/19 07:29 140/74 H 12/19/19 07:00 101 H 14 140/74 H 95 12/19/19 05:00 98.9 F 92 18 133/73 96 12/19/19 04:39 12 12/19/19 04:00 95 24 H 136/70 84 L 12/19/19 03:27 96 20 132/60 93 12/19/19 03:00 92 26 H 132/60 96 12/19/19 02:50 26 H 12/19/19 01:55 86 18 93/57 L 12/19/19 01:00 85 16 100/54 L 96 12/19/19 00:35 16 12/19/19 00:00 98.9 F 86 24 H 121/70 95 12/18/19 23:59 24 H 12/18/19 22:45 82 14 85/32 L 92 12/18/19 22:00 86 16 80/47 L 92 12/18/19 21:00 85 16 94/52 L 93 Body Mass Index 31.3 Objective Data Labs CBC & Chem 7: 12/19/19 05:30 12/19/19 05:30 Labs: Laboratory Results - last 24 hr 12/18/19 12/19/19 12/19/19 21:06 05:30 05:30 WBC RBC Hgb Hct MCV MCH MCHC RDW Plt Count MPV Immature Gran % (Auto) Neut % (Auto) Lymph % (Auto) Centre % (Auto) Eos % (Auto) Baso % (Auto) Lymph # (Auto) Centre # (Auto) Eos # (Auto) Baso # (Auto) Abs Immat Gran (auto) Absolute Neuts (auto) Absolute Nucleated RBC Nucleated RBC % (auto) Smear Tech's Comments APTT 77.6 H* D-Dimer 4617 VBG pH VBG pCO2 VBG Oxygen Liters/Min VBG pO2 VBG HCO3 VBG O2 Saturation VBG Base Excess Sodium Potassium Chloride Carbon Dioxide Anion Gap BUN Creatinine Estim Creat Clear Calc Estimated GFR POC Glucose 199 H Fasting Glucose Calcium Ferritin 3990 H C-Reactive Protein 22.91 H Random Vancomycin 12/19/19 12/19/19 12/19/19 05:30 05:30 05:30 WBC 22.6 H RBC 4.15 L Hgb 12.0 L Hct 37.8 L MCV 91.1 MCH 28.9 MCHC 31.7 RDW 14.1 Plt Count 95 L D MPV 11.1 Immature Gran % (Auto) 0.5 H Neut % (Auto) 70.3 Lymph % (Auto) 28.0 Centre % (Auto) 1.1 L Eos % (Auto) 0.0 Baso % (Auto) 0.1 Lymph # (Auto) 6.3 H Centre # (Auto) 0.2 Eos # (Auto) 0.0 Baso # (Auto) 0.0 Abs Immat Gran (auto) 0.12 H Absolute Neuts (auto) 15.9 H Absolute Nucleated RBC 0.000 Nucleated RBC % (auto) 0.0 Smear Tech's Comments VERIFIED APTT D-Dimer VBG pH 7.37 VBG pCO2 49 VBG Oxygen Liters/Min Not Reportable VBG pO2 54 VBG HCO3 28 VBG O2 Saturation 84.4 VBG Base Excess 1.6 Sodium 143 Potassium 4.9 Chloride 99 Carbon Dioxide 26 Anion Gap 23 H BUN 58 H Creatinine 4.40 H* Estim Creat Clear Calc 18.0 Estimated GFR 13 POC Glucose Fasting Glucose 169 H Calcium 8.0 L Ferritin C-Reactive Protein Random Vancomycin 12/19/19 12/19/19 12/19/19 07:42 11:27 16:03 WBC RBC Hgb Hct MCV MCH MCHC RDW Plt Count MPV Immature Gran % (Auto) Neut % (Auto) Lymph % (Auto) Centre % (Auto) Eos % (Auto) Baso % (Auto) Lymph # (Auto) Centre # (Auto) Eos # (Auto) Baso # (Auto) Abs Immat Gran (auto) Absolute Neuts (auto) Absolute Nucleated RBC Nucleated RBC % (auto) Smear Tech's Comments APTT D-Dimer VBG pH VBG pCO2 VBG Oxygen Liters/Min VBG pO2 VBG HCO3 VBG O2 Saturation VBG Base Excess Sodium Potassium Chloride Carbon Dioxide Anion Gap BUN Creatinine Estim Creat Clear Calc Estimated GFR POC Glucose 161 H 196 H 202 H Fasting Glucose Calcium Ferritin C-Reactive Protein Random Vancomycin 12/19/19 16:22 WBC RBC Hgb Hct MCV MCH MCHC RDW Plt Count MPV Immature Gran % (Auto) Neut % (Auto) Lymph % (Auto) Centre % (Auto) Eos % (Auto) Baso % (Auto) Lymph # (Auto) Centre # (Auto) Eos # (Auto) Baso # (Auto) Abs Immat Gran (auto) Absolute Neuts (auto) Absolute Nucleated RBC Nucleated RBC % (auto) Smear Tech's Comments APTT D-Dimer VBG pH VBG pCO2 VBG Oxygen Liters/Min VBG pO2 VBG HCO3 VBG O2 Saturation VBG Base Excess Sodium Potassium Chloride Carbon Dioxide Anion Gap BUN Creatinine Estim Creat Clear Calc Estimated GFR POC Glucose Fasting Glucose Calcium Ferritin C-Reactive Protein Random Vancomycin 19.9 Microbiology Microbiology Results: Microbiology 12/17/19 16:46 Blood - Central Line Blood Culture - Preliminary No growth after 48 hours. 12/17/19 16:43 Blood - Central Line Blood Culture - Preliminary No growth after 48 hours. Progress Note: A&P Time Spent With Patient Time: Total time spent is greater than 50% in coordination of care (as documented) at patient's floor/unit and/or counseling patient: Total time spent with greater than 50% in coordination of care (as documented) at patient's floor/unit and/or counseling patient:: 0 Critical Care Time Critical Care Time (minutes): 90
[2019-12-19] MEDS: Melatonin 3 MG TABLET 6 MG PO (22:05)
[2019-12-19] MEDS: traZODone HCL 100 MG TABLET PO (22:05)
[2019-12-19] MEDS: Famotidine/PF 20 MG/2 ML VIAL IVPUSH (22:06)
[2019-12-19] MEDS: propofoL 1,000 MG/100 ML VIAL 16.82 MG IVCONT (22:54)
[2019-12-20] VITALS (32 sets, daily range): BP systolic 86–159; BP diastolic 50–76; PULSE 73–95; RESP 11–33; TEMP 37.1–38; O2SAT 90–99
[2019-12-20 00:35] LABS: Glucose Random 231 mg/dL (60-115)
[2019-12-20] MEDS: Insulin Lispro 100 UNIT/ML 3 ML VIAL SUBCUT ×2 (00:41→18:28)
[2019-12-20] MEDS: Insulin Glargine,Hum.rec.anlog 100 UNIT/ML 10 ML VIAL 15 UNIT SUBCUT ×2 (00:41→21:10)
[2019-12-20] MEDS: 0.9 % Sodium Chloride Flush 3 ML SYRINGE IVFLUSH ×3 (00:52→14:45)
[2019-12-20] MEDS: Piperacillin Sodium/Tazobactam 2.25 GM in 0.9 % Sodium Chloride 50 ML IV ×3 (00:52→17:40)
[2019-12-20 03:38] LABS: Base Excess VBG -2.6 mmol/L; HCO3 VBG 23 mmol/L; PCO2 VBG 42 mmhg; PO2 VBG 48 mmhg; pH VBG 7.36 (7.32-7.43)
[2019-12-20 03:40] LABS: Blood Gas Serial # 5396; Oxygen Saturation VBG 77.8 %
[2019-12-20] MEDS: propofoL 1,000 MG/100 ML VIAL 16.82 MG IVCONT (03:40)
[2019-12-20 05:34] LABS: Basophils Percent Auto 0.1 % (0-2); Hematocrit 35.4 % (42-52); Hemoglobin 11.2 g/dl (14.0-18.0); Imm Gran Abs Auto 0.16 X10*3/uL (0.00-0.03); Imm Gran Pct Auto 0.6 % (0.0-0.4); Lymphocytes Percent Auto 31.1 % (20-40); MANUAL DIFF FLAG SCAN; Mean Corpuscular HGB Conc 31.6 g/dl (31.0-36.0); Mean Corpuscular Hemoglobin 29.1 pg (27.0-33.0); Mean Corpuscular Volume 91.9 fL (80-98); Mean Platelet Volume 11.2 fL (9.4-12.4); Monocytes Absolute Auto 0.4 X10*3/uL (0.1-1.2); Monocytes Percent Auto 1.4 % (2-11); Neutrophils Absolute Auto 17.5 X10*3/uL (2.0-8.3); Neutrophils Percent Auto 66.8 % (45-73); Platelet Count 106 X10*3/uL (160-400); Red Blood Count 3.85 X10*6/uL (4.60-5.80); Red Cell Distribution Width 14.2 % (11.0-16.0); SCAN SMEAR FLAG 1; White Blood Count 26.2 X10*3/uL (4.8-10.8)
[2019-12-20 05:45] LABS: Lymphocytes Absolute Auto 8.2 X10*3/uL (1.2-4.9)
[2019-12-20 05:47] LABS: Base Excess VBG -2.6 mmol/L; Blood Gas Serial # 5396; HCO3 VBG 22 mmol/L; Oxygen Saturation VBG 80.9 %; PCO2 VBG 39 mmhg; PO2 VBG 49 mmhg; pH VBG 7.37 (7.32-7.43)
[2019-12-20] MEDS: methylPREDNISolone Sod Succ/PF 125 MG/2 ML VIAL 80 MG IVPUSH ×2 (05:58→17:40)
[2019-12-20] MEDS: Thiamine HCL 200 MG in 0.9 % Sodium Chloride 100 ML 204 MG IVPUSH ×2 (05:58→17:42)
[2019-12-20 06:09] LABS: Anion Gap 29 (12-20); Blood Urea Nitrogen 98 mg/dL (9-16); Calcium 7.9 mg/dL (8.4-10.2); Carbon Dioxide 21 mmol/L (22-29); Chloride 101 mmol/L (96-108); Creatinine Clr Calc Pharmacy 12.8; Estimated Glomerular Filt Rate 9; Glucose Random 166 mg/dL (60-115); Potassium 5.7 mmol/l (3.3-5.1); Sodium 145 mmol/L (135-145)
[2019-12-20 06:11] LABS: C Reactive Protein 11.91 mg/dL (< or = 0.50); Magnesium 2.8 mg/dL (1.6-2.6)
[2019-12-20 06:14] LABS: SLIDE REVIEW VERIFIED
[2019-12-20 06:24] LABS: Partial Thromboplastin Time 45.8 SEC (24.1-38.0)
[2019-12-20 06:32] LABS: D Dimer 4419 NG/ML
[2019-12-20] MEDS: propofoL 1,000 MG/100 ML VIAL 22.42 MG IVCONT ×4 (07:37→18:29)
[2019-12-20 08:19] LABS: Glucose, Whole Blood 140 mg/dL (60-115)
[2019-12-20 08:41] LABS: Ferritin 3646 ng/mL (20-250)
--- NOTE | 2019-12-20 10:56 | PM.CCPN ---
Subjective Subjective Date of Service: 12/20/19 Interval History: Mr. Ramirez was transferred to the ICU on Dec 17 [facility] of hypoxemic respiratory failure, respiratory distress, and delirium. The patient is a 69-year-old man with past medical history of diabetes, hypertension, hypercholesterolemia, coronary artery disease, status post CABG, cardiomyopathy, end-stage renal disease on dialysis through an left arm AV fistula, and orthostatic hypotension. The patient also has a permanent pacemaker. The patient also has a history of colon cancer. The patient was admitted to the hospital on December 04 with nausea vomiting and diarrhea and cough. Initial sat in the ED was 97% on room air. Chest x-ray was largely unremarkable. Initial glucose level was 827, but he was not in DKA. Because of his symptoms, he was unable to go to his outpatient dialysis schedule that day. He was therefore admitted for further management. He was subsequently found to be COVID positive. He became progressively hypoxemic and by Dec 07, he was on HFNC, and CXR showed new bilat infiltrates. Over the subsequent days, he had a 10-day course of Decadron, and one dose of oonvalescent plasma on 12/08/19. He was unable to get Remdesivir [facility] of ESRD. His course was complicated by possible pulmonary edema, treated with HD and ultrafiltration as tolerated. He?s been getting dialysis M,W,F. Over Dec 14- his oxygenation seemed to be improving. He had been requiring a NRBFM on top of HFNC 100%, but was down to just the high flow. But on Dec 15, his DDimer [place]af [place] 6800 to [address]. DVT study was negative. Dr. Gross requested central venous access so that he could have a CTPA to rule out pulmonary embolism, in view of the very high D-dimer. For that reason, the patient was sent down to the ICU to have a CVL placed. Postprocedure chest x-ray showed a well placed catheter, no pneumothorax, and bilateral pulmonary infiltrates, worse than that shown on his prior film from December 08. Although the patient tolerated the procedure well, following the procedure he began to have increasing shortness of breath and delirium. His sat had dropped down into the 70s on the non-rebreather face mask. We therefore admitted him to ICU and added the high-flow nasal cannula. He required fentanyl and Dilaudid to get him settled down. Thereafter, on the HFNC 60L/100% with NRBFM titrated down to 6L, he was breathing easy with Sat 100%. The next day (Dec 16) he had a very patrica respiratory course and came close to being intubated. For most of the day, he required the HFNC 60L/100% plus the NRBFM, set on 15L or flush. We were able to skate by using mult doses of Dilaudid. Fortunately, his pCO2 never asaf, despite Sat?s down into the 70s. Aggressively using the Dilaudid to keep his RR in the low-mid 20?s kept his Sat in the high 80?s-low 90?s. He also dropped his BP during HD that day, down to the 80?s, compared to the 150?s the prev week. His WBC was also bumped, and he spiked a low grade temp. We therefore cultured him and started him on empiric vanco and Zosyn, in addition to the [facility] COVID protocol for severe disease. The next day, Dec 17, he was much better, breathing easier, better SpO2 on the HFNC +/- the NRBFM, and better mental status. He also came off the Levophed. Yesterday though he had increasing delirium and increased WOB. Early in the day we started him on Precedex, which initially helped. But he was unable to come off the non-rebreather face mask on top of his baseline HFNC 60L/100%. Ultimately, in the early evening, he dropped his Sat, became highly delirious, and we were unable to recover him, and he required tracheal intubation. Fortunately that was accomplished without difficulty. His post intubation film showed diffuse bilateral infiltrates, a little worse on the right, a little better on the left compared to his previous film of December 15. Post intubation, we were able to get his FiO2 down to 60%. This morning, he is well sedated on just propofol, at 40 mcg. See vital signs below. Heart rate was 83, blood pressure 107/68, on Levophed at 0.26 mcg. RR was 20, Sat 92% on AC/PC 20, 20/12, 40%, with PIP 32, Vt 700cc, Ve 14L. Resp pattern is easy, with mild abdominal paradox. Central venous Blood gas this morning shows 7.37/39. LABORATORY DATA: As below. Notably, white blood this morn is up to 26. CRP is down to 11, Ferritin down to 3600, D-dimer up to 5800. IMPRESSION: 1. Bilateral COVID pneumonia. 2. Acute hypoxemic respiratory failure secondary to above. Given increasing severe disease in this time frame in his COVID19 course (12-14 days), we started him Dec 16 on the [facility] COVID protocol: Solu-Medrol 80 mg bid, vitamin-C 3G q6, full anticoagulation, high-dose vitamin-D, Pepcid 20 mg daily (renally adjusted), high dose melatonin, thiamine, atorvastatin, and magnesium. Checking ferritin, CRP, and D-dimer daily. Bec of his high tidal vols, we reduced his insp pressure until he was on PSV. On PSV 5cm, he was hitting tidal vols in the 700s. In other words, he doesn?t really need to be ventilated. This confirms my opinion yesterday that it was primary delirium-induced ventilator difficulty that resulted in the need for tracheael intubation yesterday, not intrinsic parenchymal disease. That said, I would want to give him at least two days of ventilation prior to any attempts at extubation. 3. Acute delirium. Secondary to hypoxemia and coronavirus disease. 4. Rising D-dimer. DVT ruled out, but could not rule out pulmonary embolism. And he was not stable for CT angio. Regardless, in the face of C-19, such a high D-dimer mandates full anticoagulation. Because of the thrombocytopenia, on the advice of Hematology the patient was started on argatroban, pending an HIT, which came back negative yesterday, so we switched him over to bid Lovenox. 5. Hypotension, w low-grade temp, and new leukocytosis on 12/16, altho lactate was negative. Mandated empiric coverage for superinfection. The patient was started on Vanco and Zosyn. No concrete evidence of clinical ?sepsis?. Sputum g stain today is pending. 6. End-stage renal disease. Continue hemodialysis. 7. Thrombocytopenia. 2? critical illness. Improving. 8. Diabetes. Restarted Lantus. Continue w SS. 9. CAD. Continue statin, b-goran. 10. Orthostatic hypotension. Continue midodrine. 11. Nutrition: On tube feeds. Otherwise, usual supportive care. I spoke with his sister on Dec 16 and told her that his condition was very critical and his chances were about 50-50, and could deteriorate at any moment. She knows that he required tracheal intubation yesterday. She understands the situation fully and is ready for any outcome. Critical care time (including mult visits to the bedside today; excluding procedures): 60+ min. Physical Exam Vital Signs: Vital Signs: Vital Signs Temp Pulse Pulse Resp BP BP Pulse Ox 12/20/19 09:00 98.8 F 81 20 125/73 93 12/20/19 08:00 99.3 F 86 20 144/74 H 90 L 12/20/19 07:00 84 21 H 101/65 90 L 12/20/19 06:00 100.2 F 89 89 27 H 121/73 121/73 96 12/20/19 05:00 86 24 H 120/69 97 12/20/19 04:00 99.9 F 83 81 23 H 111/61 95/57 L 97 12/20/19 03:00 75 22 H 105/57 L 98 12/20/19 02:00 99.7 F 77 23 H 86/53 L 97 12/20/19 01:00 99.7 F 78 22 H 92/52 L 97 12/20/19 00:00 99.9 F 76 75 21 H 96/50 L 96/50 L 97 12/19/19 23:00 99.9 F 84 20 93/46 L 92 12/19/19 22:00 99.7 F 81 20 76/47 L 93 12/19/19 20:58 99.7 F 81 13 92/55 L 93 12/19/19 20:00 99.5 F 77 24 H 92/55 L 95 12/19/19 19:00 89 20 86/51 L 97 12/19/19 18:00 91 20 134/82 95 12/19/19 16:50 76 19 142/79 H 94 12/19/19 16:28 128/79 12/19/19 16:00 98.9 F 77 19 128/78 94 12/19/19 15:32 19 12/19/19 15:00 77 19 140/82 H 97 12/19/19 13:29 81 17 119/61 99 12/19/19 13:00 80 16 119/61 100 12/19/19 11:17 14 12/19/19 11:00 83 16 90/53 L 93 Body Mass Index 31.3 Objective Data Labs CBC & Chem 7: 12/21/19 05:08 12/21/19 05:08 Labs: Laboratory Results - last 24 hr 12/19/19 12/19/19 12/19/19 11:27 16:03 16:22 WBC RBC Hgb Hct MCV MCH MCHC RDW Plt Count MPV Immature Gran % (Auto) Neut % (Auto) Lymph % (Auto) [place] % (Auto) Eos % (Auto) Baso % (Auto) Lymph # (Auto) [place] # (Auto) Eos # (Auto) Baso # (Auto) Abs Immat Gran (auto) Absolute Neuts (auto) Absolute Nucleated RBC Nucleated RBC % (auto) Smear Tech's Comments APTT D-Dimer VBG pH VBG pCO2 VBG Oxygen Liters/Min VBG pO2 VBG HCO3 VBG O2 Saturation VBG Base Excess Sodium Potassium Chloride Carbon Dioxide Anion Gap BUN Creatinine Estim Creat Clear Calc Estimated GFR POC Glucose 196 H 202 H Random Glucose Calcium Magnesium Ferritin C-Reactive Protein Random Vancomycin 19.9 12/19/19 12/20/19 12/20/19 23:18 02:41 05:16 WBC RBC Hgb Hct MCV MCH MCHC RDW Plt Count MPV Immature Gran % (Auto) Neut % (Auto) Lymph % (Auto) [place] % (Auto) Eos % (Auto) Baso % (Auto) Lymph # (Auto) [place] # (Auto) Eos # (Auto) Baso # (Auto) Abs Immat Gran (auto) Absolute Neuts (auto) Absolute Nucleated RBC Nucleated RBC % (auto) Smear Tech's Comments APTT Cancelled D-Dimer VBG pH 7.36 VBG pCO2 42 VBG Oxygen Liters/Min TNP VBG pO2 48 VBG HCO3 23 VBG O2 Saturation 77.8 VBG Base Excess -2.6 Sodium Potassium Chloride Carbon Dioxide Anion Gap BUN Creatinine Estim Creat Clear Calc Estimated GFR POC Glucose Random Glucose 231 H D Calcium Magnesium Ferritin C-Reactive Protein Random Vancomycin 12/20/19 12/20/19 12/20/19 05:16 05:16 05:16 WBC 26.2 H RBC 3.85 L Hgb 11.2 L Hct 35.4 L MCV 91.9 MCH 29.1 MCHC 31.6 RDW 14.2 Plt Count 106 L MPV 11.2 Immature Gran % (Auto) 0.6 H Neut % (Auto) 66.8 Lymph % (Auto) 31.1 [place] % (Auto) 1.4 L Eos % (Auto) 0.0 Baso % (Auto) 0.1 Lymph # (Auto) 8.2 H [place] # (Auto) 0.4 Eos # (Auto) 0.0 Baso # (Auto) 0.0 Abs Immat Gran (auto) 0.16 H Absolute Neuts (auto) 17.5 H Absolute Nucleated RBC 0.000 Nucleated RBC % (auto) 0.0 Smear Tech's Comments VERIFIED APTT D-Dimer VBG pH VBG pCO2 VBG Oxygen Liters/Min VBG pO2 VBG HCO3 VBG O2 Saturation VBG Base Excess Sodium 145 Potassium 5.7 H Chloride 101 Carbon Dioxide 21 L Anion Gap 29 H BUN 98 H* D Creatinine 6.18 H* Estim Creat Clear Calc 12.8 Estimated GFR 9 POC Glucose Random Glucose 166 H Calcium 7.9 L Magnesium 2.8 H Ferritin 3646 H C-Reactive Protein 11.91 H Random Vancomycin 12/20/19 12/20/19 12/20/19 05:16 05:19 07:46 WBC RBC Hgb Hct MCV MCH MCHC RDW Plt Count MPV Immature Gran % (Auto) Neut % (Auto) Lymph % (Auto) [place] % (Auto) Eos % (Auto) Baso % (Auto) Lymph # (Auto) [place] # (Auto) Eos # (Auto) Baso # (Auto) Abs Immat Gran (auto) Absolute Neuts (auto) Absolute Nucleated RBC Nucleated RBC % (auto) Smear Tech's Comments APTT 45.8 H D D-Dimer 4419 VBG pH 7.37 VBG pCO2 39 VBG Oxygen Liters/Min Not Reportable VBG pO2 49 VBG HCO3 22 VBG O2 Saturation 80.9 VBG Base Excess -2.6 Sodium Potassium Chloride Carbon Dioxide Anion Gap BUN Creatinine Estim Creat Clear Calc Estimated GFR POC Glucose 140 H Random Glucose Calcium Magnesium Ferritin C-Reactive Protein Random Vancomycin Microbiology Microbiology Results: Microbiology 12/17/19 16:46 Blood - Central Line Blood Culture - Preliminary No growth after 48 hours. 12/17/19 16:43 Blood - Central Line Blood Culture - Preliminary No growth after 48 hours. Progress Note: A&P Time Spent With Patient Time: Total time spent is greater than 50% in coordination of care (as documented) at patient's floor/unit and/or counseling patient: Total time spent with greater than 50% in coordination of care (as documented) at patient's floor/unit and/or counseling patient:: 0 Critical Care Time Critical Care Time (minutes): 60
[2019-12-20] MEDS: Enoxaparin Sodium 100 MG/ML SYRINGE 95 MG SUBCUT (10:57)
[2019-12-20] MEDS: Chlorhexidine Gluc Oral Rinse 15 ML MOUTHWASH BUCCAL ×2 (10:59→21:02)
[2019-12-20] MEDS: Atorvastatin Calcium 80 MG TABLET PO (10:59)
[2019-12-20] MEDS: Midodrine HCl 10 MG TABLET PO ×2 (11:03→17:40)
[2019-12-20] MEDS: fentaNYL citrate/PF 100 MCG/2 ML VIAL IVPUSH (11:48)
[2019-12-20 11:55] LABS: Glucose, Whole Blood 124 mg/dL (60-115)
[2019-12-20 16:48] LABS: Vancomycin Random 14.6 mcg/mL (15-20)
[2019-12-20] MEDS: Nystatin Powder 15 GM BOTTLE 1 APPL TOPICAL (17:40)
[2019-12-20] MEDS: Fluconazole in NaCl,Iso-Osm 400 MG/200 ML PIGGYBACK 100 MG IV (18:30)
[2019-12-20] MEDS: vancomycin HCL 500 MG in 0.9 % Sodium Chloride 100 ML 110 MG IV (18:30)
[2019-12-20 18:47] LABS: Glucose, Whole Blood 331 mg/dL (60-115)
--- NOTE | 2019-12-20 20:41 | PM.PNNEP ---
Subjective Subjective Principal diagnosis: CKD /COVID Interval history: Pt intubated On COVID isolation Vented on Maintenance HD Physical Exam Vital Signs: Vital Signs: Vital Signs Temp Pulse Pulse Resp BP BP Pulse Ox 12/20/19 19:00 92 26 H 142/62 H 90 L 12/20/19 18:00 89 27 H 138/60 91 L 12/20/19 17:40 87 119/61 12/20/19 17:00 99.9 F 84 29 H 121/62 92 12/20/19 16:00 83 26 H 127/58 L 93 12/20/19 15:00 99.1 F 85 21 H 127/60 95 12/20/19 14:00 81 13 118/65 94 12/20/19 13:00 77 14 123/65 97 12/20/19 12:00 99.1 F 73 11 L 159/76 H 99 12/20/19 11:48 33 H 12/20/19 11:03 76 137/69 12/20/19 11:00 75 17 137/69 94 12/20/19 10:00 80 20 121/69 93 12/20/19 09:00 98.8 F 81 20 125/73 93 12/20/19 08:00 99.3 F 86 20 144/74 H 90 L 12/20/19 07:00 84 21 H 101/65 90 L 12/20/19 06:00 100.2 F 89 89 27 H 121/73 121/73 96 12/20/19 05:00 86 24 H 120/69 97 12/20/19 04:00 99.9 F 83 81 23 H 111/61 95/57 L 97 12/20/19 03:00 75 22 H 105/57 L 98 12/20/19 02:00 99.7 F 77 23 H 86/53 L 97 12/20/19 01:00 99.7 F 78 22 H 92/52 L 97 12/20/19 00:00 99.9 F 76 75 21 H 96/50 L 96/50 L 97 12/19/19 23:00 99.9 F 84 20 93/46 L 92 12/19/19 22:00 99.7 F 81 20 76/47 L 93 12/19/19 20:58 99.7 F 81 13 92/55 L 93 Body Mass Index 31.3 Const: Other: Intubated Exam not done due to COVID risk Assessment & Plan Assessment and plan (1) ESRD (end stage renal disease) on dialysis: Problem details: Continue HD support . Next Hd on Sunday Status: Chronic (2) COVID-19: Problem details: Card / Pul support as per ICU team Status: Acute (3) Acute hyperkalemia: Problem details: Low K bath Status: Acute
[2019-12-20] MEDS: carvediloL 12.5 MG TABLET PO (21:02)
[2019-12-20] MEDS: Famotidine/PF 20 MG/2 ML VIAL IVPUSH (21:02)
[2019-12-20] MEDS: traZODone HCL 100 MG TABLET PO (21:02)
[2019-12-20] MEDS: Melatonin 3 MG TABLET 6 MG PO (21:02)
[2019-12-20] MEDS: propofoL 1,000 MG/100 ML VIAL 28.03 MG IVCONT (22:27)
[2019-12-20 22:47] LABS: Glucose, Whole Blood 356 mg/dL (60-115)
[2019-12-21] VITALS (33 sets, daily range): BP systolic 99–155; BP diastolic 49–87; PULSE 70–95; RESP 15–28; TEMP 36.7–37.7; O2SAT 85–100
[2019-12-21] MEDS: Piperacillin Sodium/Tazobactam 2.25 GM in 0.9 % Sodium Chloride 50 ML IV ×3 (00:11→17:58)
[2019-12-21] MEDS: Insulin Lispro 100 UNIT/ML 3 ML VIAL SUBCUT ×2 (00:14→06:09)
[2019-12-21] MEDS: 0.9 % Sodium Chloride Flush 3 ML SYRINGE IVFLUSH ×2 (00:40→17:58)
[2019-12-21 00:54] LABS: Glucose, Whole Blood 382 mg/dL (60-115)
[2019-12-21] MEDS: propofoL 1,000 MG/100 ML VIAL 28.03 MG IVCONT ×6 (01:28→19:31)
[2019-12-21] MEDS: methylPREDNISolone Sod Succ/PF 125 MG/2 ML VIAL 80 MG IVPUSH ×2 (04:40→17:59)
[2019-12-21] MEDS: Thiamine HCL 200 MG in 0.9 % Sodium Chloride 100 ML 204 MG IVPUSH ×2 (04:40→17:59)
[2019-12-21 05:19] LABS: MANUAL DIFF FLAG NO
[2019-12-21 05:21] LABS: Basophils Percent Auto 0.1 % (0-2); Hematocrit 31.3 % (42-52); Hemoglobin 9.8 g/dl (14.0-18.0); Imm Gran Abs Auto 0.09 X10*3/uL (0.00-0.03); Imm Gran Pct Auto 0.6 % (0.0-0.4); Lymphocytes Absolute Auto 2.7 X10*3/uL (1.2-4.9); Lymphocytes Percent Auto 18.8 % (20-40); Mean Corpuscular HGB Conc 31.3 g/dl (31.0-36.0); Mean Corpuscular Hemoglobin 29.2 pg (27.0-33.0); Mean Corpuscular Volume 93.2 fL (80-98); Monocytes Absolute Auto 0.3 X10*3/uL (0.1-1.2); Monocytes Percent Auto 2.1 % (2-11); Neutrophils Absolute Auto 11.2 X10*3/uL (2.0-8.3); Neutrophils Percent Auto 78.4 % (45-73); Red Blood Count 3.36 X10*6/uL (4.60-5.80); Red Cell Distribution Width 13.9 % (11.0-16.0); White Blood Count 14.3 X10*3/uL (4.8-10.8)
[2019-12-21 05:29] LABS: Platelet Count 49 X10*3/uL (160-400)
[2019-12-21 06:15] LABS: Anion Gap 23 (12-20); Blood Urea Nitrogen 82 mg/dL (9-16); C Reactive Protein 7.99 mg/dL (< or = 0.50); Calcium 7.4 mg/dL (8.4-10.2); Carbon Dioxide 25 mmol/L (22-29); Chloride 95 mmol/L (96-108); Creatinine Clr Calc Pharmacy 15.4; Estimated Glomerular Filt Rate 11; Glucose Random 366 mg/dL (60-115); Potassium 5.3 mmol/l (3.3-5.1); Sodium 138 mmol/L (135-145)
[2019-12-21 06:16] LABS: D Dimer 3684 NG/ML
[2019-12-21 06:44] LABS: Glucose, Whole Blood 318 mg/dL (60-115)
[2019-12-21 06:57] LABS: Ferritin 142 ng/mL (20-250)
[2019-12-21 08:08] LABS: Base Excess VBG -2.1 mmol/L; HCO3 VBG 24 mmol/L; PCO2 VBG 48 mmhg; PO2 VBG 50 mmhg; pH VBG 7.32 (7.32-7.43)
[2019-12-21 08:09] LABS: Blood Gas Serial # 5414; Oxygen Saturation VBG 79.3 %
[2019-12-21] MEDS: Chlorhexidine Gluc Oral Rinse 15 ML MOUTHWASH BUCCAL ×2 (08:17→20:47)
[2019-12-21] MEDS: Atorvastatin Calcium 80 MG TABLET PO (08:17)
[2019-12-21] MEDS: Midodrine HCl 10 MG TABLET PO ×3 (08:17→18:00)
[2019-12-21] MEDS: Enoxaparin Sodium 100 MG/ML SYRINGE 95 MG SUBCUT (08:17)
[2019-12-21] MEDS: carvediloL 12.5 MG TABLET PO ×2 (08:17→20:47)
[2019-12-21] MEDS: Insulin Glargine,Hum.rec.anlog 100 UNIT/ML 10 ML VIAL 15 UNIT SUBCUT ×2 (08:49→21:11)
[2019-12-21] MEDS: Insulin Regular, Human 100 UNIT/ML 3 ML VIAL 6 UNIT IVPUSH (08:50)
--- NOTE | 2019-12-21 11:32 | PM.CCPN ---
Subjective Subjective Date of Service: 12/21/19 Interval History: Mr. Ramirez was transferred to the ICU on Dec 17 [facility] of hypoxemic respiratory failure, respiratory distress, and delirium. The patient is a 69-year-old man with past medical history of diabetes, hypertension, hypercholesterolemia, coronary artery disease, status post CABG, cardiomyopathy, end-stage renal disease on dialysis through an left arm AV fistula, and orthostatic hypotension. The patient also has a permanent pacemaker. The patient also has a history of colon cancer. The patient was admitted to the hospital on December 04 with nausea vomiting and diarrhea and cough. Initial sat in the ED was 97% on room air. Chest x-ray was largely unremarkable. Initial glucose level was 827, but he was not in DKA. Because of his symptoms, he was unable to go to his outpatient dialysis schedule that day. He was therefore admitted for further management. He was subsequently found to be COVID positive. He became progressively hypoxemic and by Dec 07, he was on HFNC, and CXR showed new bilat infiltrates. Over the subsequent days, he had a 10-day course of Decadron, and one dose of oonvalescent plasma on 12/08/19. He was unable to get Remdesivir [facility] of ESRD. His course was complicated by possible pulmonary edema, treated with HD and ultrafiltration as tolerated. He?s been getting dialysis M,W,F. Over Dec 14- his oxygenation seemed to be improving. He had been requiring a NRBFM on top of HFNC 100%, but was down to just the high flow. But on Dec 15, his DDimer asaf [place] 6800 to [address]. DVT study was negative. Dr. Gross requested central venous access so that he could have a CTPA to rule out pulmonary embolism, in view of the very high D-dimer. For that reason, the patient was sent down to the ICU to have a CVL placed. Postprocedure chest x-ray showed a well placed catheter, no pneumothorax, and bilateral pulmonary infiltrates, worse than that shown on his prior film from December 08. Although the patient tolerated the procedure well, following the procedure he began to have increasing shortness of breath and delirium. His sat had dropped down into the 70s on the non-rebreather face mask. We therefore admitted him to ICU and added the high-flow nasal cannula. He required fentanyl and Dilaudid to get him settled down. Thereafter, on the HFNC 60L/100% with NRBFM titrated down to 6L, he was breathing easy with Sat 100%. The next day (Dec 16) he had a very patrica respiratory course and came close to being intubated. For most of the day, he required the HFNC 60L/100% plus the NRBFM, set on 15L or flush. We were able to skate by using mult doses of Dilaudid. Fortunately, his pCO2 never asaf, despite Sat?s down into the 70s. Aggressively using the Dilaudid to keep his RR in the low-mid 20?s kept his Sat in the high 80?s-low 90?s. He also dropped his BP during HD that day, down to the 80?s, compared to the 150?s the prev week. His WBC was also bumped, and he spiked a low grade temp. We therefore cultured him and started him on empiric vanco and Zosyn, in addition to the [facility] COVID protocol for severe disease. The next day, Dec 17, he was much better, breathing easier, better SpO2 on the HFNC +/- the NRBFM, and better mental status. He also came off the Levophed. Next day, Dec 18, though he had increasing delirium and increased WOB. We started him on Precedex, which initially helped. But he was unable to come off the non-rebreather face mask on top of his baseline HFNC 60L/100%. Ultimately, in the early evening, he dropped his Sat, became highly delirious, and he almost respiratory arrested. He required tracheal intubation in a near-code situation. Fortunately that was accomplished without difficulty. His post intubation film showed diffuse bilateral infiltrates, a little worse on the right, a little better on the left compared to his previous film of December 15. Post intubation, we were able to get his FiO2 down to 60%. Yesterday he was well sedated on just propofol, at 40 mcg. Tidal vols on AC/PC were high and we were able to switch him over to PSV 5-8 cm, and get his FiO2 down to as low as 40%, essentially proving that he had no need for mechanical ventilation, he required intubation bec of delirium. He continues to do well today. See Vital Signs below. On PSV 5/50%/+10, his RR is 20, Vt 680cc, Ve 11L, PIP 16cm, SpO2 91%. HR is 74, BP is 110/60 on Levophed 0.15 mcg, temperature is 98.1 degrees. Resp pattern is easy, with minimal abdominal paradox. Central venous blood gas this morning showed 7.32/48/-2. LABORATORY DATA: As below. Notably, white blood this morn is down to 14. CRP is down to 8, Ferritin down to 142, D-dimer down to 3600. IMPRESSION: 1. Bilateral COVID pneumonia. 2. Acute hypoxemic respiratory failure secondary to above. Given increasing severe disease in this time frame in his COVID19 course (12-14 days), we started him Dec 16 on the [facility] COVID protocol: Solu-Medrol 80 mg bid, vitamin-C 3G q6, full anticoagulation, high-dose vitamin-D, Pepcid 20 mg daily (renally adjusted), high dose melatonin, thiamine, atorvastatin, and magnesium. Checking ferritin, CRP, and D-dimer daily. Overall, he?s doing well, and his numbers are moving strongly in the right direction. I would consider trying to extubate today, but there is limited staff, and I do not want him to get into another code situation. If everything stays stable, he should be extubatable tomorrow morning. 3. Acute delirium. Secondary to hypoxemia and coronavirus disease. I would suggest extubating him tomorrow morning on Precedex. We?ll switch him over from propofol to Precedex in the branch or department chief librarian hours. 4. Rising D-dimer. DVT ruled out, but was not stable for CT angio to r/o PE. Regardless, in the face of C-19, such a high D-dimer mandated full anticoagulation. Now on bid Lovenox. 5. Hypotension, w low-grade temp, and new leukocytosis on 12/16, altho lactate was negative. Mandated empiric coverage for superinfection. This is day#4 of Vanco and Zosyn. No concrete evidence of clinical ?sepsis?. Sputum Gram from yesterday is growing GNR, yet to be ID?d. I will d/c his vanco. 6. End-stage renal disease. Continue hemodialysis. 7. Thrombocytopenia. 2? critical illness. HIT was negative. 8. Diabetes. I increased his Lantus this morning to bid. Continue w SS. 9. CAD. Continue statin, b-goran. 10. Orthostatic hypotension. Continue midodrine. 11. Nutrition: On tube feeds. Otherwise, usual supportive care. I spoke with his sister last on Dec 16 and told her that his condition was very critical and his chances were about 50-50, and could deteriorate at any moment. She knows that he required tracheal intubation. She understands the situation fully and is ready for any outcome. Critical care time: 50 min. Physical Exam Vital Signs: Vital Signs: Vital Signs Temp Pulse Pulse Resp BP BP Pulse Ox 12/21/19 11:00 98.1 F 70 15 99/50 L 93 12/21/19 10:00 98.8 F 77 16 103/53 L 92 12/21/19 08:50 99.1 F 80 117/59 L 92 12/21/19 08:00 99 F 78 18 112/55 L 92 12/21/19 07:00 99.0 F 78 20 111/52 L 89 L 12/21/19 05:55 75 16 113/55 L 89 L 12/21/19 05:00 76 18 120/52 L 95 12/21/19 04:00 99.5 F 80 22 H 121/59 L 91 L 12/21/19 03:00 83 22 H 119/58 L 92 12/21/19 02:00 81 21 H 114/57 L 91 L 12/21/19 01:00 82 21 H 117/56 L 90 L 12/21/19 00:00 99.5 F 85 22 H 117/55 L 92 12/20/19 23:00 85 25 H 118/60 92 12/20/19 22:00 89 22 H 111/63 92 12/20/19 21:00 90 22 H 132/70 91 L 12/20/19 20:00 100.2 F 93 93 25 H 139/72 133/69 91 L 12/20/19 19:00 92 26 H 142/62 H 90 L 12/20/19 18:00 89 27 H 138/60 91 L 12/20/19 17:40 87 119/61 12/20/19 17:00 99.9 F 84 29 H 121/62 92 12/20/19 16:00 83 26 H 127/58 L 93 12/20/19 15:00 99.1 F 85 21 H 127/60 95 12/20/19 14:00 81 13 118/65 94 12/20/19 13:00 77 14 123/65 97 12/20/19 12:00 99.1 F 73 11 L 159/76 H 99 12/20/19 11:48 33 H Body Mass Index 31.3 Objective Data Labs CBC & Chem 7: 12/21/19 05:08 12/21/19 05:08 Labs: Laboratory Results - last 24 hr 12/20/19 12/20/19 12/20/19 11:18 16:07 17:56 WBC RBC Hgb Hct MCV MCH MCHC RDW Plt Count MPV Immature Gran % (Auto) Neut % (Auto) Lymph % (Auto) Nolan % (Auto) Eos % (Auto) Baso % (Auto) Lymph # (Auto) Nolan # (Auto) Eos # (Auto) Baso # (Auto) Abs Immat Gran (auto) Absolute Neuts (auto) Absolute Nucleated RBC Nucleated RBC % (auto) D-Dimer VBG pH VBG pCO2 VBG Oxygen Liters/Min VBG pO2 VBG HCO3 VBG O2 Saturation VBG Base Excess Sodium Potassium Chloride Carbon Dioxide Anion Gap BUN Creatinine Estim Creat Clear Calc Estimated GFR POC Glucose 124 H 331 H Random Glucose Calcium Ferritin C-Reactive Protein Random Vancomycin 14.6 L 12/20/19 12/21/19 12/21/19 21:07 00:10 05:08 WBC RBC Hgb Hct MCV MCH MCHC RDW Plt Count MPV Immature Gran % (Auto) Neut % (Auto) Lymph % (Auto) Nolan % (Auto) Eos % (Auto) Baso % (Auto) Lymph # (Auto) Nolan # (Auto) Eos # (Auto) Baso # (Auto) Abs Immat Gran (auto) Absolute Neuts (auto) Absolute Nucleated RBC Nucleated RBC % (auto) D-Dimer VBG pH VBG pCO2 VBG Oxygen Liters/Min VBG pO2 VBG HCO3 VBG O2 Saturation VBG Base Excess Sodium Potassium Chloride Carbon Dioxide Anion Gap BUN Creatinine Estim Creat Clear Calc Estimated GFR POC Glucose 356 H* 382 H* Random Glucose Calcium Ferritin 142 C-Reactive Protein Random Vancomycin 12/21/19 12/21/19 12/21/19 05:08 05:08 05:08 WBC 14.3 H RBC 3.36 L Hgb 9.8 L Hct 31.3 L MCV 93.2 MCH 29.2 MCHC 31.3 RDW 13.9 Plt Count 49 L D MPV 12.0 Immature Gran % (Auto) 0.6 H Neut % (Auto) 78.4 H Lymph % (Auto) 18.8 L Nolan % (Auto) 2.1 Eos % (Auto) 0.0 Baso % (Auto) 0.1 Lymph # (Auto) 2.7 Nolan # (Auto) 0.3 Eos # (Auto) 0.0 Baso # (Auto) 0.0 Abs Immat Gran (auto) 0.09 H Absolute Neuts (auto) 11.2 H Absolute Nucleated RBC 0.000 Nucleated RBC % (auto) 0.0 D-Dimer 3684 VBG pH VBG pCO2 VBG Oxygen Liters/Min VBG pO2 VBG HCO3 VBG O2 Saturation VBG Base Excess Sodium 138 Potassium 5.3 H Chloride 95 L Carbon Dioxide 25 Anion Gap 23 H BUN 82 H* Creatinine 5.16 H* Estim Creat Clear Calc 15.4 Estimated GFR 11 POC Glucose Random Glucose 366 H* Calcium 7.4 L Ferritin C-Reactive Protein 7.99 H Random Vancomycin 12/21/19 12/21/19 06:07 07:20 WBC RBC Hgb Hct MCV MCH MCHC RDW Plt Count MPV Immature Gran % (Auto) Neut % (Auto) Lymph % (Auto) Nolan % (Auto) Eos % (Auto) Baso % (Auto) Lymph # (Auto) Nolan # (Auto) Eos # (Auto) Baso # (Auto) Abs Immat Gran (auto) Absolute Neuts (auto) Absolute Nucleated RBC Nucleated RBC % (auto) D-Dimer VBG pH 7.32 VBG pCO2 48 VBG Oxygen Liters/Min TNP VBG pO2 50 VBG HCO3 24 VBG O2 Saturation 79.3 VBG Base Excess -2.1 Sodium Potassium Chloride Carbon Dioxide Anion Gap BUN Creatinine Estim Creat Clear Calc Estimated GFR POC Glucose 318 H Random Glucose Calcium Ferritin C-Reactive Protein Random Vancomycin Microbiology Microbiology Results: Microbiology 12/20/19 08:00 Sputum - Suctioned Gram Stain - Final 12/17/19 16:46 Blood - Central Line Blood Culture - Preliminary No growth after 48 hours. 12/17/19 16:43 Blood - Central Line Blood Culture - Preliminary No growth after 48 hours. Progress Note: A&P Time Spent With Patient Time: Total time spent is greater than 50% in coordination of care (as documented) at patient's floor/unit and/or counseling patient: Total time spent with greater than 50% in coordination of care (as documented) at patient's floor/unit and/or counseling patient:: 0 Critical Care Time Critical Care Time (minutes): 60
[2019-12-21 15:36] LABS: Glucose, Whole Blood 409 mg/dL (60-115)
[2019-12-21 16:13] LABS: Glucose Random 450 mg/dL (60-115)
[2019-12-21] MEDS: Insulin Regular/NS 100 UNIT/100 ML PLAST..BAG IVCONT (17:59)
[2019-12-21] MEDS: Fluconazole in NaCl,Iso-Osm 200 MG/100 ML PIGGYBACK 100 MG IV (17:59)
[2019-12-21] MEDS: Melatonin 3 MG TABLET 6 MG PO (20:47)
[2019-12-21] MEDS: Famotidine/PF 20 MG/2 ML VIAL IVPUSH (20:47)
[2019-12-21] MEDS: traZODone HCL 100 MG TABLET PO (20:48)
[2019-12-21 21:05] LABS: Glucose Random 373 mg/dL (60-115)
--- NOTE | 2019-12-21 22:51 | PM.PNNEP ---
Subjective Subjective Principal diagnosis: CKD /COVID Interval history: Patient seen in the ICU Vent dependant D/w ICU staff and attending Physical Exam Vital Signs: Vital Signs: Vital Signs Temp Pulse Resp BP Pulse Ox 12/21/19 21:56 99.1 F 89 25 H 106/49 L 92 12/21/19 21:00 99.1 F 86 25 H 114/54 L 85 L 12/21/19 20:47 95 138/87 12/21/19 20:00 99.5 F 91 28 H 139/71 88 L 12/21/19 19:00 99.5 F 87 27 H 127/69 89 L 12/21/19 18:00 86 155/77 H 12/21/19 17:48 99.9 F 87 28 H 155/77 H 89 L 12/21/19 17:00 99.7 F 86 28 H 149/72 H 100 12/21/19 16:00 99.5 F 86 23 H 145/74 H 89 L 12/21/19 15:00 99.3 F 85 25 H 136/66 89 L 12/21/19 13:51 99.0 F 82 21 H 143/71 H 90 L 12/21/19 13:00 98.8 F 82 22 H 130/69 91 L 12/21/19 12:36 80 142/70 H 12/21/19 12:00 98.2 F 79 19 130/63 92 12/21/19 11:00 98.1 F 70 15 99/50 L 93 12/21/19 10:00 98.8 F 77 16 103/53 L 92 12/21/19 08:50 99.1 F 80 117/59 L 92 12/21/19 08:00 99 F 78 18 112/55 L 92 12/21/19 07:00 99.0 F 78 20 111/52 L 89 L 12/21/19 05:55 75 16 113/55 L 89 L 12/21/19 05:00 76 18 120/52 L 95 12/21/19 04:00 99.5 F 80 22 H 121/59 L 91 L 12/21/19 03:00 83 22 H 119/58 L 92 12/21/19 02:00 81 21 H 114/57 L 91 L 12/21/19 01:00 82 21 H 117/56 L 90 L 12/21/19 00:00 99.5 F 85 22 H 117/55 L 92 12/20/19 23:00 85 25 H 118/60 92 Body Mass Index 31.3 Const: Other: Intubated HENMT: Head: Yes normal to inspection Eyes: Pupils: Equal, round and reactive pupils present Neck: Neck: Yes normal visual inspection Resp: Effort & Inspection: respiratory distress and prolonged expiratory phase Cardio: Jugular venous distension: no JVD Heart sounds: S1 normal heart sound present, S2 normal heart sound present and no rubs GI: Inspection: Yes normal to inspection Auscultation: Hypoactive bowel sounds present Neuro: Cranial nerves: Yes Equal, round and reactive pupils present Assessment & Plan Assessment and plan (1) ESRD (end stage renal disease) on dialysis: Problem details: Continue HD support . Reevaluate for ext Hd on Sunday Usual HD on MWF Status: Chronic (2) COVID-19: Problem details: Card / Pul support as per ICU team Status: Acute (3) Thrombocytopenia: Problem details: F/u Platelet levels Status: Acute (4) Volume overload: Problem details: Improved with HD Status: Acute Time Spent With Patient Time: Total time spent is greater than 50% in coordination of care (as documented) at patient's floor/unit and/or counseling patient:
[2019-12-22] VITALS (34 sets, daily range): BP systolic 69–162; BP diastolic 37–78; PULSE 81–93; RESP 13–32; TEMP 36.4–37.5; O2SAT 87–96; BMI 31.3
--- NOTE | 2019-12-22 | XR_ITS ---
EXAMINATION: XR CHEST CLINICAL INFORMATION: Ventilator dependent COMPARISON: Portable chest radiographs 12/19/2019 20 x 2, 12/16/2019, 12/09/2019 TECHNIQUE: Portable upright AP view of the chest was obtained. FINDINGS: There is an endotracheal tube approximately 5 cm above shira. Orogastric tube is below the diaphragm and beyond the film [id number]. There is right internal jugular central venous line with tip at mid superior vena cava. Bipolar pacemaker/AICD is present with atrial and ventricular leads. There are sternotomy wires. There is no pneumothorax. Diffuse airspace opacities noted on prior studies are moderately decreased with less confluence. There is still coarsening of the interstitial and bronchovascular markings. There is even distribution pulmonary blood flow. The costophrenic sulci are clear. The hilar and mediastinal contours are unremarkable. No visible acute bony abnormality. XR/XR chest 1V IMPRESSION: 1. ET tube 5 cm above shira. 2. Orogastric tube below diaphragm. 3. Right IJ line mid SVC. 4. Diffuse airspace opacities are moderately decreased since prior study 12/19/2019. No effusion.
[2019-12-22] MEDS: Piperacillin Sodium/Tazobactam 2.25 GM in 0.9 % Sodium Chloride 50 ML IV ×3 (00:17→17:00)
[2019-12-22] MEDS: 0.9 % Sodium Chloride Flush 3 ML SYRINGE IVFLUSH ×3 (00:18→16:37)
[2019-12-22 00:55] LABS: Glucose Random 212 mg/dL (60-115)
[2019-12-22] MEDS: propofoL 1,000 MG/100 ML VIAL 11.21 MG IVCONT (02:58)
[2019-12-22] MEDS: Thiamine HCL 200 MG in 0.9 % Sodium Chloride 100 ML 204 MG IVPUSH ×2 (04:13→17:00)
[2019-12-22] MEDS: methylPREDNISolone Sod Succ/PF 125 MG/2 ML VIAL 80 MG IVPUSH ×2 (04:14→17:00)
[2019-12-22] MEDS: Albuterol/Iprat 2.5/0.5MG 3 ML AMPUL.NEB INHALE (04:38)
[2019-12-22 05:05] LABS: Glucose Random 181 mg/dL (60-115)
[2019-12-22 05:44] LABS: MANUAL DIFF FLAG NO
[2019-12-22 05:50] LABS: Base Excess VBG -5.9 mmol/L; HCO3 VBG 23 mmol/L; Oxygen Saturation VBG 81.4 %; PCO2 VBG 60 mmhg; PO2 VBG 58 mmhg
[2019-12-22 05:51] LABS: Basophils Percent Auto 0.1 % (0-2); Imm Gran Abs Auto 0.13 X10*3/uL (0.00-0.03); Imm Gran Pct Auto 0.6 % (0.0-0.4); Mean Corpuscular HGB Conc 31.4 g/dl (31.0-36.0); Mean Corpuscular Hemoglobin 29.4 pg (27.0-33.0); Mean Corpuscular Volume 93.6 fL (80-98); Mean Platelet Volume 11.6 fL (9.4-12.4); Monocytes Absolute Auto 0.4 X10*3/uL (0.1-1.2); Monocytes Percent Auto 1.7 % (2-11); Neutrophils Absolute Auto 16.7 X10*3/uL (2.0-8.3); Neutrophils Percent Auto 78.6 % (45-73); Red Blood Count 3.74 X10*6/uL (4.60-5.80); Red Cell Distribution Width 13.9 % (11.0-16.0); White Blood Count 21.2 X10*3/uL (4.8-10.8)
[2019-12-22 05:55] LABS: Platelet Count 72 X10*3/uL (160-400)
[2019-12-22] MEDS: HYDROmorphone HCl 1 MG/ML SYRINGE IVPUSH (06:01)
[2019-12-22] MEDS: Insulin Regular/NS 100 UNIT/100 ML PLAST..BAG IVCONT (06:02)
[2019-12-22 06:11] LABS: D Dimer 3489 NG/ML
[2019-12-22 06:28] LABS: Anion Gap 29 (12-20); Blood Urea Nitrogen 115 mg/dL (9-16); C Reactive Protein 5.08 mg/dL (< or = 0.50); Calcium 7.4 mg/dL (8.4-10.2); Carbon Dioxide 21 mmol/L (22-29); Chloride 96 mmol/L (96-108); Creatinine Clr Calc Pharmacy 12.6; Estimated Glomerular Filt Rate 9; Glucose Random 160 mg/dL (60-115); Potassium 6.1 mmol/l (3.3-5.1); Sodium 140 mmol/L (135-145)
--- NOTE | 2019-12-22 07:26 | PC.NURSE ---
ASSUMED CARE AT 19:00. PATIENT WAS INITIALLY SEDATED ON PROPOFOL AT 40, AND THIS WAS TITRATED DOWN GRADUALLY PER PA'S INSTRUCTIONS UNTIL IT WAS OFF AT 05:00, AT WHICH TIME PRECEDEX WAS ORDERED TO BE STARTED WITH A BOLUS FOLLOWED BY A TITRATION GTT; AND THIS WAS DONE PLANNED. PATIENT WAS SEEN TO BE GRADUALLY MORE TACHYPNEIC THE PROPOFOL WAS TITRATED DOWN. THE PATIENT RR PROGRESSED FROM 26-7 IN THE EARLY EVENING, AND NOW RR INCREASED TO 31-35 THIS MORNING; PA AWARE AND ORDERED ONE TIME DOSE OF DILAUDID, WITH A GOOD EFFECT AND TO RR OF ABOUT 29. PRECEDEX STARTED AT 0.2 AND UPTITRATED TO 0.4, DISCUSSED ORDER WITH MD AND CONFIRMED THAT IT IS NOT A CONTINUOUS RATE OF 1, BUT A TITRATION INDEED. PATIENT ALSO WAS ON LEVOPHED 0.04 GTT AND THIS WAS TITIRATED TO OFF AT 20:00 WITH SUBSEQUENT SBP 100-140. PATIENT TELEMETRY WAS SINUS RHYTHM WITH BBB, RATE 80'S-90'S MOST OF NIGHT, BUT DID HAVE SOME BRIEF PAUSES 19:10-19:20, WELL SOME PACING AT ABOUT 20:02. PATIENT IS INTUBATED WITH #7.5 ETT 27 CM PHILL AND ON PSV SETTINGS OF PSV 5; PEEP 10; FIO2 50%, RR ABOVE, ETCO2 WAS 33-34 INITIALLY, DOWN TO 26-27 THIS MORNING, AND PATIENT IS ACIDOTIC WITH CO2 ELEVATED THIS MORNING, PA AWARE. MUNTE VOLUMES 14-16; TIDAL VOLUMES 500'S. PATIENT HAD AN EPISODE OF DESATTING ABOUT 21:00 AND DISCUSSED WITH PA AND RT, THAT ETT WAS DOCUMENTED 25 PHILL BY NURSING AND 26 PHILL BY RT PRIOR TO THIS SHIFT, STILL HAS B/L LUNG SOUNDS--D/W PA AND CONSIDERATION MADE REGARDING REPOSITIONING ETT, BUT RT AND PA DETERMINED NOT TO. CRACKLES SCATTERED THROUGH LOWER RIGHT AND UPPER LEFT LOBES; PATIENT WITH ANASARCA, HD PATIENT; ANURIC; PITTING EDEMA TO HIPS, HANDS, ARMS, AND LEGS. BLOOD TINGED ORAL SECRETIONS, FREQUENT MOUTH CARE. NO APPARENT INLINE SECRETIONS INCLUDING WHEN RT LAVAGED. CONTINUES ON NEPRO AT 60/HOUR MAX RATE, AND ALSO HAS Q4 HR 120 CC H20 FLUSHES, AND THIS WAS QUESTIONED WITH PA--NO NEW ORDER.
[2019-12-22] MEDS: Enoxaparin Sodium 100 MG/ML SYRINGE 95 MG SUBCUT (07:37)
[2019-12-22] MEDS: Midodrine HCl 10 MG TABLET PO ×2 (07:38→11:51)
[2019-12-22] MEDS: propofoL 1,000 MG/100 ML VIAL 16.82 MG IVCONT ×3 (07:48→17:55)
[2019-12-22 08:22] LABS: Ferritin 2699 ng/mL (20-250)
[2019-12-22 09:01] LABS: Glucose Random 180 mg/dL (60-115)
[2019-12-22] MEDS: Chlorhexidine Gluc Oral Rinse 15 ML MOUTHWASH BUCCAL (09:07)
[2019-12-22] MEDS: carvediloL 12.5 MG TABLET PO (09:07)
[2019-12-22] MEDS: Atorvastatin Calcium 80 MG TABLET PO (09:07)
[2019-12-22] MEDS: Insulin Glargine,Hum.rec.anlog 100 UNIT/ML 10 ML VIAL 15 UNIT SUBCUT (09:08)
[2019-12-22] MEDS: Nystatin Powder 15 GM BOTTLE 1 APPL TOPICAL (09:22)
--- NOTE | 2019-12-22 10:18 | MHC.CLN ---
F/U PT RECEIVING TF NEPRO AT MAX GOAL RATE 60CC/HR WITH 120CC FREE WATER FLUSHES Q 4 HRS PROVIDES 2592KCALS (3035KCALS WITH SEDATION; 39KCALS/KG), 116G PROTEIN (1.5G/KG), 1767CC TOTLA WATER FROM FORMULA AND FLUSHES (23CC/KG) TF OVER EXCEEDING ESTIMATED KCALS NEEDS RECOMMEND DECREASING TF NEPRO AT MAX GOAL RATE 35CC/HR TO PROVIDE 1512KCALS (1955KCALS WITH SEDATION; 25KCALS/KG), 68G PROTEIN (.9G/KG), 610CC FREE WATER FROM FORMULA MONITOR TOLERANCE, RESIDUALS AND LYTES
--- NOTE | 2019-12-22 10:28 | PM.PNNEP ---
Subjective Subjective Principal diagnosis: CKD /COVID Interval history: Patient seen in the ICU Vent dependant D/w ICU staff and attending Physical Exam Vital Signs: Vital Signs: Vital Signs Temp Pulse Resp BP Pulse Ox 12/22/19 10:00 97.5 F 81 22 H 138/56 L 89 L 12/22/19 09:07 88 152/76 H 12/22/19 09:00 88 23 H 162/73 H 93 12/22/19 08:00 98.1 F 87 22 H 153/69 H 90 L 12/22/19 07:38 135/70 12/22/19 06:58 98.4 F 93 13 139/71 92 12/22/19 06:49 29 H 12/22/19 06:00 98.6 F 90 27 H 138/71 91 L 12/22/19 05:00 98.8 F 91 32 H 138/67 92 12/22/19 04:00 98.8 F 90 32 H 132/67 91 L 12/22/19 03:00 98.6 F 90 30 H 124/63 90 L 12/22/19 02:00 98.2 F 91 31 H 135/70 92 12/22/19 01:00 98.6 F 88 28 H 115/56 L 87 L 12/22/19 00:00 98.8 F 88 23 H 109/47 L 12/21/19 23:00 99.0 F 88 26 H 115/49 L 92 12/21/19 21:56 99.1 F 89 25 H 106/49 L 92 12/21/19 21:00 99.1 F 86 25 H 114/54 L 85 L 12/21/19 20:47 95 138/87 12/21/19 20:00 99.5 F 91 28 H 139/71 88 L 12/21/19 19:00 99.5 F 87 27 H 127/69 89 L 12/21/19 18:00 86 155/77 H 12/21/19 17:48 99.9 F 87 28 H 155/77 H 89 L 12/21/19 17:00 99.7 F 86 28 H 149/72 H 100 12/21/19 16:00 99.5 F 86 23 H 145/74 H 89 L 12/21/19 15:00 99.3 F 85 25 H 136/66 89 L 12/21/19 13:51 99.0 F 82 21 H 143/71 H 90 L 12/21/19 13:00 98.8 F 82 22 H 130/69 91 L 12/21/19 12:36 80 142/70 H 12/21/19 12:00 98.2 F 79 19 130/63 92 12/21/19 11:00 98.1 F 70 15 99/50 L 93 Body Mass Index 31.3 Const: Other: Ill appearing Resp: Auscultation: rhonchi Cardio: Jugular venous distension: no JVD Palpation: no palpable S4 Heart sounds: no rubs GI: Inspection: Yes normal to inspection Palpation (GI): Soft to palpation Neuro: Motor exam (neuro): no asterixis and No Asterixis during motor activity present Assessment & Plan Assessment and plan (1) ESRD (end stage renal disease) on dialysis: Problem details: Continue HD support . Usual HD on MWF Status: Chronic (2) COVID-19: Problem details: Card / Pul support as per ICU team Status: Acute (3) Thrombocytopenia: Problem details: F/u Platelet levels Status: Acute (4) Volume overload: Status: Acute Assessment and Plan: Will remove fluid as tolerated
[2019-12-22 11:11] LABS: Glucose Random 201 mg/dL (60-115)
--- NOTE | 2019-12-22 12:27 | P.PNCC_ITS ---
Subjective Subjective Date of Service: 12/22/19 Interval History: 69-year-old type 2 diabetic hypertensive hypercholesterolemic status post coronary bypass grafting with cardiomyopathy and 30% ejection fraction and has a dual-chamber AICD in place and a left arm AV fistula for chronic hemodialysis dependence in the face of end-stage renal disease and also has disorder no Kaitlin presented to the hospital on December 04 just 2 and half weeks ago COVID positive did not receive remdesivir because of end-stage renal disease but was treated with high-dose steroids and full anticoagulation because of an elevating D-dimer and chest x-ray showed extensive bilateral whiteout and this was pres umably COVID related bilateral pneumonitis / ARDS and eventually patient was intubated and he remains intubated and this morning developed acute respiratory failure while on pressure support so he was returned to assist control and full sedation CVP measures at 4 and we will recheck it today as we initiate his dialysis to gauge the amount of fluid to be ultra filtrated Physical Exam Vital Signs: Vital Signs: Vital Signs Temp Pulse Resp BP Pulse Ox 12/22/19 12:00 97.7 F 84 24 H 145/62 H 94 12/22/19 11:51 142/64 H 12/22/19 10:58 82 23 H 131/60 89 L 12/22/19 10:00 97.5 F 81 22 H 138/56 L 89 L 12/22/19 09:07 88 152/76 H 12/22/19 09:00 88 23 H 162/73 H 93 12/22/19 08:00 98.1 F 87 22 H 153/69 H 90 L 12/22/19 07:38 135/70 12/22/19 06:58 98.4 F 93 13 139/71 92 12/22/19 06:49 29 H 12/22/19 06:00 98.6 F 90 27 H 138/71 91 L 12/22/19 05:00 98.8 F 91 32 H 138/67 92 12/22/19 04:00 98.8 F 90 32 H 132/67 91 L 12/22/19 03:00 98.6 F 90 30 H 124/63 90 L 12/22/19 02:00 98.2 F 91 31 H 135/70 92 12/22/19 01:00 98.6 F 88 28 H 115/56 L 87 L 12/22/19 00:00 98.8 F 88 23 H 109/47 L 12/21/19 23:00 99.0 F 88 26 H 115/49 L 92 12/21/19 21:56 99.1 F 89 25 H 106/49 L 92 12/21/19 21:00 99.1 F 86 25 H 114/54 L 85 L 12/21/19 20:47 95 138/87 12/21/19 20:00 99.5 F 91 28 H 139/71 88 L 12/21/19 19:00 99.5 F 87 27 H 127/69 89 L 12/21/19 18:00 86 155/77 H 12/21/19 17:48 99.9 F 87 28 H 155/77 H 89 L 12/21/19 17:00 99.7 F 86 28 H 149/72 H 100 12/21/19 16:00 99.5 F 86 23 H 145/74 H 89 L 12/21/19 15:00 99.3 F 85 25 H 136/66 89 L 12/21/19 13:51 99.0 F 82 21 H 143/71 H 90 L 12/21/19 13:00 98.8 F 82 22 H 130/69 91 L 12/21/19 12:36 80 142/70 H Body Mass Index 31.3 Const: Other: earlier he was awake on the dexmedetomidine but agitated without eye contact and I do believe there is an an element of delirium which was present prior to his intubation and part of the reason no focal neurologic issues as far as cranial nerves and his periphery is concern skin is intact with no cyanosis and no livedo and no pressure ulcers neck is supple and he has reduced bilateral carotid upstrokes commensurate with decreased stroke work reserve but no neck vein distension and a CVP again measured at 4 abdomen benign no organomegaly nontender with positive bowel sounds cardiac exam with quiet precordium and no audible gallops chest with coarse bilateral breath sounds consistent with the ventilator Objective Data Labs CBC & Chem 7: 12/22/19 05:30 12/22/19 10:15 Labs: Laboratory Results - last 24 hr 12/21/19 12/21/19 12/21/19 15:13 15:21 20:18 WBC RBC Hgb Hct MCV MCH MCHC RDW Plt Count MPV Immature Gran % (Auto) Neut % (Auto) Lymph % (Auto) [place] % (Auto) Eos % (Auto) Baso % (Auto) Lymph # (Auto) [place] # (Auto) Eos # (Auto) Baso # (Auto) Abs Immat Gran (auto) Absolute Neuts (auto) Absolute Nucleated RBC Nucleated RBC % (auto) D-Dimer VBG pH VBG pCO2 VBG Oxygen Liters/Min VBG pO2 VBG HCO3 VBG O2 Saturation VBG Base Excess Sodium Potassium Chloride Carbon Dioxide Anion Gap BUN Creatinine Estim Creat Clear Calc Estimated GFR POC Glucose 409 H* Random Glucose 450 H* 373 H* Calcium Ferritin C-Reactive Protein 12/22/19 12/22/19 12/22/19 00:22 04:17 05:30 WBC 21.2 H RBC 3.74 L Hgb 11.0 L Hct 35.0 L MCV 93.6 MCH 29.4 MCHC 31.4 RDW 13.9 Plt Count 72 L D MPV 11.6 Immature Gran % (Auto) 0.6 H Neut % (Auto) 78.6 H Lymph % (Auto) 19.[address] [place] % (Auto) 1.7 L Eos % (Auto) 0.0 Baso % (Auto) 0.1 Lymph # (Auto) 4.0 [place] # (Auto) 0.4 Eos # (Auto) 0.0 Baso # (Auto) 0.0 Abs Immat Gran (auto) 0.13 H Absolute Neuts (auto) 16.7 H Absolute Nucleated RBC 0.000 Nucleated RBC % (auto) 0.0 D-Dimer VBG pH VBG pCO2 VBG Oxygen Liters/Min VBG pO2 VBG HCO3 VBG O2 Saturation VBG Base Excess Sodium Potassium Chloride Carbon Dioxide Anion Gap BUN Creatinine Estim Creat Clear Calc Estimated GFR POC Glucose Random Glucose 212 H D 181 H Calcium Ferritin C-Reactive Protein 12/22/19 12/22/19 12/22/19 05:30 05:30 05:30 WBC RBC Hgb Hct MCV MCH MCHC RDW Plt Count MPV Immature Gran % (Auto) Neut % (Auto) Lymph % (Auto) [place] % (Auto) Eos % (Auto) Baso % (Auto) Lymph # (Auto) [place] # (Auto) Eos # (Auto) Baso # (Auto) Abs Immat Gran (auto) Absolute Neuts (auto) Absolute Nucleated RBC Nucleated RBC % (auto) D-Dimer 3489 VBG pH 7.20 L* VBG pCO2 60 VBG Oxygen Liters/Min TNP VBG pO2 58 VBG HCO3 23 VBG O2 Saturation 81.4 VBG Base Excess -5.9 Sodium 140 Potassium 6.1 H* Chloride 96 Carbon Dioxide 21 L Anion Gap 29 H BUN 115 H* D Creatinine 6.29 H* Estim Creat Clear Calc 12.6 Estimated GFR 9 POC Glucose Random Glucose 160 H Calcium 7.4 L Ferritin 2699 H C-Reactive Protein 5.08 H 12/22/19 12/22/19 08:18 10:15 WBC RBC Hgb Hct MCV MCH MCHC RDW Plt Count MPV Immature Gran % (Auto) Neut % (Auto) Lymph % (Auto) [place] % (Auto) Eos % (Auto) Baso % (Auto) Lymph # (Auto) [place] # (Auto) Eos # (Auto) Baso # (Auto) Abs Immat Gran (auto) Absolute Neuts (auto) Absolute Nucleated RBC Nucleated RBC % (auto) D-Dimer VBG pH VBG pCO2 VBG Oxygen Liters/Min VBG pO2 VBG HCO3 VBG O2 Saturation VBG Base Excess Sodium Potassium Chloride Carbon Dioxide Anion Gap BUN Creatinine Estim Creat Clear Calc Estimated GFR POC Glucose Random Glucose 180 H 201 H Calcium Ferritin C-Reactive Protein Microbiology Microbiology Results: Microbiology 12/20/19 08:00 Sputum - Suctioned Gram Stain - Final 12/20/19 08:00 Sputum - Suctioned Sputum Culture - Final Enterobacter cloacae complex 12/17/19 16:46 Blood - Central Line Blood Culture - Preliminary No growth after 48 hours. 12/17/19 16:43 Blood - Central Line Blood Culture - Preliminary No growth after 48 hours. Progress Note: A&P Assessment and plan (1) Thrombocytopenia: Problem details: F/u Platelet levels Status: Acute (2) COVID-19: Problem details: Card / Pul support as per ICU team Status: Acute (3) ESRD (end stage renal disease) on dialysis: Problem details: Continue HD support . Usual HD on MWF Status: Chronic (4) Acute hyperglycemia: Status: Acute (5) Acute hyperkalemia: Problem details: Low K bath Status: Acute (6) Volume overload: Status: Acute (7) CKD (chronic kidney disease) requiring chronic dialysis: Status: Acute (8) Ventilator-associated bacterial pneumonia: Status: Acute (9) Acute respiratory failure with hypoxia and hypercarbia: Status: Acute Assessment and Plan: sputum cultures indicate Enterobacter and therefore we will maintain the Zosyn but stop the vancomycin for what is presumably a secondary bacterial infection and potentially ventilator associated and follow CVP very carefully especially since he has an underlying cardiomyopathy and continue his dialysis treatments and full ventilator support as well as sedation with daily evaluation of mental status for return of cognitive function Time Spent With Patient Time: Total time spent is greater than 50% in coordination of care (as documented) at patient's floor/unit and/or counseling patient: Total time spent with greater than 50% in coordination of care (as documented) at patient's floor/unit and/or counseling patient:: 45 No Severe Sepsis: No Severe Sepsis
[2019-12-22 12:38] LABS: Glucose Random 228 mg/dL (60-115)
[2019-12-22 14:29] LABS: Glucose, Whole Blood 182 mg/dL (60-115)
--- NOTE | 2019-12-22 14:53 | MHC.CM.PN ---
Pt remains in ICU vented with COVID and ? VAP. Condition remains guarded: D/C plan was for a return to home with [facility], [employer] [employer] [employer] and outpt HD but this seems quite unlikely. Referrals placed for onsite HD facilities as a back up. LTAC may be needed should pt not be able to wean off the vent. CM to follow.
[2019-12-22 16:24] LABS: Glucose, Whole Blood 163 mg/dL (60-115)
[2019-12-22] MEDS: Albumin Human 25 % 100 ML IV (16:37)
--- NOTE | 2019-12-22 16:47 | PC.NURSE ---
Addendum entered by Margaret Humphries RN 12/22/19 18:18: PATIENT BATHED AND REPOSITIONED - SMALL AMOUNT OF BLOODY ORAL SECRETIONS NOTED WITH REPO - MINIMAL RODOLFO RED NOSE BLEED STARTED BUT QUICKLY STOPPED - PATIENT HAD SOFT FORMED BOWEL MOVEMENT WITH SLIGHT BLOODY APPEARANCE. OCCULT BLOOD STOOL ORDERED AND PENDING - LABS PENDING. MD NOTIFIED - WILL CONTINUE TO MONITOR. Original Note: 1640: O2 SAT READING 87-89% - PATIENT REPOSITIONED SEMI FOWLERS AND SAT PROB CHANGED - RESPIRATORY AT BEDSIDE - FIO2 INCREASED TO 100% PER MD AND PEEP DECREASED TO 5 PER MD - O2 SAT UP TO 93% WITH A GOOD PLETH. BP DOWN TO 84/54 THEN 70/46 - MD NOTIFIED - ALBUMIN 100CC ORDERED AND ADMINISTERED - LEVOPHED GTT RESTARTED AND TITRATED PER EMAR - BP UP TO 108/60 MAP 69. DIALYSIS TREATMENT DISCONTINUED ONE HR EARLY PER MD - PER COMPUTER DESIGNER 1.1 KILOS WAS REMOVED. POSITION PALPABLE PEDAL PULSE WITH AM ASSESSMENT - UNABLE TO PALPATE WITH PM ASSESSMENT NOR ABLE TO DISCERN WITH DOPPLAR - PURPLE/BLUE DISCOLORATION & MOTTLING APPEARANCE NOTED TO BILATERAL FEET & TOES - MD NOTIFIED AND ASSESSED. WILL CONTINUE TO MONITOR.
[2019-12-22] MEDS: Fluconazole in NaCl,Iso-Osm 200 MG/100 ML PIGGYBACK 100 MG IV (17:00)
[2019-12-22 18:12] LABS: Glucose, Whole Blood 161 mg/dL (60-115)
[2019-12-22 18:25] LABS: pH VBG 7.44 (7.32-7.43)
[2019-12-22 18:26] LABS: Base Excess VBG 5.4 mmol/L; HCO3 VBG 30 mmol/L; Oxygen Saturation VBG 87.6 %; PCO2 VBG 46 mmhg; PO2 VBG 56 mmhg
[2019-12-22 18:53] LABS: Lactic Acid 0.2 mmol/L (0.5-2.0)
[2019-12-22 19:11] LABS: OBS Int Ctl Valid YES; OBS1 POS (NEG)
[2019-12-22 19:39] LABS: Alanine Aminotransferase 18 U/L (0-40); Albumin Level 2.5 g/dL (3.5-5.0); Alkaline Phosphatase 182 U/L (39-117); Anion Gap 21 (12-20); Aspartate Amino Transferase 11 U/L (5-37); Bilirubin Total 0.8 mg/dL (0.0-1.0); Blood Urea Nitrogen 66 mg/dL (9-16); Calcium 7.1 mg/dL (8.4-10.2); Carbon Dioxide 28 mmol/L (22-29); Chloride 96 mmol/L (96-108); Creatinine Clr Calc Pharmacy 20.9; Estimated Glomerular Filt Rate 16; Glucose Random 192 mg/dL (60-115); Sodium 141 mmol/L (135-145); Total Protein 4.7 g/dL (6.5-8.0)
[2019-12-22 20:45] LABS: Glucose, Whole Blood 221 mg/dL (60-115)
[2019-12-23] VITALS (27 sets, daily range): BP systolic 96–170; BP diastolic 46–114; PULSE 78–101; RESP 18–31; TEMP 36.6–37.4; O2SAT 90–100
--- NOTE | 2019-12-23 | XR_ITS ---
EXAMINATION: XR CHEST CLINICAL INFORMATION: Respiratory failure COMPARISON: Chest x-ray 12/22/2019 TECHNIQUE: Frontal view of the chest was obtained. FINDINGS: Endotracheal tube terminates approximately 4.7 cm above the level of the shiar. Enteric tube terminates below the level of the diaphragm, beyond the parameters of today's examination. Right IJ catheter is stable in orientation. Cardiac silhouette is stable in size. Unchanged orientation of dual lead AICD. Patient is status post CABG. The lungs remain clear the aerated. Persistent coarsening of the interstitial markings without lobar consolidation. No pleural effusion. No pneumothorax. XR/XR chest 1V IMPRESSION: -Stable support apparatus. -Stable coarsening of the interstitial markings without lobar consolidation.
[2019-12-23] MEDS: Piperacillin Sodium/Tazobactam 2.25 GM in 0.9 % Sodium Chloride 50 ML IV (00:27)
[2019-12-23] MEDS: propofoL 1,000 MG/100 ML VIAL 16.82 MG IVCONT ×3 (01:00→16:32)
[2019-12-23 01:11] LABS: Glucose, Whole Blood 197 mg/dL (60-115)
[2019-12-23 01:11] LABS: Glucose, Whole Blood 161 mg/dL (60-115)
[2019-12-23] MEDS: Famotidine/PF 20 MG/2 ML VIAL IVPUSH (01:11)
[2019-12-23] MEDS: Insulin Glargine,Hum.rec.anlog 100 UNIT/ML 10 ML VIAL 15 UNIT SUBCUT ×2 (01:11→08:46)
[2019-12-23] MEDS: Chlorhexidine Gluc Oral Rinse 15 ML MOUTHWASH BUCCAL ×2 (01:11→07:40)
[2019-12-23] MEDS: traZODone HCL 100 MG TABLET PO (01:14)
[2019-12-23] MEDS: Melatonin 3 MG TABLET 6 MG PO (01:14)
[2019-12-23] MEDS: 0.9 % Sodium Chloride Flush 3 ML SYRINGE IVFLUSH ×3 (01:15→15:06)
[2019-12-23 03:18] LABS: Glucose, Whole Blood 155 mg/dL (60-115)
[2019-12-23] MEDS: Insulin Regular/NS 100 UNIT/100 ML PLAST..BAG IVCONT (04:00)
[2019-12-23] MEDS: Thiamine HCL 200 MG in 0.9 % Sodium Chloride 100 ML 204 MG IVPUSH ×2 (04:00→15:57)
[2019-12-23] MEDS: methylPREDNISolone Sod Succ/PF 125 MG/2 ML VIAL 80 MG IVPUSH ×2 (04:01→15:57)
[2019-12-23] MEDS: HYDROmorphone HCl 1 MG/ML SYRINGE IVPUSH ×2 (04:20→14:40)
[2019-12-23 05:09] LABS: MANUAL DIFF FLAG NO
[2019-12-23 05:16] LABS: Basophils Percent Auto 0.1 % (0-2); Hematocrit 27.2 % (42-52); Hemoglobin 8.8 g/dl (14.0-18.0); Imm Gran Pct Auto 0.6 % (0.0-0.4); Lymphocytes Absolute Auto 2.3 X10*3/uL (1.2-4.9); Lymphocytes Percent Auto 14.9 % (20-40); Mean Corpuscular HGB Conc 32.4 g/dl (31.0-36.0); Mean Corpuscular Hemoglobin 29.7 pg (27.0-33.0); Mean Corpuscular Volume 91.9 fL (80-98); Mean Platelet Volume 12.1 fL (9.4-12.4); Monocytes Absolute Auto 0.3 X10*3/uL (0.1-1.2); Monocytes Percent Auto 1.9 % (2-11); Neutrophils Absolute Auto 12.9 X10*3/uL (2.0-8.3); Neutrophils Percent Auto 82.5 % (45-73); Red Blood Count 2.96 X10*6/uL (4.60-5.80); White Blood Count 15.6 X10*3/uL (4.8-10.8)
[2019-12-23 05:21] LABS: Platelet Count 60 X10*3/uL (160-400)
[2019-12-23 05:26] LABS: INTERNATIONAL NORM RATIO 1.1 (0.9-1.1); Prothrombin Time 13.2 SEC (10.8-13.0)
[2019-12-23 05:28] LABS: Base Excess VBG 3.1 mmol/L; HCO3 VBG 28 mmol/L; PCO2 VBG 42 mmhg; PO2 VBG 43 mmhg; pH VBG 7.44 (7.32-7.43)
[2019-12-23 05:29] LABS: Oxygen Saturation VBG 76.5 %; Partial Thromboplastin Time 39.2 SEC (24.1-38.0)
[2019-12-23 05:39] LABS: D Dimer 1671 NG/ML
[2019-12-23 05:44] LABS: Alanine Aminotransferase 16 U/L (0-40); Albumin Level 2.4 g/dL (3.5-5.0); Alkaline Phosphatase 160 U/L (39-117); Anion Gap 24 (12-20); Aspartate Amino Transferase 12 U/L (5-37); Bilirubin Total 0.7 mg/dL (0.0-1.0); Blood Urea Nitrogen 87 mg/dL (9-16); Calcium 7.4 mg/dL (8.4-10.2); Carbon Dioxide 26 mmol/L (22-29); Chloride 95 mmol/L (96-108); Creatinine Clr Calc Pharmacy 16.9; Estimated Glomerular Filt Rate 13; Glucose Random 105 mg/dL (60-115); Potassium 4.6 mmol/l (3.3-5.1); Sodium 140 mmol/L (135-145); Total Protein 4.4 g/dL (6.5-8.0)
--- NOTE | 2019-12-23 06:25 | PC.NURSE ---
ASSUMED CARE AT 19:00. PATIENT REMAINS INTUBATED WITH #7.5 ETT, 27 CM PHILL, AC SETTINGS 18; TV 450; PEEP 5; FIO2 WAS 70%, TITRATED DOWN TO 60%; MINUTE VOLUMES 15-18; TIDAL VOLUMES IN 500'S. PATIENT HAS BEEN OVERBREATHING THE VENT, RR IN LOW 30'S AT TIMES; WAS GIVEN PRN DILAUDID 1 MG IV THIS MORNING FOR DISTRESS WITH GOOD EFFECT. ORAL SECRETIONS SMALL AMOUNT OF BROWN-CLEAR THIN SECRETIONS; INLINE SECRETIONS WITH INITIALLY NO SECRETIONS MOST OF THE NIGHT, BUT TOWARD THE RIPSHEAR OPERATOR, INLINE SECRETIONS BECAME THICK PALACIO COLORED. LUNG SOUNDS AUSCULTATED FOR CLEAR UPPERS AND DIM BASES, THEN COARSE THROUGHOUT, THEN CLEAR WITH CLEAR UPPERS AND SCATTERED FINE CRACKLES. PATIENT CVP WAS 4, BLOOD PRESSURES 100-130'S SYSTOLIC. ON MONITOR, PATIENT IS IN SINUS RHYTHM WITH BBB AND IS OCCASIONALLY V-PACED, BUT HIS MONITOR IS SET OFF OF PACER MODE DUE TO PRIOR INTERFERENCE. PATIENT IS SEDATED ON PROPOFOL AND RESPONDS TO NOXIOUS STIMULI, DID BLINK TO COMMAND EARLY IN THE NIGHT, WAS OCCASSIONALLY RESTLESS. IS STILL IN RESTRAINTS, SAFETY MAINTAINED. PATIENT ON INSULIN GTT, AND THIS WAS TITRATED PER HYPERGLYCEMIA PROTOCOL PER COAT REPAIR INSPECTOR'S INSTRUCTIONS, AND THIS WAS TRENDING DOWN, STEADY AND THEN DOWN AND THE GTT HAS BEEN OFF SINCE 04:40 AM. PATIENT ANURIC MOSTLY, BUT DID HAVE ONE EPISODE OF SMALL AMOUNT OF CLEAR-COLORED URINE INCONTINENCE, COAT REPAIR INSPECTOR AWARE. PATIENT ALSO WAS INCONTINENT FIVE TIMES OF MODERATE TO LARGE AMOUNTS OF STOOL, FROM INITIALLY BROWN WITH BLODD STREAKING TO LOOSE/LIQUID, AND DUE TO THE FUNGAL RASH AND DEVELOPING PERIANAL EXCORIATION, A RECTAL TUBE WAS PLACED WITH GOOD EFFECT, AND WAS ALSO IRRIGATED WITH 50 CCS OF STERILE WATER. NO AWARE OF BLOOD-STREAKED STOOL, AND RECENT OB STOOL CAME BACK POSITIVE.
[2019-12-23 06:35] LABS: Magnesium 2.4 mg/dL (1.6-2.6); Phosphorus 6.6 mg/dL (2.7-4.5)
[2019-12-23 07:14] LABS: Glucose, Whole Blood 92 mg/dL (60-115)
[2019-12-23 07:14] LABS: Glucose, Whole Blood 102 mg/dL (60-115)
[2019-12-23 07:14] LABS: Glucose, Whole Blood 89 mg/dL (60-115)
[2019-12-23] MEDS: Atorvastatin Calcium 80 MG TABLET PO (07:40)
[2019-12-23] MEDS: Nystatin Powder 15 GM BOTTLE 1 APPL TOPICAL (07:40)
[2019-12-23] MEDS: levoFLOXacin/D5W 500 MG/100 ML PIGGYBACK 100 MG IV (07:40)
[2019-12-23 08:17] LABS: Glucose, Whole Blood 102 mg/dL (60-115)
--- NOTE | 2019-12-23 09:53 | P.PNCC_ITS ---
Subjective Subjective Date of Service: 12/23/19 Interval History: 69-year-old 18 days ago diagnosed with COVID positivity developed bilateral pneumonitis and acute hypoxic respiratory failure ultimately coming to intubation has an underlying ischemic heart disease with ischemic myopathy an ejection fraction 30% and end-stage renal disease as well as insulin-dependent type 2 diabetes mellitus and hypertensive cardiovascular disease and is hemodialysis dependent and developed what appeared to be septic criteria yesterday hypotensive requiring 2 pressors and at that time had low central venous pressure measurements while he was on hemodialysis and hemodynamically unstable and ultimately stopping dialysis corrected this issue and today he remains metabolically improved full re-culturing yielded Enterobacter from the sputum with a chest x-ray that is markedly improved compared to 4 days earlier where it more reflected the her [place] id 19 disease but there is now a question that were seeing a ventilator associated secondary bacterial infection and given the sensitivities patient was given Levaquin and meropenem empiric full-dose Lovenox stopped because of guaiac-positive stool and drop in hemoglobin as there has been no documented thrombus Physical Exam Vital Signs: Vital Signs: Vital Signs Temp Pulse Resp BP Pulse Ox 12/23/19 08:35 80 22 H 133/65 92 12/23/19 08:00 97.9 F 79 21 H 135/114 H 91 L 12/23/19 07:00 81 21 H 127/68 94 12/23/19 06:00 98.2 F 80 21 H 118/64 93 12/23/19 05:00 98.6 F 85 24 H 134/67 92 12/23/19 04:20 31 H 12/23/19 04:00 99.1 F 89 31 H 130/68 94 12/23/19 03:00 99.1 F 89 31 H 116/69 94 12/23/19 02:00 99.1 F 84 27 H 108/51 L 12/23/19 01:00 99.1 F 90 31 H 115/53 L 93 12/23/19 00:00 99.3 F 93 31 H 133/68 99 12/22/19 23:00 99.5 F 88 26 H 119/63 94 12/22/19 22:00 99.3 F 92 29 H 149/67 H 96 12/22/19 21:00 99.1 F 91 28 H 147/69 H 96 12/22/19 20:00 99.1 F 88 28 H 138/68 96 10/26/20 19:00 98.8 F 83 22 H 139/78 95 12/22/19 18:00 98.4 F 82 23 H 155/78 H 95 12/22/19 17:00 97.9 F 85 23 H 100/58 L 93 12/22/19 16:00 97.7 F 92 27 H 69/37 L 12/22/19 14:46 88 24 H 144/64 H 90 L 12/22/19 14:00 97.7 F 86 24 H 124/60 91 L 12/22/19 13:00 82 24 H 141/53 H 94 12/22/19 12:00 97.7 F 84 24 H 145/62 H 94 12/22/19 11:51 142/64 H 12/22/19 10:58 82 23 H 131/60 89 L 12/22/19 10:00 97.5 F 81 22 H 138/56 L 89 L Body Mass Index 31.3 Const: Other: sedated and intubated skin is warmer and better perfused no evidence of livedo or acrocyanosis which is an improvement from yesterday vital signs including systolic pressure of 130 are without pressor support and CVP is normal at 7 neurologically nonfocal abdomen benign with no bruits no tenderness and no organomegaly coarse bilateral breath sounds on the ventilator but a 16 L minute ventilatory requirement with excellent tidal volumes on pressure control and a slightly improved FiO2 requirement to 60% maintaining saturation of 93% so clearly still not ready for weaning given high minute ventilatory requirement on cardiac exam he has got diminished bilateral carotid upstrokes commensurate with diminished stroke work reserve no resting gallop and rhythm is normal sinus with unchanged EKG Objective Data Labs CBC & Chem 7: 12/23/19 04:44 12/23/19 04:44 Labs: Laboratory Results - last 24 hr 12/22/19 12/22/19 12/22/19 10:15 11:58 14:23 WBC RBC Hgb Hct MCV MCH MCHC RDW Plt Count MPV Immature Gran % (Auto) Neut % (Auto) Lymph % (Auto) [place] % (Auto) Eos % (Auto) Baso % (Auto) Lymph # (Auto) [place] # (Auto) Eos # (Auto) Baso # (Auto) Abs Immat Gran (auto) Absolute Neuts (auto) Absolute Nucleated RBC Nucleated RBC % (auto) PT INR APTT D-Dimer VBG pH VBG pCO2 VBG Oxygen Liters/Min VBG pO2 VBG HCO3 VBG O2 Saturation VBG Base Excess Sodium Potassium Chloride Carbon Dioxide Anion Gap BUN Creatinine Estim Creat Clear Calc Estimated GFR POC Glucose 182 H Random Glucose 201 H 228 H Lactic Acid Calcium Phosphorus Magnesium Total Bilirubin AST ALT Alkaline Phosphatase Total Protein Albumin Stool Occult Blood 12/22/19 12/22/19 12/22/19 16:13 17:19 18:01 WBC RBC Hgb Hct MCV MCH MCHC RDW Plt Count MPV Immature Gran % (Auto) Neut % (Auto) Lymph % (Auto) [place] % (Auto) Eos % (Auto) Baso % (Auto) Lymph # (Auto) [place] # (Auto) Eos # (Auto) Baso # (Auto) Abs Immat Gran (auto) Absolute Neuts (auto) Absolute Nucleated RBC Nucleated RBC % (auto) PT INR APTT D-Dimer VBG pH VBG pCO2 VBG Oxygen Liters/Min VBG pO2 VBG HCO3 VBG O2 Saturation VBG Base Excess Sodium Potassium Chloride Carbon Dioxide Anion Gap BUN Creatinine Estim Creat Clear Calc Estimated GFR POC Glucose 163 H 161 H Random Glucose Lactic Acid Calcium Phosphorus Magnesium Total Bilirubin AST ALT Alkaline Phosphatase Total Protein Albumin Stool Occult Blood POS 12/22/19 12/22/19 12/22/19 18:05 18:05 18:05 WBC RBC Hgb Hct MCV MCH MCHC RDW Plt Count MPV Immature Gran % (Auto) Neut % (Auto) Lymph % (Auto) [place] % (Auto) Eos % (Auto) Baso % (Auto) Lymph # (Auto) [place] # (Auto) Eos # (Auto) Baso # (Auto) Abs Immat Gran (auto) Absolute Neuts (auto) Absolute Nucleated RBC Nucleated RBC % (auto) PT INR APTT D-Dimer VBG pH 7.44 H VBG pCO2 46 VBG Oxygen Liters/Min Not Reportable VBG pO2 56 VBG HCO3 30 VBG O2 Saturation 87.6 VBG Base Excess 5.4 Sodium 141 Potassium 4.0 D Chloride 96 Carbon Dioxide 28 Anion Gap 21 H BUN 66 H Creatinine 3.79 H Estim Creat Clear Calc 20.9 Estimated GFR 16 POC Glucose Random Glucose 192 H Lactic Acid 0.2 L Calcium 7.1 L Phosphorus Magnesium Total Bilirubin 0.8 AST 11 D ALT 18 Alkaline Phosphatase 182 H D Total Protein 4.7 L Albumin 2.5 L Stool Occult Blood 12/22/19 12/22/19 12/23/19 19:54 21:59 00:27 WBC RBC Hgb Hct MCV MCH MCHC RDW Plt Count MPV Immature Gran % (Auto) Neut % (Auto) Lymph % (Auto) [place] % (Auto) Eos % (Auto) Baso % (Auto) Lymph # (Auto) [place] # (Auto) Eos # (Auto) Baso # (Auto) Abs Immat Gran (auto) Absolute Neuts (auto) Absolute Nucleated RBC Nucleated RBC % (auto) PT INR APTT D-Dimer VBG pH VBG pCO2 VBG Oxygen Liters/Min VBG pO2 VBG HCO3 VBG O2 Saturation VBG Base Excess Sodium Potassium Chloride Carbon Dioxide Anion Gap BUN Creatinine Estim Creat Clear Calc Estimated GFR POC Glucose 221 H 197 H 161 H Random Glucose Lactic Acid Calcium Phosphorus Magnesium Total Bilirubin AST ALT Alkaline Phosphatase Total Protein Albumin Stool Occult Blood 12/23/19 12/23/19 12/23/19 02:22 04:43 04:43 WBC RBC Hgb Hct MCV MCH MCHC RDW Plt Count MPV Immature Gran % (Auto) Neut % (Auto) Lymph % (Auto) [place] % (Auto) Eos % (Auto) Baso % (Auto) Lymph # (Auto) [place] # (Auto) Eos # (Auto) Baso # (Auto) Abs Immat Gran (auto) Absolute Neuts (auto) Absolute Nucleated RBC Nucleated RBC % (auto) PT Cancelled 13.2 H INR Cancelled 1.1 APTT Cancelled 39.2 H D-Dimer 1671 VBG pH VBG pCO2 VBG Oxygen Liters/Min VBG pO2 VBG HCO3 VBG O2 Saturation VBG Base Excess Sodium Potassium Chloride Carbon Dioxide Anion Gap BUN Creatinine Estim Creat Clear Calc Estimated GFR POC Glucose 155 H Random Glucose Lactic Acid Calcium Phosphorus Magnesium Total Bilirubin AST ALT Alkaline Phosphatase Total Protein Albumin Stool Occult Blood 12/23/19 12/23/19 12/23/19 04:43 04:44 04:44 WBC 15.6 H RBC 2.96 L D Hgb 8.8 L Hct 27.2 L D MCV 91.9 MCH 29.7 MCHC 32.4 RDW 14.0 Plt Count 60 L MPV 12.1 Immature Gran % (Auto) 0.6 H Neut % (Auto) 82.5 H Lymph % (Auto) 14.9 L [place] % (Auto) 1.9 L Eos % (Auto) 0.0 Baso % (Auto) 0.1 Lymph # (Auto) 2.3 [place] # (Auto) 0.3 Eos # (Auto) 0.0 Baso # (Auto) 0.0 Abs Immat Gran (auto) 0.10 H Absolute Neuts (auto) 12.9 H Absolute Nucleated RBC 0.000 Nucleated RBC % (auto) 0.0 PT INR APTT D-Dimer VBG pH 7.44 H VBG pCO2 42 VBG Oxygen Liters/Min TNP VBG pO2 43 VBG HCO3 28 VBG O2 Saturation 76.5 VBG Base Excess 3.1 Sodium 140 Potassium 4.6 Chloride 95 L Carbon Dioxide 26 Anion Gap 24 H BUN 87 H* D Creatinine 4.69 H* Estim Creat Clear Calc 16.9 Estimated GFR 13 POC Glucose Random Glucose 105 D Lactic Acid Calcium 7.4 L Phosphorus 6.6 H Magnesium 2.4 Total Bilirubin 0.7 AST 12 ALT 16 Alkaline Phosphatase 160 H Total Protein 4.4 L Albumin 2.4 L Stool Occult Blood 12/23/19 12/23/19 12/23/19 04:48 05:46 06:44 WBC RBC Hgb Hct MCV MCH MCHC RDW Plt Count MPV Immature Gran % (Auto) Neut % (Auto) Lymph % (Auto) [place] % (Auto) Eos % (Auto) Baso % (Auto) Lymph # (Auto) [place] # (Auto) Eos # (Auto) Baso # (Auto) Abs Immat Gran (auto) Absolute Neuts (auto) Absolute Nucleated RBC Nucleated RBC % (auto) PT INR APTT D-Dimer VBG pH VBG pCO2 VBG Oxygen Liters/Min VBG pO2 VBG HCO3 VBG O2 Saturation VBG Base Excess Sodium Potassium Chloride Carbon Dioxide Anion Gap BUN Creatinine Estim Creat Clear Calc Estimated GFR POC Glucose 92 89 102 Random Glucose Lactic Acid Calcium Phosphorus Magnesium Total Bilirubin AST ALT Alkaline Phosphatase Total Protein Albumin Stool Occult Blood 12/23/19 08:02 WBC RBC Hgb Hct MCV MCH MCHC RDW Plt Count MPV Immature Gran % (Auto) Neut % (Auto) Lymph % (Auto) [place] % (Auto) Eos % (Auto) Baso % (Auto) Lymph # (Auto) [place] # (Auto) Eos # (Auto) Baso # (Auto) Abs Immat Gran (auto) Absolute Neuts (auto) Absolute Nucleated RBC Nucleated RBC % (auto) PT INR APTT D-Dimer VBG pH VBG pCO2 VBG Oxygen Liters/Min VBG pO2 VBG HCO3 VBG O2 Saturation VBG Base Excess Sodium Potassium Chloride Carbon Dioxide Anion Gap BUN Creatinine Estim Creat Clear Calc Estimated GFR POC Glucose 102 Random Glucose Lactic Acid Calcium Phosphorus Magnesium Total Bilirubin AST ALT Alkaline Phosphatase Total Protein Albumin Stool Occult Blood Microbiology Microbiology Results: Microbiology 12/17/19 16:46 Blood - Central Line Blood Culture - Final No growth after 5 days. 12/17/19 16:43 Blood - Central Line Blood Culture - Final No growth after 5 days. 12/20/19 08:00 Sputum - Suctioned Gram Stain - Final 12/20/19 08:00 Sputum - Suctioned Sputum Culture - Final Enterobacter cloacae complex Progress Note: A&P Assessment and plan (1) Acute respiratory failure with hypoxia and hypercarbia: Status: Acute (2) Ventilator-associated bacterial pneumonia: Status: Acute (3) Thrombocytopenia: Problem details: F/u Platelet levels Status: Acute (4) COVID-19: Problem details: Card / Pul support as per ICU team Status: Acute (5) ESRD (end stage renal disease) on dialysis: Problem details: Continue HD support . Usual HD on MWF Status: Chronic (6) Acute hyperglycemia: Status: Acute (7) Acute hyperkalemia: Problem details: Low K bath Status: Acute (8) Volume overload: Status: Acute (9) CKD (chronic kidney disease) requiring chronic dialysis: Status: Acute Assessment and Plan: so no dialysis necessary today because he is euvolemic and metabolically improved and antibiotics changed to meropenem and Levaquin for synergy for what appears to be an enterobacter ventilator associated pneumonia with persistently high minute ventilatory requirement but improving oxygenation Time Spent With Patient Time: Total time spent is greater than 50% in coordination of care (as documented) at patient's floor/unit and/or counseling patient: Total time spent with greater than 50% in coordination of care (as documented) at patient's floor/unit and/or counseling patient:: 45
[2019-12-23] MEDS: propofoL 1,000 MG/100 ML VIAL 22.42 MG IVCONT (10:25)
--- NOTE | 2019-12-23 10:32 | PM.PNNEP ---
Subjective Subjective Principal diagnosis: CKD /COVID Interval history: Events noted Physical Exam Vital Signs: Vital Signs: Vital Signs Temp Pulse Resp BP Pulse Ox 12/23/19 10:00 98.8 F 89 26 H 166/82 H 93 12/23/19 08:35 80 22 H 133/65 92 12/23/19 08:00 97.9 F 79 21 H 135/114 H 91 L 12/23/19 07:00 81 21 H 127/68 94 12/23/19 06:00 98.2 F 80 21 H 118/64 93 12/23/19 05:00 98.6 F 85 24 H 134/67 92 12/23/19 04:20 31 H 12/23/19 04:00 99.1 F 89 31 H 130/68 94 12/23/19 03:00 99.1 F 89 31 H 116/69 94 12/23/19 02:00 99.1 F 84 27 H 108/51 L 12/23/19 01:00 99.1 F 90 31 H 115/53 L 93 12/23/19 00:00 99.3 F 93 31 H 133/68 99 12/22/19 23:00 99.5 F 88 26 H 119/63 94 12/22/19 22:00 99.3 F 92 29 H 149/67 H 96 12/22/19 21:00 99.1 F 91 28 H 147/69 H 96 12/22/19 20:00 99.1 F 88 28 H 138/68 96 12/22/19 19:00 98.8 F 83 22 H 139/78 95 12/22/19 18:00 98.4 F 82 23 H 155/78 H 95 12/22/19 17:00 97.9 F 85 23 H 100/58 L 93 12/22/19 16:00 97.7 F 92 27 H 69/37 L 12/22/19 14:46 88 24 H 144/64 H 90 L 12/22/19 14:00 97.7 F 86 24 H 124/60 91 L 12/22/19 13:00 82 24 H 141/53 H 94 12/22/19 12:00 97.7 F 84 24 H 145/62 H 94 12/22/19 11:51 142/64 H 12/22/19 10:58 82 23 H 131/60 89 L Body Mass Index 31.3 Const: Other: Ill appearing General: ill appearing Resp: Effort & Inspection: abnormal respiratory pattern Auscultation: rhonchi Cardio: Jugular venous distension: no JVD Palpation: no palpable S4 Heart sounds: no rubs GI: Inspection: Yes normal to inspection Palpation (GI): Soft to palpation Neuro: Motor exam (neuro): no asterixis and No Asterixis during motor activity present Assessment & Plan Assessment and plan (1) Acute respiratory failure with hypoxia and hypercarbia: Status: Acute (2) COVID-19: Problem details: Card / Pul support as per ICU team Status: Acute (3) ESRD (end stage renal disease) on dialysis: Problem details: Continue HD support . Usual HD on MWF Status: Chronic (4) Acute hyperglycemia: Status: Acute
[2019-12-23] MEDS: Midazolam HCl/PF 2 MG/2 ML VIAL 3 MG IVPUSH (11:36)
[2019-12-23] MEDS: Insulin Lispro 100 UNIT/ML 3 ML VIAL SUBCUT ×2 (11:53→17:59)
[2019-12-23] MEDS: Midazolam HCl/NS 50 MG/50 ML PLAST..BAG IVCONT (11:53)
[2019-12-23 12:00] LABS: Glucose, Whole Blood 174 mg/dL (60-115)
[2019-12-23] MEDS: propofoL 1,000 MG/100 ML VIAL 28.03 MG IVCONT (12:41)
[2019-12-23 12:47] LABS: Base Excess VBG 0.6 mmol/L; HCO3 VBG 27 mmol/L; PCO2 VBG 55 mmhg; PO2 VBG 56 mmhg; pH VBG 7.32 (7.32-7.43)
[2019-12-23 12:48] LABS: Oxygen Saturation VBG 83.5 %
[2019-12-23] MEDS: Fluconazole in NaCl,Iso-Osm 200 MG/100 ML PIGGYBACK 100 MG IV (15:57)
--- NOTE | 2019-12-23 16:04 | MHC.CM.PN ---
Received call from pt's sister/HCP, Alexandro inquiring on pt's ability to sign papers giving her access to his finances and housing/lease amendment. Informed her that pt was medically unable to give any consent or sign documents and that she should contact an family law attorney for further guidance.
[2019-12-23 17:59] LABS: Glucose, Whole Blood 164 mg/dL (60-115)
[2019-12-23 19:05] LABS: HCO3 VBG 22 mmol/L; PCO2 VBG 57 mmhg; PO2 VBG 62 mmhg; pH VBG 7.21 (7.32-7.43)
--- NOTE | 2019-12-23 19:05 | PC.NURSE ---
1806 - 6BVT - PATIENT QRS THEN WIDENED AND ST DEPRESSION- MD NOTIFIED AND AT BEDSIDE WITH THIS RN - PROPOFOL GTT DISCONTINUED - LIDOCAIN 50MG IVP ADMINISTERED TWICE PER VO FROM DR ZHANG - LIDOCAIN GTT ORDERED AND ADMINISTERED PER EMAR - EKG OBTAINED - PER MD ? INFARCTION - PACER PADS AND LUCUS APPLIED TO PATIENT - CODE CART AT BEDSIDE - PATIENT HCP NOTIFIED BY TRUDY MAINTENANCE INSPECTOR - PATIENT NOW PEDIATRIC LPN STATUS PER PROVIDER. HANDOFF GIVEN TO PATITO KAPLAN.
[2019-12-23 19:06] LABS: Blood Gas Serial # 5414; Oxygen Saturation VBG 84.4 %
[2019-12-23 20:23] LABS: Anion Gap 25 (12-20); Blood Urea Nitrogen 113 mg/dL (9-16); Calcium 7.1 mg/dL (8.4-10.2); Carbon Dioxide 24 mmol/L (22-29); Chloride 95 mmol/L (96-108); Creatinine Clr Calc Pharmacy 14.1; Estimated Glomerular Filt Rate 10; Glucose Random 202 mg/dL (60-115); Magnesium 2.8 mg/dL (1.6-2.6); Potassium 5.8 mmol/l (3.3-5.1); Sodium 138 mmol/L (135-145); Troponin-I High Sensitivity 3494.6 ng/L (<3.5-35.0)
--- NOTE | 2019-12-23 20:41 | PC.NURSE ---
Family called at 1900, plan to terminally extubate pt. Extubated at 1948. Asystole 1999. NEOB called at 2029, see intervention.
--- NOTE | 2019-12-23 20:52 | PM.EVENT ---
Event Note Event Note: At 0606 pm Patient noted to have nonsustained V-tach. Patient was on 3 QT prolonging medication, discontinuing these agents as well as ordering lidocaine 50 x 2 doses and lidocaine drip. He did have a pacemaker/AICD With multiple paces spikes noted on monitor. He continued to have a wide complex tachycardia despite lidocaine and removal of QT prolonging agents. Patient next of kin sister Maisha Vega ([phone]) in [place] was contacted and informed of patient condition, and impending CPR. Sister said the patient would not want to be resuscitated and would like to make patient comfort measure. FLAME HARDENING MACHINE OPERATOR orders placed at 7:00 p.m. [employer] pacemaker union contract representative was called to have device shut off. Patient was extubated 7:50 p.m. On my exam- no response to verbal or physical stimuli, no spontaneous respiration, absent heart sounds, pupils are fixed and dilated, no corneal or gag reflex. Official time of a p.m.. Attending Dr Lowry notified. Maisha (sister) notified via phone. Battery Wrecker Operator contacted, patient did not met criteria to report. [facility] ([phone]) to report passing of patient due to COVID-19, message left to call back. Cause of Cardiac arrest, secondary to pneumonia from COVID-19
== END 2019-12-24 00:52 | disposition expired | DRG 207 ==
LOC: HO.ED 15:52 → HO.IMC 16:45 → HO.ICU 12-16 17:36
PROVIDERS: Anesthesiology; Family Medicine; Internal Medicine; Internal Medicine Nephrology; Physician Assistant Medical; Registered Nurse Community Health; Admitting Provider Family Medicine; Emergency Provider Internal Medicine; PCP Internal Medicine; Visit Provider Internal Medicine Cardiovascular Disease
DX: U07.1 COVID-19 (principal); N18.6 End stage renal disease; J96.01 Acute respiratory failure with hypoxia; J12.89 Other viral pneumonia; J96.02 Acute respiratory failure with hypercapnia; I13.2 Hypertensive heart and chronic kidney disease with heart failure and with stage 5 chronic kidney disease, or end stage renal disease; J95.851 Ventilator associated pneumonia; I47.1 Supraventricular tachycardia; E11.22 Type 2 diabetes mellitus with diabetic chronic kidney disease; I25.10 Atherosclerotic heart disease of native coronary artery without angina pectoris; I95.1 Orthostatic hypotension; F41.9 Anxiety disorder, unspecified; R41.0 Disorientation, unspecified; E11.65 Type 2 diabetes mellitus with hyperglycemia; N18.9 Chronic kidney disease, unspecified; I46.8 Cardiac arrest due to other underlying condition; E78.00 Pure hypercholesterolemia, unspecified; E87.5 Hyperkalemia; Z99.2 Dependence on renal dialysis; Z95.0 Presence of cardiac pacemaker; D69.6 Thrombocytopenia, unspecified; Z95.1 Presence of aortocoronary bypass graft; Z79.4 Long term (current) use of insulin; Z79.899 Other long term (current) drug therapy; Z51.5 Encounter for palliative care
CPT/HCPCS: 36415; 36600; 71045; 71046; 80048; 80053; 80076; 80202; 81001; 82009; 82272; 82550; 82728; 82800; 82803; 82947; 83605; 83615; 83690; 83735; 84100; 84145; 84484; 85007; 85025; 85027; 85060; 85379; 85384; 85610; 85730; 86022; 86140; 86769; 87040; 87070; 87077; 87186; 87205; 87449; 87633; 87899; 90999; 93005; 93308; 93970; 94002; 94003; 94640; 94799; 96365; 96366; 96375; 99225; 99232; 99233; 99285; 99291; J0171; J0883; J1100; J1170; J1450; J1650; J1940; J1956; J2060; J2250; J2405; J2930; J3010; J3411; J3475; P9047